=== PATIENT | male | born 1950 | race Caucasian/White ===

== ENCOUNTER 2023-10-05 09:41 | Outpatient (AMB) | payer MEDICARE, MEDICAID, SELFPAY ==
--- NOTE | 2023-10-05 09:43 | A.OFFVIS_ITS ---
Vital Signs 3 10/05/23 09:47 Height 5 ft 5 in Weight 141 lb 2 oz BMI 23.5 BP 125/60 Blood Pressure Location Lt brachial Position Sitting Pulse 81 Intake Visit Reasons: Hernia Intake Note: Patient is seen in office for evaluation and treatment of a hernia. Pt c/o: umbilical hernia, has increase in size, painful at times, denies n/v/d/c, had surgery in the area, appendectomy [employer] Required: No Accompanied by: Other Relationship Allergies No Known Allergies Allergy (Verified 10/05/23 10:05) Medication List - Last Reconciled 10/05/23 by Marco Bowden MD acetaminophen 650 mg MA Q6H acetaminophen (Tylenol) 325 mg PO Q6H PRN bisacodyl (Gentle Laxative (bisacodyl)) 10 mg MA DAILY PRN cholecalciferol (vitamin D3) 10 mcg PO DAILY ciprofloxacin 250 mg PO BID ferrous sulfate 325 mg PO BID finasteride 5 mg PO DAILY gabapentin 100 mg PO DAILY levetiracetam 500 mg PO BID lidocaine 5% (Lidoderm) 1 patch topical DAILY metoprolol tartrate 25 mg PO BID mirtazapine 15 mg PO BEDTIME naloxone 4 mg/actuation (Narcan) 4 mg intranasal Q2M naloxone 0.4 mg subcut Q2M PRN oxybutynin chloride 5 mg PO DAILY pantoprazole 40 mg PO DAILY polyethylene glycol 3350 17 grams PO DAILY potassium chloride ER 20 mEq PO DAILY ramelteon 8 mg PO BEDTIME revefenacin (Yupelri) 175 mcg inhalation DAILY roflumilast 500 mcg PO DAILY rosuvastatin 20 mg PO DAILY rosuvastatin (Crestor) 10 mg PO DAILY sennosides-docusate sodium 8.6-50 mg (Senna Plus) 1 tab-cap PO BEDTIME sucralfate 1 g PO QIDACHS tamsulosin 0.4 mg PO DAILY tizanidine 2 mg PO Q8H PRN HPI Comments Details: 73-year-old male patient with past medical history of Alzheimer's disease, COPD, status post exploratory laparotomy for perforated appendicitis presenting with a large abdominal hernia. No information regarding patient's prior history is available other than medication list and no referring physician note is available to time of this examination. Patient feels the lump has been present for 1 year. He reports difficulty moving his bowels because of the lump. He denies any nausea or vomiting. [facility] Medical History (Updated 10/05/23 @ 10:17 by Marco Bowden MD) Alzheimers disease Irreducible incisional hernia Perforated appendicitis COPD (chronic obstructive pulmonary disease) Surgical History (Updated 10/05/23 @ 10:17 by Marco Bowden MD) History of appendectomy Social History Alcohol intake: never Patient Tobacco Use Status: Current everyday Tobacco user Review of Systems Const Unobtainable due to mental status Physical Exam Vital Signs: Last Vital Signs Pulse 81 10/05/23 09:47 BP 125/60 10/05/23 09:47 BMI result Body Mass Index 23.5 Const General: cooperative and no acute distress Nutritional Appearance: well nourished Orientation/consciousness: patient oriented x3 Limitations: no limitations HEENT Head: Yes normocephalic and Yes atraumatic Ears: hearing grossly normal bilaterally Resp Other: Short of breath with minimal ambulation and when lying supine. Effort & Inspection: normal respiratory effort Cardio Jugular venous distension: no JVD GI Other: Large midline incisional hernia identified measuring at least 15 cm in diameter. Patient placed in a supine, unable to reduce the hernia with light pressure. Minimal tenderness noted to light pressure. No overlying skin changes such as erythema appreciated. Inspection: Yes normal to inspection Abdomen image: 2 1. Previous midline incision 2. Site of incisional hernia Skin Other: Warm, dry, no rash Neuro General: patient oriented x3 Extrem General: Yes no clubbing, cyanosis or edema Assessment & Plan Assessment & Plan (1) Irreducible incisional hernia: Code(s): K43.0 - Incisional hernia with obstruction, without gangrene Category: Medical Plan 73-year-old male presenting for evaluation of an incisional hernia. He apparently underwent an exploratory laparotomy for perforated appendicitis. Minimal information is available at the time of this evaluation. On examination the patient does have a large non reducible incisional hernia. Patient does have COPD and become short of breath with short walking and when lying supine. I recommended further evaluation with CT abdomen and pelvis to evaluate the extent of herniation. Patient may be at high risk for general anesthesia due to his COPD and will certainly require medical clearance prior to considering surgery. We will discuss further when CT results are available. Orders: Orders 2 CT abdomen pelvis wo IV con Today K43.0 - Incisional hernia with obstruction, without gangrene Coding Level of Care Code New Pt Level 4 (04664) Diagnoses Irreducible incisional hernia K43.0
[2023-10-05 09:47] VITALS: BP 125/60; PULSE 81; BMI 23.5
== END 2023-10-05 10:14 | disposition home or self-care (01) ==
LOC: HO.HGS 09:41
PROVIDERS: PCP Emergency Medicine; Visit Provider Surgery
DX: K43.0 Incisional hernia with obstruction, without gangrene (principal)
CPT/HCPCS: 99204

== ENCOUNTER → 2023-10-05 09:41 | Outpatient (BNVA) | payer MEDICARE, MEDICAID, SELFPAY | PROVIDERS: PCP Emergency Medicine; Visit Provider Surgery | DX: K43.0 Incisional hernia with obstruction, without gangrene (principal) | CPT/HCPCS: 99202 ==

== ENCOUNTER 2023-11-24 18:14 | Emergency (ER) | payer OTHER, SELFPAY ==
[2023-11-24 18:26] VITALS: BP 132/74; BP 135/62; PULSE 110; PULSE 95; RESP 18; TEMP 36.7; O2SAT 90; O2SAT 94; BMI 23.6
--- NOTE | 2023-11-24 18:39 | ED.PSYCH ---
HPI - Psych General Chief Complaint: ETOH/Substance Use Stated Complaint: Drug use - marijuana Time Seen by Provider: 11/24/23 18:18 Source: patient Mode of arrival: EMS Limitations: no limitations History of Present Illness ED Provider: Dr. Kahlil Kennedy HPI Narrative: 73-year-old male with a history of dementia, chronic anemia, hypokalemia, BPH, COPD, esophageal cancer, kidney disease, renal calculi, hyperlipidemia, essential hypertension, depression, opiate dependence-remission chronic pain syndrome who was sent from his care facility for the following: ?Resident with increased aggression, found smoking illicit substance not sure what may contain and contraindicated with medications ?. Patient states that he was smoking marijuana. He states that he was in [facility] for [facility] years and was in a detention house. He states that he had multiple falls, was hospitalized and is been at the nursing facility since May of 2023. According to the nursing facility the patient is not allowed to leave from our facility since this would violated his parole. The nursing facilities requesting a urine drug screen. Patient states that he has not feeling ill in any way. He denied headache, nausea, vomiting, chest pain, shortness of breath, abdominal pain, numbness, weakness, fever, chills. Related Data Home Medications ?Medication ?Instructions ?Recorded ?Confirmed acetaminophen 325 mg capsule 325 mg PO Q6H PRN 10/05/23 10/05/23 (Tylenol) acetaminophen 650 mg rectal 650 mg OR Q6H 10/05/23 10/05/23 suppository bisacodyl 10 mg rectal suppository 10 mg OR DAILY PRN 10/05/23 10/05/23 (Gentle Laxative (bisacodyl)) cholecalciferol (vitamin D3) 10 10 mcg PO DAILY 10/05/23 10/05/23 mcg (400 unit) capsule ciprofloxacin 250 mg/5 mL oral 250 mg PO BID 10/05/23 10/05/23 suspension ferrous sulfate 325 mg (65 mg 325 mg PO BID 10/05/23 10/05/23 iron) tablet finasteride 5 mg tablet 5 mg PO DAILY 10/05/23 10/05/23 gabapentin 100 mg capsule 100 mg PO DAILY 10/05/23 10/05/23 levetiracetam 500 mg tablet 500 mg PO BID 10/05/23 10/05/23 lidocaine 5 % topical patch 1 patch topical DAILY 10/05/23 10/05/23 (Lidoderm) metoprolol tartrate 25 mg tablet 25 mg PO BID 10/05/23 10/05/23 mirtazapine 15 mg tablet 15 mg PO BEDTIME 10/05/23 10/05/23 naloxone 0.4 mg/mL injection 0.4 mg subcut Q2M PRN 10/05/23 10/05/23 solution naloxone 4 mg/actuation nasal 4 mg intranasal Q2M 10/05/23 10/05/23 spray (Narcan) oxybutynin chloride 5 mg tablet 5 mg PO DAILY 10/05/23 10/05/23 pantoprazole 40 mg tablet,delayed 40 mg PO DAILY 10/05/23 10/05/23 release polyethylene glycol 3350 17 17 g PO DAILY 10/05/23 10/05/23 gram/dose oral powder potassium chloride 20 mEq 20 meq PO DAILY 10/05/23 10/05/23 tablet,extended release ramelteon 8 mg tablet 8 mg PO BEDTIME 10/05/23 10/05/23 revefenacin 175 mcg/3 mL solution 175 mcg inhalation DAILY 10/05/23 10/05/23 for nebulization (Yupelri) roflumilast 500 mcg tablet 500 mcg PO DAILY 10/05/23 10/05/23 rosuvastatin 10 mg tablet (Crestor) 10 mg PO DAILY 10/05/23 10/05/23 rosuvastatin 20 mg tablet 20 mg PO DAILY 10/05/23 10/05/23 sennosides 8.6 mg-docusate sodium 1 tab-cap PO BEDTIME 10/05/23 10/05/23 50 mg capsule (Senna Plus) sucralfate 1 gram tablet 1 g PO QIDACHS 10/05/23 10/05/23 tamsulosin 0.4 mg capsule 0.4 mg PO DAILY 10/05/23 10/05/23 tizanidine 2 mg tablet 2 mg PO Q8H PRN 10/05/23 10/05/23 Allergies Allergy/AdvReac Type Severity Reaction Status Date / Time No Known Allergies Allergy Verified 11/24/23 18:28 Review of Systems Review of Systems: Yes all other systems are reviewed and are negative [facility] Past Medical History [facility] Narrative: Social history: Patient is a resident of [facility]. He does admit to smoking marijuana. He states that he smokes marijuana whenever he can get his hands on the marijuana. Medical History (Updated 11/24/23 @ 20:23 by Kahlil Kennedy MD) Alzheimers disease Irreducible incisional hernia Perforated appendicitis COPD (chronic obstructive pulmonary disease) Surgical History (Updated 10/05/23 @ 10:17 by Marco Bowden MD) History of appendectomy Social History Social History Alcohol intake: never Patient Tobacco Use Status: Current everyday Tobacco user Do you have a plan to hurt others: No Plan Physical Exam Vital Signs: Vital Signs: Last Vital Signs Temp 98.0 F 11/24/23 18:26 Pulse 95 11/24/23 18:26 Resp 18 11/24/23 18:26 BP 135/62 11/24/23 18:26 Pulse Ox 90 L 11/24/23 18:26 O2 Del Method Room Air 11/24/23 18:26 BMI result Body Mass Index 23.6 Vital signs were normal Exam: General: Awake, alert in no distress, he does have a strong odor of marijuana on his clothes. Head: Normocephalic, atraumatic EENT: PERRL, Lids normal, sclera normal, conjunctiva normal, nose normal , ears normal, throat without erythema or exudates Neck: Supple, no adenopathy Lung: breath sounds symmetric, no wheezing, rales or rhonchi Chest: symmetric movement, nontender, right chest Port-A-Cath Heart: regular rate and rhythm, normal S1, S2 no murmurs or rubs Abdomen: soft, non-tender, nondistended, large abdominal hernia right lower quadrant and mid abdomen, soft, nontender, normal bowel sounds Back: no vertebral tenderness, no CVAT Extremities: no deformities, moves all extremities symmetrically Neuro: Awake, alert, oriented, normal speech, cranial nerves intact, moves all extremities symmetrically Psych: Patient is cooperative Medical Decision Making Medical Decision Making MDM Narrative: 73-year-old male with a history of dementia, chronic anemia, hypokalemia, BPH, COPD, esophageal cancer, kidney disease, renal calculi, hyperlipidemia, essential hypertension, depression, opiate dependence-remission chronic pain syndrome who was sent from his care facility for evaluation of using illicit substance and a urine drug screen. The patient denies being ill in any way. Physical examination did reveal a strong odor of marijuana on his clothes otherwise was unremarkable with no acute findings. Differential diagnosis: ?Includes but is not limited to marijuana use, illicit substance use Following evaluation was ordered: Urine tox screen Course: 20:21 Patient's urine tox screen was positive for marijuana only. Patient will be discharged back to his care facility. Lab Data MDM Lab Attestation statement: I reviewed the patient's lab results. Labs: Lab Results 11/24/23 Range/Units 19:13 Urine Opiates Screen Not Detected (Not Detect) Ur Buprenorphine Scrn Not Detected (Not Detect) ng/mL Ur Oxycodone Screen Not Detected (Not Detect) ng/mL Urine Methadone Screen Not Detected (Not Detect) ng/mL Urine Fentanyl Screen Not Detected (Not Detect) Ur Barbiturates Screen Not Detected (Not Detect) Ur Phencyclidine Scrn Not Detected (Not Detect) Ur Amphetamines Screen Not Detected (Not Detect) U Benzodiazepines Scrn Not Detected (Not Detect) Urine Cocaine Screen Not Detected (Not Detect) U Marijuana (THC) Screen POSITIVE H (Not Detect) Discharge Plan Discharge Clinical Impression: Cannabis use disorder Patient Disposition: Xfer LTC Transfer Details: [facility] Additional Instructions: Your urine drug screen was positive for THC (marijuana) only. Your stable to be discharged back to your long-term care facility. Prescriptions: No Action Yupelri 175 mcg/3 mL solution for nebulization 175 mcg inhalation DAILY cholecalciferol (vitamin D3) 10 mcg (400 unit) capsule 10 mcg PO DAILY lidocaine [Lidoderm] 5 % adhesive patch,medicated 1 patch topical DAILY Rx Instructions: leave on most painful area for up to 12 hrs potassium chloride 20 mEq tablet extended release 20 meq PO DAILY finasteride 5 mg tablet 5 mg PO DAILY pantoprazole 40 mg tablet,delayed release (DR/EC) 40 mg PO DAILY roflumilast 500 mcg tablet 500 mcg PO DAILY tamsulosin 0.4 mg capsule 0.4 mg PO DAILY ciprofloxacin 250 mg/5 mL suspension,microcapsule recon 250 mg PO BID rosuvastatin 20 mg tablet 20 mg PO DAILY mirtazapine 15 mg tablet 15 mg PO BEDTIME ramelteon 8 mg tablet 8 mg PO BEDTIME rosuvastatin [Crestor] 10 mg tablet 10 mg PO DAILY gabapentin 100 mg capsule 100 mg PO DAILY ferrous sulfate 325 mg (65 mg iron) tablet 325 mg PO BID Senna Plus 8.6-50 mg capsule 1 tab-cap PO BEDTIME levetiracetam 500 mg tablet 500 mg PO BID metoprolol tartrate 25 mg tablet 25 mg PO BID sucralfate 1 gram tablet 1 g PO QIDACHS polyethylene glycol 3350 17 gram/dose powder 17 g PO DAILY bisacodyl [Gentle Laxative (bisacodyl)] 10 mg suppository 10 mg OR DAILY PRN acetaminophen [Tylenol] 325 mg capsule 325 mg PO Q6H PRN acetaminophen 650 mg suppository 650 mg OR Q6H oxybutynin chloride 5 mg tablet 5 mg PO DAILY tizanidine 2 mg tablet 2 mg PO Q8H PRN naloxone 0.4 mg/mL solution 0.4 mg subcut Q2M PRN Rx Instructions: NTExceed 10 mg total dose/episode naloxone [Narcan] 4 mg/actuation spray,non-aerosol 4 mg intranasal Q2M Rx Instructions: spray 1 dose into ONE nostril; alternate nostrils w each dose until help arrives Print Language: Italian
--- NOTE | 2023-11-24 18:48 | PC.NURSE ---
Purnima Dooley, quality assurance test program manager from [facility], called to say that when pt. gets discharged from ED, he is to come back to [facility] as part of his parole. Purnima is to be reached at [phone]
[2023-11-24 19:30] LABS: Amphetamine Screen Urine Not Detected (Not Detect); Barbiturates, Urine Not Detected (Not Detect); Benzodiazepines Screen Urine Not Detected (Not Detect); Buprenorphine Scr Not Detected (Not Detect); Cannabinoid Screen Urine POSITIVE (Not Detect); Cocaine Screen Urine Not Detected (Not Detect); Fentanyl, urine Not Detected (Not Detect); Methadone Screen, Urine Not Detected (Not Detect); Opiate Screen Urine Not Detected (Not Detect); Oxycodone Screen Urine Not Detected (Not Detect); Phencyclidine Screen Urine Not Detected (Not Detect)
--- NOTE | 2023-11-24 19:47 | PC.NURSE ---
pt searched by security. no smoking contrabands found. pt is axox4 calm/cooperative. allen sent to lab awaiting results, pending d/c.
[2023-11-24 20:45] VITALS: BP 123/74; PULSE 84; RESP 18; TEMP 36.7; O2SAT 93
--- NOTE | 2023-11-24 21:16 | PC.NURSE ---
Addendum entered by Yumiko Pepe 11/24/23 21:19: pt medically cleared by to be d[facility]c [facility]. staff concerned about marijuana interference with regular medications; addressed by MD on the phone with [facility]. Original Note: notified [facility] staff of pt d/c with [facility]. pt d/c with [facility], calm/cooperative and in agreement to go back.
[2023-11-24 21:17] VITALS: BP 123/74; PULSE 84; RESP 18; TEMP 36.7; O2SAT 93
== END 2023-11-24 21:21 ==
PROVIDERS: Emergency Provider Emergency Medicine Emergency Medical Services
DX: Z02.83 Encounter for blood-alcohol and blood-drug test (principal); F12.988 Cannabis use, unspecified with other cannabis-induced disorder; F17.210 Nicotine dependence, cigarettes, uncomplicated; F11.21 Opioid dependence, in remission; Z79.899 Other long term (current) drug therapy; Z79.02 Long term (current) use of antithrombotics/antiplatelets
CPT/HCPCS: 80307; 99283

== ENCOUNTER 2023-11-25 17:15 | Inpatient (IN) | payer MEDICARE, MEDICAID, SELFPAY ==
--- NOTE | ~2023-11-25 | CT_ITS ---
EXAMINATION: CT CHEST WITHOUT CONTRAST CLINICAL INFORMATION: Lung mass COMPARISON: Chest radiograph from earlier the same day TECHNIQUE: Multidetector volumetric CT imaging of the chest was done. Axial MIP volume rendering provided. Sagittal and coronal reformatted images were obtained. This CT examination was performed using dose optimization techniques as appropriate, variously including the following: *Automated exposure control *Adjustment of mA and/or kV according to patient size (this includes techniques or standardized protocols for targeted exams where dose is matched to indication/reason for exam; i.e. extremities or head) *Use of iterative reconstruction technique DLP: 110 mGy-cm FINDINGS: LUNGS: Moderate emphysema. Diffuse bronchial wall thickening. Some tree-in-bud nodularity in the medial right lower lobe suggesting focal infectious/inflammatory process. Scattered areas of atelectasis. No dense consolidation. Some small scattered nodules, for example in the left lung apex there is a 4 mm nodule (77/603), polygonal 6 mm nodule in the right upper lobe (271/603. MEDIASTINUM: Status post esophagectomy and gastric pull-up. Mediastinal lymph nodes measuring up to 1.3 cm in the right lower paratracheal station normal heart size, no pericardial effusion. Atherosclerotic calcification throughout the thoracic aorta. CORONARY ARTERY CALCIFICATION: Moderate to severe PLEURA: Trace effusions. AXILLA: Right IJ portacatheter. No axillary lymphadenopathy. UPPER ABDOMEN: Left-sided renal calculi measuring up to 5.5 mm. OSSEOUS STRUCTURES: Exaggerated kyphotic curvature in the thoracic spine. Multilevel moderate spondylosis. There is a severe compression deformity at T12 with vertebral plana. Mild compression deformities at T8 and T9. CT/CT chest wo IV con IMPRESSION: 1. Moderate emphysema. Diffuse bronchial wall thickening. Tree-in-bud nodularity in the medial right lower lobe suggesting focal infectious/inflammatory process. 2. Scattered small pulmonary nodules measuring up to 6 mm in the right upper lobe. Comparison with prior imaging would be helpful to assess acuity. Recommend follow-up imaging in one year if comparison is not available. 3. Status post esophagectomy and gastric pull-up. 4. Severe compression deformity at T12 with vertebral plana. Mild compression deformities at T8 and T9. 5. Left-sided renal calculi measuring up to 5.5 mm. Fleischner guidelines were followed.
--- NOTE | ~2023-11-25 | XR_ITS ---
EXAMINATION: XR CHEST CLINICAL INFORMATION: Hypoxia COMPARISON: None available. TECHNIQUE: Frontal view of the chest was obtained. FINDINGS: vascularity. LUNGS: Lungs are hyperinflated with flat hemidiaphragms. Mass like alveolar density is seen in medial right lower lung infrahilar region measuring 2.2 cm in vertical height, 1.9 cm in width. No pneumothorax is seen. Right internal jugular central line is seen ending at expected location of superior vena cava. XR/XR chest 1V IMPRESSION: 1. Mass like alveolar density in medial right lower lung infrahilar region. Correlation with clinical history and CT chest finding is recommended. 2. Right internal jugular Port-A-Cath is seen. 3. Emphysematous COPD.
--- NOTE | 2023-11-25 17:43 | ED.PSYCH ---
HPI - Psych General Chief Complaint: Behavioral Concerns Stated Complaint: SECT 12 FROM [facility] Time Seen by Provider: 11/25/23 17:33 Source: patient and other (Section 12) Mode of arrival: EMS Limitations: no limitations History of Present Illness ED Provider: Dr. Kahlil Kennedy HPI Narrative: 73-year-old male with a history of dementia, chronic anemia, hypokalemia, BPH, COPD, esophageal cancer, kidney disease, renal calculi, hyperlipidemia, essential hypertension, depression, opiate dependence-remission, chronic pain syndrome who was seen in the emergency department yesterday by me for aggressive behavior at his nursing facility and for smoking marijuana. The patient did have a positive marijuana test but was not aggressive in the emergency department yesterday and was discharged back to his care facility. The patient was sent back to the emergency department on a Section 12. Following information was obtained from the Section 12: ?Using illicit substance and facility; violent and aggressive behavior: Kicking, hitting, throwing items, verbal threats of harm. Active attempts to leave facility. According to EMS, patient through hot coffee at a nurse today as well. Here in the emergency department the patient is threatening violence against ED staff. He states that he does not want to be here. He states he does not want to be his long-term care facility and that he wants to go back to halfway. The patient told me yesterday that he committed murder proximally 38 years ago and was released in halfway in his been on parole for several years. He was living at a half-way house but since May after multiple falls he has been living in a long-term care facility ([facility]). Related Data Home Medications ?Medication ?Instructions ?Recorded ?Confirmed acetaminophen 325 mg capsule 325 mg PO Q6H PRN Mild Pain (Scale 10/05/23 11/26/23 (Tylenol) Score 1-4) acetaminophen 650 mg rectal 650 mg ME Q6H 10/05/23 11/26/23 suppository bisacodyl 10 mg rectal suppository 10 mg ME DAILY PRN Constipation 10/05/23 11/26/23 (Gentle Laxative (bisacodyl)) cholecalciferol (vitamin D3) 10 10 mcg PO DAILY 10/05/23 11/26/23 mcg (400 unit) capsule ciprofloxacin 250 mg/5 mL oral 250 mg PO BID 10/05/23 10/05/23 suspension ferrous sulfate 325 mg (65 mg 325 mg PO BID 10/05/23 11/26/23 iron) tablet finasteride 5 mg tablet 5 mg PO DAILY 10/05/23 11/26/23 gabapentin 100 mg capsule 100 mg PO DAILY 10/05/23 10/05/23 levetiracetam 500 mg tablet 500 mg PO BID 10/05/23 11/26/23 lidocaine 5 % topical patch 1 patch topical DAILY 10/05/23 11/26/23 (Lidoderm) metoprolol tartrate 25 mg tablet 25 mg PO BID 10/05/23 11/26/23 mirtazapine 15 mg tablet 15 mg PO BEDTIME 10/05/23 11/26/23 naloxone 0.4 mg/mL injection 0.4 mg subcut Q2M PRN Opioid 10/05/23 11/26/23 solution Overdose naloxone 4 mg/actuation nasal 4 mg intranasal Q2M 10/05/23 11/26/23 spray (Narcan) oxybutynin chloride 5 mg tablet 5 mg PO DAILY 10/05/23 11/26/23 pantoprazole 40 mg tablet,delayed 40 mg PO DAILY 10/05/23 11/26/23 release polyethylene glycol 3350 17 17 g PO DAILY 10/05/23 11/26/23 gram/dose oral powder potassium chloride 20 mEq 20 meq PO DAILY 10/05/23 11/26/23 tablet,extended release ramelteon 8 mg tablet 8 mg PO BEDTIME 10/05/23 11/26/23 revefenacin 175 mcg/3 mL solution 175 mcg inhalation DAILY 10/05/23 10/05/23 for nebulization (Yupelri) roflumilast 500 mcg tablet 500 mcg PO DAILY 10/05/23 11/26/23 rosuvastatin 10 mg tablet (Crestor) 10 mg PO DAILY 10/05/23 11/26/23 rosuvastatin 20 mg tablet 20 mg PO DAILY 10/05/23 10/05/23 sennosides 8.6 mg-docusate sodium 1 tab-cap PO BEDTIME 10/05/23 11/26/23 50 mg capsule (Senna Plus) sucralfate 1 gram tablet 1 g PO QIDACHS 10/05/23 11/26/23 tamsulosin 0.4 mg capsule 0.4 mg PO DAILY 10/05/23 11/26/23 tizanidine 2 mg tablet 2 mg PO Q8H PRN Spasms 10/05/23 11/26/23 Allergies Allergy/AdvReac Type Severity Reaction Status Date / Time No Known Allergies Allergy Verified 11/25/23 17:54 Review of Systems Review of Systems: Yes all other systems are reviewed and are negative [facility] Past Medical History Medical History (Updated 11/26/23 @ 01:48 by Kahlil Kennedy MD) Alzheimers disease Irreducible incisional hernia Perforated appendicitis COPD (chronic obstructive pulmonary disease) Surgical History (Updated 10/05/23 @ 10:17 by Marco Bowden MD) History of appendectomy Social History Social History Alcohol intake: never Patient Tobacco Use Status: Current everyday Tobacco user Smoked in Last 30 Days: No Use of substances other than those prescribed or required for medical reasons: Yes Substance Use Type: Marijuana Last Used Substance: Hours (ago) Advance Directives: No Advance Directives Information Provided: No Physical Exam Vital Signs: Vital Signs: Last Vital Signs Temp 97.2 F 11/25/23 18:00 Pulse 94 11/25/23 18:00 Resp 22 H 11/25/23 18:00 BP 110/83 11/25/23 18:00 Pulse Ox 93 11/25/23 18:00 O2 Del Method Room Air 11/25/23 18:00 BMI result Body Mass Index 24.0 Exam: General: Awake, alert in no distress, patient is sitting in a chair, he is talking loudly in stating that does not want to be here and that he does not want to cooperate with our evaluation. Head: Normocephalic, atraumatic EENT: PERRL, Lids normal, sclera normal, conjunctiva normal, nose normal , ears normal, throat without erythema or exudates Neck: Supple, no adenopathy Lung: breath sounds symmetric, no wheezing, rales or rhonchi Chest: symmetric movement, nontender Heart: regular rate and rhythm, normal S1, S2 no murmurs or rubs Abdomen: soft, non-tender, nondistended, normal bowel sounds Back: no vertebral tenderness, no CVAT Extremities: no deformities, moves all extremities symmetrically Neuro: Awake, alert, oriented, normal speech, cranial nerves intact, moves all extremities symmetrically Psych: Patient did make verbal threats against our staff however he did agree to get undressed, take his watch and jewelry off. He also agree to oral medications to help control his aggression. Medications Administered Discontinued Medications Generic Name Dose Route Start Last Admin Trade Name Abbey PRN Reason Stop Dose Admin Diphenhydramine HCl 25 mg 11/25/23 17:43 11/25/23 18:07 Diphenhydramine Hcl 25 Mg Capsule PO 11/25/23 17:44 25 mg ONCE ONE Administration Olanzapine 10 mg 11/25/23 17:43 11/25/23 18:07 Olanzapine 10 Mg Tablet PO 11/25/23 17:44 10 mg ONCE ONE Administration Medical Decision Making Medical Decision Making [facility] Narrative: 73-year-old male with a history of dementia, chronic anemia, hypokalemia, BPH, COPD, esophageal cancer, kidney disease, renal calculi, hyperlipidemia, essential hypertension, depression, opiate dependence-remission, chronic pain syndrome who was seen in the emergency department yesterday by me for aggressive behavior at his nursing facility and for smoking marijuana, tox screen was positive for marijuana only. According to his Section 12 the patient continued to display aggressive behavior at the nursing facility and reportedly threw hot coffee at a nurse. Patient also was attempting to leave the facility. Patient was in halfway for 38 years for murder and currently is on parole and reported that he has been at his current long-term nursing facility since 06/09/2023 secondary to falls. Patient is on parole and leaving the nursing facility would violated his parole conditions. Patient's physical examination was unremarkable. Differential diagnosis: ?Includes but is not limited to dementia, aggressive behavior, depression, anxiety, electrolyte abnormalities, thyroid dysfunction, anemia, urinary tract infection Following evaluation was ordered: CBC, CMP, magnesium, PTT, TSH with reflex T4, urinalysis, drug screen urine, ethanol level Patient was initially treated with the following: Zyprexa 10 mg orally, Benadryl 25 mg orally, Ativan 1 mg orally Course: 21:46 My interpretation patient's laboratory evaluation is as follows: WBC low 4600 with normal differential, normocytic anemia with an H&H of 10.6 and 33.8. Low platelet count of a 641508. No previous CBC for comparison. Potassium was elevated at 5.4 hours specimen is hemolyzed. BUN and creatinine were elevated 28 and 1.63. Glucose elevated 199. LFTs were normal. TSH was normal. Ethanol level was below detectable limits. Urine drug screen is pending urine collection. Patient's drug screen yesterday was positive for marijuana only but the patient was sent to the hospital since he was found smoking marijuana. I do not have any baseline labs on this patient but I suspect that the pancytopenia and elevated creatinine on chronic and not related to his presentation for aggressive behavior. The patient is medically cleared for care team consult to determine disposition. 02:00 Start physician observation Urine tox screen was positive for THC only The patient has been resting comfortably since receiving the above medications. At the end of my shift, the patient is still waiting for evaluation by care team. Therefore, the patient's care was turned over to my colleague, Dr. Edison Alonso. Patient will remain in the emergency department Behavioral Health Unit until disposition can be determined or until patient's symptoms improve over time. Admission/Observation Consideration of admission/observation: Escalation of care including admission/observation considered Lab Data MDM Lab Attestation statement: I reviewed the patient's lab results. 11/25/23 19:39 11/25/23 19:39 Labs: Lab Results 11/25/23 11/25/23 11/26/23 Range/Units 19:39 20:20 00:09 WBC 4.6 L (4.8-10.8) X10*3/uL RBC 3.48 L (4.60-5.80) X10*6/uL Hgb 10.6 L (14.0-18.0) g/dl Hct 33.8 L (42.0-52.0) % MCV 97.1 (80.0-98.0) fL MCH 30.5 (27.0-33.0) pg MCHC 31.4 (31.0-36.0) g/dl RDW 13.6 (11.0-16.0) % Plt Count 118 L (160-400) X10*3/uL MPV 9.2 L (9.4-12.4) fL Immature Gran % (Auto) 0.4 (0.0-0.4) % Neut % (Auto) 71.0 (45-73) % Lymph % (Auto) 16.1 L (20-40) % [place] % (Auto) 8.3 (2-11) % Eos % (Auto) 3.5 (0-4) % Baso % (Auto) 0.7 (0-2) % Lymph # (Auto) 0.7 L (1.2-4.9) X10*3/uL [place] # (Auto) 0.4 (0.1-1.2) X10*3/uL Eos # (Auto) 0.2 (0.0-0.4) X10*3/uL Baso # (Auto) 0.0 (0.0-0.2) X10*3/uL Abs Immat Gran (auto) 0.02 (0.00-0.03) X10*3/uL Absolute Neuts (auto) 3.3 (2.0-8.3) x10*3/uL Absolute Nucleated RBC 0.000 (0.0-0.012) X10*3/uL Nucleated RBC % (auto) 0.0 (0.0-0.2) /100WBC APTT 22.9 L (26.0-36.8) SEC Sodium 142 (135-145) mmol/L Potassium 5.4 H (3.3-5.1) mmol/L Chloride 111 H (96-108) mmol/L Carbon Dioxide 22 (22-29) mmol/L Anion Gap 14 (12-20) BUN 28 H (9-16) mg/dL Creatinine 1.63 H (0.5-1.4) mg/dL Estim Creat Clear Calc 33.7 Estimated GFR 42 Random Glucose 199 H (60-115) mg/dL Calcium 8.9 (8.4-10.2) mg/dL Magnesium 1.9 (1.6-2.6) mg/dL Total Bilirubin 0.3 (0.0-1.0) mg/dL AST 19 (5-37) U/L ALT 11 (0-40) U/L Alkaline Phosphatase 78 (39-117) U/L Total Protein 7.2 (6.5-8.0) g/dL Albumin 3.5 (3.5-5.0) g/dL TSH 0.65 (0.32-4.0) uIU/mL Urine Color Yellow Urine Appearance Clear Urine pH 5.5 (5.0-9.0) Ur Specific [place] 1.015 (1.005-1.025) Urine Protein 30 (1+) H (Neg-Trace) mg/dL Urine Glucose (UA) Negative (Negative) mg/dL Urine Ketones Negative (Negative) mg/dL Urine Blood Moderate (2+) H (Negative) Urine Nitrite Positive H (Negative) Ur Leukocyte Esterase Small (1+) H (Negative) Urine RBC >20 H (0-2) /HPF Urine WBC 11-20 H (0-5) /HPF Ur Squamous Epith Cells 3-5 (0-2) /HPF Urine Bacteria Trace (None Seen) Hyaline Casts 0-2 (0-2) /LPF Urine Opiates Screen Not Detected (Not Detect) Ur Buprenorphine Scrn Not Detected (Not Detect) ng/mL Ur Oxycodone Screen Not Detected (Not Detect) ng/mL Urine Methadone Screen Not Detected (Not Detect) ng/mL Urine Fentanyl Screen Not Detected (Not Detect) Ur Barbiturates Screen Not Detected (Not Detect) Ur Phencyclidine Scrn Not Detected (Not Detect) Ur Amphetamines Screen Not Detected (Not Detect) U Benzodiazepines Scrn Not Detected (Not Detect) Urine Cocaine Screen Not Detected (Not Detect) U Marijuana (THC) Screen POSITIVE H (Not Detect) Ethyl Alcohol < 10 mg/dL Influenza Type A (PCR) NEGATIVE (Negative) Influenza Type B (PCR) NEGATIVE (Negative) RSV RNA Qual (PCR) NEGATIVE (Negative) SARS-CoV-2 RNA (RT-PCR) NEGATIVE (Negative) Independent Interpretation I performed an independent interpretation of an: EKG Interpretation: My independent interpretation patient's 12 EKG at 18:13 hours is as follows: Sinus rhythm with a rate of 86, first-degree AV block with a ME interval of 204 milliseconds, normal QRS duration and QTC interval, no ST segment elevation, no ST segment depression, no significant T-wave abnormalities External Record Review External record reviewed: Other (Section 12) Chronic Conditions Patient?s care impacted by: Other (COPD, dementia) Discharge Plan Discharge Clinical Impression: Aggressive behavior Patient Disposition: Still a Patient Prescriptions: No Action Yupelri 175 mcg/3 mL solution for nebulization 175 mcg inhalation DAILY cholecalciferol (vitamin D3) 10 mcg (400 unit) capsule 10 mcg PO DAILY lidocaine [Lidoderm] 5 % adhesive patch,medicated 1 patch topical DAILY Rx Instructions: leave on most painful area for up to 12 hrs potassium chloride 20 mEq tablet extended release 20 meq PO DAILY finasteride 5 mg tablet 5 mg PO DAILY pantoprazole 40 mg tablet,delayed release (DR/EC) 40 mg PO DAILY roflumilast 500 mcg tablet 500 mcg PO DAILY tamsulosin 0.4 mg capsule 0.4 mg PO DAILY ciprofloxacin 250 mg/5 mL suspension,microcapsule recon 250 mg PO BID rosuvastatin 20 mg tablet 20 mg PO DAILY mirtazapine 15 mg tablet 15 mg PO BEDTIME ramelteon 8 mg tablet 8 mg PO BEDTIME rosuvastatin [Crestor] 10 mg tablet 10 mg PO DAILY gabapentin 100 mg capsule 100 mg PO DAILY ferrous sulfate 325 mg (65 mg iron) tablet 325 mg PO BID Senna Plus 8.6-50 mg capsule 1 tab-cap PO BEDTIME levetiracetam 500 mg tablet 500 mg PO BID metoprolol tartrate 25 mg tablet 25 mg PO BID sucralfate 1 gram tablet 1 g PO QIDACHS polyethylene glycol 3350 17 gram/dose powder 17 g PO DAILY bisacodyl [Gentle Laxative (bisacodyl)] 10 mg suppository 10 mg ME DAILY PRN (Reason: Constipation) acetaminophen [Tylenol] 325 mg capsule 325 mg PO Q6H PRN (Reason: Mild Pain (Scale Score 1-4)) acetaminophen 650 mg suppository 650 mg ME Q6H oxybutynin chloride 5 mg tablet 5 mg PO DAILY tizanidine 2 mg tablet 2 mg PO Q8H PRN (Reason: Spasms) naloxone 0.4 mg/mL solution 0.4 mg subcut Q2M PRN (Reason: Opioid Overdose) Rx Instructions: NTExceed 10 mg total dose/episode naloxone [Narcan] 4 mg/actuation spray,non-aerosol 4 mg intranasal Q2M Rx Instructions: spray 1 dose into ONE nostril; alternate nostrils w each dose until help arrives Print Language: Spanish
[2023-11-25 17:52] VITALS: BP 110/83; PULSE 93; RESP 22; TEMP 36.2; O2SAT 93; BMI 24.0
--- NOTE | 2023-11-25 17:56 | ECG_ITS ---
Test Reason : QTC EVALUATION FOR PSYCHIATRIC MEDICATON Blood Pressure : / mmHG Vent. Rate : 086 BPM Atrial Rate : 086 BPM P-R Int : 204 ms QRS Dur : 092 ms QT Int : 366 ms P-R-T Axes : 000 152 140 degrees QTc Int : 437 ms Normal sinus rhythm Low voltage QRS Left posterior fascicular block Abnormal ECG No previous ECGs available Referred By: Kahlil Kennedy Electronically Signed By:Sivakumar Hook
--- NOTE | 2023-11-25 17:58 | MHC.CARE ---
Spoke to [facility] [employer] Handicapper Payam, who reports that Pt was sent to [facility] yesterday 11/24/23 due to Pt smoking marijuana and passing it to other residents who are on psychiatric medications. She reports that staff thinks he was a risk to himself and others, but he was discharged back to the facility anyway. She reports that [facility] has a no drug use policy. She reports that today, Pt was put on a section 12 to [facility] by psychiatry who deemed him a risk to himself and others. Earlier this morning, Pt was caught smoking marijuana and agreed to staff doing a room search. 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 Upon Pt's marijuana being confiscated Pt began kicking at staff and trying to bite us, throwing things and throwing hot coffee and was verbally aggressive towards staff. Payam reports that disposition can be reported to the nursing associate when decided.
[2023-11-25 18:00] VITALS: BP 110/83; PULSE 94; RESP 22; TEMP 36.2; O2SAT 93
[2023-11-25] MEDS: diphenhydrAMINE HCL 25 MG CAPSULE PO (18:07)
[2023-11-25] MEDS: OLANZapine 10 MG TABLET PO (18:07)
[2023-11-25 19:44] LABS: MANUAL DIFF FLAG NO
[2023-11-25 19:47] LABS: Basophils Percent Auto 0.7 % (0-2); Eosinophils Absolute Auto 0.2 X10*3/uL (0.0-0.4); Eosinophils Percent Auto 3.5 % (0-4); Hematocrit 33.8 % (42.0-52.0); Hemoglobin 10.6 g/dl (14.0-18.0); Imm Gran Abs Auto 0.02 X10*3/uL (0.00-0.03); Imm Gran Pct Auto 0.4 % (0.0-0.4); Lymphocytes Absolute Auto 0.7 X10*3/uL (1.2-4.9); Lymphocytes Percent Auto 16.1 % (20-40); Mean Corpuscular HGB Conc 31.4 g/dl (31.0-36.0); Mean Corpuscular Hemoglobin 30.5 pg (27.0-33.0); Mean Corpuscular Volume 97.1 fL (80.0-98.0); Mean Platelet Volume 9.2 fL (9.4-12.4); Monocytes Absolute Auto 0.4 X10*3/uL (0.1-1.2); Monocytes Percent Auto 8.3 % (2-11); Neutrophils Absolute Auto 3.3 x10*3/uL (2.0-8.3); Platelet Count 118 X10*3/uL (160-400); Red Blood Count 3.48 X10*6/uL (4.60-5.80); Red Cell Distribution Width 13.6 % (11.0-16.0); White Blood Count 4.6 X10*3/uL (4.8-10.8)
[2023-11-25 20:08] LABS: Partial Thromboplastin Time 22.9 SEC (26.0-36.8)
[2023-11-25 20:11] LABS: Alanine Aminotransferase 11 U/L (0-40); Albumin Level 3.5 g/dL (3.5-5.0); Alkaline Phosphatase 78 U/L (39-117); Anion Gap 14 (12-20); Aspartate Amino Transferase 19 U/L (5-37); Bilirubin Total 0.3 mg/dL (0.0-1.0); Blood Urea Nitrogen 28 mg/dL (9-16); Calcium 8.9 mg/dL (8.4-10.2); Carbon Dioxide 22 mmol/L (22-29); Chloride 111 mmol/L (96-108); Creatinine Clr Calc Pharmacy 33.7; Estimated Glomerular Filt Rate 42; Ethanol < 10 mg/dL; Glucose Random 199 mg/dL (60-115); Magnesium 1.9 mg/dL (1.6-2.6); Potassium 5.4 mmol/L (3.3-5.1); Sodium 142 mmol/L (135-145); Total Protein 7.2 g/dL (6.5-8.0)
[2023-11-25 20:22] LABS: TSH reflex Free T4 0.65 uIU/mL (0.32-4.0)
[2023-11-25 21:03] LABS: Influenza A PCR NEGATIVE (Negative); Influenza B PCR NEGATIVE (Negative); Resp Syncy Virus RNA Qual PCR NEGATIVE (Negative); SARS COV2 PCR INHOUSE NEGATIVE (Negative)
[2023-11-26] VITALS (14 sets, daily range): BP systolic 123–152; BP diastolic 58–81; PULSE 76–90; RESP 16–26; TEMP 36.6–37.1; O2SAT 80–100; BMI 23.4
[2023-11-26 00:39] LABS: Appearance Urine Clear; Color Urine Yellow; Glucose Urine UA Negative (Negative); Leukocyte Esterase Urine Small (1+) (Negative); Nitrite Urine Positive (Negative); PH 5.5 (5.0-9.0); Specific Gravity - Urine 1.015 (1.005-1.025); UMIC TRIGGER UACC YES; Urine Blood Moderate (2+) (Negative); Urine Ketones Negative (Negative); Urine Protein 30 (1+) mg/dL (Neg-Trace)
[2023-11-26 00:42] LABS: Bacteria Urine Trace (None Seen); Hyaline Casts Urine 0-2 /LPF (0-2); RBC Urine >20 /HPF (0-2); UACC Culture Trigger YES
[2023-11-26 00:50] LABS: Amphetamine Screen Urine Not Detected (Not Detect); Barbiturates, Urine Not Detected (Not Detect); Benzodiazepines Screen Urine Not Detected (Not Detect); Buprenorphine Scr Not Detected (Not Detect); Cannabinoid Screen Urine POSITIVE (Not Detect); Cocaine Screen Urine Not Detected (Not Detect); Fentanyl, urine Not Detected (Not Detect); Methadone Screen, Urine Not Detected (Not Detect); Opiate Screen Urine Not Detected (Not Detect); Oxycodone Screen Urine Not Detected (Not Detect); Phencyclidine Screen Urine Not Detected (Not Detect)
[2023-11-26] MEDS: Albuterol Sulfate 90 MCG 8 GM INHALER 2 PUFF INHALE (05:10)
--- NOTE | 2023-11-26 06:20 | MHC.EDTECH ---
Patient refused to be hooked up to unemployment insurance hearing officer ,RN Ivette aware .
--- NOTE | 2023-11-26 06:23 | PC.NURSE ---
spo2 85% on room air. pt yelling at this RN I'm fucking fine. Leave me alone to sleep. labored breathing noted which is a change in patient condition. this RN notified MD and credit charge authorizer. pt moved to main ED. report given to CRUZ Steele.
--- NOTE | 2023-11-26 07:44 | PC.NURSE ---
Pt initially refusing breathing treatment for previous staff, now agreeable. RT called. Sats maintaining on RA around 94-95%
[2023-11-26] MEDS: Albuterol Sulfate 2.5 MG, Albuterol/Iprat 2.5/0.5MG 3 ML 3 ML INHALE (08:25)
--- NOTE | 2023-11-26 09:48 | PC.NURSE ---
Pt noted to desat to 80% while sleeping. placed on 2L O2 via NC and improved to 94%
[2023-11-26 10:57] LABS: MANUAL DIFF FLAG NO
[2023-11-26] MEDS: methylPREDNISolone Sod Succ 125 MG/2 ML VIAL IVPUSH (10:57)
--- NOTE | 2023-11-26 11:02 | PC.NURSE ---
Port on right side accessed by this RN using sterile technique. Pt tolerated well, no issues accessing.
[2023-11-26 11:07] LABS: Basophils Percent Auto 0.5 % (0-2); Eosinophils Absolute Auto 0.1 X10*3/uL (0.0-0.4); Eosinophils Percent Auto 3.7 % (0-4); Hematocrit 30.8 % (42.0-52.0); Hemoglobin 9.7 g/dl (14.0-18.0); Imm Gran Abs Auto 0.01 X10*3/uL (0.00-0.03); Imm Gran Pct Auto 0.3 % (0.0-0.4); Lymphocytes Absolute Auto 0.6 X10*3/uL (1.2-4.9); Lymphocytes Percent Auto 15.4 % (20-40); Mean Corpuscular HGB Conc 31.5 g/dl (31.0-36.0); Mean Corpuscular Hemoglobin 30.8 pg (27.0-33.0); Mean Corpuscular Volume 97.8 fL (80.0-98.0); Mean Platelet Volume 9.5 fL (9.4-12.4); Monocytes Absolute Auto 0.3 X10*3/uL (0.1-1.2); Monocytes Percent Auto 8.5 % (2-11); Neutrophils Absolute Auto 2.7 x10*3/uL (2.0-8.3); Neutrophils Percent Auto 71.6 % (45-73); Platelet Count 115 X10*3/uL (160-400); Red Blood Count 3.15 X10*6/uL (4.60-5.80); Red Cell Distribution Width 13.8 % (11.0-16.0); White Blood Count 3.8 X10*3/uL (4.8-10.8)
[2023-11-26 11:17] LABS: Alanine Aminotransferase 9 U/L (0-40); Albumin Level 3.2 g/dL (3.5-5.0); Alkaline Phosphatase 68 U/L (39-117); Anion Gap 9 (12-20); Aspartate Amino Transferase 12 U/L (5-37); Bilirubin Total 0.2 mg/dL (0.0-1.0); Blood Urea Nitrogen 24 mg/dL (9-16); Carbon Dioxide 29 mmol/L (22-29); Chloride 111 mmol/L (96-108); Creatinine Clr Calc Pharmacy 39.3; Estimated Glomerular Filt Rate 50; Glucose Random 94 mg/dL (60-115); Potassium 3.8 mmol/L (3.3-5.1); Sodium 145 mmol/L (135-145); Total Protein 6.4 g/dL (6.5-8.0)
--- NOTE | 2023-11-26 11:32 | PHA.MEDREC ---
Pharmacy Consult ? Medication Reconciliation Pharmacy has completed the medication reconciliation. Confirmed medications with list provided by facility.
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
[2023-11-26] MEDS: Albuterol/Iprat 2.5/0.5MG 3 ML AMPUL.NEB INHALE ×3 (12:30→20:54)
--- NOTE | 2023-11-26 12:54 | HO.SUDE ---
Pt does not require IPLOC and can return to [facility] at this time. He does not meet criteria for higher level of care and is cleared by the CARE team.
[2023-11-26] MEDS: levETIRAcetam 500 MG TABLET PO ×2 (13:05→20:14)
[2023-11-26] MEDS: Tamsulosin HCL 0.4 MG CAPSULE PO (13:05)
[2023-11-26] MEDS: Sucralfate 1 GM TABLET PO ×3 (13:06→20:14)
[2023-11-26] MEDS: Metoprolol Tartrate 12.5 MG HALFTAB PO ×2 (13:06→20:14)
[2023-11-26] MEDS: cefTRIAXone sodium 1 GM in 0.9 % Sodium Chloride 50 ML IV (13:07)
[2023-11-26] MEDS: Enoxaparin Sodium 40 MG/0.4 ML SYRINGE SUBCUT (13:07)
[2023-11-26] MEDS: Roflumilast 500 MCG TABLET PO (14:07)
[2023-11-26] MEDS: 0.9 % Sodium Chloride Flush 3 ML SYRINGE IVFLUSH (16:11)
[2023-11-26] MEDS: Ferrous Sulfate 324 MG TABLET.DR PO (20:14)
[2023-11-26] MEDS: Sennosides/Docusate Sodium TABLET 1 TAB PO (20:14)
[2023-11-26] MEDS: LORazepam 0.5 MG TABLET PO (20:14)
[2023-11-26] MEDS: Nicotine Polacrilex Lozenge 2 MG LOZENGE BUCCAL (20:14)
[2023-11-26] MEDS: Gabapentin 400 MG CAPSULE PO (20:14)
[2023-11-26] MEDS: methylPREDNISolone Sod Succ 40 MG/ML VIAL IVPUSH (20:14)
[2023-11-26] MEDS: Mirtazapine 15 MG TABLET PO (20:14)
[2023-11-27] VITALS (7 sets, daily range): BP systolic 128–160; BP diastolic 60–73; PULSE 67–84; RESP 16–20; TEMP 36.2–36.9; O2SAT 93–98
[2023-11-27] MEDS: 0.9 % Sodium Chloride Flush 3 ML SYRINGE IVFLUSH ×4 (00:15→19:29)
[2023-11-27] MEDS: LORazepam 2 MG/ML VIAL 1 MG IVPUSH (00:15)
--- NOTE | 2023-11-27 04:29 | PM.EVENT ---
Event Note Date of Service: 11/27/23 Event Note: Contacted by lab to notify blood culture collected 11/26/23 one bottle/one set gram positive cocci in clusters seen on gram stain. Will repeat BCs X2 and start tx w/ vancomycin IV. Time Spent With Patient Time: Total time managing care of this patient today ____ minutes.
[2023-11-27] MEDS: Omeprazole 20 MG CAPSULE.DR PO (05:35)
--- NOTE | 2023-11-27 05:42 | PC.NURSE ---
Phlebotomy at bedside now attempting blood cultures.
[2023-11-27] MEDS: vancomycin HCL 1,500 MG in 0.9 % Sodium Chloride 500 ML 333.33 MG IV (05:57)
[2023-11-27 05:59] LABS: Basophils Percent Auto 0.2 % (0-2); Eosinophils Percent Auto 0.2 % (0-4); Hematocrit 29.3 % (42.0-52.0); Hemoglobin 9.3 g/dl (14.0-18.0); Imm Gran Abs Auto 0.01 X10*3/uL (0.00-0.03); Imm Gran Pct Auto 0.2 % (0.0-0.4); Lymphocytes Absolute Auto 0.6 X10*3/uL (1.2-4.9); Lymphocytes Percent Auto 10.6 % (20-40); MANUAL DIFF FLAG NO; Mean Corpuscular HGB Conc 31.7 g/dl (31.0-36.0); Mean Corpuscular Hemoglobin 30.4 pg (27.0-33.0); Mean Corpuscular Volume 95.8 fL (80.0-98.0); Mean Platelet Volume 9.9 fL (9.4-12.4); Monocytes Absolute Auto 0.5 X10*3/uL (0.1-1.2); Monocytes Percent Auto 8.9 % (2-11); Neutrophils Absolute Auto 4.8 x10*3/uL (2.0-8.3); Neutrophils Percent Auto 79.9 % (45-73); Platelet Count 134 X10*3/uL (160-400); Red Blood Count 3.06 X10*6/uL (4.60-5.80); Red Cell Distribution Width 13.6 % (11.0-16.0); White Blood Count 5.9 X10*3/uL (4.8-10.8)
[2023-11-27 06:16] LABS: Anion Gap 12 (12-20); Blood Urea Nitrogen 31 mg/dL (9-16); Calcium 9.2 mg/dL (8.4-10.2); Carbon Dioxide 28 mmol/L (22-29); Chloride 109 mmol/L (96-108); Creatinine Clr Calc Pharmacy 34.8; Estimated Glomerular Filt Rate 43; Glucose Random 124 mg/dL (60-115); Potassium 4.4 mmol/L (3.3-5.1); Sodium 145 mmol/L (135-145)
--- NOTE | 2023-11-27 07:00 | CA_ITS ---
Transthoracic Echocardiogram Patient (Last, First, Middle): Kurt Liu, Gender: Male Date of : 1950 Age: 73 Procedure Date: 11/27/2023 Procedure Type: Transthoracic Echocardiogram Location[place] [facility] [place] Height: 162.56 cm Weight: 61.69 kg BSA: 1.66 m2 Heart Rate: bpm BP: 154 / 62 mmHg Dev Ops Engineer: Referring MD: Otoniel Byers MD Symptoms: Bacteremia Study Quality: Adequate ECG Rhythm: Sinus Conclusions: - Normal left ventricular size and systolic function. There is mildly increased left ventricular wall thickness. The visually estimated ejection fraction is between 55-60%. There is no evidence of regional wall motion abnormalities. Diastolic function is normal for age. - Mildly increased right ventricular cavity size. There is normal right ventricular systolic function. - Normal valvular assessment. Findings Left Ventricle Normal left ventricular size and systolic function. There is mildly increased left ventricular wall thickness. The visually estimated ejection fraction is between 55-60%. There is no evidence of regional wall motion abnormalities. Diastolic function is normal for age. Right Ventricle Mildly increased right ventricular cavity size. There is normal right ventricular systolic function. Atria The left atrium is normal in size. Aortic Valve There is a normal trileaflet aortic valve. There is no aortic valve stenosis. There is no aortic valve regurgitation. Mitral Valve Normal mitral valve structure and function. There is trace mitral valve regurgitation. There is no mitral valve stenosis. Pulmonic Valve The pulmonic valve is likely normal. Tricuspid Valve Normal tricuspid valve structure and function. There is trace tricuspid valve regurgitation. Tricuspid regurgitation envelope is inadequate for calculation of right ventricular systolic pressure. Normal right atrial pressure. Great Vessels All visible segments of the aorta are normal in size. Venous The inferior vena cava is normal in size and collapses greater than 50% with inspiration. Pericardium/Pleural There is no evidence of pericardial effusion. Prior Study Comparison No prior study available for comparison. Measurements 2D Linear Measurements IVSd: 1.20 0.6-0.9/0.6-1.0 cm LVIDd: 3.87 3.9-5.3/4.2-5.9 cm LVIDd Index: 2.33 2.4-3.2/2.2-3.1 cm/m2 LVIDs: 2.36 2.0-3.6 cm LVPWd: 1.21 0.7-1.1 cm Ao Root: 3.40 2.1-3.5 cm LA Diam: 3.60 2.7-3.8/3.0-4.0 cm LAIDs Index: 2.17 1.5-2.3 cm/m2 LV Mass: 197.30 67-162/88-224 g LV Mass Index: 118.86 43-95/49-115 g/m2 LVOT Diam: 2.30 3.0+(-)1.3 cm 2D Systolic Function EF 4C: 50.20 >55% EF 2C: 50.30 >55% Mitral Valve MV Pk E: 0.67 MV PK A: 1.06 MV Decel Time: 126.00 E/A: 0.60 E'Lateral: 12.90 E'Medial: 8.70 E/E' Med: 7.70 E/E' Lat: 5.20 PHT: 37.00 MVA PHT: 5.95 Decel Llano: 5.35 Aortic Valve AoV Pk Sadi: 1.27 AoV Mn Sadi: 0.80 AoV VTI: 0.29 AoV Pk Grad: 6.00 Aov Mn Grad: 3.00 JOZEF Cont.VTI: 2.97 LVOT LVOT Pk Sadi: 0.90 LVOT Mn Sadi: 0.56 LVOT VTI: 0.20 LVOT Pk Grad: 3.00 LVOT Mn Grad: 2.00 LVOT Diam: 2.30 LVOT Area: 4.15 Diastolic Function MV Pk E: 0.67 MV Pk A: 1.06 E/A: 0.60 E'Medial: 8.70 E/E' Med: 7.70 E' Laterial: 12.90 E/E' Lat: 5.20 Right Ventricle TAPSE (mm): 29.00 TVS' Sadi: 14.00 Tricuspid Valve TR Pk Sadi: 2.37 TR Pk Grad: 22.00 RA Press: 3.00 Great Vessels Aorta Ao Root-2D: 3.40 2.0-3.7 cm Pulmonary Valve PV Pk Sadi: 0.92 Peak PV Grad: 3.00 Updated in Other Vendor System with Status of Final Sivakumar Hook MD electronically signed on 11/27/2023 9:42:34 PM with status of Final
--- NOTE | 2023-11-27 08:28 | PHA.PROG ---
Admission Date/Time: November 26, 2023 11:58 Indication: Bacteremia Weight in k.8 kg Adjusted body weight in Kg: Leander body weight in Kg: Obesity Dosing Indication % IBW: BMI 23.4 Serum Creatinine - Last 168 Hours 11/25/23 11/26/23 11/27/23 19:39 10:53 05:46 Creatinine 1.63 H 1.40 1.58 H Estimated CrCl and GFR - Last 168 Hours 11/25/23 11/26/23 11/27/23 19:39 10:53 05:46 Estim Creat Clear Calc 33.7 39.3 34.8 Estimated GFR 42 50 43 Vancomycin Loading Dose: 1500 X1 Current Vancomycin Dosing Regimen: 1000 Q24h Vancomycin Monitoring using AUC goal of 400 - 600 range with trough as surrogate marker: 561 Date and Time for next Vancomycin Level to be drawn: 11/28 @0600 Pharmacist Comments on Vancomycin Plan: getting random after 2 doses, per pt's poor renal function, to be adjusted and monitored daily Vancomycin dosing will take advantage of [employer] as a clinical decision support tool that uses Bayesian modeling to calculate individual patient's pharmacokinetic parameters and forecast the patient's drug concentration time course with the target goal AUC 24 range of 400 - 600 mg/L/hr.
[2023-11-27] MEDS: methylPREDNISolone Sod Succ 40 MG/ML VIAL IVPUSH ×2 (08:53→19:29)
[2023-11-27] MEDS: Roflumilast 500 MCG TABLET PO (08:54)
[2023-11-27] MEDS: Cholecalciferol (Vitamin D3) 10 MCG TABLET 20 MCG PO (08:54)
[2023-11-27] MEDS: Tamsulosin HCL 0.4 MG CAPSULE PO (08:54)
[2023-11-27] MEDS: Metoprolol Tartrate 12.5 MG HALFTAB PO ×2 (08:54→19:28)
[2023-11-27] MEDS: Gabapentin 400 MG CAPSULE PO ×2 (08:54→19:29)
[2023-11-27] MEDS: Atorvastatin Calcium 40 MG TABLET PO (08:54)
[2023-11-27] MEDS: Finasteride 5 MG TABLET PO (08:54)
[2023-11-27] MEDS: Sennosides/Docusate Sodium TABLET 1 TAB PO ×2 (08:54→19:29)
[2023-11-27] MEDS: Sucralfate 1 GM TABLET PO ×4 (08:54→19:29)
[2023-11-27] MEDS: levETIRAcetam 500 MG TABLET PO ×2 (08:54→19:29)
[2023-11-27] MEDS: Lidocaine 4 % Patch ADH..PATCH 1 PATCH TRANSDERMA (08:54)
[2023-11-27] MEDS: Ferrous Sulfate 324 MG TABLET.DR PO ×2 (08:54→19:29)
[2023-11-27] MEDS: Potassium Chloride ER 20 MEQ TAB.ER.PRT PO (08:54)
--- NOTE | 2023-11-27 08:54 | MHC.CM.PN ---
Plan is to return to LT @ [facility] VIA BLS; Patient is a [facility] bed hold.HCP is on file/Isabelle.
--- NOTE | 2023-11-27 09:23 | P.PNIM_ITS ---
Subjective Subjective Date of Service: 11/27/23 Interval History: f/u on copd exacerbation, gram positive cocci bacteremia, uti has multiple complaint about a lost wallet. and has some shoulder pain Physical Exam 2 Vital Signs: Vital Signs: Last Vital Signs Temp 98.0 F 11/27/23 07:51 Pulse 67 11/27/23 07:51 Resp 20 11/27/23 07:51 BP 154/62 H 11/27/23 07:51 Pulse Ox 93 11/27/23 07:51 O2 Del Method Room Air 11/27/23 07:51 O2 Flow Rate 2 11/27/23 00:00 BMI result Body Mass Index 23.4 General: AO X 3, no acute distress Resp: diminished bilaterally, CVS: S1,S2,RRR GI: +BS, NT, no distention Skin: No rash, port side Neuro: motor grossly intact Psych: appropriate affect Objective Data Active Medications Acetaminophen (Acetaminophen 325 Mg Tablet) 650 mg PO Q6H PRN PRN Reason: Pain, Mild (Pain Scale 1-3), fever or headache Albuterol Sulfate (Albuterol Sulfate 90 Mcg 8 Gm Inhaler) 2 puff INHALE ONCE PRN PRN Reason: Dyspnea Last Admin: 11/26/23 05:10 Dose: 2 puff Documented By: RENEE Albuterol Sulfate (Albuterol Sulfate 90 Mcg 8 Gm Inhaler) 2 puff INHALE Q6H PRN PRN Reason: Wheezing Albuterol/Ipratropium (Albuterol/Iprat 2.5/0.5mg 3 Ml Ampul.Neb) 3 ml INHALE RQ4H WHILE AWAKE [facility] Last Admin: 11/27/23 08:57 Dose: Not Given Documented By: MILADIS Non-Admin Reason: Patient Refused Atorvastatin Calcium (Atorvastatin Calcium 40 Mg Tablet) 40 mg PO DAILY [facility] Last Admin: 11/27/23 08:54 Dose: 40 mg Documented By: VERA Bisacodyl (Bisacodyl 10 Mg Supp.Rect) 10 mg [place] DAILY PRN PRN Reason: Constipation Calcium Carbonate (Calcium Carbonate 750 Mg Tab.Chew) 750 mg PO Q4H PRN PRN Reason: Heartburn Enoxaparin Sodium (Enoxaparin Sodium 40 Mg/0.4 Ml Syringe) 40 mg SUBCUT Q24H [facility] Last Admin: 11/26/23 13:07 Dose: 40 mg Documented By: NONA Ferrous Sulfate (Ferrous Sulfate 324 Mg Tablet.Dr) 324 mg PO BID [facility] Last Admin: 11/27/23 08:54 Dose: 324 mg Documented By: VERA Finasteride (Finasteride 5 Mg Tablet) 5 mg PO DAILY [facility] Last Admin: 11/27/23 08:54 Dose: 5 mg Documented By: VERA Gabapentin (Gabapentin 400 Mg Capsule) 400 mg PO BID [facility] Last Admin: 11/27/23 08:54 Dose: 400 mg Documented By: VERA Ceftriaxone Sodium 1 gm/ (Sodium Chloride) 50 mls @ 100 mls/hr IV Q24H [facility] Last Infusion: 11/26/23 14:03 Dose: Infused Documented By: NONA Vancomycin HCl 1,000 mg/ (Sodium Chloride) 270 mls @ 270 mls/hr IV Q24H [facility] Levetiracetam (Levetiracetam 500 Mg Tablet) 500 mg PO BID [facility] Last Admin: 11/27/23 08:54 Dose: 500 mg Documented By: VERA Lidocaine (Lidocaine 4 % Patch Adh..Patch) 1 patch TRANSDERMA DAILY [facility] Last Admin: 11/27/23 08:54 Dose: 1 patch Documented By: VERA Lorazepam (Lorazepam 0.5 Mg Tablet) 0.5 mg PO Q8H PRN PRN Reason: Anxiety Last Admin: 11/26/23 20:14 Dose: 0.5 mg Magnesium Hydroxide (Milk Of Magnesia 30 Ml Oral.Susp) 30 ml PO DAILY PRN PRN Reason: Constipation Melatonin (Melatonin 3 Mg Tablet) 6 mg PO BEDTIME PRN PRN Reason: Insomnia Methylprednisolone Sodium Succinate (Methylprednisolone Sod Succ 40 Mg/Ml Vial) 40 mg IVPUSH Q12H [facility] Last Admin: 11/27/23 08:53 Dose: 40 mg Documented By: VERA Metoprolol Tartrate (Metoprolol Tartrate 12.5 Mg Halftab) 12.5 mg PO BID [facility]; Protocol Last Admin: 11/27/23 08:54 Dose: 12.5 mg Documented By: VERA Mirtazapine (Mirtazapine 15 Mg Tablet) 15 mg PO BEDTIME [facility] Last Admin: 11/26/23 20:14 Dose: 15 mg Documented By: ROLAN Naloxone HCl (Naloxone Hcl 0.4 Mg/Ml Vial) 0.4 mg SUBCUT Q2M PRN PRN Reason: Opioid Overdose Nicotine Polacrilex (Nicotine Polacrilex Lozenge 2 Mg Lozenge) 2 mg BUCCAL Q2H PRN PRN Reason: Nicotine Cravings Last Admin: 11/26/23 20:14 Dose: 2 mg Documented By: ROLAN Non-Formulary Medication (Ramelteon) 8 mg PO BEDTIME [facility] Non-Formulary Medication (Revefenacin [Yupelri]) 175 mcg INHALE DAILY [facility] Omeprazole (Omeprazole 20 Mg Capsule.Dr) 20 mg PO DAILY@0630 [facility] Last Admin: 11/27/23 05:35 Dose: 20 mg Documented By: WOLFGANG-RIVUVALDO Oxybutynin Chloride (Oxybutynin Chloride 5 Mg Tablet) 5 mg PO Q8H PRN PRN Reason: Bladder Spasms Pharmacy Consult (Consult Rx Vancomycin Dosing) 1 each MISCELLANE DAILY PRN PRN Reason: Consult order Polyethylene Glycol (Polyethylene Glycol 3350 17 Gm Powd.Pack) 17 gm PO DAILY PRN PRN Reason: Constipation Potassium Chloride (Potassium Chloride Er 20 Meq Tab.Er.Prt) 20 meq PO DAILY [facility] Last Admin: 11/27/23 08:54 Dose: 20 meq Documented By: VERA Roflumilast (Roflumilast 500 Mcg Tablet) 500 mcg PO DAILY [facility] Last Admin: 11/27/23 08:54 Dose: 500 mcg Documented By: VERA Senna/Docusate Sodium (Sennosides/Docusate Sodium Tablet) 1 tab PO BID [facility] Last Admin: 11/27/23 08:54 Dose: 1 tab Documented By: VERA Sodium Chloride (0.9 % Sodium Chloride Flush 3 Ml Syringe) 3 ml IVFLUSH QSHIFT [facility] Last Admin: 11/27/23 08:56 Dose: 3 ml Documented By: VERA Sucralfate (Sucralfate 1 Gm Tablet) 1 gm PO QIDWMHS [facility] Last Admin: 11/27/23 08:54 Dose: 1 gm Documented By: VERA Tamsulosin HCl (Tamsulosin Hcl 0.4 Mg Capsule) 0.4 mg PO DAILY [facility] Last Admin: 11/27/23 08:54 Dose: 0.4 mg Documented By: VERA Tizanidine HCl (Tizanidine Hcl 4 Mg Tablet) 2 mg PO Q8H PRN PRN Reason: Spasms Vitamin D (Cholecalciferol (Vitamin D3) 10 Mcg Tablet) 20 mcg PO DAILY [facility] Last Admin: 11/27/23 08:54 Dose: 20 mcg Documented By: VERA Labs 11/27/23 05:46 11/27/23 05:46 Labs: Laboratory Results - last 24 hr 11/26/23 11/27/23 10:53 05:46 MCV 97.8 95.8 MCH 30.8 30.4 MCHC 31.5 31.7 RDW 13.8 13.6 Plt Count 115 L 134 L MPV 9.5 9.9 Immature Gran % (Auto) 0.3 0.2 Neut % (Auto) 71.6 79.9 H Lymph % (Auto) 15.4 L 10.6 L [place] % (Auto) 8.5 8.9 Eos % (Auto) 3.7 0.2 Baso % (Auto) 0.5 0.2 Lymph # (Auto) 0.6 L 0.6 L [place] # (Auto) 0.3 0.5 Eos # (Auto) 0.1 0.0 Baso # (Auto) 0.0 0.0 Abs Immat Gran (auto) 0.01 0.01 Absolute Neuts (auto) 2.7 4.8 Absolute Nucleated RBC 0.000 0.000 Nucleated RBC % (auto) 0.0 0.0 Anion Gap 9 L 12 Estim Creat Clear Calc 39.3 34.8 Estimated GFR 50 43 Random Glucose 94 124 H Calcium 9.0 9.2 Total Bilirubin 0.2 AST 12 ALT 9 Alkaline Phosphatase 68 Total Protein 6.4 L Albumin 3.2 L Microbiology Microbiology Results: Microbiology 11/26/23 12:46 Blood Culture - Preliminary Blood - Venous Prelim: GPC Gram Stain only 11/26/23 12:46 Blood Culture - Preliminary Blood - Venous Prelim: GPC Gram Stain only Assessment and Plan (1) Lung mass: Status: Acute (2) Gram-positive cocci bacteremia: Status: Acute Plan 73-year-old male with a history of dementia, chronic anemia, hypokalemia, BPH, COPD, esophageal cancer with port in place, kidney disease, renal calculi, hyperlipidemia, essential hypertension, depression, opiate dependence-remission, chronic pain syndrome who was seen in the emergency department yesterday for aggressive behavior at his nursing facility and for smoking marijuana. The patient did have a positive marijuana test but was not aggressive in the emergency department yesterday and was discharged back to his care facility. The patient was sent back to the emergency department on a Section 12. Following information was obtained from the Section 12: ?Using illicit substance and facility; violent and aggressive behavior: Kicking, hitting, throwing items, verbal threats of harm. Active attempts to leave facility. . Was being observed in behavioral pod and developed hypoxia. Patient was admitted for further management of acute COPD exacerbation with acute hypoxemic respiratory failure and new lung mass and now has 2/2 gram positive bacteremia # acute hypoxemic respiratory failure secondary to COPD exacerbation -CXR reveals emphysematous COPD with new right middle lobe lung mass -tachypnea due to hypoxia, -IV methylprednisolone 40 mg b.i.d. -DuoNebs q.4h while awake/p.r.n. -continue maintenance inhalers/medications -continue supplemental O2 to maintain oximetry 90-92%, wean as tolerated per protocol # CXR . Mass like alveolar density in medial right lower lung infrahilar region. CT: Scattered small pulmonary nodules measuring up to 6 mm in the right upper lobe. Will check outside if prior chest CT available #Gram positive cocci in clusters 2/2 from 11/25. -started on Vaco -ID consult -Echo -Concern about port as potential source -repeat cultures tomorrow morning # asymptomatic bacteriuria/UTI -UA with 1+ leukocytes, positive nitrites, positive urinary sediment, trace bacteria -IV ceftriaxone (initiated 11/25) -leukopenic at 3.8, no other SIRS criteria noted today. No sepsis -follow CBC, cultures #Thrombocytopenia -suspect chronic from immunocomporomised state, and doubt related to sepsis, it is better today #?unspecified seizure d/o -continue keppra #HTN -continue metoprolol # CKD stage 3 -renal function baseline, monitor #Unspecified anemia -h/h stable overall, possibly chronic due to chronic disease #hx esophageal ca -no longer undergoing tx. 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
[2023-11-27 10:10] LABS: Adenovirus PCR Not Detected (Not Detect.); Bordetella parapertussis PCR Not Detected (Not Detect.); Bordetella pertussis PCR Not Detected (Not Detect.); Chlamydia pneumoniae PCR Not Detected (Not Detect.); Coronavirus 229E PCR Not Detected (Not Detect.); Coronavirus HKU1 PCR Not Detected (Not Detect.); Coronavirus NL63 PCR Not Detected (Not Detect.); Coronavirus OC43 PCR Not Detected (Not Detect.); Human metapneumovirus PCR Not Detected (Not Detect.); Influenza A PCR Not Detected (Not Detect.); Influenza B PCR Not Detected (Not Detect.); Mycoplasma pneumoniae PCR Not Detected (Not Detect.); Parainfluenza 1 PCR Not Detected (Not Detect.); Parainfluenza 2 PCR Not Detected (Not Detect.); Parainfluenza 3 PCR Not Detected (Not Detect.); Parainfluenza 4 PCR Not Detected (Not Detect.); RSV PCR Not Detected (Not Detect.); Rhino/Enterovirus PCR Not Detected (Not Detect.)
[2023-11-27 10:40] LABS: SARS-CoV-2 PCR Not Detected (Not Detect.)
[2023-11-27] MEDS: cefTRIAXone sodium 1 GM in 0.9 % Sodium Chloride 50 ML IV (12:42)
[2023-11-27] MEDS: Enoxaparin Sodium 40 MG/0.4 ML SYRINGE SUBCUT (12:44)
--- NOTE | 2023-11-27 16:00 | PC.RT ---
pt refused neb tx all day. pt stable bs: clear stats 96% on room air. Will speak to MD to make nebs prn
[2023-11-27] MEDS: Mirtazapine 15 MG TABLET PO (19:29)
[2023-11-28] VITALS: BP 167/74
[2023-11-28] MEDS: Albuterol Sulfate 90 MCG 8 GM INHALER 2 PUFF INHALE ×2 (00:34→20:12)
[2023-11-28] MEDS: vancomycin HCL 1,000 MG in 0.9 % Sodium Chloride 250 ML 270 MG IV (09:20)
[2023-11-28 09:35] VITALS: BP 158/73; PULSE 84; RESP 18; TEMP 36.6; O2SAT 96
--- NOTE | 2023-11-28 10:30 | P.PNIM_ITS ---
Subjective Subjective Date of Service: 11/28/23 Interval History: F/u on Sepsis, gram positive cocci bacteremia, copd exacerbation Patient has been very difficult, refusing care most of the time Physical Exam 2 Vital Signs: Vital Signs: Last Vital Signs Temp 97.8 F 11/28/23 09:35 Pulse 84 11/28/23 09:35 Resp 18 11/28/23 09:35 BP 158/73 H 11/28/23 09:35 Pulse Ox 96 11/28/23 09:35 O2 Del Method Room Air 11/27/23 19:55 O2 Flow Rate 2 11/27/23 00:00 BMI result Body Mass Index 23.4 General: AO X 3, no acute distress Resp: diminished bilaterally, chest--port site looks ok CVS: S1,S2,RRR GI: +BS, NT, no distention Skin: No rash, port side Neuro: motor grossly intact Psych: appropriate affect Objective Data Active Medications Acetaminophen (Acetaminophen 325 Mg Tablet) 650 mg PO Q6H PRN PRN Reason: Pain, Mild (Pain Scale 1-3), fever or headache Albuterol Sulfate (Albuterol Sulfate 90 Mcg 8 Gm Inhaler) 2 puff INHALE Q4H PRN PRN Reason: Shortness of Breath/Wheezing Last Admin: 11/28/23 00:34 Dose: 2 puff Documented By: BRIAN Atorvastatin Calcium (Atorvastatin Calcium 40 Mg Tablet) 40 mg PO DAILY [facility] Last Admin: 11/28/23 09:24 Dose: Not Given Documented By: MADDY Non-Admin Reason: Patient Refused Bisacodyl (Bisacodyl 10 Mg Supp.Rect) 10 mg [place] DAILY PRN PRN Reason: Constipation Calcium Carbonate (Calcium Carbonate 750 Mg Tab.Chew) 750 mg PO Q4H PRN PRN Reason: Heartburn Enoxaparin Sodium (Enoxaparin Sodium 40 Mg/0.4 Ml Syringe) 40 mg SUBCUT Q24H [facility] Last Admin: 11/27/23 12:44 Dose: 40 mg Documented By: GUSTAVO Ferrous Sulfate (Ferrous Sulfate 324 Mg Tablet.) 324 mg PO BID [facility] Last Admin: 11/28/23 09:26 Dose: Not Given Documented By: MADDY Non-Admin Reason: Patient Refused Finasteride (Finasteride 5 Mg Tablet) 5 mg PO DAILY [facility] Last Admin: 11/28/23 09:26 Dose: Not Given Documented By: MADDY Non-Admin Reason: Patient Refused Gabapentin (Gabapentin 400 Mg Capsule) 400 mg PO BID [facility] Last Admin: 11/28/23 09:42 Dose: Not Given Documented By: MADDY Non-Admin Reason: Patient Refused Ceftriaxone Sodium 1 gm/ (Sodium Chloride) 50 mls @ 100 mls/hr IV Q24H [facility] Last Infusion: 11/27/23 13:20 Dose: Infused Documented By: GUSTAVO Vancomycin HCl 1,000 mg/ (Sodium Chloride) 270 mls @ 270 mls/hr IV Q24H [facility] Last Admin: 11/28/23 09:20 Dose: 270 mls/hr Documented By: MADDY Levetiracetam (Levetiracetam 500 Mg Tablet) 500 mg PO BID [facility] Last Admin: 11/28/23 09:42 Dose: Not Given Documented By: MADDY Non-Admin Reason: Patient Refused Lidocaine (Lidocaine 4 % Patch Adh..Patch) 1 patch TRANSDERMA DAILY [facility] Last Admin: 11/28/23 09:42 Dose: Not Given Documented By: MADDY Non-Admin Reason: Patient Refused Lorazepam (Lorazepam 0.5 Mg Tablet) 0.5 mg PO Q8H PRN PRN Reason: Anxiety Last Admin: 11/26/23 20:14 Dose: 0.5 mg Magnesium Hydroxide (Milk Of Magnesia 30 Ml Oral.Susp) 30 ml PO DAILY PRN PRN Reason: Constipation Melatonin (Melatonin 3 Mg Tablet) 6 mg PO BEDTIME PRN PRN Reason: Insomnia Methylprednisolone Sodium Succinate (Methylprednisolone Sod Succ 40 Mg/Ml Vial) 40 mg IVPUSH Q12H [facility] Last Admin: 11/27/23 19:29 Dose: 40 mg Documented By: GUSTAVO Metoprolol Tartrate (Metoprolol Tartrate 12.5 Mg Halftab) 12.5 mg PO BID [facility]; Protocol Last Admin: 11/28/23 09:42 Dose: Not Given Documented By: MADDY Non-Admin Reason: Patient Refused Mirtazapine (Mirtazapine 15 Mg Tablet) 15 mg PO BEDTIME [facility] Last Admin: 11/27/23 19:29 Dose: 15 mg Documented By: GUSTAVO Naloxone HCl (Naloxone Hcl 0.4 Mg/Ml Vial) 0.4 mg SUBCUT Q2M PRN PRN Reason: Opioid Overdose Nicotine Polacrilex (Nicotine Polacrilex Lozenge 2 Mg Lozenge) 2 mg BUCCAL Q2H PRN PRN Reason: Nicotine Cravings Last Admin: 11/26/23 20:14 Dose: 2 mg Documented By: ROLAN Non-Formulary Medication (Ramelteon) 8 mg PO BEDTIME [facility] Non-Formulary Medication (Revefenacin [Yupelri]) 175 mcg INHALE DAILY [facility] Omeprazole (Omeprazole 20 Mg Capsule.Dr) 20 mg PO DAILY@0630 [facility] Last Admin: 11/28/23 06:16 Dose: Not Given Documented By: BRIAN Non-Admin Reason: Patient Refused Oxybutynin Chloride (Oxybutynin Chloride 5 Mg Tablet) 5 mg PO Q8H PRN PRN Reason: Bladder Spasms Pharmacy Consult (Consult Rx Vancomycin Dosing) 1 each MISCELLANE DAILY PRN PRN Reason: Consult order Polyethylene Glycol (Polyethylene Glycol 3350 17 Gm Powd.Pack) 17 gm PO DAILY PRN PRN Reason: Constipation Potassium Chloride (Potassium Chloride Er 20 Meq Tab.Er.Prt) 20 meq PO DAILY [facility] Last Admin: 11/28/23 09:42 Dose: Not Given Documented By: MADDY Non-Admin Reason: Patient Refused Roflumilast (Roflumilast 500 Mcg Tablet) 500 mcg PO DAILY [facility] Last Admin: 11/28/23 09:42 Dose: Not Given Documented By: MADDY Non-Admin Reason: Patient Refused Senna/Docusate Sodium (Sennosides/Docusate Sodium Tablet) 1 tab PO BID [facility] Last Admin: 11/28/23 09:26 Dose: Not Given Documented By: MADDY Non-Admin Reason: Patient Refused Sodium Chloride (0.9 % Sodium Chloride Flush 3 Ml Syringe) 3 ml IVFLUSH QSHIFT [facility] Last Admin: 11/28/23 09:24 Dose: Not Given Documented By: MADDY Non-Admin Reason: Patient Refused Sucralfate (Sucralfate 1 Gm Tablet) 1 gm PO QIDWMHS [facility] Last Admin: 11/28/23 09:24 Dose: Not Given Documented By: MADDY Non-Admin Reason: Patient Refused Tamsulosin HCl (Tamsulosin Hcl 0.4 Mg Capsule) 0.4 mg PO DAILY [facility] Last Admin: 11/28/23 09:26 Dose: Not Given Documented By: MADDY Non-Admin Reason: Patient Refused Tizanidine HCl (Tizanidine Hcl 4 Mg Tablet) 2 mg PO Q8H PRN PRN Reason: Spasms Vitamin D (Cholecalciferol (Vitamin D3) 10 Mcg Tablet) 20 mcg PO DAILY [facility] Last Admin: 11/28/23 09:24 Dose: Not Given Documented By: MADDY Non-Admin Reason: Patient Refused Labs 11/27/23 05:46 11/27/23 05:46 Labs: Laboratory Results - last 24 hr 11/26/23 14:57 Respiratory Panel [facility] See Note Adenovirus (Rapid PCR) Not Detected B.pert (TEM-PCR) Not Detected B.parapertussis DNA PCR Not Detected C. pneumoniae DNA (PCR) Not Detected Coronavirus OC43 (PCR) Not Detected Coronavirus HKU1 (PCR) Not Detected Coronavirus 229E (PCR) Not Detected Coronavirus NL63 (PCR) Not Detected Human Metapneumovir PCR Not Detected Influenza A (RT-PCR) Not Detected Influenza B (RT-PCR) Not Detected M. pneumoniae (PCR) Not Detected Parainfluenza 1 (PCR) Not Detected Parainfluenza 2 (PCR) Not Detected Parainfluenza 3 (PCR) Not Detected Parainfluenza 4 (PCR) Not Detected RSV (PCR) Not Detected Entero/Rhino (PCR) Not Detected SARS-CoV-2 RNA (RT-PCR) Not Detected Microbiology Microbiology Results: Microbiology 11/27/23 05:46 Blood Culture - Preliminary Blood - Venous Prelim: GPC Gram Stain only 11/27/23 05:46 Blood Culture - Preliminary Blood - Venous Prelim: GPC Gram Stain only 11/26/23 Unknown Urine Culture - Final Urine clean catch - Clean Catch Midstream 11/26/23 12:46 Blood Culture - Preliminary Blood - Venous Prelim: GPC Gram Stain only 11/26/23 12:46 Blood Culture - Preliminary Blood - Venous Prelim: GPC Gram Stain only Assessment and Plan (1) Lung mass: Status: Acute (2) Gram-positive cocci bacteremia: Status: Acute Plan 73-year-old male with a history of dementia, chronic anemia, hypokalemia, BPH, COPD, esophageal cancer with port in place, kidney disease, renal calculi, hyperlipidemia, essential hypertension, depression, opiate dependence-remission, chronic pain syndrome who was seen in the emergency department yesterday for aggressive behavior at his nursing facility and for smoking marijuana. The patient did have a positive marijuana test but was not aggressive in the emergency department yesterday and was discharged back to his care facility. The patient was sent back to the emergency department on a Section 12. Following information was obtained from the Section 12: ?Using illicit substance and facility; violent and aggressive behavior: Kicking, hitting, throwing items, verbal threats of harm. Active attempts to leave facility. . Was being observed in behavioral pod and developed hypoxia. Patient was admitted for further management of acute COPD exacerbation with acute hypoxemic respiratory failure and new lung mass and now has 2/2 gram positive bacteremia # acute hypoxemic respiratory failure secondary to COPD exacerbation -CXR reveals emphysematous COPD with new right middle lobe lung mass -tachypnea due to hypoxia, -IV methylprednisolone 40 mg b.i.d, change to Prednisone -DuoNebs q.4h while awake/p.r.n. -continue maintenance inhalers/medications -continue supplemental O2 to maintain oximetry 90-92%, wean as tolerated per protocol # CXR . Mass like alveolar density in medial right lower lung infrahilar region. CT: Scattered small pulmonary nodules measuring up to 6 mm in the right upper lobe. Will check outside if prior chest CT available #Gram positive cocci in clusters 2/2 from 11/25. -started on Vaco -repeat cultures today -ID consult -Echo--no vegetations -Concern about port as potential source # asymptomatic bacteriuria/UTI -UA with 1+ leukocytes, positive nitrites, positive urinary sediment, trace bacteria -IV ceftriaxone (initiated 11/25) -leukopenic at 3.8, no other SIRS criteria noted today. No sepsis -follow CBC, cultures #Thrombocytopenia -suspect chronic from immunocomporomised state, and doubt related to sepsis, it is better today #?unspecified seizure d/o -continue keppra #HTN -continue metoprolol # CKD stage 3 -renal function baseline, monitor #Unspecified anemia -h/h stable overall, possibly chronic due to chronic disease #hx esophageal ca -no longer undergoing tx. 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
--- NOTE | 2023-11-28 10:42 | MHC.CM.PN ---
Patient has a Sitter and can be easily agitated. CM attempted to reach [facility]/Isabelle @ [phone] to address IMM, but CM was only able to leave a detailed message. In that message, CM requested a return call from Isabelle, providing CM with her address in order to mail the IMM. CM awaits a return call from Isabelle.
[2023-11-28 11:37] VITALS: BP 158/75; PULSE 69; RESP 20; TEMP 37.1; O2SAT 95
[2023-11-28] MEDS: cefTRIAXone sodium 1 GM in 0.9 % Sodium Chloride 50 ML IV (12:00)
[2023-11-28 12:11] LABS: Anion Gap 16 (12-20); Blood Urea Nitrogen 38 mg/dL (9-16); Calcium 9.7 mg/dL (8.4-10.2); Carbon Dioxide 25 mmol/L (22-29); Chloride 109 mmol/L (96-108); Creatinine Clr Calc Pharmacy 32.2; Estimated Glomerular Filt Rate 39; Glucose Random 84 mg/dL (60-115); Potassium 3.9 mmol/L (3.3-5.1); Sodium 146 mmol/L (135-145)
[2023-11-28 12:12] LABS: Creatinine Clr Calc Pharmacy 31.6; Estimated Glomerular Filt Rate 39
[2023-11-28] MEDS: Enoxaparin Sodium 40 MG/0.4 ML SYRINGE SUBCUT (13:00)
[2023-11-28] MEDS: Sucralfate 1 GM TABLET PO ×2 (13:00→22:57)
[2023-11-28 16:00] VITALS: BP 121/65; PULSE 78; RESP 20; TEMP 36.1; O2SAT 91
[2023-11-28] MEDS: DAPTOmycin 500 MG in 0.9 % Sodium Chloride 50 ML 120 MG IV (17:34)
[2023-11-28] MEDS: 0.9 % Sodium Chloride Flush 3 ML SYRINGE IVFLUSH (17:37)
[2023-11-28 19:23] VITALS: BP 159/79; PULSE 67; RESP 20; TEMP 36.6; O2SAT 92
[2023-11-28] MEDS: LORazepam 0.5 MG TABLET PO (22:56)
[2023-11-28] MEDS: Mirtazapine 15 MG TABLET PO (22:57)
[2023-11-28] MEDS: Metoprolol Tartrate 12.5 MG HALFTAB PO (22:57)
[2023-11-28] MEDS: Sennosides/Docusate Sodium TABLET 1 TAB PO (22:57)
[2023-11-28] MEDS: Gabapentin 400 MG CAPSULE PO (22:58)
[2023-11-28] MEDS: levETIRAcetam 500 MG TABLET PO (22:58)
[2023-11-28] MEDS: Ferrous Sulfate 324 MG TABLET.DR PO (22:59)
[2023-11-28] MEDS: methylPREDNISolone Sod Succ 40 MG/ML VIAL IVPUSH (22:59)
[2023-11-29] VITALS: BP 144/70; PULSE 85; RESP 18; TEMP 36.9; O2SAT 94
[2023-11-29 08:00] VITALS: BP 150/77; PULSE 91; RESP 18; TEMP 36.7; O2SAT 94
[2023-11-29] MEDS: methylPREDNISolone Sod Succ 40 MG/ML VIAL IVPUSH (08:36)
[2023-11-29] MEDS: Potassium Chloride ER 20 MEQ TAB.ER.PRT PO (08:36)
[2023-11-29] MEDS: Atorvastatin Calcium 40 MG TABLET PO (08:36)
[2023-11-29] MEDS: Ferrous Sulfate 324 MG TABLET.DR PO ×2 (08:36→21:38)
[2023-11-29] MEDS: Metoprolol Tartrate 12.5 MG HALFTAB PO ×2 (08:36→21:38)
[2023-11-29] MEDS: Sucralfate 1 GM TABLET PO ×4 (08:36→21:39)
[2023-11-29] MEDS: Gabapentin 400 MG CAPSULE PO ×2 (08:36→21:38)
[2023-11-29] MEDS: Tamsulosin HCL 0.4 MG CAPSULE PO (08:36)
[2023-11-29] MEDS: levETIRAcetam 500 MG TABLET PO ×2 (08:37→21:38)
[2023-11-29] MEDS: Sennosides/Docusate Sodium TABLET 1 TAB PO ×2 (08:37→21:38)
[2023-11-29] MEDS: Finasteride 5 MG TABLET PO (08:37)
[2023-11-29] MEDS: Roflumilast 500 MCG TABLET PO (08:37)
[2023-11-29] MEDS: Cholecalciferol (Vitamin D3) 10 MCG TABLET 20 MCG PO (08:37)
[2023-11-29] MEDS: 0.9 % Sodium Chloride Flush 3 ML SYRINGE IVFLUSH ×3 (08:44→21:40)
--- NOTE | 2023-11-29 10:36 | P.PNIM_ITS ---
Subjective Subjective Date of Service: 11/29/23 Interval History: Seen and examined this morning Follow-up for bacteremia Patient is unsure why he has a port or where it was put in. He has no specific complaints this morning Review of Systems Review of Systems: Yes all other systems are reviewed and are negative Constitutional Constitutional: Denies chills and Denies fever(s) Cardiovascular Cardiovascular: Denies chest pain, Denies palpitations and Denies dyspnea Respiratory Respiratory: Denies cough and Denies dyspnea Gastrointestinal Gastrointestinal: Denies abdominal pain, Denies nausea and Denies vomiting Endocrine Endocrine: Denies palpitations Physical Exam 2 Vital Signs: Vital Signs: Last Vital Signs Temp 98.0 F 11/29/23 08:00 Pulse 91 11/29/23 08:00 Resp 18 11/29/23 08:00 BP 150/77 H 11/29/23 08:00 Pulse Ox 94 11/29/23 08:00 O2 Del Method Room Air 11/29/23 08:00 O2 Flow Rate 2 11/27/23 00:00 BMI result Body Mass Index 23.4 Const: General: cooperative, comfortable, no acute distress, alert and awake Nutritional Appearance: average body habitus Chest: Other: port right chest wall - no surrounding erythema Resp: Effort & Inspection: normal respiratory effort, able to speak in complete sentences, respiratory effort not decreased and no respiratory distress Cardio: Rate: regular rate GI: Other: abdomen soft Inspection: No distended Neuro: Other: grossly nonfocal Objective Data Active Medications Acetaminophen (Acetaminophen 325 Mg Tablet) 650 mg PO Q6H PRN PRN Reason: Pain, Mild (Pain Scale 1-3), fever or headache Albuterol Sulfate (Albuterol Sulfate 90 Mcg 8 Gm Inhaler) 2 puff INHALE Q4H PRN PRN Reason: Shortness of Breath/Wheezing Last Admin: 11/28/23 20:12 Dose: 2 puff Documented By: STELLA Atorvastatin Calcium (Atorvastatin Calcium 40 Mg Tablet) 40 mg PO DAILY [facility] Last Admin: 11/29/23 08:36 Dose: 40 mg Documented By: WEN Bisacodyl (Bisacodyl 10 Mg Supp.Rect) 10 mg [place] DAILY PRN PRN Reason: Constipation Calcium Carbonate (Calcium Carbonate 750 Mg Tab.Chew) 750 mg PO Q4H PRN PRN Reason: Heartburn Enoxaparin Sodium (Enoxaparin Sodium 40 Mg/0.4 Ml Syringe) 40 mg SUBCUT Q24H [facility] Last Admin: 11/28/23 13:00 Dose: 40 mg Documented By: MADDY Ferrous Sulfate (Ferrous Sulfate 324 Mg Tablet.Dr) 324 mg PO BID [facility] Last Admin: 11/29/23 08:36 Dose: 324 mg Documented By: WEN Finasteride (Finasteride 5 Mg Tablet) 5 mg PO DAILY [facility] Last Admin: 11/29/23 08:37 Dose: 5 mg Documented By: WEN Gabapentin (Gabapentin 400 Mg Capsule) 400 mg PO BID [facility] Last Admin: 11/29/23 08:36 Dose: 400 mg Documented By: WEN Ceftriaxone Sodium 1 gm/ (Sodium Chloride) 50 mls @ 100 mls/hr IV Q24H [facility] Last Infusion: 11/28/23 14:32 Dose: Infused Documented By: MADDY Daptomycin 500 mg/ Sodium (Chloride) 60 mls @ 120 mls/hr IV Q24H [facility] Last Infusion: 11/28/23 18:07 Dose: Infused Documented By: MADDY Levetiracetam (Levetiracetam 500 Mg Tablet) 500 mg PO BID [facility] Last Admin: 11/29/23 08:37 Dose: 500 mg Documented By: WEN Lidocaine (Lidocaine 4 % Patch Adh..Patch) 1 patch TRANSDERMA DAILY [facility] Last Admin: 11/29/23 08:44 Dose: Not Given Documented By: WEN Non-Admin Reason: Patient Refused Lorazepam (Lorazepam 0.5 Mg Tablet) 0.5 mg PO Q8H PRN PRN Reason: Anxiety Last Admin: 11/28/23 22:56 Dose: 0.5 mg Documented By: LAFLAMCedric Magnesium Hydroxide (Milk Of Magnesia 30 Ml Oral.Susp) 30 ml PO DAILY PRN PRN Reason: Constipation Melatonin (Melatonin 3 Mg Tablet) 6 mg PO BEDTIME PRN PRN Reason: Insomnia Methylprednisolone Sodium Succinate (Methylprednisolone Sod Succ 40 Mg/Ml Vial) 40 mg IVPUSH Q12H [facility] Last Admin: 11/29/23 08:36 Dose: 40 mg Documented By: WEN Metoprolol Tartrate (Metoprolol Tartrate 12.5 Mg Halftab) 12.5 mg PO BID [facility]; Protocol Last Admin: 11/29/23 08:36 Dose: 12.5 mg Documented By: WEN Mirtazapine (Mirtazapine 15 Mg Tablet) 15 mg PO BEDTIME [facility] Last Admin: 11/28/23 22:57 Dose: 15 mg Documented By: STELLA Naloxone HCl (Naloxone Hcl 0.4 Mg/Ml Vial) 0.4 mg SUBCUT Q2M PRN PRN Reason: Opioid Overdose Nicotine Polacrilex (Nicotine Polacrilex Lozenge 2 Mg Lozenge) 2 mg BUCCAL Q2H PRN PRN Reason: Nicotine Cravings Last Admin: 11/26/23 20:14 Dose: 2 mg Documented By: ROLAN Non-Formulary Medication (Ramelteon) 8 mg PO BEDTIME [facility] Non-Formulary Medication (Revefenacin [Yupelri]) 175 mcg INHALE DAILY [facility] Omeprazole (Omeprazole 20 Mg Capsule.Dr) 20 mg PO DAILY@0630 [facility] Last Admin: 11/29/23 05:26 Dose: Not Given Documented By: STELLA Non-Admin Reason: Patient Refused Oxybutynin Chloride (Oxybutynin Chloride 5 Mg Tablet) 5 mg PO Q8H PRN PRN Reason: Bladder Spasms Polyethylene Glycol (Polyethylene Glycol 3350 17 Gm Powd.Pack) 17 gm PO DAILY PRN PRN Reason: Constipation Potassium Chloride (Potassium Chloride Er 20 Meq Tab.Er.Prt) 20 meq PO DAILY [facility] Last Admin: 11/29/23 08:36 Dose: 20 meq Documented By: WEN Roflumilast (Roflumilast 500 Mcg Tablet) 500 mcg PO DAILY [facility] Last Admin: 11/29/23 08:37 Dose: 500 mcg Documented By: WEN Senna/Docusate Sodium (Sennosides/Docusate Sodium Tablet) 1 tab PO BID [facility] Last Admin: 11/29/23 08:37 Dose: 1 tab Documented By: WEN Sodium Chloride (0.9 % Sodium Chloride Flush 3 Ml Syringe) 3 ml IVFLUSH QSHIFT [facility] Last Admin: 11/29/23 08:44 Dose: 3 ml Documented By: WEN Sucralfate (Sucralfate 1 Gm Tablet) 1 gm PO QIDWMHS [facility] Last Admin: 11/29/23 08:36 Dose: 1 gm Documented By: WEN Tamsulosin HCl (Tamsulosin Hcl 0.4 Mg Capsule) 0.4 mg PO DAILY [facility] Last Admin: 11/29/23 08:36 Dose: 0.4 mg Documented By: WEN Tizanidine HCl (Tizanidine Hcl 4 Mg Tablet) 2 mg PO Q8H PRN PRN Reason: Spasms Vitamin D (Cholecalciferol (Vitamin D3) 10 Mcg Tablet) 20 mcg PO DAILY [facility] Last Admin: 11/29/23 08:37 Dose: 20 mcg Documented By: WEN Labs 11/27/23 05:46 11/29/23 10:00 Labs: Laboratory Results - last 24 hr 11/28/23 11/28/23 11/28/23 11:34 11:34 11:34 Hold Purple Top SEE NOTE Anion Gap 16 Estim Creat Clear Calc 31.6 32.2 Estimated GFR 39 39 Random Glucose 84 Calcium 9.7 Microbiology Microbiology Results: Microbiology 11/26/23 12:46 Blood Culture - Preliminary Blood - Venous Coag negative Staphylococcus 11/26/23 12:46 Blood Culture - Preliminary Blood - Venous Coag negative Staphylococcus 11/27/23 05:46 Blood Culture - Preliminary Blood - Venous Prelim: GPC Gram Stain only 11/27/23 05:46 Blood Culture - Preliminary Blood - Venous Prelim: GPC Gram Stain only Assessment and Plan (1) Gram-positive cocci bacteremia: Status: Acute (2) Lung mass: Status: Acute Plan 73-year-old male with a history of dementia, chronic anemia, hypokalemia, BPH, COPD, esophageal cancer with port in place, kidney disease, renal calculi, hyperlipidemia, essential hypertension, depression, opiate dependence-remission, chronic pain syndrome who was seen in the emergency department yesterday for aggressive behavior at his nursing facility and for smoking marijuana. The patient did have a positive marijuana test but was not aggressive in the emergency department yesterday and was discharged back to his care facility. The patient was sent back to the emergency department on a Section 12. Following information was obtained from the Section 12: ?Using illicit substance and facility; violent and aggressive behavior: Kicking, hitting, throwing items, verbal threats of harm. Active attempts to leave facility. . Was being observed in behavioral pod and developed hypoxia. Patient was admitted for further management of acute COPD exacerbation with acute hypoxemic respiratory failure and new lung mass and now has 2/2 gram positive bacteremia acute hypoxemic respiratory failure secondary to COPD exacerbation Chest CT with moderate emphysema, nodularity in the medial right lower lobe suggesting focal infectious/inflammatory process tachypnea resolved, weaned onto room air RPP negative Initially treated with IV Solu-Medrol, we will transitioned to oral prednisone continue DuoNebs q.4h while awake/p.r.n. continue maintenance inhalers/medications pulmonary nodules: Scattered small pulmonary nodules measuring up to 6 mm in the right upper lobe. will need outpatient follow up Bacteremia initial blood cultures growing coag negative staph Initially treated with IV vancomycin, transitioned to daptomycin Echocardiogram with no vegetation -repeat cultures pending -ID consult pending -Concern about port as potential source. pt unsure when/where port was placed, attempting to obtain info asymptomatic bacteriuria/UTI urine culture negative, will stop ceftriaxone Thrombocytopenia -suspect chronic from immunocomporomised state, and doubt related to sepsis, it is better today ?unspecified seizure d/o -continue keppra HTN continue metoprolol CKD stage 3 renal function trending up slightly will follow closely Unspecified anemia -h/h stable overall, possibly chronic due to chronic disease hx esophageal ca -no longer undergoing tx. 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
[2023-11-29 10:51] LABS: Anion Gap 12 (12-20); Blood Urea Nitrogen 43 mg/dL (9-16); Calcium 9.3 mg/dL (8.4-10.2); Carbon Dioxide 30 mmol/L (22-29); Chloride 107 mmol/L (96-108); Creatinine Clr Calc Pharmacy 28.3; Estimated Glomerular Filt Rate 34; Glucose Random 246 mg/dL (60-115); Potassium 4.5 mmol/L (3.3-5.1); Sodium 144 mmol/L (135-145)
[2023-11-29 11:52] VITALS: BP 134/66; PULSE 74; RESP 17; TEMP 36.4; O2SAT 94
[2023-11-29] MEDS: Enoxaparin Sodium 40 MG/0.4 ML SYRINGE SUBCUT (12:45)
[2023-11-29 16:00] VITALS: BP 135/68; PULSE 84; RESP 18; TEMP 36.5; O2SAT 96
[2023-11-29] MEDS: DAPTOmycin 500 MG in 0.9 % Sodium Chloride 50 ML 120 MG IV (17:51)
[2023-11-29 20:00] VITALS: BP 142/75; PULSE 68; RESP 18; TEMP 36.6; O2SAT 96
[2023-11-29] MEDS: Mirtazapine 15 MG TABLET PO (21:38)
[2023-11-30] VITALS: BP 142/67; PULSE 71; RESP 20; TEMP 36.9; O2SAT 93
[2023-11-30 08:00] VITALS: BP 147/64; PULSE 55; RESP 18; TEMP 36.6; O2SAT 94
[2023-11-30 08:45] LABS: Hematocrit 32.1 % (42.0-52.0); Hemoglobin 10.3 g/dl (14.0-18.0); Mean Corpuscular HGB Conc 32.1 g/dl (31.0-36.0); Mean Corpuscular Hemoglobin 30.6 pg (27.0-33.0); Mean Corpuscular Volume 95.3 fL (80.0-98.0); Platelet Count 134 X10*3/uL (160-400); Red Blood Count 3.37 X10*6/uL (4.60-5.80); Red Cell Distribution Width 13.6 % (11.0-16.0); White Blood Count 5.1 X10*3/uL (4.8-10.8)
[2023-11-30 08:59] LABS: Anion Gap 11 (12-20); Blood Urea Nitrogen 39 mg/dL (9-16); Calcium 8.6 mg/dL (8.4-10.2); Carbon Dioxide 27 mmol/L (22-29); Chloride 109 mmol/L (96-108); Creatinine Clr Calc Pharmacy 37.4; Estimated Glomerular Filt Rate 47; Glucose Random 92 mg/dL (60-115); Potassium 3.9 mmol/L (3.3-5.1); Sodium 143 mmol/L (135-145)
[2023-11-30] MEDS: Ferrous Sulfate 324 MG TABLET.DR PO ×2 (09:15→21:42)
[2023-11-30] MEDS: Atorvastatin Calcium 40 MG TABLET PO (09:15)
[2023-11-30] MEDS: levETIRAcetam 500 MG TABLET PO ×2 (09:15→21:34)
[2023-11-30] MEDS: Roflumilast 500 MCG TABLET PO (09:15)
[2023-11-30] MEDS: Finasteride 5 MG TABLET PO (09:15)
[2023-11-30] MEDS: Sucralfate 1 GM TABLET PO ×4 (09:15→21:34)
[2023-11-30] MEDS: Cholecalciferol (Vitamin D3) 10 MCG TABLET 20 MCG PO (09:15)
[2023-11-30] MEDS: predniSONE 20 MG TABLET 40 MG PO (09:15)
[2023-11-30] MEDS: Metoprolol Tartrate 12.5 MG HALFTAB PO ×2 (09:15→21:36)
[2023-11-30] MEDS: Sennosides/Docusate Sodium TABLET 1 TAB PO ×2 (09:16→21:35)
[2023-11-30] MEDS: Tamsulosin HCL 0.4 MG CAPSULE PO (09:16)
[2023-11-30] MEDS: Gabapentin 400 MG CAPSULE PO ×2 (09:16→21:35)
[2023-11-30] MEDS: Potassium Chloride ER 20 MEQ TAB.ER.PRT PO (09:18)
[2023-11-30] MEDS: 0.9 % Sodium Chloride Flush 3 ML SYRINGE IVFLUSH ×3 (09:19→21:41)
--- NOTE | 2023-11-30 10:50 | MHC.CM.PN ---
Per ROUNDS discussion, Patient is not likely to be medically cleared for dc today (Needs f/u with ID/? of port being removed); Patient is a LTC resident at [facility]. CM will follow.
[2023-11-30 12:00] VITALS: BP 152/72; PULSE 74; RESP 20; TEMP 36.8; O2SAT 93
--- NOTE | 2023-11-30 12:02 | P.PNIM_ITS ---
Subjective Subjective Date of Service: 11/30/23 Interval History: Seen and examined this morning Follow-up for bacteremia, pneumonia some cough, no sob, no fever Review of Systems Review of Systems: Yes all other systems are reviewed and are negative Constitutional Constitutional: Denies chills and Denies fever(s) Cardiovascular Cardiovascular: Denies chest pain, Denies palpitations and Denies dyspnea Respiratory Respiratory: Reports cough and Denies dyspnea Endocrine Endocrine: Denies palpitations Physical Exam 2 Vital Signs: Vital Signs: Last Vital Signs Temp 97.9 F 11/30/23 08:00 Pulse 55 11/30/23 08:00 Resp 18 11/30/23 08:00 BP 147/64 H 11/30/23 08:00 Pulse Ox 94 11/30/23 08:00 O2 Del Method Room Air 11/30/23 08:00 O2 Flow Rate 2 11/27/23 00:00 BMI result Body Mass Index 23.4 Const: General: cooperative, comfortable, no acute distress, alert and awake Nutritional Appearance: average body habitus Chest: Other: port right chest wall - no surrounding erythema Resp: Other: scattered wheezing Effort & Inspection: normal respiratory effort, able to speak in complete sentences, respiratory effort not decreased, no respiratory distress and no use of accessory muscles Cardio: Rate: regular rate GI: Other: abdomen soft, chronic hernia Inspection: No distended Neuro: Other: grossly nonfocal Objective Data Active Medications Acetaminophen (Acetaminophen 325 Mg Tablet) 650 mg PO Q6H PRN PRN Reason: Pain, Mild (Pain Scale 1-3), fever or headache Albuterol Sulfate (Albuterol Sulfate 90 Mcg 8 Gm Inhaler) 2 puff INHALE Q4H PRN PRN Reason: Shortness of Breath/Wheezing Last Admin: 11/28/23 20:12 Dose: 2 puff Documented By: STELLA Atorvastatin Calcium (Atorvastatin Calcium 40 Mg Tablet) 40 mg PO DAILY [facility] Last Admin: 11/30/23 09:15 Dose: 40 mg Documented By: WEN Bisacodyl (Bisacodyl 10 Mg Supp.Rect) 10 mg [place] DAILY PRN PRN Reason: Constipation Calcium Carbonate (Calcium Carbonate 750 Mg Tab.Chew) 750 mg PO Q4H PRN PRN Reason: Heartburn Enoxaparin Sodium (Enoxaparin Sodium 40 Mg/0.4 Ml Syringe) 40 mg SUBCUT Q24H [facility] Last Admin: 11/29/23 12:45 Dose: 40 mg Documented By: WEN Ferrous Sulfate (Ferrous Sulfate 324 Mg Tablet.) 324 mg PO BID [facility] Last Admin: 11/30/23 09:15 Dose: 324 mg Documented By: WEN Finasteride (Finasteride 5 Mg Tablet) 5 mg PO DAILY [facility] Last Admin: 11/30/23 09:15 Dose: 5 mg Documented By: WEN Gabapentin (Gabapentin 400 Mg Capsule) 400 mg PO BID [facility] Last Admin: 11/30/23 09:16 Dose: 400 mg Documented By: WEN Daptomycin 500 mg/ Sodium (Chloride) 60 mls @ 120 mls/hr IV Q24H [facility] Last Infusion: 11/29/23 18:41 Dose: Infused Documented By: WEN Levetiracetam (Levetiracetam 500 Mg Tablet) 500 mg PO BID [facility] Last Admin: 11/30/23 09:15 Dose: 500 mg Documented By: WEN Lidocaine (Lidocaine 4 % Patch Adh..Patch) 1 patch TRANSDERMA DAILY [facility] Last Admin: 11/30/23 09:20 Dose: Not Given Documented By: WEN Non-Admin Reason: Patient Refused Lorazepam (Lorazepam 0.5 Mg Tablet) 0.5 mg PO Q8H PRN PRN Reason: Anxiety Last Admin: 11/28/23 22:56 Dose: 0.5 mg Documented By: ELBERTLAMCedric Magnesium Hydroxide (Milk Of Magnesia 30 Ml Oral.Susp) 30 ml PO DAILY PRN PRN Reason: Constipation Melatonin (Melatonin 3 Mg Tablet) 6 mg PO BEDTIME PRN PRN Reason: Insomnia Metoprolol Tartrate (Metoprolol Tartrate 12.5 Mg Halftab) 12.5 mg PO BID [facility]; Protocol Last Admin: 11/30/23 09:15 Dose: 12.5 mg Documented By: WEN Mirtazapine (Mirtazapine 15 Mg Tablet) 15 mg PO BEDTIME [facility] Last Admin: 11/29/23 21:38 Dose: 15 mg Documented By: JUAN ALBERTO Naloxone HCl (Naloxone Hcl 0.4 Mg/Ml Vial) 0.4 mg SUBCUT Q2M PRN PRN Reason: Opioid Overdose Nicotine Polacrilex (Nicotine Polacrilex Lozenge 2 Mg Lozenge) 2 mg BUCCAL Q2H PRN PRN Reason: Nicotine Cravings Last Admin: 11/26/23 20:14 Dose: 2 mg Documented By: ROLAN Non-Formulary Medication (Ramelteon) 8 mg PO BEDTIME [facility] Non-Formulary Medication (Revefenacin [Yupelri]) 175 mcg INHALE DAILY [facility] Omeprazole (Omeprazole 20 Mg Capsule.Dr) 20 mg PO DAILY@0630 [facility] Last Admin: 11/30/23 06:21 Dose: Not Given Documented By: JUAN ALBERTO Non-Admin Reason: Patient Refused Oxybutynin Chloride (Oxybutynin Chloride 5 Mg Tablet) 5 mg PO Q8H PRN PRN Reason: Bladder Spasms Polyethylene Glycol (Polyethylene Glycol 3350 17 Gm Powd.Pack) 17 gm PO DAILY PRN PRN Reason: Constipation Potassium Chloride (Potassium Chloride Er 20 Meq Tab.Er.Prt) 20 meq PO DAILY [facility] Last Admin: 11/30/23 09:18 Dose: 20 meq Documented By: WEN Prednisone (Prednisone 20 Mg Tablet) 40 mg PO DAILY [facility] Last Admin: 11/30/23 09:15 Dose: 40 mg Documented By: WEN Roflumilast (Roflumilast 500 Mcg Tablet) 500 mcg PO DAILY [facility] Last Admin: 11/30/23 09:15 Dose: 500 mcg Documented By: WEN Senna/Docusate Sodium (Sennosides/Docusate Sodium Tablet) 1 tab PO BID [facility] Last Admin: 11/30/23 09:16 Dose: 1 tab Documented By: WEN Sodium Chloride (0.9 % Sodium Chloride Flush 3 Ml Syringe) 3 ml IVFLUSH QSHIFT [facility] Last Admin: 11/30/23 09:19 Dose: 3 ml Documented By: WEN Sucralfate (Sucralfate 1 Gm Tablet) 1 gm PO QIDWMHS [facility] Last Admin: 11/30/23 09:15 Dose: 1 gm Documented By: WEN Tamsulosin HCl (Tamsulosin Hcl 0.4 Mg Capsule) 0.4 mg PO DAILY [facility] Last Admin: 11/30/23 09:16 Dose: 0.4 mg Documented By: WEN Tizanidine HCl (Tizanidine Hcl 4 Mg Tablet) 2 mg PO Q8H PRN PRN Reason: Spasms Vitamin D (Cholecalciferol (Vitamin D3) 10 Mcg Tablet) 20 mcg PO DAILY [facility] Last Admin: 11/30/23 09:15 Dose: 20 mcg Documented By: WEN Labs 11/30/23 08:20 11/30/23 08:20 Labs: Laboratory Results - last 24 hr 11/30/23 08:20 MCV 95.3 MCH 30.6 MCHC 32.1 RDW 13.6 Plt Count 134 L MPV 10.0 Absolute Nucleated RBC 0.000 Nucleated RBC % (auto) 0.0 Anion Gap 11 L Estim Creat Clear Calc 37.4 Estimated GFR 47 Random Glucose 92 Calcium 8.6 D Microbiology Microbiology Results: Microbiology 11/26/23 12:46 Blood Culture - Final Blood - Venous Staphylococcus epidermidis 11/27/23 05:46 Blood Culture - Final Blood - Venous Staphylococcus epidermidis 11/27/23 05:46 Blood Culture - Final Blood - Venous Staphylococcus epidermidis 11/28/23 11:34 Blood Culture - Preliminary Blood - Venous No growth after 24 hours. 11/28/23 11:34 Blood Culture - Preliminary Blood - Venous No growth after 24 hours. 11/26/23 12:46 Blood Culture - Final Blood - Venous Staphylococcus epidermidis Coag negative Staphylococcus Assessment and Plan (1) Gram-positive cocci bacteremia: Status: Acute (2) COPD exacerbation: Status: Acute Plan 73-year-old male with a history of dementia, chronic anemia, hypokalemia, BPH, COPD, esophageal cancer with port in place, kidney disease, renal calculi, hyperlipidemia, essential hypertension, depression, opiate dependence-remission, chronic pain syndrome who was seen in the emergency department yesterday for aggressive behavior at his nursing facility and for smoking marijuana. The patient did have a positive marijuana test but was not aggressive in the emergency department yesterday and was discharged back to his care facility. The patient was sent back to the emergency department on a Section 12. Following information was obtained from the Section 12: ?Using illicit substance and facility; violent and aggressive behavior: Kicking, hitting, throwing items, verbal threats of harm. Active attempts to leave facility. . Was being observed in behavioral pod and developed hypoxia. Patient was admitted for further management of acute COPD exacerbation with acute hypoxemic respiratory failure and new lung mass and now has 2/2 gram positive bacteremia acute hypoxemic respiratory failure secondary to COPD exacerbation and pneumonia Chest CT with moderate emphysema, nodularity in the medial right lower lobe suggesting focal infectious/inflammatory process tachypnea resolved, weaned onto room air RPP negative Initially treated with IV Solu-Medrol, transitioned to oral prednisone continue DuoNebs q.4h while awake/p.r.n. continue maintenance inhalers/medications two more days of antibiotics pulmonary nodules: Scattered small pulmonary nodules measuring up to 6 mm in the right upper lobe. will need outpatient follow up Staph Bacteremia initial blood cultures growing coag negative staph/staph epidermidis; cultures from 11/26 2/2 growing staph epidermidis Surveillance blood cultures from November 27 negative to date Initially treated with IV vancomycin, transitioned to daptomycin due to fluctuating renal function and intermittent refusal of labs Plan for 4 weeks of IV daptomycin. will need line placed when blood cultures negative for 72 hours per ID port to remain in place per ID Echocardiogram with no vegetation ID following asymptomatic bacteriuria/UTI urine culture negative, will stop ceftriaxone Thrombocytopenia suspect chronic stable ?unspecified seizure d/o continue keppra HTN continue metoprolol CKD stage 3 renal function fluctuating, but back down to baseline Unspecified anemia h/h stable overall, possibly chronic due to chronic disease hx esophageal ca no longer undergoing tx. 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
[2023-11-30] MEDS: cefuroxime axetiL 500 MG TABLET PO ×2 (12:35→21:35)
[2023-11-30 16:13] VITALS: BP 137/64; PULSE 63; RESP 12; TEMP 36.6; O2SAT 93
[2023-11-30] MEDS: Ibuprofen 400 MG TABLET PO (17:34)
[2023-11-30] MEDS: DAPTOmycin 500 MG in 0.9 % Sodium Chloride 50 ML 120 MG IV (17:47)
[2023-11-30 20:00] VITALS: BP 136/78; PULSE 78; RESP 18; TEMP 37.1; O2SAT 93
[2023-11-30] MEDS: Mirtazapine 15 MG TABLET PO (21:34)
[2023-11-30] MEDS: TiZANidine HCL 4 MG TABLET 2 MG PO (21:36)
[2023-11-30 23:33] VITALS: BP 122/61; PULSE 70; RESP 18; TEMP 36.5; O2SAT 94
[2023-12-01 04:00] VITALS: BP 147/70; PULSE 74; RESP 18; TEMP 36.3; O2SAT 95
[2023-12-01 08:00] VITALS: BP 145/68; PULSE 64; TEMP 36.3; O2SAT 96
[2023-12-01] MEDS: 0.9 % Sodium Chloride Flush 3 ML SYRINGE IVFLUSH ×3 (08:51→23:00)
[2023-12-01] MEDS: Atorvastatin Calcium 40 MG TABLET PO (08:52)
[2023-12-01] MEDS: Cholecalciferol (Vitamin D3) 10 MCG TABLET 20 MCG PO (08:52)
[2023-12-01] MEDS: Ferrous Sulfate 324 MG TABLET.DR PO ×2 (08:52→20:49)
[2023-12-01] MEDS: Sucralfate 1 GM TABLET PO ×4 (08:52→20:49)
[2023-12-01] MEDS: cefuroxime axetiL 500 MG TABLET PO ×2 (08:52→20:49)
[2023-12-01] MEDS: Finasteride 5 MG TABLET PO (08:52)
[2023-12-01] MEDS: levETIRAcetam 500 MG TABLET PO ×2 (08:53→20:49)
[2023-12-01] MEDS: Gabapentin 400 MG CAPSULE PO ×2 (08:53→20:51)
[2023-12-01] MEDS: Metoprolol Tartrate 12.5 MG HALFTAB PO ×2 (08:53→20:50)
[2023-12-01] MEDS: Potassium Chloride ER 20 MEQ TAB.ER.PRT PO (08:53)
[2023-12-01] MEDS: Tamsulosin HCL 0.4 MG CAPSULE PO (08:54)
[2023-12-01] MEDS: predniSONE 20 MG TABLET 40 MG PO (08:54)
[2023-12-01] MEDS: Sennosides/Docusate Sodium TABLET 1 TAB PO ×2 (08:54→20:50)
[2023-12-01] MEDS: Roflumilast 500 MCG TABLET PO (08:54)
[2023-12-01] MEDS: Calcium Carbonate 750 MG TAB.CHEW PO (11:09)
[2023-12-01] MEDS: Enoxaparin Sodium 40 MG/0.4 ML SYRINGE SUBCUT (12:27)
[2023-12-01] MEDS: TiZANidine HCL 4 MG TABLET 2 MG PO ×2 (12:30→20:51)
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
--- NOTE | 2023-12-01 14:05 | HO.PM.IMPN ---
Subjective Subjective Date of Service: 12/01/23 Interval History: seen and examined this morning follow up for bacteremia no overnight events Physical Exam Vital Signs: Vital Signs: Last Vital Signs Temp 97.4 F 12/01/23 08:00 Pulse 64 12/01/23 08:00 Resp 18 12/01/23 04:00 BP 145/68 H 12/01/23 08:00 Pulse Ox 96 12/01/23 08:00 O2 Del Method Room Air 12/01/23 08:00 O2 Flow Rate 2 11/27/23 00:00 BMI result Body Mass Index 23.4 Const: General: cooperative, comfortable, no acute distress, alert and awake Nutritional Appearance: average body habitus Chest: Other: port right chest wall - no surrounding erythema Resp: Other: scattered wheezing Effort & Inspection: normal respiratory effort, able to speak in complete sentences, respiratory effort not decreased, no respiratory distress and no use of accessory muscles Cardio: Rate: regular rate GI: Other: abdomen soft, chronic hernia Inspection: No distended Neuro: Other: grossly nonfocal Objective Data Active Medications Acetaminophen (Acetaminophen 325 Mg Tablet) 650 mg PO Q6H PRN PRN Reason: Pain, Mild (Pain Scale 1-3), fever or headache Albuterol Sulfate (Albuterol Sulfate 90 Mcg 8 Gm Inhaler) 2 puff INHALE Q4H PRN PRN Reason: Shortness of Breath/Wheezing Last Admin: 11/28/23 20:12 Dose: 2 puff Documented By: STELLA Albuterol/Ipratropium (Albuterol/Iprat 2.5/0.5mg 3 Ml Ampul.Neb) 3 ml INHALE RQ6H WHILE AWAKE PRN PRN Reason: shortness of breath/wheezing Atorvastatin Calcium (Atorvastatin Calcium 40 Mg Tablet) 40 mg PO DAILY [facility] Last Admin: 12/01/23 08:52 Dose: 40 mg Documented By: PODMORP Bisacodyl (Bisacodyl 10 Mg Supp.Rect) 10 mg [place] DAILY PRN PRN Reason: Constipation Calcium Carbonate (Calcium Carbonate 750 Mg Tab.Chew) 750 mg PO Q4H PRN PRN Reason: Heartburn Last Admin: 12/01/23 11:09 Dose: 750 mg Documented By: PODMORP Cefuroxime Axetil (Cefuroxime Axetil 500 Mg Tablet) 500 mg PO BID [facility] Stop: 12/01/23 21:01 Last Admin: 12/01/23 08:52 Dose: 500 mg Documented By: PODMORP Enoxaparin Sodium (Enoxaparin Sodium 40 Mg/0.4 Ml Syringe) 40 mg SUBCUT Q24H [facility] Last Admin: 12/01/23 12:27 Dose: 40 mg Documented By: PODMORP Ferrous Sulfate (Ferrous Sulfate 324 Mg Tablet.) 324 mg PO BID [facility] Last Admin: 12/01/23 08:52 Dose: 324 mg Documented By: PODMORP Finasteride (Finasteride 5 Mg Tablet) 5 mg PO DAILY [facility] Last Admin: 12/01/23 08:52 Dose: 5 mg Documented By: PODMORP Gabapentin (Gabapentin 400 Mg Capsule) 400 mg PO BID [facility] Last Admin: 12/01/23 08:53 Dose: 400 mg Documented By: PODMORP Daptomycin 500 mg/ Sodium (Chloride) 60 mls @ 120 mls/hr IV Q24H [facility] Last Infusion: 11/30/23 18:25 Dose: Infused Documented By: TOMASIAurelia Levetiracetam (Levetiracetam 500 Mg Tablet) 500 mg PO BID [facility] Last Admin: 12/01/23 08:53 Dose: 500 mg Documented By: HUMZAMOANTHONY Lidocaine (Lidocaine 4 % Patch Adh..Patch) 1 patch TRANSDERMA DAILY [facility] Last Admin: 12/01/23 09:09 Dose: Not Given Documented By: PODMORP Non-Admin Reason: Patient Refused Lorazepam (Lorazepam 0.5 Mg Tablet) 0.5 mg PO Q8H PRN PRN Reason: Anxiety Last Admin: 11/28/23 22:56 Dose: 0.5 mg Documented By: LAFLAMC Magnesium Hydroxide (Milk Of Magnesia 30 Ml Oral.Susp) 30 ml PO DAILY PRN PRN Reason: Constipation Melatonin (Melatonin 3 Mg Tablet) 6 mg PO BEDTIME PRN PRN Reason: Insomnia Metoprolol Tartrate (Metoprolol Tartrate 12.5 Mg Halftab) 12.5 mg PO BID [facility]; Protocol Last Admin: 12/01/23 08:53 Dose: 12.5 mg Documented By: PODMORP Mirtazapine (Mirtazapine 15 Mg Tablet) 15 mg PO BEDTIME [facility] Last Admin: 11/30/23 21:34 Dose: 15 mg Documented By: SOFI Naloxone HCl (Naloxone Hcl 0.4 Mg/Ml Vial) 0.4 mg SUBCUT Q2M PRN PRN Reason: Opioid Overdose Nicotine Polacrilex (Nicotine Polacrilex Lozenge 2 Mg Lozenge) 2 mg BUCCAL Q2H PRN PRN Reason: Nicotine Cravings Last Admin: 11/26/23 20:14 Dose: 2 mg Documented By: ROLAN Non-Formulary Medication (Ramelteon) 8 mg PO BEDTIME [facility] Non-Formulary Medication (Revefenacin [Yupelri]) 175 mcg INHALE DAILY [facility] Omeprazole (Omeprazole 20 Mg Capsule.Dr) 20 mg PO DAILY@0630 [facility] Last Admin: 12/01/23 05:51 Dose: Not Given Documented By: SOFI Non-Admin Reason: Patient Refused Oxybutynin Chloride (Oxybutynin Chloride 5 Mg Tablet) 5 mg PO Q8H PRN PRN Reason: Bladder Spasms Polyethylene Glycol (Polyethylene Glycol 3350 17 Gm Powd.Pack) 17 gm PO DAILY PRN PRN Reason: Constipation Potassium Chloride (Potassium Chloride Er 20 Meq Tab.Er.Prt) 20 meq PO DAILY [facility] Last Admin: 12/01/23 08:53 Dose: 20 meq Documented By: PODMORP Prednisone (Prednisone 20 Mg Tablet) 40 mg PO DAILY [facility] Last Admin: 12/01/23 08:54 Dose: 40 mg Documented By: PODMORP Roflumilast (Roflumilast 500 Mcg Tablet) 500 mcg PO DAILY [facility] Last Admin: 12/01/23 08:54 Dose: 500 mcg Documented By: PODMORP Senna/Docusate Sodium (Sennosides/Docusate Sodium Tablet) 1 tab PO BID [facility] Last Admin: 12/01/23 08:54 Dose: 1 tab Documented By: PODMORP Sodium Chloride (0.9 % Sodium Chloride Flush 3 Ml Syringe) 3 ml IVFLUSH QSHIFT [facility] Last Admin: 12/01/23 08:51 Dose: 3 ml Documented By: PODMORP Sucralfate (Sucralfate 1 Gm Tablet) 1 gm PO QIDWMHS [facility] Last Admin: 12/01/23 12:27 Dose: 1 gm Documented By: PODMORP Tamsulosin HCl (Tamsulosin Hcl 0.4 Mg Capsule) 0.4 mg PO DAILY [facility] Last Admin: 12/01/23 08:54 Dose: 0.4 mg Documented By: PODMORP Tizanidine HCl (Tizanidine Hcl 4 Mg Tablet) 2 mg PO Q8H PRN PRN Reason: Spasms Last Admin: 12/01/23 12:30 Dose: 2 mg Documented By: PODMORP Vitamin D (Cholecalciferol (Vitamin D3) 10 Mcg Tablet) 20 mcg PO DAILY [facility] Last Admin: 12/01/23 08:52 Dose: 20 mcg Documented By: PODMORP Labs 11/30/23 08:20 11/30/23 08:20 Microbiology Microbiology Results: Microbiology 11/28/23 11:34 Blood Culture - Preliminary Blood - Venous No growth after 48 hours. 11/28/23 11:34 Blood Culture - Preliminary Blood - Venous No growth after 48 hours. 11/26/23 12:46 Blood Culture - Final Blood - Venous Staphylococcus epidermidis 11/27/23 05:46 Blood Culture - Final Blood - Venous Staphylococcus epidermidis 11/27/23 05:46 Blood Culture - Final Blood - Venous Staphylococcus epidermidis Assessment and Plan (1) Gram-positive cocci bacteremia: Status: Acute (2) COPD exacerbation: Status: Acute Plan 73-year-old male with a history of dementia, chronic anemia, hypokalemia, BPH, COPD, esophageal cancer with port in place, kidney disease, renal calculi, hyperlipidemia, essential hypertension, depression, opiate dependence-remission, chronic pain syndrome who was seen in the emergency department yesterday for aggressive behavior at his nursing facility and for smoking marijuana. The patient did have a positive marijuana test but was not aggressive in the emergency department yesterday and was discharged back to his care facility. The patient was sent back to the emergency department on a Section 12. Following information was obtained from the Section 12: ?Using illicit substance and facility; violent and aggressive behavior: Kicking, hitting, throwing items, verbal threats of harm. Active attempts to leave facility. . Was being observed in behavioral pod and developed hypoxia. Patient was admitted for further management of acute COPD exacerbation with acute hypoxemic respiratory failure and new lung mass and now has 2/2 gram positive bacteremia acute hypoxemic respiratory failure secondary to COPD exacerbation and pneumonia Chest CT with moderate emphysema, nodularity in the medial right lower lobe suggesting focal infectious/inflammatory process tachypnea resolved, weaned onto room air RPP negative Initially treated with IV Solu-Medrol, transitioned to oral prednisone, continue to taper continue DuoNebs q.4h while awake/p.r.n. continue maintenance inhalers/medications will complete course of antibiotics 11/30 pulmonary nodules: Scattered small pulmonary nodules measuring up to 6 mm in the right upper lobe. will need outpatient follow up Staph Bacteremia initial blood cultures growing coag negative staph/staph epidermidis; cultures from 11/26 06/22 growing staph epidermidis Surveillance blood cultures from November 27 negative to date Initially treated with IV vancomycin, transitioned to daptomycin due to fluctuating renal function and intermittent refusal of labs Plan for 4 weeks of IV daptomycin. will need line placed when blood cultures negative for 72 hours per ID - end date 12/25; will need weekly CBC and CPK levels while on dapto port to remain in place for now - outpatient follow up to assess if can be removed Echocardiogram with no vegetation ID following asymptomatic bacteriuria/UTI urine culture negative Thrombocytopenia suspect chronic stable ?unspecified seizure d/o continue keppra HTN continue metoprolol CKD stage 3 renal function fluctuating, but back down to baseline Unspecified anemia h/h stable overall, possibly chronic due to chronic disease hx esophageal ca no longer undergoing tx. 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
--- NOTE | 2023-12-01 14:06 | PM.EVENT ---
Event Note Date of Service: 12/01/23 Time Spent With Patient Time: Total time managing care of this patient today ____ minutes.
[2023-12-01 16:00] VITALS: BP 130/73; PULSE 74; RESP 14; TEMP 36.6; O2SAT 92
[2023-12-01] MEDS: DAPTOmycin 500 MG in 0.9 % Sodium Chloride 50 ML 120 MG IV (17:07)
[2023-12-01 20:45] VITALS: BP 133/78
[2023-12-01] MEDS: Mirtazapine 15 MG TABLET PO (20:49)
[2023-12-02 04:00] VITALS: BP 122/77; PULSE 82; RESP 18; TEMP 36.5; O2SAT 97
[2023-12-02] MEDS: Omeprazole 20 MG CAPSULE.DR PO (06:21)
[2023-12-02 08:00] VITALS: BP 133/72; PULSE 74; RESP 18; TEMP 36.3; O2SAT 99
[2023-12-02 08:23] LABS: Anion Gap 12 (12-20); Blood Urea Nitrogen 48 mg/dL (9-16); Calcium 8.3 mg/dL (8.4-10.2); Carbon Dioxide 23 mmol/L (22-29); Chloride 109 mmol/L (96-108); Creatinine Clr Calc Pharmacy 31.8; Estimated Glomerular Filt Rate 39; Glucose Random 199 mg/dL (60-115); Sodium 140 mmol/L (135-145)
[2023-12-02] MEDS: predniSONE 20 MG TABLET 40 MG PO (09:39)
[2023-12-02] MEDS: Roflumilast 500 MCG TABLET PO (09:39)
[2023-12-02] MEDS: Cholecalciferol (Vitamin D3) 10 MCG TABLET 20 MCG PO (09:39)
[2023-12-02] MEDS: 0.9 % Sodium Chloride Flush 3 ML SYRINGE IVFLUSH ×2 (09:39→16:56)
[2023-12-02] MEDS: Ferrous Sulfate 324 MG TABLET.DR PO ×2 (09:39→20:13)
[2023-12-02] MEDS: Sennosides/Docusate Sodium TABLET 1 TAB PO ×2 (09:39→20:18)
[2023-12-02] MEDS: Metoprolol Tartrate 12.5 MG HALFTAB PO ×2 (09:39→20:13)
[2023-12-02] MEDS: levETIRAcetam 500 MG TABLET PO ×2 (09:39→20:13)
[2023-12-02] MEDS: Potassium Chloride ER 20 MEQ TAB.ER.PRT PO (09:39)
[2023-12-02] MEDS: Gabapentin 400 MG CAPSULE PO ×2 (09:39→20:13)
[2023-12-02] MEDS: Tamsulosin HCL 0.4 MG CAPSULE PO (09:39)
[2023-12-02] MEDS: Finasteride 5 MG TABLET PO (09:40)
[2023-12-02] MEDS: Sucralfate 1 GM TABLET PO ×4 (09:40→20:13)
[2023-12-02] MEDS: Enoxaparin Sodium 40 MG/0.4 ML SYRINGE SUBCUT (11:34)
[2023-12-02 11:51] VITALS: BP 139/72; PULSE 68; RESP 18; TEMP 36.3; O2SAT 94
--- NOTE | 2023-12-02 11:58 | P.PNIM_ITS ---
Subjective Subjective Date of Service: 12/02/23 Interval History: Seen and examined this morning Follow-up for bacteremia No overnight events No specific complaints, denies shortness of breath, remains on room air Review of Systems Review of Systems: Yes all other systems are reviewed and are negative Constitutional Constitutional: Denies chills and Denies fever(s) Physical Exam 2 Vital Signs: Vital Signs: Last Vital Signs Temp 97.4 F 12/02/23 11:51 Pulse 68 12/02/23 11:51 Resp 18 12/02/23 11:51 BP 139/72 12/02/23 11:51 Pulse Ox 94 12/02/23 11:51 O2 Del Method Room Air 12/02/23 11:51 O2 Flow Rate 2 11/27/23 00:00 BMI result Body Mass Index 23.4 Const: General: cooperative, comfortable, no acute distress, alert and awake Nutritional Appearance: average body habitus Chest: Other: port right chest wall - no surrounding erythema Resp: Other: scattered wheezing Effort & Inspection: normal respiratory effort, able to speak in complete sentences, respiratory effort not decreased, no respiratory distress and no use of accessory muscles Cardio: Rate: regular rate GI: Other: abdomen soft, chronic hernia Inspection: No distended Neuro: Other: grossly nonfocal Objective Data Active Medications Acetaminophen (Acetaminophen 325 Mg Tablet) 650 mg PO Q6H PRN PRN Reason: Pain, Mild (Pain Scale 1-3), fever or headache Albuterol Sulfate (Albuterol Sulfate 90 Mcg 8 Gm Inhaler) 2 puff INHALE Q4H PRN PRN Reason: Shortness of Breath/Wheezing Last Admin: 11/28/23 20:12 Dose: 2 puff Documented By: LAFLAMCedric Albuterol/Ipratropium (Albuterol/Iprat 2.5/0.5mg 3 Ml Ampul.Neb) 3 ml INHALE RQ6H WHILE AWAKE PRN PRN Reason: shortness of breath/wheezing Atorvastatin Calcium (Atorvastatin Calcium 40 Mg Tablet) 40 mg PO DAILY [facility] Last Admin: 12/01/23 08:52 Dose: 40 mg Documented By: PODMORP Bisacodyl (Bisacodyl 10 Mg Supp.Rect) 10 mg NM DAILY PRN PRN Reason: Constipation Calcium Carbonate (Calcium Carbonate 750 Mg Tab.Chew) 750 mg PO Q4H PRN PRN Reason: Heartburn Last Admin: 12/01/23 11:09 Dose: 750 mg Documented By: SHIRA Enoxaparin Sodium (Enoxaparin Sodium 40 Mg/0.4 Ml Syringe) 40 mg SUBCUT Q24H [facility] Last Admin: 12/02/23 11:34 Dose: 40 mg Documented By: ANABELLA Ferrous Sulfate (Ferrous Sulfate 324 Mg Tablet.Dr) 324 mg PO BID [facility] Last Admin: 12/02/23 09:39 Dose: 324 mg Documented By: ANABELLA Finasteride (Finasteride 5 Mg Tablet) 5 mg PO DAILY [facility] Last Admin: 12/02/23 09:40 Dose: 5 mg Documented By: ANABELLA Gabapentin (Gabapentin 400 Mg Capsule) 400 mg PO BID [facility] Last Admin: 12/02/23 09:39 Dose: 400 mg Documented By: ANABELLA Daptomycin 500 mg/ Sodium (Chloride) 60 mls @ 120 mls/hr IV Q24H [facility] Last Infusion: 12/01/23 17:37 Dose: Infused Documented By: SHIRA Levetiracetam (Levetiracetam 500 Mg Tablet) 500 mg PO BID [facility] Last Admin: 12/02/23 09:39 Dose: 500 mg Documented By: ANABELLA Lidocaine (Lidocaine 4 % Patch Adh..Patch) 1 patch TRANSDERMA DAILY [facility] Last Admin: 12/02/23 09:45 Dose: Not Given Documented By: ANABELLA Non-Admin Reason: Patient Refused Lorazepam (Lorazepam 0.5 Mg Tablet) 0.5 mg PO Q8H PRN PRN Reason: Anxiety Last Admin: 11/28/23 22:56 Dose: 0.5 mg Documented By: STELLA Magnesium Hydroxide (Milk Of Magnesia 30 Ml Oral.Susp) 30 ml PO DAILY PRN PRN Reason: Constipation Melatonin (Melatonin 3 Mg Tablet) 6 mg PO BEDTIME PRN PRN Reason: Insomnia Metoprolol Tartrate (Metoprolol Tartrate 12.5 Mg Halftab) 12.5 mg PO BID [facility]; Protocol Last Admin: 12/02/23 09:39 Dose: 12.5 mg Documented By: ANABELLA Mirtazapine (Mirtazapine 15 Mg Tablet) 15 mg PO BEDTIME [facility] Last Admin: 12/01/23 20:49 Dose: 15 mg Documented By: SOFI Naloxone HCl (Naloxone Hcl 0.4 Mg/Ml Vial) 0.4 mg SUBCUT Q2M PRN PRN Reason: Opioid Overdose Nicotine Polacrilex (Nicotine Polacrilex Lozenge 2 Mg Lozenge) 2 mg BUCCAL Q2H PRN PRN Reason: Nicotine Cravings Last Admin: 11/26/23 20:14 Dose: 2 mg Documented By: ROLAN Non-Formulary Medication (Ramelteon) 8 mg PO BEDTIME [facility] Non-Formulary Medication (Revefenacin [Yupelri]) 175 mcg INHALE DAILY [facility] Omeprazole (Omeprazole 20 Mg Capsule.Dr) 20 mg PO DAILY@0630 [facility] Last Admin: 12/02/23 06:21 Dose: 20 mg Documented By: SOFI Oxybutynin Chloride (Oxybutynin Chloride 5 Mg Tablet) 5 mg PO Q8H PRN PRN Reason: Bladder Spasms Polyethylene Glycol (Polyethylene Glycol 3350 17 Gm Powd.Pack) 17 gm PO DAILY PRN PRN Reason: Constipation Potassium Chloride (Potassium Chloride Er 20 Meq Tab.Er.Prt) 20 meq PO DAILY [facility] Last Admin: 12/02/23 09:39 Dose: 20 meq Documented By: ANABELLA Prednisone (Prednisone 20 Mg Tablet) 40 mg PO DAILY [facility] Last Admin: 12/02/23 09:39 Dose: 40 mg Documented By: ANABELLA Roflumilast (Roflumilast 500 Mcg Tablet) 500 mcg PO DAILY [facility] Last Admin: 12/02/23 09:39 Dose: 500 mcg Documented By: ANABELLA Senna/Docusate Sodium (Sennosides/Docusate Sodium Tablet) 1 tab PO BID [facility] Last Admin: 12/02/23 09:39 Dose: 1 tab Documented By: ANABELLA Sodium Chloride (0.9 % Sodium Chloride Flush 3 Ml Syringe) 3 ml IVFLUSH QSHIFT [facility] Last Admin: 12/02/23 09:39 Dose: 3 ml Documented By: ANABELLA Sucralfate (Sucralfate 1 Gm Tablet) 1 gm PO QIDWMHS [facility] Last Admin: 12/02/23 11:34 Dose: 1 gm Documented By: ANABELLA Tamsulosin HCl (Tamsulosin Hcl 0.4 Mg Capsule) 0.4 mg PO DAILY [facility] Last Admin: 12/02/23 09:39 Dose: 0.4 mg Documented By: ANABELLA Tizanidine HCl (Tizanidine Hcl 4 Mg Tablet) 2 mg PO Q8H PRN PRN Reason: Spasms Last Admin: 12/01/23 20:51 Dose: 2 mg Documented By: SOFI Vitamin D (Cholecalciferol (Vitamin D3) 10 Mcg Tablet) 20 mcg PO DAILY [facility] Last Admin: 12/02/23 09:39 Dose: 20 mcg Documented By: ANABELLA Labs 11/30/23 08:20 12/02/23 07:56 Labs: Laboratory Results - last 24 hr 12/02/23 07:56 Anion Gap 12 Estim Creat Clear Calc 31.8 Estimated GFR 39 Random Glucose 199 H Calcium 8.3 L Total Creatine Kinase 19 L Assessment and Plan (1) Gram-positive cocci bacteremia: Status: Acute (2) Lung mass: Status: Acute (3) COPD exacerbation: Status: Acute Plan 73-year-old male with a history of dementia, chronic anemia, hypokalemia, BPH, COPD, esophageal cancer with port in place, kidney disease, renal calculi, hyperlipidemia, essential hypertension, depression, opiate dependence-remission, chronic pain syndrome who was seen in the emergency department yesterday for aggressive behavior at his nursing facility and for smoking marijuana. The patient did have a positive marijuana test but was not aggressive in the emergency department yesterday and was discharged back to his care facility. The patient was sent back to the emergency department on a Section 12. Following information was obtained from the Section 12: ?Using illicit substance and facility; violent and aggressive behavior: Kicking, hitting, throwing items, verbal threats of harm. Active attempts to leave facility. . Was being observed in behavioral pod and developed hypoxia. Patient was admitted for further management of acute COPD exacerbation with acute hypoxemic respiratory failure and new lung mass and now has 2/2 gram positive bacteremia acute hypoxemic respiratory failure secondary to COPD exacerbation and pneumonia Chest CT with moderate emphysema, nodularity in the medial right lower lobe suggesting focal infectious/inflammatory process tachypnea resolved, weaned onto room air RPP negative Initially treated with IV Solu-Medrol, transitioned to oral prednisone, continue to taper continue DuoNebs q.4h while awake/p.r.n. continue maintenance inhalers/medications Completed course of antibiotics 11/30 pulmonary nodules: Scattered small pulmonary nodules measuring up to 6 mm in the right upper lobe. will need outpatient follow up Staph Bacteremia initial blood cultures growing coag negative staph/staph epidermidis; cultures from 11/26 2/ growing staph epidermidis Surveillance blood cultures from November 27 negative to date Initially treated with IV vancomycin, transitioned to daptomycin due to fluctuating renal function and intermittent refusal of labs Plan for 4 weeks of IV daptomycin. will need line placed when blood cultures negative for 72 hours per ID - end date 12/25; will need weekly CBC and CPK levels while on dapto port to remain in place for now - outpatient follow up to assess if can be removed Echocardiogram with no vegetation ID following asymptomatic bacteriuria/UTI urine culture negative Thrombocytopenia suspect chronic stable ?unspecified seizure d/o continue keppra HTN continue metoprolol CKD stage 3 renal function fluctuating, but back down to baseline Unspecified anemia h/h stable overall, possibly chronic due to chronic disease hx esophageal ca no longer undergoing tx. 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
[2023-12-02 15:56] VITALS: BP 142/66; PULSE 65; RESP 18; TEMP 36.6; O2SAT 93
[2023-12-02] MEDS: TiZANidine HCL 4 MG TABLET 2 MG PO (16:55)
[2023-12-02] MEDS: LORazepam 0.5 MG TABLET PO (16:55)
[2023-12-02] MEDS: DAPTOmycin 500 MG in 0.9 % Sodium Chloride 50 ML 120 MG IV (17:03)
--- NOTE | 2023-12-02 18:13 | PC.NURSE ---
patient wondering where clothes and aggressive about getting them to bedside. Make made his way of room at approximately 14:30 to go and retrieve personal belonging. Do to suicidal ideation upon admission patient belonging with not allowed bedside. Patient was asked numerous time to return to room and patient kept declining and stated he wanted to leave. at this time patient in on a section 12. Security was called to assist with patient returning to room.
[2023-12-02 20:00] VITALS: BP 140/69; PULSE 83; RESP 18; TEMP 36.9; O2SAT 94
[2023-12-02] MEDS: Mirtazapine 15 MG TABLET PO (20:13)
[2023-12-02 23:58] VITALS: BP 132/61; PULSE 68; RESP 18; TEMP 36; O2SAT 91
[2023-12-03] VITALS (7 sets, daily range): BP systolic 87–121; BP diastolic 50–65; PULSE 55–85; RESP 16–18; TEMP 36.1–36.5; O2SAT 92–96
--- NOTE | 2023-12-03 06:37 | PC.NURSE ---
Pt refused 0400 vitals, assessments. Uncooperative and verbally aggressive at times.
[2023-12-03] MEDS: Ferrous Sulfate 324 MG TABLET.DR PO ×2 (08:47→20:15)
[2023-12-03] MEDS: Cholecalciferol (Vitamin D3) 10 MCG TABLET 20 MCG PO (08:47)
[2023-12-03] MEDS: predniSONE 20 MG TABLET 40 MG PO (08:47)
[2023-12-03] MEDS: Sucralfate 1 GM TABLET PO ×4 (08:47→20:15)
[2023-12-03] MEDS: Gabapentin 400 MG CAPSULE PO ×2 (08:47→20:15)
[2023-12-03] MEDS: Potassium Chloride ER 20 MEQ TAB.ER.PRT PO (08:47)
[2023-12-03] MEDS: Tamsulosin HCL 0.4 MG CAPSULE PO (08:48)
[2023-12-03] MEDS: levETIRAcetam 500 MG TABLET PO ×2 (08:48→20:15)
[2023-12-03] MEDS: Finasteride 5 MG TABLET PO (08:48)
[2023-12-03] MEDS: 0.9 % Sodium Chloride Flush 3 ML SYRINGE IVFLUSH ×4 (08:48→20:17)
[2023-12-03] MEDS: Metoprolol Tartrate 12.5 MG HALFTAB PO ×2 (08:48→20:15)
[2023-12-03] MEDS: Roflumilast 500 MCG TABLET PO (08:48)
[2023-12-03] MEDS: Sennosides/Docusate Sodium TABLET 1 TAB PO ×2 (08:48→20:15)
--- NOTE | 2023-12-03 10:51 | MHC.CM.PN ---
Per ROUNDS discussion, goal is a PICC for IV Dapto; CM is awaiting confirmation from [facility] that this can be managed at the SNF. CM awaits a response.
[2023-12-03] MEDS: Enoxaparin Sodium 40 MG/0.4 ML SYRINGE SUBCUT (11:46)
--- NOTE | 2023-12-03 12:53 | MHC.CM.PN ---
[facility] is making an on-site visit tomorrow at 11:30 AM; CM Director is aware.
--- NOTE | 2023-12-03 15:00 | MHC.CM.PN ---
Addendum entered by Imelda Dodson 12/03/23 15:01: Dr. Byers notified via secure messaging. Original Note: this contract technical writer spoke with 's enforcement safety officer Navneet Allen @ [phone] Conditions of patient's parole require him to return to [facility]. If he were to leave AMA- a warrant would be issued for his arrest.
--- NOTE | 2023-12-03 15:38 | P.PNIM_ITS ---
Subjective Subjective Date of Service: 12/03/23 Interval History: Seen and examined this morning Follow-up for bacteremia No overnight events No specific complaints, blood cultures negative at 72 Physical Exam 2 Vital Signs: Vital Signs: Last Vital Signs Temp 97.5 F 12/03/23 11:02 Pulse 55 12/03/23 11:02 Resp 17 12/03/23 11:02 BP 117/65 12/03/23 11:02 Pulse Ox 93 12/03/23 11:02 O2 Del Method Room Air 12/03/23 11:02 O2 Flow Rate 2 11/27/23 00:00 BMI result Body Mass Index 23.4 Const: General: cooperative, comfortable, no acute distress, alert and awake Nutritional Appearance: average body habitus Chest: Other: port right chest wall - no surrounding erythema Resp: Other: scattered wheezing Effort & Inspection: normal respiratory effort, able to speak in complete sentences, respiratory effort not decreased, no respiratory distress and no use of accessory muscles Cardio: Rate: regular rate GI: Other: abdomen soft, chronic hernia Inspection: No distended Neuro: Other: grossly nonfocal Objective Data Active Medications Acetaminophen (Acetaminophen 325 Mg Tablet) 650 mg PO Q6H PRN PRN Reason: Pain, Mild (Pain Scale 1-3), fever or headache Albuterol Sulfate (Albuterol Sulfate 90 Mcg 8 Gm Inhaler) 2 puff INHALE Q4H PRN PRN Reason: Shortness of Breath/Wheezing Last Admin: 11/28/23 20:12 Dose: 2 puff Documented By: LAFLAMCedric Albuterol/Ipratropium (Albuterol/Iprat 2.5/0.5mg 3 Ml Ampul.Neb) 3 ml INHALE RQ6H WHILE AWAKE PRN PRN Reason: shortness of breath/wheezing Atorvastatin Calcium (Atorvastatin Calcium 40 Mg Tablet) 40 mg PO DAILY [facility] Last Admin: 12/01/23 08:52 Dose: 40 mg Documented By: PODMORP Bisacodyl (Bisacodyl 10 Mg Supp.Rect) 10 mg [place] DAILY PRN PRN Reason: Constipation Calcium Carbonate (Calcium Carbonate 750 Mg Tab.Chew) 750 mg PO Q4H PRN PRN Reason: Heartburn Last Admin: 12/01/23 11:09 Dose: 750 mg Documented By: HUMZAMORP Enoxaparin Sodium (Enoxaparin Sodium 40 Mg/0.4 Ml Syringe) 40 mg SUBCUT Q24H [facility] Last Admin: 12/03/23 11:46 Dose: 40 mg Documented By: JUVENCIO Ferrous Sulfate (Ferrous Sulfate 324 Mg Tablet.) 324 mg PO BID [facility] Last Admin: 12/03/23 08:47 Dose: 324 mg Documented By: JUVENCIO Finasteride (Finasteride 5 Mg Tablet) 5 mg PO DAILY [facility] Last Admin: 12/03/23 08:48 Dose: 5 mg Documented By: JUVENCIO Gabapentin (Gabapentin 400 Mg Capsule) 400 mg PO BID [facility] Last Admin: 12/03/23 08:47 Dose: 400 mg Documented By: JUVENCIO Daptomycin 500 mg/ Sodium (Chloride) 60 mls @ 120 mls/hr IV Q24H [facility] Last Infusion: 12/02/23 18:01 Dose: Infused Documented By: ANABELLA Levetiracetam (Levetiracetam 500 Mg Tablet) 500 mg PO BID [facility] Last Admin: 12/03/23 08:48 Dose: 500 mg Documented By: JUVENCIO Lidocaine (Lidocaine 4 % Patch Adh..Patch) 1 patch TRANSDERMA DAILY [facility] Last Admin: 12/03/23 08:54 Dose: Not Given Documented By: JUVENCIO Non-Admin Reason: Patient Refused Lorazepam (Lorazepam 0.5 Mg Tablet) 0.5 mg PO Q8H PRN PRN Reason: Anxiety Last Admin: 12/02/23 16:55 Dose: 0.5 mg Documented By: ANABELLA Magnesium Hydroxide (Milk Of Magnesia 30 Ml Oral.Susp) 30 ml PO DAILY PRN PRN Reason: Constipation Melatonin (Melatonin 3 Mg Tablet) 6 mg PO BEDTIME PRN PRN Reason: Insomnia Metoprolol Tartrate (Metoprolol Tartrate 12.5 Mg Halftab) 12.5 mg PO BID [facility]; Protocol Last Admin: 12/03/23 08:48 Dose: 12.5 mg Documented By: JUVENCIO Mirtazapine (Mirtazapine 15 Mg Tablet) 15 mg PO BEDTIME [facility] Last Admin: 12/02/23 20:13 Dose: 15 mg Documented By: DONAL Naloxone HCl (Naloxone Hcl 0.4 Mg/Ml Vial) 0.4 mg SUBCUT Q2M PRN PRN Reason: Opioid Overdose Nicotine Polacrilex (Nicotine Polacrilex Lozenge 2 Mg Lozenge) 2 mg BUCCAL Q2H PRN PRN Reason: Nicotine Cravings Last Admin: 11/26/23 20:14 Dose: 2 mg Documented By: TOCÁNGEL Non-Formulary Medication (Ramelteon) 8 mg PO BEDTIME [facility] Non-Formulary Medication (Revefenacin [Yupelri]) 175 mcg INHALE DAILY [facility] Omeprazole (Omeprazole 20 Mg Capsule.Dr) 20 mg PO DAILY@0630 [facility] Last Admin: 12/03/23 06:18 Dose: Not Given Documented By: OLIVIA Non-Admin Reason: Patient Refused Oxybutynin Chloride (Oxybutynin Chloride 5 Mg Tablet) 5 mg PO Q8H PRN PRN Reason: Bladder Spasms Polyethylene Glycol (Polyethylene Glycol 3350 17 Gm Powd.Pack) 17 gm PO DAILY PRN PRN Reason: Constipation Potassium Chloride (Potassium Chloride Er 20 Meq Tab.Er.Prt) 20 meq PO DAILY [facility] Last Admin: 12/03/23 08:47 Dose: 20 meq Documented By: JUVENCIO Prednisone (Prednisone 20 Mg Tablet) 40 mg PO DAILY [facility] Last Admin: 12/03/23 08:47 Dose: 40 mg Documented By: JUVENCIO Roflumilast (Roflumilast 500 Mcg Tablet) 500 mcg PO DAILY [facility] Last Admin: 12/03/23 08:48 Dose: 500 mcg Documented By: JUVENCIO Senna/Docusate Sodium (Sennosides/Docusate Sodium Tablet) 1 tab PO BID [facility] Last Admin: 12/03/23 08:48 Dose: 1 tab Documented By: JUVENCIO Sodium Chloride (0.9 % Sodium Chloride Flush 3 Ml Syringe) 3 ml IVFLUSH QSHIFT [facility] Last Admin: 12/03/23 08:48 Dose: 3 ml Documented By: JUVENCIO Sucralfate (Sucralfate 1 Gm Tablet) 1 gm PO QIDWMHS [facility] Last Admin: 12/03/23 11:46 Dose: 1 gm Documented By: JUVENCIO Tamsulosin HCl (Tamsulosin Hcl 0.4 Mg Capsule) 0.4 mg PO DAILY [facility] Last Admin: 12/03/23 08:48 Dose: 0.4 mg Documented By: JUVENCIO Tizanidine HCl (Tizanidine Hcl 4 Mg Tablet) 2 mg PO Q8H PRN PRN Reason: Spasms Last Admin: 12/02/23 16:55 Dose: 2 mg Documented By: ANABELLA Vitamin D (Cholecalciferol (Vitamin D3) 10 Mcg Tablet) 20 mcg PO DAILY [facility] Last Admin: 12/03/23 08:47 Dose: 20 mcg Documented By: JUVENCIO Labs 11/30/23 08:20 12/02/23 07:56 Microbiology Microbiology Results: Microbiology 11/28/23 11:34 Blood Culture - Final Blood - Venous No growth after 5 days. 11/28/23 11:34 Blood Culture - Final Blood - Venous No growth after 5 days. Assessment and Plan (1) Gram-positive cocci bacteremia: Status: Acute (2) Lung mass: Status: Acute (3) COPD exacerbation: Status: Acute Plan 73-year-old male with a history of dementia, chronic anemia, hypokalemia, BPH, COPD, esophageal cancer with port in place, kidney disease, renal calculi, hyperlipidemia, essential hypertension, depression, opiate dependence-remission, chronic pain syndrome who was seen in the emergency department yesterday for aggressive behavior at his nursing facility and for smoking marijuana. The patient did have a positive marijuana test but was not aggressive in the emergency department yesterday and was discharged back to his care facility. The patient was sent back to the emergency department on a Section 12. Following information was obtained from the Section 12: ?Using illicit substance and facility; violent and aggressive behavior: Kicking, hitting, throwing items, verbal threats of harm. Active attempts to leave facility. . Was being observed in behavioral pod and developed hypoxia. Patient was admitted for further management of acute COPD exacerbation with acute hypoxemic respiratory failure and new lung mass and now has 2/2 gram positive bacteremia acute hypoxemic respiratory failure secondary to COPD exacerbation and pneumonia Chest CT with moderate emphysema, nodularity in the medial right lower lobe suggesting focal infectious/inflammatory process tachypnea resolved, weaned onto room air RPP negative Initially treated with IV Solu-Medrol, transitioned to oral prednisone, continue to taper continue DuoNebs q.4h while awake/p.r.n. continue maintenance inhalers/medications Completed course of antibiotics 7/13 pulmonary nodules: Scattered small pulmonary nodules measuring up to 6 mm in the right upper lobe. will need outpatient follow up Staph Bacteremia initial blood cultures growing coag negative staph/staph epidermidis; cultures from 11/26 06/22 growing staph epidermidis as well Surveillance blood cultures from November 27 negative to date Initially treated with IV vancomycin, transitioned to daptomycin due to fluctuating renal function and intermittent refusal of labs Plan for 4 weeks of IV daptomycin. will need line placed when blood cultures negative for 72 hours per ID - end date 12/25; will need weekly CBC and CPK levels while on dapto port to remain in place for now - outpatient follow up to assess if can be removed Echocardiogram with no vegetation ID following asymptomatic bacteriuria/UTI urine culture negative Thrombocytopenia suspect chronic stable ?unspecified seizure d/o continue keppra HTN continue metoprolol CKD stage 3 renal function fluctuating, but back down to baseline Unspecified anemia h/h stable overall, possibly chronic due to chronic disease hx esophageal ca no longer undergoing tx. 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
--- NOTE | 2023-12-03 17:27 | HO.PICC ---
PICC Line Insertion [facility] Insertion Diagnosis: Gram Positive Cocci Bacteremia Indication: Intermediate Antibix Pertinent Labs: Reviewed Technique: Following informed consent including risks, benefits and alternatives and using sterile technique including cap and mask, sterile gown, glove and drape, the Left arm was prepped and draped in the usual sterile fashion of full barrier technique with [facility]. Following completion of [place] Protocol the skin and soft tissues were anesthetized with 1% Lidocaine plain. Using ultrasound guidance, Left Basilic vein access was on second attempt. Over an 0.018 wire through peel-away sheath, a 4 FR Single Lumen PASV PowerPICC line was positioned. Catheter length is 41CM internal length, 0CM external length, for a total trimmed length of 41CM. The procedure was performed in rm 272. Tip verification was performed by Amelia Marquis with Alex 3CG. Tip located in SVC. Ultrasound was used to document vein patency and for needle entry. A formal ultrasound picture and cardiac rhythm strip was recorded. Vascular Sweatband Perforator has released the line for use and it is currently dressed with a StatLock, Tegaderm, and CHG disc. Verification has been performed for blood return and line patency. Arm Circumference: 25cm Equipment: ZenSuite PowerPICC Solo Catheter with Catheter Type: 4 FR Single Lumen PASV PowerPICC line Lot #: [id number]
[2023-12-03] MEDS: DAPTOmycin 500 MG in 0.9 % Sodium Chloride 50 ML 120 MG IV (17:46)
[2023-12-03] MEDS: Mirtazapine 15 MG TABLET PO (20:15)
[2023-12-03] MEDS: Melatonin 3 MG TABLET 6 MG PO (22:03)
[2023-12-03] MEDS: oxyCODONE HCl Immed Release 5 MG TABLET PO (22:03)
[2023-12-04] MEDS: Lactated Ringers 500 ML IV (00:35)
[2023-12-04] MEDS: Albumin Human 25 % 100 ML 133.33 ML IV ×2 (00:36→01:23)
[2023-12-04 01:09] LABS: Lactic Acid 1.2 mmol/L (0.5-2.0)
[2023-12-04 02:13] VITALS: BP 116/57
--- NOTE | 2023-12-04 03:13 | PC.NURSE ---
Assumed care of patient at 19:00. Pt seen on s4. Pt remains resistive to or refuses some care including prn breathing treatments and other offered prn medications, vitals, and portions of assessments. Pt is verbally aggressive and swearing at staff at times, expressing upset with being woken up for scheduled vitals and care, though calms when allowed to rest. No less than two staff in patient's room together during care for safety. Per chart review patient has recent hx of elopement risk, and continues with in-room camera to assist with safety of patient and ensure continues placement of LUE single lumen PICC needed for abx. Nursing supervisor agricultural education made aware. Pt complained of chronic shoulder pain in evening and refused prn's already in place, specifically requested MS reji . Covering Dr Jacobs notified with order placed for prn oxycodone. Pt was agreeable to this and medicated per MAR with +effect. Scheduled BP overnight was low 87/50 though patient was uncooperative with assessments for symptoms; observed resting in bed, speaking clearly when choosing to respond to advertising copywriter, no noted distress. Dr. Jacobs notified. Pt educated on MD ordered interventions (peripheral BCx2, lactic, LR bolus, albumin) and reassessments for effectiveness. +Effect with interventions, though pt only agreeable to BP reassessment which was 116/57; pt stated at that time don't wake me until eight or nine o'clock . Covering Dr. Jacobs notified via ripplrr incertext. Please see shift assessments and MAR for full details. Bed alarm and in room camera continue in place.
--- NOTE | 2023-12-04 03:57 | PM.EVENT ---
Event Note Date of Service: 12/04/23 Event Note: Patient with low blood pressure overnight which improved with IV crystalloids and colloids Time Spent With Patient Time: Total time managing care of this patient today ____ minutes.
[2023-12-04 05:40] VITALS: RESP 16
[2023-12-04] MEDS: oxyCODONE HCl Immed Release 5 MG TABLET PO (08:23)
[2023-12-04] MEDS: Roflumilast 500 MCG TABLET PO (08:24)
[2023-12-04] MEDS: levETIRAcetam 500 MG TABLET PO ×2 (08:24→21:37)
[2023-12-04] MEDS: Sucralfate 1 GM TABLET PO ×4 (08:24→21:37)
[2023-12-04] MEDS: Ferrous Sulfate 324 MG TABLET.DR PO ×2 (08:25→21:38)
[2023-12-04] MEDS: Tamsulosin HCL 0.4 MG CAPSULE PO (08:25)
[2023-12-04] MEDS: Gabapentin 400 MG CAPSULE PO ×2 (08:25→21:38)
[2023-12-04] MEDS: predniSONE 20 MG TABLET 40 MG PO (08:25)
[2023-12-04] MEDS: Potassium Chloride ER 20 MEQ TAB.ER.PRT PO (08:25)
[2023-12-04] MEDS: Cholecalciferol (Vitamin D3) 10 MCG TABLET 20 MCG PO (08:25)
[2023-12-04] MEDS: Finasteride 5 MG TABLET PO (08:25)
[2023-12-04] MEDS: Metoprolol Tartrate 12.5 MG HALFTAB PO ×2 (08:25→21:38)
[2023-12-04] MEDS: Sennosides/Docusate Sodium TABLET 1 TAB PO ×2 (08:25→21:38)
[2023-12-04 08:30] VITALS: BP 122/80; PULSE 76; RESP 16; TEMP 36.5; O2SAT 93
[2023-12-04] MEDS: 0.9 % Sodium Chloride Flush 3 ML SYRINGE IVFLUSH ×3 (08:36→21:38)
--- NOTE | 2023-12-04 11:44 | HO.PM.IMPN ---
Subjective Subjective Date of Service: 12/04/23 Interval History: Seen and examined this morning Follow-up for bacteremia No overnight events No specific complaints, PICC line inserted yesterday SNF unwilling to take patient with Daptomycin Physical Exam Vital Signs: Vital Signs: Last Vital Signs Temp 97.7 F 12/04/23 08:30 Pulse 76 12/04/23 08:30 Resp 16 12/04/23 08:30 BP 122/80 12/04/23 08:30 Pulse Ox 93 12/04/23 08:30 O2 Del Method Room Air 12/04/23 08:30 O2 Flow Rate 2 11/27/23 00:00 BMI result Body Mass Index 23.4 Const: General: cooperative, comfortable, no acute distress, alert and awake Nutritional Appearance: average body habitus Chest: Other: port right chest wall - no surrounding erythema Resp: Other: scattered wheezing Effort & Inspection: normal respiratory effort, able to speak in complete sentences, respiratory effort not decreased, no respiratory distress and no use of accessory muscles Cardio: Rate: regular rate GI: Other: abdomen soft, chronic hernia Inspection: No distended Neuro: Other: grossly nonfocal Objective Data Active Medications Acetaminophen (Acetaminophen 325 Mg Tablet) 650 mg PO Q6H PRN PRN Reason: Pain, Mild (Pain Scale 1-3), fever or headache Albuterol Sulfate (Albuterol Sulfate 90 Mcg 8 Gm Inhaler) 2 puff INHALE Q4H PRN PRN Reason: Shortness of Breath/Wheezing Last Admin: 11/28/23 20:12 Dose: 2 puff Documented By: LAFLAMCedric Albuterol/Ipratropium (Albuterol/Iprat 2.5/0.5mg 3 Ml Ampul.Neb) 3 ml INHALE RQ6H WHILE AWAKE PRN PRN Reason: shortness of breath/wheezing Atorvastatin Calcium (Atorvastatin Calcium 40 Mg Tablet) 40 mg PO DAILY [facility] Last Admin: 12/01/23 08:52 Dose: 40 mg Documented By: PODMORP Bisacodyl (Bisacodyl 10 Mg Supp.Rect) 10 mg [place] DAILY PRN PRN Reason: Constipation Calcium Carbonate (Calcium Carbonate 750 Mg Tab.Chew) 750 mg PO Q4H PRN PRN Reason: Heartburn Last Admin: 12/01/23 11:09 Dose: 750 mg Documented By: HO.PODMORP Enoxaparin Sodium (Enoxaparin Sodium 40 Mg/0.4 Ml Syringe) 40 mg SUBCUT Q24H [facility] Last Admin: 12/03/23 11:46 Dose: 40 mg Documented By: JUVENCIO Ferrous Sulfate (Ferrous Sulfate 324 Mg Tablet.Dr) 324 mg PO BID [facility] Last Admin: 12/04/23 08:25 Dose: 324 mg Documented By: JUVENCIO Finasteride (Finasteride 5 Mg Tablet) 5 mg PO DAILY [facility] Last Admin: 12/04/23 08:25 Dose: 5 mg Documented By: JUVENCIO Gabapentin (Gabapentin 400 Mg Capsule) 400 mg PO BID [facility] Last Admin: 12/04/23 08:25 Dose: 400 mg Documented By: JUVENCIO Daptomycin 500 mg/ Sodium (Chloride) 60 mls @ 120 mls/hr IV Q24H [facility] Last Infusion: 12/03/23 18:16 Dose: Infused Documented By: JUVENCIO Levetiracetam (Levetiracetam 500 Mg Tablet) 500 mg PO BID [facility] Last Admin: 12/04/23 08:24 Dose: 500 mg Documented By: JUVENCIO Lidocaine (Lidocaine 4 % Patch Adh..Patch) 1 patch TRANSDERMA DAILY [facility] Last Admin: 12/04/23 08:26 Dose: Not Given Documented By: JUVENCIO Non-Admin Reason: Patient Refused Lorazepam (Lorazepam 0.5 Mg Tablet) 0.5 mg PO Q8H PRN PRN Reason: Anxiety Last Admin: 12/02/23 16:55 Dose: 0.5 mg Documented By: ANABELLA Magnesium Hydroxide (Milk Of Magnesia 30 Ml Oral.Susp) 30 ml PO DAILY PRN PRN Reason: Constipation Melatonin (Melatonin 3 Mg Tablet) 6 mg PO BEDTIME PRN PRN Reason: Insomnia Last Admin: 12/03/23 22:03 Dose: 6 mg Documented By: RIOS Metoprolol Tartrate (Metoprolol Tartrate 12.5 Mg Halftab) 12.5 mg PO BID [facility]; Protocol Last Admin: 12/04/23 08:25 Dose: 12.5 mg Documented By: JUVENCIO Mirtazapine (Mirtazapine 15 Mg Tablet) 15 mg PO BEDTIME [facility] Last Admin: 12/03/23 20:15 Dose: 15 mg Documented By: RIOS Naloxone HCl (Naloxone Hcl 0.4 Mg/Ml Vial) 0.4 mg SUBCUT Q2M PRN PRN Reason: Opioid Overdose Nicotine Polacrilex (Nicotine Polacrilex Lozenge 2 Mg Lozenge) 2 mg BUCCAL Q2H PRN PRN Reason: Nicotine Cravings Last Admin: 11/26/23 20:14 Dose: 2 mg Documented By: ROLAN Non-Formulary Medication (Ramelteon) 8 mg PO BEDTIME [facility] Non-Formulary Medication (Revefenacin [Yupelri]) 175 mcg INHALE DAILY [facility] Omeprazole (Omeprazole 20 Mg Capsule.Dr) 20 mg PO DAILY@0630 [facility] Last Admin: 12/04/23 05:26 Dose: Not Given Documented By: RIOS Non-Admin Reason: Patient Refused Oxybutynin Chloride (Oxybutynin Chloride 5 Mg Tablet) 5 mg PO Q8H PRN PRN Reason: Bladder Spasms Oxycodone HCl (Oxycodone Hcl Immed Release 5 Mg Tablet) 5 mg PO Q6H PRN PRN Reason: Pain, Severe (Pain Scale 7-10) Last Admin: 12/04/23 08:23 Dose: 5 mg Documented By: JUVENCIO Polyethylene Glycol (Polyethylene Glycol 3350 17 Gm Powd.Pack) 17 gm PO DAILY PRN PRN Reason: Constipation Potassium Chloride (Potassium Chloride Er 20 Meq Tab.Er.Prt) 20 meq PO DAILY [facility] Last Admin: 12/04/23 08:25 Dose: 20 meq Documented By: JUVENCIO Prednisone (Prednisone 20 Mg Tablet) 40 mg PO DAILY [facility] Last Admin: 12/04/23 08:25 Dose: 40 mg Documented By: JUVENCIO Roflumilast (Roflumilast 500 Mcg Tablet) 500 mcg PO DAILY [facility] Last Admin: 12/04/23 08:24 Dose: 500 mcg Documented By: JUVENCIO Senna/Docusate Sodium (Sennosides/Docusate Sodium Tablet) 1 tab PO BID [facility] Last Admin: 12/04/23 08:25 Dose: 1 tab Documented By: JUVENCIO Sodium Chloride (0.9 % Sodium Chloride Flush 3 Ml Syringe) 3 ml IVFLUSH QSHIFT [facility] Last Admin: 12/04/23 08:36 Dose: 3 ml Documented By: JUVENCIO Sucralfate (Sucralfate 1 Gm Tablet) 1 gm PO QIDWMHS [facility] Last Admin: 12/04/23 08:24 Dose: 1 gm Documented By: JUVENCIO Tamsulosin HCl (Tamsulosin Hcl 0.4 Mg Capsule) 0.4 mg PO DAILY [facility] Last Admin: 12/04/23 08:25 Dose: 0.4 mg Documented By: JUVENCIO Tizanidine HCl (Tizanidine Hcl 4 Mg Tablet) 2 mg PO Q8H PRN PRN Reason: Spasms Last Admin: 12/02/23 16:55 Dose: 2 mg Documented By: ANABELLA Vitamin D (Cholecalciferol (Vitamin D3) 10 Mcg Tablet) 20 mcg PO DAILY [facility] Last Admin: 12/04/23 08:25 Dose: 20 mcg Documented By: JUVENCIO Labs 11/30/23 08:20 12/02/23 07:56 Labs: Laboratory Results - last 24 hr 12/04/23 00:35 Lactic Acid 1.2 Microbiology Microbiology Results: Microbiology 11/28/23 11:34 Blood Culture - Final Blood - Venous No growth after 5 days. 11/28/23 11:34 Blood Culture - Final Blood - Venous No growth after 5 days. Assessment and Plan (1) Gram-positive cocci bacteremia: Status: Acute (2) Lung mass: Status: Acute (3) COPD exacerbation: Status: Acute Plan 73-year-old male with a history of dementia, chronic anemia, hypokalemia, BPH, COPD, esophageal cancer with port in place, kidney disease, renal calculi, hyperlipidemia, essential hypertension, depression, opiate dependence-remission, chronic pain syndrome who was seen in the emergency department yesterday for aggressive behavior at his nursing facility and for smoking marijuana. The patient did have a positive marijuana test but was not aggressive in the emergency department yesterday and was discharged back to his care facility. The patient was sent back to the emergency department on a Section 12. Following information was obtained from the Section 12: ?Using illicit substance and facility; violent and aggressive behavior: Kicking, hitting, throwing items, verbal threats of harm. Active attempts to leave facility. . Was being observed in behavioral pod and developed hypoxia. Patient was admitted for further management of acute COPD exacerbation with acute hypoxemic respiratory failure and new lung mass and now has 2/2 gram positive bacteremia acute hypoxemic respiratory failure secondary to COPD exacerbation and pneumonia Chest CT with moderate emphysema, nodularity in the medial right lower lobe suggesting focal infectious/inflammatory process tachypnea resolved, weaned onto room air RPP negative Initially treated with IV Solu-Medrol, transitioned to oral prednisone, continue to taper continue DuoNebs q.4h while awake/p.r.n. continue maintenance inhalers/medications Completed course of antibiotics 11/30 pulmonary nodules: Scattered small pulmonary nodules measuring up to 6 mm in the right upper lobe. will need outpatient follow up Staph Bacteremia initial blood cultures growing coag negative staph/staph epidermidis; cultures from 11/26 2/2 growing staph epidermidis as well Surveillance blood cultures from November 27 negative to date Initially treated with IV vancomycin, transitioned to daptomycin due to fluctuating renal function and intermittent refusal of labs Plan for 4 weeks of IV daptomycin. will need line placed when blood cultures negative for 72 hours per ID - end date 12/25; will need weekly CBC and CPK levels while on dapto port to remain in place for now - outpatient follow up to assess if can be removed Echocardiogram with no vegetation ID following check with ID if Vanco or zyvox an option for bacteremia asymptomatic bacteriuria/UTI urine culture negative Thrombocytopenia suspect chronic stable ?unspecified seizure d/o continue keppra HTN continue metoprolol CKD stage 3 renal function fluctuating, but back down to baseline Unspecified anemia h/h stable overall, possibly chronic due to chronic disease hx esophageal ca no longer undergoing tx. 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
[2023-12-04 12:00] VITALS: BP 107/62; PULSE 66; RESP 16; TEMP 36.2; O2SAT 95
[2023-12-04] MEDS: Enoxaparin Sodium 40 MG/0.4 ML SYRINGE SUBCUT (13:12)
[2023-12-04 15:39] VITALS: BP 138/62; PULSE 75; RESP 16; TEMP 36.5; O2SAT 94
[2023-12-04] MEDS: Heparin Sodium,Porcine Flush 50 UNITS, 0.9 % Sodium Chloride Flush 5 ML IVFLUSH ×2 (16:30→23:34)
[2023-12-04] MEDS: DAPTOmycin 500 MG in 0.9 % Sodium Chloride 50 ML 120 MG IV (16:39)
[2023-12-04 19:06] VITALS: BP 122/56; PULSE 84; RESP 21; TEMP 37.1; O2SAT 94
[2023-12-04 19:35] LABS: Hematocrit 32.2 % (42.0-52.0); Hemoglobin 10.1 g/dl (14.0-18.0); Mean Corpuscular HGB Conc 31.4 g/dl (31.0-36.0); Mean Corpuscular Hemoglobin 30.1 pg (27.0-33.0); Mean Corpuscular Volume 95.8 fL (80.0-98.0); Mean Platelet Volume 10.2 fL (9.4-12.4); Platelet Count 149 X10*3/uL (160-400); Red Blood Count 3.36 X10*6/uL (4.60-5.80); Red Cell Distribution Width 13.8 % (11.0-16.0); White Blood Count 5.9 X10*3/uL (4.8-10.8)
[2023-12-04] MEDS: Mirtazapine 15 MG TABLET PO (21:38)
[2023-12-05] VITALS (8 sets, daily range): BP systolic 115–162; BP diastolic 59–71; PULSE 60–78; RESP 15–20; TEMP 36.2–36.9; O2SAT 91–98
[2023-12-05 07:08] LABS: Anion Gap 12 (12-20); Blood Urea Nitrogen 48 mg/dL (9-16); Calcium 8.9 mg/dL (8.4-10.2); Carbon Dioxide 26 mmol/L (22-29); Chloride 110 mmol/L (96-108); Creatinine Clr Calc Pharmacy 37.2; Estimated Glomerular Filt Rate 47; Glucose Random 95 mg/dL (60-115); Potassium 4.2 mmol/L (3.3-5.1); Sodium 144 mmol/L (135-145)
[2023-12-05] MEDS: Roflumilast 500 MCG TABLET PO (09:30)
[2023-12-05] MEDS: Finasteride 5 MG TABLET PO (09:30)
[2023-12-05] MEDS: Tamsulosin HCL 0.4 MG CAPSULE PO (09:30)
[2023-12-05] MEDS: Cholecalciferol (Vitamin D3) 10 MCG TABLET 20 MCG PO (09:30)
[2023-12-05] MEDS: predniSONE 20 MG TABLET 40 MG PO (09:30)
[2023-12-05] MEDS: oxyCODONE HCl Immed Release 5 MG TABLET PO ×3 (09:31→21:53)
[2023-12-05] MEDS: Ferrous Sulfate 324 MG TABLET.DR PO ×2 (09:31→20:40)
[2023-12-05] MEDS: Potassium Chloride ER 20 MEQ TAB.ER.PRT PO (09:31)
[2023-12-05] MEDS: levETIRAcetam 500 MG TABLET PO ×2 (09:31→20:40)
[2023-12-05] MEDS: Metoprolol Tartrate 12.5 MG HALFTAB PO ×2 (09:31→20:40)
[2023-12-05] MEDS: Gabapentin 400 MG CAPSULE PO ×2 (09:31→20:40)
[2023-12-05] MEDS: Heparin Sodium,Porcine Flush 50 UNITS, 0.9 % Sodium Chloride Flush 5 ML IVFLUSH ×3 (09:31→22:19)
[2023-12-05] MEDS: Sucralfate 1 GM TABLET PO ×4 (09:31→20:42)
[2023-12-05] MEDS: 0.9 % Sodium Chloride Flush 3 ML SYRINGE IVFLUSH ×3 (09:32→20:41)
--- NOTE | 2023-12-05 09:37 | HO.PM.IMPN ---
Subjective Subjective Date of Service: 12/05/23 Interval History: Seen and examined this morning Follow-up for bacteremia no new issues Physical Exam Vital Signs: Vital Signs: Last Vital Signs Temp 97.5 F 12/05/23 07:56 Pulse 60 12/05/23 07:56 Resp 20 12/05/23 07:56 BP 162/71 H 12/05/23 07:56 Pulse Ox 96 12/05/23 07:56 O2 Del Method Room Air 12/05/23 07:56 O2 Flow Rate 2 11/27/23 00:00 BMI result Body Mass Index 23.4 Const: General: cooperative, comfortable, no acute distress, alert and awake Nutritional Appearance: average body habitus Chest: Other: port right chest wall - no surrounding erythema Resp: Other: scattered wheezing Effort & Inspection: normal respiratory effort, able to speak in complete sentences, respiratory effort not decreased, no respiratory distress and no use of accessory muscles Cardio: Rate: regular rate GI: Other: abdomen soft, chronic hernia Inspection: No distended Neuro: Other: grossly nonfocal Objective Data Active Medications Acetaminophen (Acetaminophen 325 Mg Tablet) 650 mg PO Q6H PRN PRN Reason: Pain, Mild (Pain Scale 1-3), fever or headache Albuterol Sulfate (Albuterol Sulfate 90 Mcg 8 Gm Inhaler) 2 puff INHALE Q4H PRN PRN Reason: Shortness of Breath/Wheezing Last Admin: 11/28/23 20:12 Dose: 2 puff Documented By: LAFLAMC Albuterol/Ipratropium (Albuterol/Iprat 2.5/0.5mg 3 Ml Ampul.Neb) 3 ml INHALE RQ6H WHILE AWAKE PRN PRN Reason: shortness of breath/wheezing Atorvastatin Calcium (Atorvastatin Calcium 40 Mg Tablet) 40 mg PO DAILY [facility] Last Admin: 12/01/23 08:52 Dose: 40 mg Documented By: PODMORP Bisacodyl (Bisacodyl 10 Mg Supp.Rect) 10 mg [place] DAILY PRN PRN Reason: Constipation Calcium Carbonate (Calcium Carbonate 750 Mg Tab.Chew) 750 mg PO Q4H PRN PRN Reason: Heartburn Last Admin: 12/01/23 11:09 Dose: 750 mg Documented By: PODMORP Heparin Sodium (Porcine) 50 (units/ Sodium Chloride 5 ml) 0 units IVFLUSH QSHIFT [facility] Last Admin: 12/05/23 09:31 Dose: 50 unit Documented By: JUVENCIO Enoxaparin Sodium (Enoxaparin Sodium 40 Mg/0.4 Ml Syringe) 40 mg SUBCUT Q24H [facility] Last Admin: 12/04/23 13:12 Dose: 40 mg Documented By: JUVENCIO Ferrous Sulfate (Ferrous Sulfate 324 Mg Tablet.Dr) 324 mg PO BID [facility] Last Admin: 12/05/23 09:31 Dose: 324 mg Documented By: JUVENCIO Finasteride (Finasteride 5 Mg Tablet) 5 mg PO DAILY [facility] Last Admin: 12/05/23 09:30 Dose: 5 mg Documented By: JUVENCIO Gabapentin (Gabapentin 400 Mg Capsule) 400 mg PO BID [facility] Last Admin: 12/05/23 09:31 Dose: 400 mg Documented By: JUVENCIO Daptomycin 500 mg/ Sodium (Chloride) 60 mls @ 120 mls/hr IV Q24H [facility] Last Infusion: 12/04/23 17:10 Dose: Infused Documented By: JUVENCIO Levetiracetam (Levetiracetam 500 Mg Tablet) 500 mg PO BID [facility] Last Admin: 12/05/23 09:31 Dose: 500 mg Documented By: JUVENCIO Lidocaine (Lidocaine 4 % Patch Adh..Patch) 1 patch TRANSDERMA DAILY [facility] Last Admin: 12/04/23 08:26 Dose: Not Given Documented By: JUVENCIO Non-Admin Reason: Patient Refused Lorazepam (Lorazepam 0.5 Mg Tablet) 0.5 mg PO Q8H PRN PRN Reason: Anxiety Last Admin: 12/02/23 16:55 Dose: 0.5 mg Documented By: ANABELLA Magnesium Hydroxide (Milk Of Magnesia 30 Ml Oral.Susp) 30 ml PO DAILY PRN PRN Reason: Constipation Melatonin (Melatonin 3 Mg Tablet) 6 mg PO BEDTIME PRN PRN Reason: Insomnia Last Admin: 12/03/23 22:03 Dose: 6 mg Documented By: RIOS Metoprolol Tartrate (Metoprolol Tartrate 12.5 Mg Halftab) 12.5 mg PO BID [facility]; Protocol Last Admin: 12/05/23 09:31 Dose: 12.5 mg Documented By: JUVENCIO Mirtazapine (Mirtazapine 15 Mg Tablet) 15 mg PO BEDTIME [facility] Last Admin: 12/04/23 21:38 Dose: 15 mg Documented By: JANES Naloxone HCl (Naloxone Hcl 0.4 Mg/Ml Vial) 0.4 mg SUBCUT Q2M PRN PRN Reason: Opioid Overdose Nicotine Polacrilex (Nicotine Polacrilex Lozenge 2 Mg Lozenge) 2 mg BUCCAL Q2H PRN PRN Reason: Nicotine Cravings Last Admin: 11/26/23 20:14 Dose: 2 mg Documented By: ROLAN Omeprazole (Omeprazole 20 Mg Capsule.Dr) 20 mg PO DAILY@0630 [facility] Last Admin: 12/05/23 06:12 Dose: Not Given Documented By: JANES Non-Admin Reason: Patient Refused Oxybutynin Chloride (Oxybutynin Chloride 5 Mg Tablet) 5 mg PO Q8H PRN PRN Reason: Bladder Spasms Oxycodone HCl (Oxycodone Hcl Immed Release 5 Mg Tablet) 5 mg PO Q6H PRN PRN Reason: Pain, Severe (Pain Scale 7-10) Last Admin: 12/05/23 09:31 Dose: 5 mg Documented By: JUVENCIO Polyethylene Glycol (Polyethylene Glycol 3350 17 Gm Powd.Pack) 17 gm PO DAILY PRN PRN Reason: Constipation Potassium Chloride (Potassium Chloride Er 20 Meq Tab.Er.Prt) 20 meq PO DAILY [facility] Last Admin: 12/05/23 09:31 Dose: 20 meq Documented By: JUVENCIO Prednisone (Prednisone 20 Mg Tablet) 40 mg PO DAILY [facility] Last Admin: 12/05/23 09:30 Dose: 40 mg Documented By: JUVENCIO Roflumilast (Roflumilast 500 Mcg Tablet) 500 mcg PO DAILY [facility] Last Admin: 12/05/23 09:30 Dose: 500 mcg Documented By: JUVENCIO Senna/Docusate Sodium (Sennosides/Docusate Sodium Tablet) 1 tab PO BID [facility] Last Admin: 12/04/23 21:38 Dose: 1 tab Documented By: JANES Sodium Chloride (0.9 % Sodium Chloride Flush 3 Ml Syringe) [address] [facility] Last Admin: 12/05/23 09:32 Dose: 3 ml Documented By: JUVENCIO Sucralfate (Sucralfate 1 Gm Tablet) 1 gm PO QIDWMHS [facility] Last Admin: 12/05/23 09:31 Dose: 1 gm Documented By: JUVENCIO Tamsulosin HCl (Tamsulosin Hcl 0.4 Mg Capsule) 0.4 mg PO DAILY [facility] Last Admin: 12/05/23 09:30 Dose: 0.4 mg Documented By: JUVENCIO Tizanidine HCl (Tizanidine Hcl 4 Mg Tablet) 2 mg PO Q8H PRN PRN Reason: Spasms Last Admin: 12/02/23 16:55 Dose: 2 mg Documented By: ANABELLA Vitamin D (Cholecalciferol (Vitamin D3) 10 Mcg Tablet) 20 mcg PO DAILY [facility] Last Admin: 12/05/23 09:30 Dose: 20 mcg Documented By: JUVENCIO Labs 12/04/23 19:19 12/05/23 06:25 Labs: Laboratory Results - last 24 hr 12/04/23 12/05/23 19:19 06:25 MCV 95.8 MCH 30.1 MCHC 31.4 RDW 13.8 Plt Count 149 L MPV 10.2 Absolute Nucleated RBC 0.000 Nucleated RBC % (auto) 0.0 Anion Gap 12 Estim Creat Clear Calc 37.2 Estimated GFR 47 Random Glucose 95 Calcium 8.9 D Total Creatine Kinase 21 L Microbiology Microbiology Results: Microbiology 12/04/23 00:35 Blood Culture - Preliminary Blood - Venous No growth after 24 hours. 12/04/23 00:35 Blood Culture - Preliminary Blood - Venous No growth after 24 hours. Assessment and Plan (1) Gram-positive cocci bacteremia: Status: Acute (2) Lung mass: Status: Acute (3) COPD exacerbation: Status: Acute Plan 73-year-old male with a history of dementia, chronic anemia, hypokalemia, BPH, COPD, esophageal cancer with port in place, kidney disease, renal calculi, hyperlipidemia, essential hypertension, depression, opiate dependence-remission, chronic pain syndrome who was seen in the emergency department yesterday for aggressive behavior at his nursing facility and for smoking marijuana. The patient did have a positive marijuana test but was not aggressive in the emergency department yesterday and was discharged back to his care facility. The patient was sent back to the emergency department on a Section 12. Following information was obtained from the Section 12: ?Using illicit substance and facility; violent and aggressive behavior: Kicking, hitting, throwing items, verbal threats of harm. Active attempts to leave facility. . Was being observed in behavioral pod and developed hypoxia. Patient was admitted for further management of acute COPD exacerbation with acute hypoxemic respiratory failure and new lung mass and now has 2/2 gram positive bacteremia acute hypoxemic respiratory failure secondary to COPD exacerbation and pneumonia has completed treatment with abx and has no symptoms pulmonary nodules: Scattered small pulmonary nodules measuring up to 6 mm in the right upper lobe. Outpatient f/u recommended Staph pidermidis Bacteremia--deemed real, had 2 set of positive cultures, most recent culture negative > 72 hrs. echo no vegetation. Iinitially treated with IV vanco, but changed to Dapto d/t tendency to refuse labs, and renal function that was worsening. check CBC and CPK weekly while on Dapto, a picc line placed on 12/02.. plan for 4 weeks of Dapto per ID recommendation asymptomatic bacteriuria/UTI urine culture negative Thrombocytopenia suspect chronic stable ?unspecified seizure d/o continue keppra HTN continue metoprolol CKD stage 3 renal function fluctuating, but back down to baseline Unspecified anemia h/h stable overall, possibly chronic due to chronic disease hx esophageal ca no longer undergoing tx. 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
[2023-12-05] MEDS: Enoxaparin Sodium 40 MG/0.4 ML SYRINGE SUBCUT (12:32)
--- NOTE | 2023-12-05 13:06 | P.DS_ITS ---
DS: Providers Provider Date of Service: 12/05/23 Date of admission: 11/26/23 11:58 Primary care physician: LAURIE CHAIREZ Consults: 11/25/23 21:50 Consult to Care Team Stat Comment: Reason for consultation: Aggressive behavior and long-term care facility 11/27/23 09:30 Consult to Infectious Diseases Routine Consulting Provider: [facility] Reason for consultation: Gram positive cocci bacteremia Has provider been notified: No DS: Diagnosis Discharge Diagnosis (1) Gram-positive cocci bacteremia: Status: Acute (2) Lung mass: Status: Acute (3) COPD exacerbation: Status: Acute DS: Summary Hospital Course Hospital Course: admission hpi Chief Complaint: aggressive behavior 73-year-old male with a history of dementia, chronic anemia, hypokalemia, BPH, COPD, esophageal cancer with port in place, kidney disease, renal calculi, hyperlipidemia, essential hypertension, depression, opiate dependence-remission, chronic pain syndrome who was seen in the emergency department yesterday by me for aggressive behavior at his nursing facility and for smoking marijuana. The patient did have a positive marijuana test but was not aggressive in the emergency department yesterday and was discharged back to his care facility. The patient was sent back to the emergency department on a Section 12. Following information was obtained from the Section 12: ?Using illicit substance and facility; violent and aggressive behavior: Kicking, hitting, throwing items, verbal threats of harm. Active attempts to leave facility. According to EMS, patient through hot coffee at a nurse today as well. Here in the emergency department the patient is threatening violence against ED staff. He states that he does not want to be here. On exam, he is calm and cooperative with me and answers questions appropraite. He states he does not want to be his long-term care facility and that he wants to go back to nursing home. The patient told me yesterday that he committed murder proximally 38 years ago and was released in nursing home in his been on parole for several years. He was living at a custodial house but since May after multiple falls he has been living in a long-term care facility ([facility] Outside of complaints about LTC facility, he denies any complaints. No fevers, chills, st, congestion, abd pain, n/v/d, urinary symptoms, cough, lightheadedness, sob, chest pain. He was being observed in behavioral pod but was noted to desaturate into the 70s and was brought back out to the medical pod where he continued to demonstrate hypoxia into the 80s, placed on 2L now maintaining oximetry 93%. He is leukopenic to 3.8 with a stable normocytic anemia with H/H 9.7/30.8%, platelets 115. Renal function baseline, electrolyte levels normal except for chloride 111. TSH 0.65, hepatic function within normal limits. Urinalysis significant for 1+ leukocytes, positive nitrites, positive urinary sediment, trace bacteria. Urine tox screen yesterday positive for THC. Negative for COVID-19, RSV, influenza. Chest x-ray shows masslike alveolar density in the medial right l ower lobe infrahilar region and emphysematous COPD. In the ED, has received DuoNebs and steroids. It will be admitted for further management of acute COPD exacerbation with acute hypoxemic respiratory failure. Hospital course: - Staph epidermidis Bacteremia had 2 set of positive cultures, most recent culture negative > 72 hrs. echo no vegetation. Iinitially treated with IV vanco, but changed to Dapto d/t tendency to refuse labs, and renal function that was worsening. The Daptomycin was changed to Doxycycline IV given sensitivity on cultures to finish Total of 4 weeks of IV antibiotics as he was seen by ID during his hospital stay. 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 continue home meds. he usually calms down after talking to him. PRN Ativan for restlessness. - acute hypoxemic respiratory failure secondary to COPD exacerbation and pneumonia, has completed treatment with abx and has no symptoms at the moment. weaned to room air. - pulmonary nodules: Scattered small pulmonary nodules measuring up to 6 mm in the right upper lobe. Will need Outpatient f/u recommended with repeat imaging with PCP - Thrombocytopenia, suspect chronic, stable - unspecified seizure d/o. continue keppra - HTN, continue metoprolol - CKD stage 3, creatine fluctuating, slightly up from earlier but appear to be within baseline, monitor - Unspecified anemia. Hemoglobin stable overall, possibly chronic due to chronic disease - hx esophageal ca. no longer undergoing tx. has port-a cath in place R chest. - Chronic hypokalemia--k is normal . continue KCl po Discharge Plan Finish Doxycycline course IV as outpatient until 12/26/23. Outpatient f/u recommended with repeat imaging with PCP for lung nodules Time Attestation Discharge Coordination Time (in mins): 45 Quality: Safe Use of Opioids Does Pt have an Active Cancer Diagnosis on the Problem List?: No Quality: Stroke Does the patient have a stroke diagnosis?: No Physical Exam Vital Signs: Vital Signs: Last Vital Signs Temp 97.7 F 12/05/23 12:00 Pulse 66 12/05/23 12:00 Resp 20 12/05/23 12:00 BP 121/59 L 12/05/23 12:00 Pulse Ox 98 12/05/23 12:00 O2 Del Method Room Air 12/05/23 12:00 O2 Flow Rate 2 11/27/23 00:00 BMI result Body Mass Index 23.4 DS: Data Data Completed and Pending Labs on day of discharge: Laboratory Results - last 24 hr 12/04/23 12/05/23 19:19 06:25 WBC 5.9 RBC 3.36 L Hgb 10.1 L Hct 32.2 L MCV 95.8 MCH 30.1 MCHC 31.4 RDW 13.8 Plt Count 149 L MPV 10.2 Absolute Nucleated RBC 0.000 Nucleated RBC % (auto) 0.0 Sodium 144 Potassium 4.2 Chloride 110 H Carbon Dioxide 26 Anion Gap 12 BUN 48 H Creatinine 1.48 H Estim Creat Clear Calc 37.2 Estimated GFR 47 Random Glucose 95 Calcium 8.9 D Total Creatine Kinase 21 L Preliminary micro results at discharge 12/04/23 00:35 Blood Culture - Preliminary Blood - Venous No growth after 24 hours. 12/04/23 00:35 Blood Culture - Preliminary Blood - Venous No growth after 24 hours. Discharge Plan Discharge Anticipated Discharge Date/Time: 12/05/23 13:07 Patient Disposition: Xfer [facility] Discharge Diagnosis: Staph Epidermidis bacteremia Referrals: Physician,Unknown J [Physician] - 1 Week Discharge Medications: New doxycycline hyclate [Doxy-100] 100 mg Recon Soln 100 mg IV Q12H Qty: 22 0RF nystatin 100,000 unit/gram Powder 1 appl topical BID Qty: 30 0RF Protocol: Apply to: Apply to: Groins oxycodone 5 mg Tablet 5 mg PO Q4H PRN (Reason: Pain, Severe (Pain Scale 7-10)) Qty: 10 0RF Rx Instructions: Partial Fill upon patient request. Continued gabapentin 400 mg Capsule 400 mg PO BID albuterol sulfate 90 mcg/actuation Hfa Aerosol Inhaler 2 puff INHALATION Q6H PRN (Reason: Wheezing) Yupelri 175 mcg/3 mL Solution For Nebulization 175 mcg INHALATION DAILY rosuvastatin 10 mg Tablet 10 mg PO DAILY tizanidine 2 mg Tablet 2 mg PO Q8H PRN (Reason: Muscle Spasm) lorazepam 0.5 mg Tablet 0.5 mg PO Q8H PRN (Reason: Anxiety) Qty: 10 0RF cholecalciferol (vitamin D3) 10 mcg (400 unit) capsule 20 mcg PO DAILY lidocaine [Lidoderm] 5 % adhesive patch,medicated 1 patch topical DAILY Rx Instructions: leave on most painful area for up to 12 hrs potassium chloride 20 mEq tablet extended release 20 meq PO DAILY finasteride 5 mg tablet 5 mg PO DAILY pantoprazole 40 mg tablet,delayed release (DR/EC) 40 mg PO DAILY roflumilast 500 mcg tablet 500 mcg PO DAILY tamsulosin 0.4 mg capsule 0.4 mg PO DAILY mirtazapine 15 mg tablet 15 mg PO BEDTIME ramelteon 8 mg tablet 8 mg PO BEDTIME ferrous sulfate 325 mg (65 mg iron) tablet 325 mg PO BID Senna Plus 8.6-50 mg capsule 1 tab-cap PO BID levetiracetam 500 mg tablet 500 mg PO BID metoprolol tartrate 25 mg tablet 12.5 mg PO BID sucralfate 1 gram tablet 1 g PO QID polyethylene glycol 3350 17 gram/dose powder 17 g PO DAILY PRN (Reason: Constipation) bisacodyl [Gentle Laxative (bisacodyl)] 10 mg suppository 10 mg [place] DAILY PRN (Reason: Constipation) acetaminophen [Tylenol] 325 mg capsule 650 mg PO Q6H PRN (Reason: Mild Pain (Scale Score 1-4)) acetaminophen 650 mg suppository 650 mg [place] Q6H PRN (Reason: Fever Or Pain) oxybutynin chloride 5 mg tablet 5 mg PO Q8H PRN (Reason: Bladder Spasms) tizanidine 2 mg tablet 2 mg PO Q8H PRN (Reason: Spasms) naloxone 0.4 mg/mL solution 0.4 mg subcut Q2M PRN (Reason: Opioid Overdose) Rx Instructions: NTExceed 10 mg total dose/episode Discharge Orders: Discharge Order (Routine); Ordered 12/15/23 Ordered By: Abran Elizabeth Diet: Advance to usual diet Activity on Discharge: As tolerated Stand Alone Forms: Patient Portal Discharge page Print Language: French Care Plan Goals: To eradicate blood borne infection and prevent sepsis and mortality Health Concerns: Bacteremia (blood borne infection), sepsis Plan of Treatment: Take Doxycycline as recommended until December 25 Assessment: see above Discharge Date/Time: 12/15/23 12:21
[2023-12-05] MEDS: DAPTOmycin 500 MG in 0.9 % Sodium Chloride 50 ML 120 MG IV (16:37)
[2023-12-05] MEDS: Sennosides/Docusate Sodium TABLET 1 TAB PO (20:40)
[2023-12-05] MEDS: Mirtazapine 15 MG TABLET PO (20:40)
[2023-12-05] MEDS: Albuterol/Iprat 2.5/0.5MG 3 ML AMPUL.NEB INHALE (21:12)
[2023-12-06] MEDS: oxyCODONE HCl Immed Release 5 MG TABLET PO ×3 (02:32→22:53)
[2023-12-06 03:38] VITALS: BP 159/69; PULSE 66; RESP 20; TEMP 36.1; O2SAT 94
[2023-12-06 07:59] VITALS: BP 122/69; PULSE 63; RESP 17; TEMP 36.2; O2SAT 97
[2023-12-06] MEDS: Metoprolol Tartrate 12.5 MG HALFTAB PO ×2 (10:34→22:48)
[2023-12-06] MEDS: Sucralfate 1 GM TABLET PO ×3 (10:34→22:49)
[2023-12-06] MEDS: Ferrous Sulfate 324 MG TABLET.DR PO ×2 (10:34→22:49)
[2023-12-06] MEDS: Gabapentin 400 MG CAPSULE PO ×2 (10:34→22:48)
[2023-12-06] MEDS: Potassium Chloride ER 20 MEQ TAB.ER.PRT PO (10:34)
[2023-12-06] MEDS: Roflumilast 500 MCG TABLET PO (10:34)
[2023-12-06] MEDS: levETIRAcetam 500 MG TABLET PO ×2 (10:34→22:48)
[2023-12-06] MEDS: Cholecalciferol (Vitamin D3) 10 MCG TABLET 20 MCG PO (10:34)
[2023-12-06] MEDS: Tamsulosin HCL 0.4 MG CAPSULE PO (10:34)
[2023-12-06] MEDS: Finasteride 5 MG TABLET PO (10:34)
[2023-12-06] MEDS: Heparin Sodium,Porcine Flush 50 UNITS, 0.9 % Sodium Chloride Flush 5 ML IVFLUSH ×2 (10:35→18:59)
[2023-12-06] MEDS: Lidocaine 4 % Patch ADH..PATCH 1 PATCH TRANSDERMA (10:35)
[2023-12-06] MEDS: 0.9 % Sodium Chloride Flush 3 ML SYRINGE IVFLUSH ×2 (10:36→19:00)
[2023-12-06] MEDS: Sennosides/Docusate Sodium TABLET 1 TAB PO ×2 (10:36→22:49)
[2023-12-06 12:00] VITALS: BP 127/74; PULSE 80; RESP 18; TEMP 36.2; O2SAT 97
[2023-12-06] MEDS: Enoxaparin Sodium 40 MG/0.4 ML SYRINGE SUBCUT (12:38)
--- NOTE | 2023-12-06 13:10 | MHC.CM.PN ---
Patient is medically cleared for dc to return to LTC @ [facility] @ [facility] on IV Dapto until 12/26/2023, once [employer] auth is obtained by [facility]. CM will follow.
--- NOTE | 2023-12-06 15:24 | P.PNIM_ITS ---
Subjective Subjective Date of Service: 12/06/23 Interval History: Seen and examined this morning Follow-up for bacteremia no new issues, awaiting insurance authroization for discharge Physical Exam 2 Vital Signs: Vital Signs: Last Vital Signs Temp 97.2 F 12/06/23 12:00 Pulse 80 12/06/23 12:00 Resp 18 12/06/23 12:00 BP 127/74 12/06/23 12:00 Pulse Ox 97 12/06/23 12:00 O2 Del Method Room Air 12/06/23 12:00 O2 Flow Rate 2 11/27/23 00:00 BMI result Body Mass Index 23.4 Const: General: cooperative, comfortable, no acute distress, alert and awake Nutritional Appearance: average body habitus Chest: Other: port right chest wall - no surrounding erythema Resp: Other: scattered wheezing Effort & Inspection: normal respiratory effort, able to speak in complete sentences, respiratory effort not decreased, no respiratory distress and no use of accessory muscles Cardio: Rate: regular rate GI: Other: abdomen soft, chronic hernia Inspection: No distended Neuro: Other: grossly nonfocal Objective Data Active Medications Acetaminophen (Acetaminophen 325 Mg Tablet) 650 mg PO Q6H PRN PRN Reason: Pain, Mild (Pain Scale 1-3), fever or headache Albuterol Sulfate (Albuterol Sulfate 90 Mcg 8 Gm Inhaler) 2 puff INHALE Q4H PRN PRN Reason: Shortness of Breath/Wheezing Last Admin: 11/28/23 20:12 Dose: 2 puff Documented By: STELLA Albuterol/Ipratropium (Albuterol/Iprat 2.5/0.5mg 3 Ml Ampul.Neb) 3 ml INHALE RQ6H WHILE AWAKE PRN PRN Reason: shortness of breath/wheezing Last Admin: 12/05/23 21:12 Dose: 3 ml Documented By: TONIA Atorvastatin Calcium (Atorvastatin Calcium 40 Mg Tablet) 40 mg PO DAILY [place] Last Admin: 12/01/23 08:52 Dose: 40 mg Documented By: PODMORP Bisacodyl (Bisacodyl 10 Mg Supp.Rect) 10 mg TN DAILY PRN PRN Reason: Constipation Calcium Carbonate (Calcium Carbonate 750 Mg Tab.Chew) 750 mg PO Q4H PRN PRN Reason: Heartburn Last Admin: 12/01/23 11:09 Dose: 750 mg Documented By: PODMOANTHONY Heparin Sodium (Porcine) 50 (units/ Sodium Chloride 5 ml) 0 units IVFLUSH QSHIFT [facility] Last Admin: 12/06/23 10:35 Dose: 50 unit Documented By: ARLINE Enoxaparin Sodium (Enoxaparin Sodium 40 Mg/0.4 Ml Syringe) 40 mg SUBCUT Q24H [facility] Last Admin: 12/06/23 12:38 Dose: 40 mg Documented By: ARLINE Ferrous Sulfate (Ferrous Sulfate 324 Mg Tablet.Dr) 324 mg PO BID [facility] Last Admin: 12/06/23 10:34 Dose: 324 mg Documented By: ARLINE Finasteride (Finasteride 5 Mg Tablet) 5 mg PO DAILY [facility] Last Admin: 12/06/23 10:34 Dose: 5 mg Documented By: ARLINE Gabapentin (Gabapentin 400 Mg Capsule) 400 mg PO BID [facility] Last Admin: 12/06/23 10:34 Dose: 400 mg Documented By: ARLINE Daptomycin 500 mg/ Sodium (Chloride) 60 mls @ 120 mls/hr IV Q24H [facility] Last Infusion: 12/05/23 17:07 Dose: Infused Documented By: JUVENCIO Levetiracetam (Levetiracetam 500 Mg Tablet) 500 mg PO BID [facility] Last Admin: 12/06/23 10:34 Dose: 500 mg Documented By: ARLINE Lidocaine (Lidocaine 4 % Patch Adh..Patch) 1 patch TRANSDERMA DAILY [facility] Last Admin: 12/06/23 10:35 Dose: 1 patch Documented By: ARLINE Magnesium Hydroxide (Milk Of Magnesia 30 Ml Oral.Susp) 30 ml PO DAILY PRN PRN Reason: Constipation Melatonin (Melatonin 3 Mg Tablet) 6 mg PO BEDTIME PRN PRN Reason: Insomnia Last Admin: 12/03/23 22:03 Dose: 6 mg Documented By: RIOS Metoprolol Tartrate (Metoprolol Tartrate 12.5 Mg Halftab) 12.5 mg PO BID [facility]; Protocol Last Admin: 12/06/23 10:34 Dose: 12.5 mg Documented By: ARLINE Mirtazapine (Mirtazapine 15 Mg Tablet) 15 mg PO BEDTIME [facility] Last Admin: 12/05/23 20:40 Dose: 15 mg Documented By: JANES Naloxone HCl (Naloxone Hcl 0.4 Mg/Ml Vial) 0.4 mg SUBCUT Q2M PRN PRN Reason: Opioid Overdose Nicotine Polacrilex (Nicotine Polacrilex Lozenge 2 Mg Lozenge) 2 mg BUCCAL Q2H PRN PRN Reason: Nicotine Cravings Last Admin: 11/26/23 20:14 Dose: 2 mg Documented By: ROLAN Omeprazole (Omeprazole 20 Mg Capsule.Dr) 20 mg PO DAILY@0630 [facility] Last Admin: 12/06/23 06:10 Dose: Not Given Documented By: JANES Non-Admin Reason: Patient Refused Oxybutynin Chloride (Oxybutynin Chloride 5 Mg Tablet) 5 mg PO Q8H PRN PRN Reason: Bladder Spasms Oxycodone HCl (Oxycodone Hcl Immed Release 5 Mg Tablet) 5 mg PO Q6H PRN PRN Reason: Pain, Severe (Pain Scale 7-10) Last Admin: 12/06/23 10:41 Dose: 5 mg Documented By: ARLINE Polyethylene Glycol (Polyethylene Glycol 3350 17 Gm Powd.Pack) 17 gm PO DAILY PRN PRN Reason: Constipation Potassium Chloride (Potassium Chloride Er 20 Meq Tab.Er.Prt) 20 meq PO DAILY [facility] Last Admin: 12/06/23 10:34 Dose: 20 meq Documented By: ARLINE Roflumilast (Roflumilast 500 Mcg Tablet) 500 mcg PO DAILY [facility] Last Admin: 12/06/23 10:34 Dose: 500 mcg Documented By: ARLINE Senna/Docusate Sodium (Sennosides/Docusate Sodium Tablet) 1 tab PO BID [facility] Last Admin: 12/06/23 10:36 Dose: 1 tab Documented By: ARLINE Sodium Chloride (0.9 % Sodium Chloride Flush 3 Ml Syringe) 3 ml IVFLUSH QSHIFT [facility] Last Admin: 12/06/23 10:36 Dose: 3 ml Documented By: ARLINE Sucralfate (Sucralfate 1 Gm Tablet) 1 gm PO QIDWMHS [facility] Last Admin: 12/06/23 12:38 Dose: 1 gm Documented By: ARLINE Tamsulosin HCl (Tamsulosin Hcl 0.4 Mg Capsule) 0.4 mg PO DAILY [facility] Last Admin: 12/06/23 10:34 Dose: 0.4 mg Documented By: ARLINE Tizanidine HCl (Tizanidine Hcl 4 Mg Tablet) 2 mg PO Q8H PRN PRN Reason: Spasms Last Admin: 12/02/23 16:55 Dose: 2 mg Documented By: ANABELLA Vitamin D (Cholecalciferol (Vitamin D3) 10 Mcg Tablet) 20 mcg PO DAILY [facility] Last Admin: 12/06/23 10:34 Dose: 20 mcg Documented By: ARLINE Labs 12/04/23 19:19 12/05/23 06:25 Microbiology Microbiology Results: Microbiology 12/04/23 00:35 Blood Culture - Preliminary Blood - Venous No growth after 48 hours. 12/04/23 00:35 Blood Culture - Preliminary Blood - Venous No growth after 48 hours. Assessment and Plan (1) Gram-positive cocci bacteremia: Status: Acute (2) Lung mass: Status: Acute (3) COPD exacerbation: Status: Acute Plan 73-year-old male with a history of dementia, chronic anemia, hypokalemia, BPH, COPD, esophageal cancer with port in place, kidney disease, renal calculi, hyperlipidemia, essential hypertension, depression, opiate dependence-remission, chronic pain syndrome who was seen in the emergency department yesterday for aggressive behavior at his nursing facility and for smoking marijuana. The patient did have a positive marijuana test but was not aggressive in the emergency department yesterday and was discharged back to his care facility. The patient was sent back to the emergency department on a Section 12. Following information was obtained from the Section 12: ?Using illicit substance and facility; violent and aggressive behavior: Kicking, hitting, throwing items, verbal threats of harm. Active attempts to leave facility. . Was being observed in behavioral pod and developed hypoxia. Patient was admitted for further management of acute COPD exacerbation with acute hypoxemic respiratory failure and new lung mass and now has 2/2 gram positive bacteremia acute hypoxemic respiratory failure secondary to COPD exacerbation and pneumonia has completed treatment with abx and has no symptoms at the moment pulmonary nodules: Scattered small pulmonary nodules measuring up to 6 mm in the right upper lobe. Outpatient f/u recommended with repeat imaging Staph pidermidis Bacteremia--deemed real, had 2 set of positive cultures, most recent culture negative > 72 hrs. echo no vegetation. Iinitially treated with IV vanco, but changed to Dapto d/t tendency to refuse labs, and renal function that was worsening. check CBC and CPK weekly while on Dapto, a picc line placed on 12/02.. plan for 4 weeks of Dapto per ID recommendation ending Dec 25 asymptomatic bacteriuria/UTI urine culture negative Thrombocytopenia suspect chronic stable ?unspecified seizure d/o continue keppra HTN continue metoprolol CKD stage 3 renal function fluctuating, but back down to baseline Unspecified anemia h/h stable overall, possibly chronic due to chronic disease hx esophageal ca no longer undergoing tx. has port-a cath in place R chest Chronic hypokalemia--k is normal continue KCl po Alzheimers dementia with mood disturbance/aggressive behavior continue home meds will need care team eval once medically cleared DVT prophylaxis-Lovenox Full code need for inptient: Discharge pending insurance authorization Quality Stroke Does the patient have a stroke diagnosis?: No VTE Prior VTE?: No VTE Risk Level:: Medical - moderate - high VTE Device Contraindication: Treatment Not Indicated VTE Drug Contraindication: N/A - Med Ordered
[2023-12-06] MEDS: LORazepam 2 MG/ML VIAL 0.5 MG IVPUSH (18:53)
[2023-12-06] MEDS: DAPTOmycin 500 MG in 0.9 % Sodium Chloride 50 ML 120 MG IV (19:01)
[2023-12-06] MEDS: LORazepam 2 MG/ML VIAL 1 MG IVPUSH (19:51)
[2023-12-06] MEDS: Mirtazapine 15 MG TABLET PO (22:49)
[2023-12-06 22:59] VITALS: BP 174/64; PULSE 72; RESP 19; O2SAT 98
[2023-12-07] VITALS: BP 131/63; PULSE 66; RESP 18; TEMP 36.8; O2SAT 93
[2023-12-07 04:00] VITALS: BP 148/67; PULSE 73; RESP 18; TEMP 36.1; O2SAT 93
[2023-12-07 08:00] VITALS: RESP 17
[2023-12-07] MEDS: Sennosides/Docusate Sodium TABLET 1 TAB PO ×2 (08:59→20:14)
[2023-12-07] MEDS: Heparin Sodium,Porcine Flush 50 UNITS, 0.9 % Sodium Chloride Flush 5 ML IVFLUSH ×2 (08:59→17:11)
[2023-12-07] MEDS: levETIRAcetam 500 MG TABLET PO ×2 (09:00→20:14)
[2023-12-07] MEDS: Ferrous Sulfate 324 MG TABLET.DR PO ×2 (09:00→20:14)
[2023-12-07] MEDS: Potassium Chloride ER 20 MEQ TAB.ER.PRT PO (09:00)
[2023-12-07] MEDS: Tamsulosin HCL 0.4 MG CAPSULE PO (09:00)
[2023-12-07] MEDS: Gabapentin 400 MG CAPSULE PO ×2 (09:00→20:14)
[2023-12-07] MEDS: Metoprolol Tartrate 12.5 MG HALFTAB PO ×2 (09:00→20:14)
[2023-12-07] MEDS: Finasteride 5 MG TABLET PO (09:00)
[2023-12-07] MEDS: Cholecalciferol (Vitamin D3) 10 MCG TABLET 20 MCG PO (09:00)
[2023-12-07] MEDS: Roflumilast 500 MCG TABLET PO (09:00)
[2023-12-07] MEDS: Sucralfate 1 GM TABLET PO ×4 (09:00→20:14)
[2023-12-07] MEDS: 0.9 % Sodium Chloride Flush 3 ML SYRINGE IVFLUSH ×2 (09:01→17:11)
[2023-12-07] MEDS: oxyCODONE HCl Immed Release 5 MG TABLET PO ×2 (09:04→17:10)
--- NOTE | 2023-12-07 10:26 | MHC.CM.PN ---
This CM received a return phone call from [facility] admissions liaison Juanis. Per Juanis, Damon had a difficult time finding [facility]'s NPI as they are out of network, Juanis has faxed them a letter with the correct information and they are working on sorting out the details. Juanis states she has been working on this for 3 days and will call us when they get the auth from [facility].
--- NOTE | 2023-12-07 11:35 | P.PNIM_ITS ---
Subjective Subjective Date of Service: 12/07/23 Interval History: Seen and examined this morning Follow-up for bacteremia no new issues, had periods of agitations overnight but is now calm and cooperating Physical Exam 2 Vital Signs: Vital Signs: Last Vital Signs Temp 97.0 F 12/07/23 04:00 Pulse 73 12/07/23 04:00 Resp 17 12/07/23 08:00 BP 148/67 H 12/07/23 04:00 Pulse Ox 93 12/07/23 04:00 O2 Del Method Room Air 12/07/23 08:00 O2 Flow Rate 2 11/27/23 00:00 BMI result Body Mass Index 23.4 Const: Other: General: AO X 3, no acute distress Resp: CTA bilateral CVS: S1,S2,RRR GI: +BS, NT, no distention Skin: No rash Neuro: motor grossly intact Psych: appropriate affect Objective Data Active Medications Acetaminophen (Acetaminophen 325 Mg Tablet) 650 mg PO Q6H PRN PRN Reason: Pain, Mild (Pain Scale 1-3), fever or headache Albuterol Sulfate (Albuterol Sulfate 90 Mcg 8 Gm Inhaler) 2 puff INHALE Q4H PRN PRN Reason: Shortness of Breath/Wheezing Last Admin: 11/28/23 20:12 Dose: 2 puff Documented By: STELLA Albuterol/Ipratropium (Albuterol/Iprat 2.5/0.5mg 3 Ml Ampul.Neb) 3 ml INHALE RQ6H WHILE AWAKE PRN PRN Reason: shortness of breath/wheezing Last Admin: 12/05/23 21:12 Dose: 3 ml Documented By: TONIA Atorvastatin Calcium (Atorvastatin Calcium 40 Mg Tablet) 40 mg PO DAILY [facility] Last Admin: 12/01/23 08:52 Dose: 40 mg Documented By: SHIRA Bisacodyl (Bisacodyl 10 Mg Supp.Rect) 10 mg MT DAILY PRN PRN Reason: Constipation Calcium Carbonate (Calcium Carbonate 750 Mg Tab.Chew) 750 mg PO Q4H PRN PRN Reason: Heartburn Last Admin: 12/01/23 11:09 Dose: 750 mg Documented By: HUMZAMOANTHONY Heparin Sodium (Porcine) 50 (units/ Sodium Chloride 5 ml) [facility] Last Admin: 12/07/23 08:59 Dose: 50 unit Documented By: YANNICK Enoxaparin Sodium (Enoxaparin Sodium 40 Mg/0.4 Ml Syringe) 40 mg SUBCUT Q24H [facility] Last Admin: 12/06/23 12:38 Dose: 40 mg Documented By: ARLINE Ferrous Sulfate (Ferrous Sulfate 324 Mg Tablet.) 324 mg PO BID [facility] Last Admin: 12/07/23 09:00 Dose: 324 mg Documented By: YANNICK Finasteride (Finasteride 5 Mg Tablet) 5 mg PO DAILY [facility] Last Admin: 12/07/23 09:00 Dose: 5 mg Documented By: YANNICK Gabapentin (Gabapentin 400 Mg Capsule) 400 mg PO BID [facility] Last Admin: 12/07/23 09:00 Dose: 400 mg Documented By: YANNICK Daptomycin 500 mg/ Sodium (Chloride) 60 mls @ 120 mls/hr IV Q24H [facility] Last Infusion: 12/06/23 22:50 Dose: Infused Documented By: GUSTAVO Levetiracetam (Levetiracetam 500 Mg Tablet) 500 mg PO BID [facility] Last Admin: 12/07/23 09:00 Dose: 500 mg Documented By: YANNICK Lidocaine (Lidocaine 4 % Patch Adh..Patch) 1 patch TRANSDERMA DAILY [facility] Last Admin: 12/07/23 09:00 Dose: Not Given Documented By: YANNICK Non-Admin Reason: Patient Refused Magnesium Hydroxide (Milk Of Magnesia 30 Ml Oral.Susp) 30 ml PO DAILY PRN PRN Reason: Constipation Melatonin (Melatonin 3 Mg Tablet) 6 mg PO BEDTIME PRN PRN Reason: Insomnia Last Admin: 12/03/23 22:03 Dose: 6 mg Documented By: RIOS Metoprolol Tartrate (Metoprolol Tartrate 12.5 Mg Halftab) 12.5 mg PO BID [facility]; Protocol Last Admin: 12/07/23 09:00 Dose: 12.5 mg Documented By: YANNICK Mirtazapine (Mirtazapine 15 Mg Tablet) 15 mg PO BEDTIME [facility] Last Admin: 12/06/23 22:49 Dose: 15 mg Documented By: GUSTAVO Naloxone HCl (Naloxone Hcl 0.4 Mg/Ml Vial) 0.4 mg SUBCUT Q2M PRN PRN Reason: Opioid Overdose Nicotine Polacrilex (Nicotine Polacrilex Lozenge 2 Mg Lozenge) 2 mg BUCCAL Q2H PRN PRN Reason: Nicotine Cravings Last Admin: 11/26/23 20:14 Dose: 2 mg Documented By: ROLAN Omeprazole (Omeprazole 20 Mg Capsule.) 20 mg PO DAILY@0630 [facility] Last Admin: 12/07/23 05:26 Dose: Not Given Documented By: ANTOIC Non-Admin Reason: Patient Refused Oxybutynin Chloride (Oxybutynin Chloride 5 Mg Tablet) 5 mg PO Q8H PRN PRN Reason: Bladder Spasms Oxycodone HCl (Oxycodone Hcl Immed Release 5 Mg Tablet) 5 mg PO Q6H PRN PRN Reason: Pain, Severe (Pain Scale 7-10) Last Admin: 12/07/23 09:04 Dose: 5 mg Documented By: YANNICK Polyethylene Glycol (Polyethylene Glycol 3350 17 Gm Powd.Pack) 17 gm PO DAILY PRN PRN Reason: Constipation Potassium Chloride (Potassium Chloride Er 20 Meq Tab.Er.Prt) 20 meq PO DAILY [facility] Last Admin: 12/07/23 09:00 Dose: 20 meq Documented By: YANNICK Roflumilast (Roflumilast 500 Mcg Tablet) 500 mcg PO DAILY [facility] Last Admin: 12/07/23 09:00 Dose: 500 mcg Documented By: YANNICK Senna/Docusate Sodium (Sennosides/Docusate Sodium Tablet) 1 tab PO BID [facility] Last Admin: 12/07/23 08:59 Dose: 1 tab Documented By: YANNICK Sodium Chloride (0.9 % Sodium Chloride Flush 3 Ml Syringe) 3 ml IVFLUSH QSHIFT [facility] Last Admin: 12/07/23 09:01 Dose: 3 ml Documented By: YANNICK Sucralfate (Sucralfate 1 Gm Tablet) 1 gm PO QIDWMHS [facility] Last Admin: 12/07/23 09:00 Dose: 1 gm Documented By: YANNICK Tamsulosin HCl (Tamsulosin Hcl 0.4 Mg Capsule) 0.4 mg PO DAILY [facility] Last Admin: 12/07/23 09:00 Dose: 0.4 mg Documented By: YANNICK Tizanidine HCl (Tizanidine Hcl 4 Mg Tablet) 2 mg PO Q8H PRN PRN Reason: Spasms Last Admin: 12/02/23 16:55 Dose: 2 mg Documented By: ANABELLA Vitamin D (Cholecalciferol (Vitamin D3) 10 Mcg Tablet) 20 mcg PO DAILY [facility] Last Admin: 12/07/23 09:00 Dose: 20 mcg Documented By: YANNICK Labs 12/04/23 19:19 12/05/23 06:25 Assessment and Plan (1) Gram-positive cocci bacteremia: Status: Acute (2) Lung mass: Status: Acute (3) COPD exacerbation: Status: Acute Plan 73-year-old male with a history of dementia, chronic anemia, hypokalemia, BPH, COPD, esophageal cancer with port in place, kidney disease, renal calculi, hyperlipidemia, essential hypertension, depression, opiate dependence-remission, chronic pain syndrome who was seen in the emergency department yesterday for aggressive behavior at his nursing facility and for smoking marijuana. The patient did have a positive marijuana test but was not aggressive in the emergency department yesterday and was discharged back to his care facility. The patient was sent back to the emergency department on a Section 12. Following information was obtained from the Section 12: ?Using illicit substance and facility; violent and aggressive behavior: Kicking, hitting, throwing items, verbal threats of harm. Active attempts to leave facility. . Was being observed in behavioral pod and developed hypoxia. Patient was admitted for further management of acute COPD exacerbation with acute hypoxemic respiratory failure and new lung mass and now has 2/2 gram positive bacteremia acute hypoxemic respiratory failure secondary to COPD exacerbation and pneumonia has completed treatment with abx and has no symptoms at the moment pulmonary nodules: Scattered small pulmonary nodules measuring up to 6 mm in the right upper lobe. Outpatient f/u recommended with repeat imaging Staph pidermidis Bacteremia--deemed real, had 2 set of positive cultures, most recent culture negative > 72 hrs. echo no vegetation. Iinitially treated with IV vanco, but changed to Dapto d/t tendency to refuse labs, and renal function that was worsening. check CBC and CPK weekly while on Dapto, a picc line placed on 12/02.. plan for 4 weeks of Dapto per ID recommendation ending Dec 25 asymptomatic bacteriuria/UTI urine culture negative Thrombocytopenia suspect chronic stable ?unspecified seizure d/o continue keppra HTN continue metoprolol CKD stage 3 renal function fluctuating, but back down to baseline Unspecified anemia h/h stable overall, possibly chronic due to chronic disease hx esophageal ca no longer undergoing tx. has port-a cath in place R chest Chronic hypokalemia--k is normal continue KCl po Alzheimers dementia with mood disturbance/aggressive behavior continue home meds will need care team eval once medically cleared DVT prophylaxis-Lovenox Full code need for inptient: Discharge pending insurance authorization hoping for discharge today Quality Stroke Does the patient have a stroke diagnosis?: No VTE Prior VTE?: No VTE Risk Level:: Medical - moderate - high VTE Device Contraindication: Treatment Not Indicated VTE Drug Contraindication: N/A - Med Ordered
[2023-12-07 11:48] VITALS: BP 144/79; PULSE 74; RESP 14; TEMP 35.9; O2SAT 98
[2023-12-07] MEDS: Enoxaparin Sodium 40 MG/0.4 ML SYRINGE SUBCUT (13:16)
[2023-12-07 15:55] VITALS: BP 125/60; PULSE 80; RESP 20; TEMP 36.1; O2SAT 93
[2023-12-07] MEDS: DAPTOmycin 500 MG in 0.9 % Sodium Chloride 50 ML 120 MG IV (17:52)
[2023-12-07 19:35] VITALS: BP 144/65; PULSE 90; RESP 18; TEMP 36.6; O2SAT 99
[2023-12-07] MEDS: Mirtazapine 15 MG TABLET PO (20:14)
[2023-12-07] MEDS: TiZANidine HCL 4 MG TABLET 2 MG PO (20:15)
[2023-12-08 08:00] VITALS: BP 136/65; PULSE 95; RESP 20; TEMP 36.1; O2SAT 95
[2023-12-08] MEDS: Ferrous Sulfate 324 MG TABLET.DR PO ×2 (08:56→21:23)
[2023-12-08] MEDS: Sucralfate 1 GM TABLET PO ×4 (08:56→21:23)
[2023-12-08] MEDS: Gabapentin 400 MG CAPSULE PO ×2 (08:56→21:23)
[2023-12-08] MEDS: Tamsulosin HCL 0.4 MG CAPSULE PO (08:56)
[2023-12-08] MEDS: Omeprazole 20 MG CAPSULE.DR PO (08:56)
[2023-12-08] MEDS: Roflumilast 500 MCG TABLET PO (08:57)
[2023-12-08] MEDS: Finasteride 5 MG TABLET PO (08:57)
[2023-12-08] MEDS: levETIRAcetam 500 MG TABLET PO ×2 (08:57→21:24)
[2023-12-08] MEDS: Sennosides/Docusate Sodium TABLET 1 TAB PO ×2 (08:57→21:24)
[2023-12-08] MEDS: Potassium Chloride ER 20 MEQ TAB.ER.PRT PO (08:57)
[2023-12-08] MEDS: Metoprolol Tartrate 12.5 MG HALFTAB PO ×2 (08:57→21:23)
[2023-12-08] MEDS: Cholecalciferol (Vitamin D3) 10 MCG TABLET 20 MCG PO (08:57)
[2023-12-08] MEDS: oxyCODONE HCl Immed Release 5 MG TABLET PO (08:57)
[2023-12-08] MEDS: Heparin Sodium,Porcine Flush 50 UNITS, 0.9 % Sodium Chloride Flush 5 ML IVFLUSH ×2 (08:58→16:46)
[2023-12-08] MEDS: 0.9 % Sodium Chloride Flush 3 ML SYRINGE IVFLUSH ×2 (09:00→16:47)
[2023-12-08] MEDS: TiZANidine HCL 4 MG TABLET 2 MG PO (10:49)
[2023-12-08] MEDS: Enoxaparin Sodium 40 MG/0.4 ML SYRINGE SUBCUT (10:50)
[2023-12-08 11:07] VITALS: BP 135/66; PULSE 82; RESP 18; TEMP 36.3; O2SAT 92
--- NOTE | 2023-12-08 12:47 | HO.PM.IMPN ---
Subjective Subjective Date of Service: 12/08/23 Interval History: Seen and examined this morning Follow-up for bacteremia No agitation overnight, c/o pain in shoulder this is chronic Physical Exam Vital Signs: Vital Signs: Last Vital Signs Temp 97.4 F 12/08/23 11:07 Pulse 82 12/08/23 11:07 Resp 18 12/08/23 11:07 BP 135/66 12/08/23 11:07 Pulse Ox 92 12/08/23 11:07 O2 Del Method Room Air 12/08/23 11:07 O2 Flow Rate 2 11/27/23 00:00 BMI result Body Mass Index 23.4 Const: Other: General: AO X 3, no acute distress Resp: CTA bilateral CVS: S1,S2,RRR GI: +BS, NT, no distention Skin: No rash Neuro: motor grossly intact Psych: appropriate affect Objective Data Active Medications Acetaminophen (Acetaminophen 325 Mg Tablet) 650 mg PO Q6H PRN PRN Reason: Pain, Mild (Pain Scale 1-3), fever or headache Albuterol Sulfate (Albuterol Sulfate 90 Mcg 8 Gm Inhaler) 2 puff INHALE Q4H PRN PRN Reason: Shortness of Breath/Wheezing Last Admin: 11/28/23 20:12 Dose: 2 puff Documented By: STELLA Atorvastatin Calcium (Atorvastatin Calcium 40 Mg Tablet) 40 mg PO DAILY [facility] Last Admin: 12/01/23 08:52 Dose: 40 mg Documented By: HUMZAMOANTHONY Bisacodyl (Bisacodyl 10 Mg Supp.Rect) 10 mg CO DAILY PRN PRN Reason: Constipation Calcium Carbonate (Calcium Carbonate 750 Mg Tab.Chew) 750 mg PO Q4H PRN PRN Reason: Heartburn Last Admin: 12/01/23 11:09 Dose: 750 mg Documented By: HUMZAMOANTHONY Heparin Sodium (Porcine) 50 (units/ Sodium Chloride 5 ml) 0 units IVFLUSH QSHIFT [facility] Last Admin: 12/08/23 08:58 Dose: 50 unit Documented By: YANNICK Enoxaparin Sodium (Enoxaparin Sodium 40 Mg/0.4 Ml Syringe) 40 mg SUBCUT Q24H [facility] Last Admin: 12/08/23 10:50 Dose: 40 mg Documented By: YANNICK Ferrous Sulfate (Ferrous Sulfate 324 Mg Tablet.) 324 mg PO BID [facility] Last Admin: 12/08/23 08:56 Dose: 324 mg Documented By: YANNICK Finasteride (Finasteride 5 Mg Tablet) 5 mg PO DAILY [facility] Last Admin: 12/08/23 08:57 Dose: 5 mg Documented By: YANNICK Gabapentin (Gabapentin 400 Mg Capsule) 400 mg PO BID [facility] Last Admin: 12/08/23 08:56 Dose: 400 mg Documented By: YANNICK Daptomycin 500 mg/ Sodium (Chloride) 60 mls @ 120 mls/hr IV Q24H [facility] Last Infusion: 12/07/23 18:22 Dose: Infused Documented By: YANNICK Levetiracetam (Levetiracetam 500 Mg Tablet) 500 mg PO BID [facility] Last Admin: 12/08/23 08:57 Dose: 500 mg Documented By: YANNICK Lidocaine (Lidocaine 4 % Patch Adh..Patch) 1 patch TRANSDERMA DAILY [facility] Last Admin: 12/08/23 09:00 Dose: Not Given Documented By: YANNICK Non-Admin Reason: Patient Refused Magnesium Hydroxide (Milk Of Magnesia 30 Ml Oral.Susp) 30 ml PO DAILY PRN PRN Reason: Constipation Melatonin (Melatonin 3 Mg Tablet) 6 mg PO BEDTIME PRN PRN Reason: Insomnia Last Admin: 12/03/23 22:03 Dose: 6 mg Documented By: RIOS Metoprolol Tartrate (Metoprolol Tartrate 12.5 Mg Halftab) 12.5 mg PO BID [facility]; Protocol Last Admin: 12/08/23 08:57 Dose: 12.5 mg Documented By: YANNICK Mirtazapine (Mirtazapine 15 Mg Tablet) 15 mg PO BEDTIME [facility] Last Admin: 12/07/23 20:14 Dose: 15 mg Documented By: SONALI Naloxone HCl (Naloxone Hcl 0.4 Mg/Ml Vial) 0.4 mg SUBCUT Q2M PRN PRN Reason: Opioid Overdose Nicotine Polacrilex (Nicotine Polacrilex Lozenge 2 Mg Lozenge) 2 mg BUCCAL Q2H PRN PRN Reason: Nicotine Cravings Last Admin: 11/26/23 20:14 Dose: 2 mg Documented By: ROLAN Omeprazole (Omeprazole 20 Mg Capsule.) 20 mg PO DAILY@0630 [facility] Last Admin: 12/08/23 08:56 Dose: 20 mg Documented By: YANNICK Oxybutynin Chloride (Oxybutynin Chloride 5 Mg Tablet) 5 mg PO Q8H PRN PRN Reason: Bladder Spasms Oxycodone HCl (Oxycodone Hcl Immed Release 5 Mg Tablet) 7.5 mg PO Q4H PRN PRN Reason: Pain, Severe (Pain Scale 7-10) Polyethylene Glycol (Polyethylene Glycol 3350 17 Gm Powd.Pack) 17 gm PO DAILY PRN PRN Reason: Constipation Potassium Chloride (Potassium Chloride Er 20 Meq Tab.Er.Prt) 20 meq PO DAILY [facility] Last Admin: 12/08/23 08:57 Dose: 20 meq Documented By: YANNICK Roflumilast (Roflumilast 500 Mcg Tablet) 500 mcg PO DAILY [facility] Last Admin: 12/08/23 08:57 Dose: 500 mcg Documented By: YANNICK Senna/Docusate Sodium (Sennosides/Docusate Sodium Tablet) 1 tab PO BID [facility] Last Admin: 12/08/23 08:57 Dose: 1 tab Documented By: YANNICK Sodium Chloride (0.9 % Sodium Chloride Flush 3 Ml Syringe) 3 ml IVFLUSH QSHIFT [facility] Last Admin: 12/08/23 09:00 Dose: 3 ml Documented By: YANNICK Sucralfate (Sucralfate 1 Gm Tablet) 1 gm PO QIDWMHS [facility] Last Admin: 12/08/23 10:49 Dose: 1 gm Documented By: YANNICK Tamsulosin HCl (Tamsulosin Hcl 0.4 Mg Capsule) 0.4 mg PO DAILY [facility] Last Admin: 12/08/23 08:56 Dose: 0.4 mg Documented By: YANNICK Tizanidine HCl (Tizanidine Hcl 4 Mg Tablet) 2 mg PO Q8H PRN PRN Reason: Spasms Last Admin: 12/08/23 10:49 Dose: 2 mg Documented By: YANNICK Vitamin D (Cholecalciferol (Vitamin D3) 10 Mcg Tablet) 20 mcg PO DAILY [facility] Last Admin: 12/08/23 08:57 Dose: 20 mcg Documented By: YANNICK Labs 12/04/23 19:19 12/05/23 06:25 Assessment and Plan (1) Gram-positive cocci bacteremia: Status: Acute (2) Lung mass: Status: Acute (3) COPD exacerbation: Status: Acute Plan 73-year-old male with a history of dementia, chronic anemia, hypokalemia, BPH, COPD, esophageal cancer with port in place, kidney disease, renal calculi, hyperlipidemia, essential hypertension, depression, opiate dependence-remission, chronic pain syndrome who was seen in the emergency department yesterday for aggressive behavior at his nursing facility and for smoking marijuana. The patient did have a positive marijuana test but was not aggressive in the emergency department yesterday and was discharged back to his care facility. The patient was sent back to the emergency department on a Section 12. Following information was obtained from the Section 12: ?Using illicit substance and facility; violent and aggressive behavior: Kicking, hitting, throwing items, verbal threats of harm. Active attempts to leave facility. . Was being observed in behavioral pod and developed hypoxia. Patient was admitted for further management of acute COPD exacerbation with acute hypoxemic respiratory failure and new lung mass and now has 2/2 gram positive bacteremia acute hypoxemic respiratory failure secondary to COPD exacerbation and pneumonia has completed treatment with abx and has no symptoms at the moment pulmonary nodules: Scattered small pulmonary nodules measuring up to 6 mm in the right upper lobe. Outpatient f/u recommended with repeat imaging Staph pidermidis Bacteremia--deemed real, had 2 set of positive cultures, most recent culture negative > 72 hrs. echo no vegetation. Iinitially treated with IV vanco, but changed to Dapto d/t tendency to refuse labs, and renal function that was worsening. check CBC and CPK weekly while on Dapto, a picc line placed on 12/02.. plan for 4 weeks of Dapto per ID recommendation ending Dec 25 asymptomatic bacteriuria/UTI urine culture negative Thrombocytopenia suspect chronic stable ?unspecified seizure d/o continue keppra HTN continue metoprolol CKD stage 3 renal function fluctuating, but back down to baseline Unspecified anemia h/h stable overall, possibly chronic due to chronic disease hx esophageal ca no longer undergoing tx. has port-a cath in place R chest Chronic hypokalemia--k is normal continue KCl po Alzheimers dementia with mood disturbance/aggressive behavior continue home meds DVT prophylaxis-Lovenox Full code need for inptient: Discharge pending insurance authorization hoping for discharge today Quality Stroke Does the patient have a stroke diagnosis?: No VTE Prior VTE?: No VTE Risk Level:: Medical - moderate - high VTE Device Contraindication: Treatment Not Indicated VTE Drug Contraindication: N/A - Med Ordered
[2023-12-08] MEDS: oxyCODONE HCl Immed Release 5 MG TABLET 7.5 MG PO ×3 (13:05→21:24)
[2023-12-08 16:00] VITALS: BP 140/67; PULSE 84; RESP 18; TEMP 36; O2SAT 97
[2023-12-08] MEDS: DAPTOmycin 500 MG in 0.9 % Sodium Chloride 50 ML 120 MG IV (16:47)
[2023-12-08 19:20] VITALS: BP 137/60; PULSE 83; RESP 18; TEMP 36.1; O2SAT 99
[2023-12-08 21:19] VITALS: BP 136/69; PULSE 82
[2023-12-08] MEDS: Mirtazapine 15 MG TABLET PO (21:23)
[2023-12-09] MEDS: oxyCODONE HCl Immed Release 5 MG TABLET 7.5 MG PO ×4 (02:56→20:29)
[2023-12-09 08:00] VITALS: BP 134/79; PULSE 86; RESP 16; TEMP 36.4; O2SAT 91
[2023-12-09 08:22] LABS: Hematocrit 37.1 % (42.0-52.0); Hemoglobin 11.3 g/dl (14.0-18.0); Mean Corpuscular HGB Conc 30.5 g/dl (31.0-36.0); Mean Corpuscular Hemoglobin 29.9 pg (27.0-33.0); Mean Corpuscular Volume 98.1 fL (80.0-98.0); Mean Platelet Volume 9.8 fL (9.4-12.4); Platelet Count 177 X10*3/uL (160-400); Red Blood Count 3.78 X10*6/uL (4.60-5.80); Red Cell Distribution Width 13.9 % (11.0-16.0)
[2023-12-09 08:46] LABS: Anion Gap 19 (12-20); Blood Urea Nitrogen 39 mg/dL (9-16); Calcium 9.7 mg/dL (8.4-10.2); Carbon Dioxide 22 mmol/L (22-29); Chloride 105 mmol/L (96-108); Creatinine Clr Calc Pharmacy 30.6; Estimated Glomerular Filt Rate 37; Glucose Random 122 mg/dL (60-115); Sodium 142 mmol/L (135-145)
[2023-12-09] MEDS: Roflumilast 500 MCG TABLET PO (09:12)
[2023-12-09] MEDS: Gabapentin 400 MG CAPSULE PO ×2 (09:13→20:27)
[2023-12-09] MEDS: Metoprolol Tartrate 12.5 MG HALFTAB PO ×2 (09:13→20:28)
[2023-12-09] MEDS: Tamsulosin HCL 0.4 MG CAPSULE PO (09:14)
[2023-12-09] MEDS: Sucralfate 1 GM TABLET PO ×3 (09:14→20:26)
[2023-12-09] MEDS: Heparin Sodium,Porcine Flush 50 UNITS, 0.9 % Sodium Chloride Flush 5 ML IVFLUSH ×2 (09:14→14:14)
[2023-12-09] MEDS: Potassium Chloride ER 20 MEQ TAB.ER.PRT PO (09:14)
[2023-12-09] MEDS: Cholecalciferol (Vitamin D3) 10 MCG TABLET 20 MCG PO (09:14)
[2023-12-09] MEDS: Finasteride 5 MG TABLET PO (09:14)
[2023-12-09] MEDS: Sennosides/Docusate Sodium TABLET 1 TAB PO ×2 (09:14→20:27)
[2023-12-09] MEDS: Ferrous Sulfate 324 MG TABLET.DR PO ×2 (09:14→20:26)
[2023-12-09] MEDS: levETIRAcetam 500 MG TABLET PO ×2 (09:14→20:28)
[2023-12-09] MEDS: 0.9 % Sodium Chloride Flush 3 ML SYRINGE IVFLUSH ×2 (09:15→14:13)
[2023-12-09 11:12] VITALS: BP 145/72; PULSE 73; RESP 16; TEMP 36.1; O2SAT 91
[2023-12-09] MEDS: Enoxaparin Sodium 40 MG/0.4 ML SYRINGE SUBCUT (11:19)
--- NOTE | 2023-12-09 11:39 | P.PNIM_ITS ---
Subjective Subjective Date of Service: 12/09/23 Interval History: Seen and examined this morning Follow-up for bacteremia A bit agitated this morning, he is asking to go outside to smoke. Offered nicotine patch Physical Exam 2 Vital Signs: Vital Signs: Last Vital Signs Temp 97 F 12/09/23 11:12 Pulse 73 12/09/23 11:12 Resp 16 12/09/23 11:12 BP 145/72 H 12/09/23 11:12 Pulse Ox 91 L 12/09/23 11:12 O2 Del Method Room Air 12/09/23 11:12 O2 Flow Rate 2 11/27/23 00:00 BMI result Body Mass Index 23.4 Const: Other: General: AO X 3, no acute distress Resp: CTA bilateral CVS: S1,S2,RRR GI: +BS, NT, no distention Skin: No rash Neuro: motor grossly intact Psych: appropriate affect Objective Data Active Medications Acetaminophen (Acetaminophen 325 Mg Tablet) 650 mg PO Q6H PRN PRN Reason: Pain, Mild (Pain Scale 1-3), fever or headache Albuterol Sulfate (Albuterol Sulfate 90 Mcg 8 Gm Inhaler) 2 puff INHALE Q4H PRN PRN Reason: Shortness of Breath/Wheezing Last Admin: 11/28/23 20:12 Dose: 2 puff Documented By: STELLA Atorvastatin Calcium (Atorvastatin Calcium 40 Mg Tablet) 40 mg PO DAILY [facility] Last Admin: 12/01/23 08:52 Dose: 40 mg Documented By: HUMZAMOANTHONY Bisacodyl (Bisacodyl 10 Mg Supp.Rect) 10 mg [place] DAILY PRN PRN Reason: Constipation Calcium Carbonate (Calcium Carbonate 750 Mg Tab.Chew) 750 mg PO Q4H PRN PRN Reason: Heartburn Last Admin: 12/01/23 11:09 Dose: 750 mg Documented By: PODMOANTHONY Heparin Sodium (Porcine) 50 (units/ Sodium Chloride 5 ml) 0 units IVFLUSH QSHIFT [facility] Last Admin: 12/09/23 09:14 Dose: 50 unit Documented By: YANNICK Enoxaparin Sodium (Enoxaparin Sodium 40 Mg/0.4 Ml Syringe) 40 mg SUBCUT Q24H [facility] Last Admin: 12/09/23 11:19 Dose: 40 mg Documented By: YANNICK Ferrous Sulfate (Ferrous Sulfate 324 Mg Tablet.) 324 mg PO BID [facility] Last Admin: 12/09/23 09:14 Dose: 324 mg Documented By: YANNICK Finasteride (Finasteride 5 Mg Tablet) 5 mg PO DAILY [facility] Last Admin: 12/09/23 09:14 Dose: 5 mg Documented By: YANNICK Gabapentin (Gabapentin 400 Mg Capsule) 400 mg PO BID [facility] Last Admin: 12/09/23 09:13 Dose: 400 mg Documented By: YANNICK Levetiracetam (Levetiracetam 500 Mg Tablet) 500 mg PO BID [facility] Last Admin: 12/09/23 09:14 Dose: 500 mg Documented By: YANNICK Lidocaine (Lidocaine 4 % Patch Adh..Patch) 1 patch TRANSDERMA DAILY [facility] Last Admin: 12/09/23 09:15 Dose: Not Given Documented By: YANNICK Non-Admin Reason: Patient Refused Magnesium Hydroxide (Milk Of Magnesia 30 Ml Oral.Susp) 30 ml PO DAILY PRN PRN Reason: Constipation Melatonin (Melatonin 3 Mg Tablet) 6 mg PO BEDTIME PRN PRN Reason: Insomnia Last Admin: 12/03/23 22:03 Dose: 6 mg Documented By: RIOS Metoprolol Tartrate (Metoprolol Tartrate 12.5 Mg Halftab) 12.5 mg PO BID [facility]; Protocol Last Admin: 12/09/23 09:13 Dose: 12.5 mg Documented By: YANNICK Mirtazapine (Mirtazapine 15 Mg Tablet) 15 mg PO BEDTIME [facility] Last Admin: 12/08/23 21:23 Dose: 15 mg Documented By: SONALI Naloxone HCl (Naloxone Hcl 0.4 Mg/Ml Vial) 0.4 mg SUBCUT Q2M PRN PRN Reason: Opioid Overdose Nicotine Polacrilex (Nicotine Polacrilex Lozenge 2 Mg Lozenge) 2 mg BUCCAL Q2H PRN PRN Reason: Nicotine Cravings Last Admin: 11/26/23 20:14 Dose: 2 mg Documented By: ROLAN Omeprazole (Omeprazole 20 Mg Capsule.) 20 mg PO DAILY@0630 [facility] Last Admin: 12/09/23 06:30 Dose: Not Given Documented By: SONALI Non-Admin Reason: Patient Refused Oxybutynin Chloride (Oxybutynin Chloride 5 Mg Tablet) 5 mg PO Q8H PRN PRN Reason: Bladder Spasms Oxycodone HCl (Oxycodone Hcl Immed Release 5 Mg Tablet) 7.5 mg PO Q4H PRN PRN Reason: Pain, Severe (Pain Scale 7-10) Last Admin: 12/09/23 09:12 Dose: 7.5 mg Documented By: YANNICK Polyethylene Glycol (Polyethylene Glycol 3350 17 Gm Powd.Pack) 17 gm PO DAILY PRN PRN Reason: Constipation Potassium Chloride (Potassium Chloride Er 20 Meq Tab.Er.Prt) 20 meq PO DAILY [facility] Last Admin: 12/09/23 09:14 Dose: 20 meq Documented By: YANNICK Roflumilast (Roflumilast 500 Mcg Tablet) 500 mcg PO DAILY [facility] Last Admin: 12/09/23 09:12 Dose: 500 mcg Documented By: YANNICK Senna/Docusate Sodium (Sennosides/Docusate Sodium Tablet) 1 tab PO BID [facility] Last Admin: 12/09/23 09:14 Dose: 1 tab Documented By: YANNICK Sodium Chloride (0.9 % Sodium Chloride Flush 3 Ml Syringe) 3 ml IVFLUSH QSHIFT [facility] Last Admin: 12/09/23 09:15 Dose: 3 ml Documented By: YANNICK Sucralfate (Sucralfate 1 Gm Tablet) 1 gm PO QIDWMHS [facility] Last Admin: 12/09/23 11:19 Dose: 1 gm Documented By: YANNICK Tamsulosin HCl (Tamsulosin Hcl 0.4 Mg Capsule) 0.4 mg PO DAILY [facility] Last Admin: 12/09/23 09:14 Dose: 0.4 mg Documented By: YANNICK Tizanidine HCl (Tizanidine Hcl 4 Mg Tablet) 2 mg PO Q8H PRN PRN Reason: Spasms Last Admin: 12/08/23 10:49 Dose: 2 mg Documented By: YANNICK Vitamin D (Cholecalciferol (Vitamin D3) 10 Mcg Tablet) 20 mcg PO DAILY [facility] Last Admin: 12/09/23 09:14 Dose: 20 mcg Documented By: YANNICK Labs 12/09/23 07:47 12/09/23 07:47 Labs: Laboratory Results - last 24 hr 12/09/23 07:47 MCV 98.1 H MCH 29.9 MCHC 30.5 L RDW 13.9 Plt Count 177 MPV 9.8 Absolute Nucleated RBC 0.000 Nucleated RBC % (auto) 0.0 Anion Gap 19 Estim Creat Clear Calc 30.6 Estimated GFR 37 Random Glucose 122 H Calcium 9.7 D Total Creatine Kinase 59 Microbiology Microbiology Results: Microbiology 12/04/23 00:35 Blood Culture - Final Blood - Venous No growth after 5 days. 12/04/23 00:35 Blood Culture - Final Blood - Venous No growth after 5 days. Assessment and Plan (1) Gram-positive cocci bacteremia: Status: Acute (2) Lung mass: Status: Acute (3) COPD exacerbation: Status: Acute Plan 73-year-old male with a history of dementia, chronic anemia, hypokalemia, BPH, COPD, esophageal cancer with port in place, kidney disease, renal calculi, hyperlipidemia, essential hypertension, depression, opiate dependence-remission, chronic pain syndrome who was seen in the emergency department yesterday for aggressive behavior at his nursing facility and for smoking marijuana. The patient did have a positive marijuana test but was not aggressive in the emergency department yesterday and was discharged back to his care facility. The patient was sent back to the emergency department on a Section 12. Following information was obtained from the Section 12: ?Using illicit substance and facility; violent and aggressive behavior: Kicking, hitting, throwing items, verbal threats of harm. Active attempts to leave facility. . Was being observed in behavioral pod and developed hypoxia. Patient was admitted for further management of acute COPD exacerbation with acute hypoxemic respiratory failure and new lung mass and now has 2/2 gram positive bacteremia acute hypoxemic respiratory failure secondary to COPD exacerbation and pneumonia has completed treatment with abx and has no symptoms at the moment pulmonary nodules: Scattered small pulmonary nodules measuring up to 6 mm in the right upper lobe. Outpatient f/u recommended with repeat imaging Staph pidermidis Bacteremia--deemed real, had 2 set of positive cultures, most recent culture negative > 72 hrs. echo no vegetation. Iinitially treated with IV vanco, but changed to Dapto d/t tendency to refuse labs, and renal function that was worsening. check CBC and CPK weekly while on Dapto, a picc line placed on 12/02.. plan for 4 weeks of Dapto per ID recommendation ending Aug 7 asymptomatic bacteriuria/UTI urine culture negative Thrombocytopenia suspect chronic stable ?unspecified seizure d/o continue keppra HTN continue metoprolol CKD stage 3, creatine fluctuating, slightly up from earlier but appear to be within baseline, monitor Unspecified anemia h/h stable overall, possibly chronic due to chronic disease hx esophageal ca no longer undergoing tx. 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 he usually calms down after talking to him DVT prophylaxis-Lovenox Full code need for inptient: Discharge pending insurance authorization Quality Stroke Does the patient have a stroke diagnosis?: No VTE Prior VTE?: No VTE Risk Level:: Medical - moderate - high VTE Device Contraindication: Treatment Not Indicated VTE Drug Contraindication: N/A - Med Ordered
[2023-12-09] MEDS: Acetaminophen 325 MG TABLET 650 MG PO (17:51)
[2023-12-09 19:16] VITALS: BP 128/58; PULSE 88; RESP 18; TEMP 36.6; O2SAT 91
[2023-12-09] MEDS: Mirtazapine 15 MG TABLET PO (22:40)
[2023-12-09] MEDS: Melatonin 3 MG TABLET 6 MG PO (22:42)
[2023-12-09 22:47] VITALS: BP 127/57; PULSE 70; RESP 18; TEMP 36.5; O2SAT 92
[2023-12-10 07:09] VITALS: BP 160/65; PULSE 70; RESP 18; TEMP 36.4; O2SAT 92
[2023-12-10] MEDS: 0.9 % Sodium Chloride Flush 3 ML SYRINGE IVFLUSH ×2 (10:19→16:23)
[2023-12-10] MEDS: Heparin Sodium,Porcine Flush 50 UNITS, 0.9 % Sodium Chloride Flush 5 ML IVFLUSH ×2 (10:19→16:23)
[2023-12-10] MEDS: oxyCODONE HCl Immed Release 5 MG TABLET 7.5 MG PO ×3 (10:19→21:09)
[2023-12-10] MEDS: Enoxaparin Sodium 40 MG/0.4 ML SYRINGE SUBCUT (10:20)
[2023-12-10] MEDS: Potassium Chloride ER 20 MEQ TAB.ER.PRT PO (10:20)
[2023-12-10] MEDS: Gabapentin 400 MG CAPSULE PO ×2 (10:20→21:01)
[2023-12-10] MEDS: levETIRAcetam 500 MG TABLET PO ×2 (10:20→21:01)
[2023-12-10] MEDS: Cholecalciferol (Vitamin D3) 10 MCG TABLET 20 MCG PO (10:20)
[2023-12-10] MEDS: Metoprolol Tartrate 12.5 MG HALFTAB PO ×2 (10:20→21:01)
[2023-12-10] MEDS: Ferrous Sulfate 324 MG TABLET.DR PO ×2 (10:20→21:01)
[2023-12-10] MEDS: Sennosides/Docusate Sodium TABLET 1 TAB PO ×2 (10:20→21:01)
[2023-12-10] MEDS: Finasteride 5 MG TABLET PO (10:20)
[2023-12-10] MEDS: Roflumilast 500 MCG TABLET PO (10:21)
[2023-12-10] MEDS: Tamsulosin HCL 0.4 MG CAPSULE PO (10:21)
[2023-12-10] MEDS: Sucralfate 1 GM TABLET PO ×3 (10:21→21:01)
[2023-12-10 10:49] VITALS: BP 143/64; PULSE 78; RESP 18; TEMP 36.6; O2SAT 92
--- NOTE | 2023-12-10 12:53 | P.PNIM_ITS ---
Subjective Subjective Date of Service: 12/10/23 Interval History: Seen and examined this morning Follow-up for bacteremia calm and cooperative this morning Physical Exam 2 Vital Signs: Vital Signs: Last Vital Signs Temp 97.9 F 12/10/23 10:49 Pulse 78 12/10/23 10:49 Resp 18 12/10/23 10:49 BP 143/64 H 12/10/23 10:49 Pulse Ox 92 12/10/23 10:49 O2 Del Method Room Air 12/10/23 10:49 O2 Flow Rate 2 11/27/23 00:00 BMI result Body Mass Index 23.4 Const: Other: General: AO X 3, no acute distress Resp: CTA bilateral CVS: S1,S2,RRR GI: +BS, NT, no distention Skin: No rash Neuro: motor grossly intact Psych: appropriate affect Objective Data Active Medications Acetaminophen (Acetaminophen 325 Mg Tablet) 650 mg PO Q6H PRN PRN Reason: Pain, Mild (Pain Scale 1-3), fever or headache Last Admin: 12/09/23 17:51 Dose: 650 mg Documented By: YANNICK Albuterol Sulfate (Albuterol Sulfate 90 Mcg 8 Gm Inhaler) 2 puff INHALE Q4H PRN PRN Reason: Shortness of Breath/Wheezing Last Admin: 11/28/23 20:12 Dose: 2 puff Documented By: STELLA Atorvastatin Calcium (Atorvastatin Calcium 40 Mg Tablet) 40 mg PO DAILY [facility] Last Admin: 12/01/23 08:52 Dose: 40 mg Documented By: HUMZAMOANTHONY Bisacodyl (Bisacodyl 10 Mg Supp.Rect) 10 mg [place] DAILY PRN PRN Reason: Constipation Calcium Carbonate (Calcium Carbonate 750 Mg Tab.Chew) 750 mg PO Q4H PRN PRN Reason: Heartburn Last Admin: 12/01/23 11:09 Dose: 750 mg Documented By: HUMZAMORP Heparin Sodium (Porcine) 50 (units/ Sodium Chloride 5 ml) 0 units IVFLUSH QSHIFT [facility] Last Admin: 12/10/23 10:19 Dose: 50 unit Documented By: YANNICK Diphenhydramine HCl (Diphenhydramine Hcl 12.5 Mg/5 Ml Liquid) 12.5 mg PO Q6H PRN PRN Reason: Itching Enoxaparin Sodium (Enoxaparin Sodium 40 Mg/0.4 Ml Syringe) 40 mg SUBCUT Q24H [facility] Last Admin: 12/10/23 10:20 Dose: 40 mg Documented By: YANNICK Ferrous Sulfate (Ferrous Sulfate 324 Mg Tablet.) 324 mg PO BID [facility] Last Admin: 12/10/23 10:20 Dose: 324 mg Documented By: YANNICK Finasteride (Finasteride 5 Mg Tablet) 5 mg PO DAILY [facility] Last Admin: 12/10/23 10:20 Dose: 5 mg Documented By: YANNICK Gabapentin (Gabapentin 400 Mg Capsule) 400 mg PO BID [facility] Last Admin: 12/10/23 10:20 Dose: 400 mg Documented By: YANNICK Levetiracetam (Levetiracetam 500 Mg Tablet) 500 mg PO BID [facility] Last Admin: 12/10/23 10:20 Dose: 500 mg Documented By: YANNICK Lidocaine (Lidocaine 4 % Patch Adh..Patch) 1 patch TRANSDERMA DAILY [facility] Last Admin: 12/10/23 10:21 Dose: Not Given Documented By: YANNICK Non-Admin Reason: Patient Refused Magnesium Hydroxide (Milk Of Magnesia 30 Ml Oral.Susp) 30 ml PO DAILY PRN PRN Reason: Constipation Melatonin (Melatonin 3 Mg Tablet) 6 mg PO BEDTIME PRN PRN Reason: Insomnia Last Admin: 12/09/23 22:42 Dose: 6 mg Documented By: SONALI Metoprolol Tartrate (Metoprolol Tartrate 12.5 Mg Halftab) 12.5 mg PO BID [facility]; Protocol Last Admin: 12/10/23 10:20 Dose: 12.5 mg Documented By: YANNICK Mirtazapine (Mirtazapine 15 Mg Tablet) 15 mg PO BEDTIME [facility] Last Admin: 12/09/23 22:40 Dose: 15 mg Documented By: SONALI Naloxone HCl (Naloxone Hcl 0.4 Mg/Ml Vial) 0.4 mg SUBCUT Q2M PRN PRN Reason: Opioid Overdose Nicotine (Nicotine 14 Mg Patch.Td24) 14 mg TRANSDERMA DAILY [facility] Last Admin: 12/10/23 10:26 Dose: Not Given Documented By: YANNICK Non-Admin Reason: Patient Refused Nicotine Polacrilex (Nicotine Polacrilex Lozenge 2 Mg Lozenge) 2 mg BUCCAL Q2H PRN PRN Reason: Nicotine Cravings Last Admin: 11/26/23 20:14 Dose: 2 mg Documented By: ROLAN Omeprazole (Omeprazole 20 Mg Capsule.) 20 mg PO DAILY@0630 [facility] Last Admin: 12/10/23 05:44 Dose: Not Given Documented By: SONALI Non-Admin Reason: Patient Asleep Oxybutynin Chloride (Oxybutynin Chloride 5 Mg Tablet) 5 mg PO Q8H PRN PRN Reason: Bladder Spasms Oxycodone HCl (Oxycodone Hcl Immed Release 5 Mg Tablet) 7.5 mg PO Q4H PRN PRN Reason: Pain, Severe (Pain Scale 7-10) Last Admin: 12/10/23 10:19 Dose: 7.5 mg Documented By: YANNICK Polyethylene Glycol (Polyethylene Glycol 3350 17 Gm Powd.Pack) 17 gm PO DAILY PRN PRN Reason: Constipation Potassium Chloride (Potassium Chloride Er 20 Meq Tab.Er.Prt) 20 meq PO DAILY [facility] Last Admin: 12/10/23 10:20 Dose: 20 meq Documented By: YANNICK Roflumilast (Roflumilast 500 Mcg Tablet) 500 mcg PO DAILY [facility] Last Admin: 12/10/23 10:21 Dose: 500 mcg Documented By: YANNICK Senna/Docusate Sodium (Sennosides/Docusate Sodium Tablet) 1 tab PO BID [facility] Last Admin: 12/10/23 10:20 Dose: 1 tab Documented By: YANNICK Sodium Chloride (0.9 % Sodium Chloride Flush 3 Ml Syringe) 3 ml IVFLUSH QSHIFT [facility] Last Admin: 12/10/23 10:19 Dose: 3 ml Documented By: YANNICK Sucralfate (Sucralfate 1 Gm Tablet) 1 gm PO QIDWMHS [facility] Last Admin: 12/10/23 12:32 Dose: Not Given Documented By: YANNICK Non-Admin Reason: Patient Refused Tamsulosin HCl (Tamsulosin Hcl 0.4 Mg Capsule) 0.4 mg PO DAILY [facility] Last Admin: 12/10/23 10:21 Dose: 0.4 mg Documented By: YANNICK Tizanidine HCl (Tizanidine Hcl 4 Mg Tablet) 2 mg PO Q8H PRN PRN Reason: Spasms Last Admin: 12/08/23 10:49 Dose: 2 mg Documented By: YANNICK Vitamin D (Cholecalciferol (Vitamin D3) 10 Mcg Tablet) 20 mcg PO DAILY [facility] Last Admin: 12/10/23 10:20 Dose: 20 mcg Documented By: YANNICK Labs 12/09/23 07:47 12/09/23 07:47 Assessment and Plan (1) Gram-positive cocci bacteremia: Status: Acute (2) Lung mass: Status: Acute (3) COPD exacerbation: Status: Acute Plan 73-year-old male with a history of dementia, chronic anemia, hypokalemia, BPH, COPD, esophageal cancer with port in place, kidney disease, renal calculi, hyperlipidemia, essential hypertension, depression, opiate dependence-remission, chronic pain syndrome who was seen in the emergency department yesterday for aggressive behavior at his nursing facility and for smoking marijuana. The patient did have a positive marijuana test but was not aggressive in the emergency department yesterday and was discharged back to his care facility. The patient was sent back to the emergency department on a Section 12. Following information was obtained from the Section 12: ?Using illicit substance and facility; violent and aggressive behavior: Kicking, hitting, throwing items, verbal threats of harm. Active attempts to leave facility. . Was being observed in behavioral pod and developed hypoxia. Patient was admitted for further management of acute COPD exacerbation with acute hypoxemic respiratory failure and new lung mass and now has 2/2 gram positive bacteremia acute hypoxemic respiratory failure secondary to COPD exacerbation and pneumonia has completed treatment with abx and has no symptoms at the moment pulmonary nodules: Scattered small pulmonary nodules measuring up to 6 mm in the right upper lobe. Outpatient f/u recommended with repeat imaging Staph dorotheaermidis Bacteremia--deemed real, had 2 set of positive cultures, most recent culture negative > 72 hrs. echo no vegetation. Iinitially treated with IV vanco, but changed to Dapto d/t tendency to refuse labs, and renal function that was worsening. check CBC and CPK weekly while on Dapto, a picc line placed on 12/02.. plan for 4 weeks of Dapto per ID recommendation ending Dec 25 asymptomatic bacteriuria/UTI urine culture negative Thrombocytopenia suspect chronic stable ?unspecified seizure d/o continue keppra HTN continue metoprolol CKD stage 3, creatine fluctuating, slightly up from earlier but appear to be within baseline, monitor Unspecified anemia h/h stable overall, possibly chronic due to chronic disease hx esophageal ca no longer undergoing tx. 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 he usually calms down after talking to him DVT prophylaxis-Lovenox Full code need for inptient: Discharge pending insurance authorization Quality Stroke Does the patient have a stroke diagnosis?: No VTE Prior VTE?: No VTE Risk Level:: Medical - moderate - high VTE Device Contraindication: Treatment Not Indicated VTE Drug Contraindication: N/A - Med Ordered
--- NOTE | 2023-12-10 13:13 | MHC.CM.PN ---
EMR reviewed and per MD rounds, pt remains medically cleared for discharge but unable to due to pending [employer] insurance auth to return to [facility]. This CM spoke with admissions liaison Juanis from [facility], and she stated [employer] was not allowing her to expedite the insurance auth. Juanis recommended [facility] reach out to [employer] to see if there is anything we can do from our end to help move things forward. CM director updated and has a call out to [employer] and State discharge computer network support specialist, awaiting return calls.
[2023-12-10 15:17] VITALS: BP 127/61; PULSE 70; RESP 14; TEMP 36.3; O2SAT 94
[2023-12-10] MEDS: DAPTOmycin 500 MG in 0.9 % Sodium Chloride 50 ML 120 MG IV (17:04)
[2023-12-10 19:25] VITALS: BP 168/77; PULSE 79; RESP 20; TEMP 36.6; O2SAT 94
[2023-12-10 21:00] VITALS: BP 166/71; PULSE 73
[2023-12-10] MEDS: Mirtazapine 15 MG TABLET PO (21:01)
[2023-12-10] MEDS: Melatonin 3 MG TABLET 6 MG PO (21:01)
[2023-12-11] VITALS: BP 102/54; PULSE 75; RESP 21; TEMP 35.8; O2SAT 92
[2023-12-11] MEDS: 0.9 % Sodium Chloride Flush 3 ML SYRINGE IVFLUSH (00:08)
[2023-12-11] MEDS: Heparin Sodium,Porcine Flush 50 UNITS, 0.9 % Sodium Chloride Flush 5 ML IVFLUSH ×4 (00:09→22:22)
[2023-12-11 08:00] VITALS: BP 127/60; PULSE 71; RESP 20; TEMP 36.2; O2SAT 93
[2023-12-11] MEDS: Sennosides/Docusate Sodium TABLET 1 TAB PO ×2 (08:49→22:19)
[2023-12-11] MEDS: Cholecalciferol (Vitamin D3) 10 MCG TABLET 20 MCG PO (08:49)
[2023-12-11] MEDS: Metoprolol Tartrate 12.5 MG HALFTAB PO ×2 (08:49→22:16)
[2023-12-11] MEDS: Finasteride 5 MG TABLET PO (08:49)
[2023-12-11] MEDS: Potassium Chloride ER 20 MEQ TAB.ER.PRT PO (08:49)
[2023-12-11] MEDS: Gabapentin 400 MG CAPSULE PO ×2 (08:49→22:18)
[2023-12-11] MEDS: Tamsulosin HCL 0.4 MG CAPSULE PO (08:49)
[2023-12-11] MEDS: Roflumilast 500 MCG TABLET PO (08:49)
[2023-12-11] MEDS: levETIRAcetam 500 MG TABLET PO ×2 (08:49→22:19)
[2023-12-11] MEDS: Ferrous Sulfate 324 MG TABLET.DR PO ×2 (08:50→22:17)
[2023-12-11] MEDS: Sucralfate 1 GM TABLET PO ×3 (08:51→22:17)
[2023-12-11] MEDS: oxyCODONE HCl Immed Release 5 MG TABLET 7.5 MG PO ×3 (09:50→22:20)
--- NOTE | 2023-12-11 09:52 | PC.NURSE ---
wants to leave , wants his cloths, punching the window with his hand , trying to open the window . Security present , DR up present. Pt sitting on the bed at this time , cooperating .
[2023-12-11 10:55] VITALS: BP 114/58; PULSE 80; RESP 18; TEMP 36.2; O2SAT 95
[2023-12-11] MEDS: Nystatin Powder 15 GM BOTTLE 1 APPL TOPICAL ×2 (12:50→22:25)
[2023-12-11] MEDS: Enoxaparin Sodium 40 MG/0.4 ML SYRINGE SUBCUT (12:53)
[2023-12-11] MEDS: DAPTOmycin 500 MG in 0.9 % Sodium Chloride 50 ML 120 MG IV (15:33)
[2023-12-11 16:00] VITALS: BP 98/47; PULSE 78; RESP 18; TEMP 36.8; O2SAT 95
[2023-12-11 19:40] VITALS: BP 118/56; PULSE 82; RESP 18; TEMP 36.3; O2SAT 90
[2023-12-11] MEDS: Mirtazapine 15 MG TABLET PO (22:17)
[2023-12-11] MEDS: Nicotine Polacrilex Lozenge 2 MG LOZENGE BUCCAL (22:22)
[2023-12-11 23:07] VITALS: BP 124/65; PULSE 90; RESP 20; TEMP 36.3; O2SAT 93
[2023-12-12 08:00] VITALS: BP 151/66; PULSE 61; RESP 18; TEMP 36.3; O2SAT 94
[2023-12-12 08:31] LABS: Anion Gap 13 (12-20); Blood Urea Nitrogen 33 mg/dL (9-16); Calcium 8.9 mg/dL (8.4-10.2); Carbon Dioxide 27 mmol/L (22-29); Chloride 105 mmol/L (96-108); Creatinine Clr Calc Pharmacy 35.7; Estimated Glomerular Filt Rate 45; Glucose Random 97 mg/dL (60-115); Potassium 4.7 mmol/L (3.3-5.1); Sodium 140 mmol/L (135-145)
[2023-12-12] MEDS: Cholecalciferol (Vitamin D3) 10 MCG TABLET 20 MCG PO (09:09)
[2023-12-12] MEDS: Metoprolol Tartrate 12.5 MG HALFTAB PO ×2 (09:09→22:50)
[2023-12-12] MEDS: Gabapentin 400 MG CAPSULE PO ×2 (09:09→22:48)
[2023-12-12] MEDS: Potassium Chloride ER 20 MEQ TAB.ER.PRT PO (09:09)
[2023-12-12] MEDS: Ferrous Sulfate 324 MG TABLET.DR PO ×2 (09:09→22:51)
[2023-12-12] MEDS: levETIRAcetam 500 MG TABLET PO ×2 (09:09→22:51)
[2023-12-12] MEDS: Finasteride 5 MG TABLET PO (09:10)
[2023-12-12] MEDS: Tamsulosin HCL 0.4 MG CAPSULE PO (09:10)
[2023-12-12] MEDS: Sucralfate 1 GM TABLET PO ×4 (09:10→22:51)
[2023-12-12] MEDS: Sennosides/Docusate Sodium TABLET 1 TAB PO ×2 (09:10→22:51)
[2023-12-12] MEDS: 0.9 % Sodium Chloride Flush 3 ML SYRINGE IVFLUSH ×2 (09:10→16:18)
[2023-12-12] MEDS: Roflumilast 500 MCG TABLET PO (09:10)
[2023-12-12] MEDS: Heparin Sodium,Porcine Flush 50 UNITS, 0.9 % Sodium Chloride Flush 5 ML IVFLUSH ×3 (09:11→22:51)
[2023-12-12] MEDS: oxyCODONE HCl Immed Release 5 MG TABLET 7.5 MG PO ×3 (09:17→22:48)
[2023-12-12] MEDS: Nystatin Powder 15 GM BOTTLE 1 APPL TOPICAL (09:19)
--- NOTE | 2023-12-12 09:55 | P.PNIM_ITS ---
Subjective Subjective Date of Service: 12/12/23 Interval History: Seen and examined this morning Follow-up for bacteremia episode of agitation yesterday roxie he wanted his t-shirt calm this morning Physical Exam 2 Vital Signs: Vital Signs: Last Vital Signs Temp 97.4 F 12/12/23 08:00 Pulse 61 12/12/23 08:00 Resp 18 12/12/23 08:00 BP 151/66 H 12/12/23 08:00 Pulse Ox 94 12/12/23 08:00 O2 Del Method Room Air 12/12/23 08:00 O2 Flow Rate 2 11/27/23 00:00 BMI result Body Mass Index 23.4 Const: Other: General: AO X 3, no acute distress Resp: CTA bilateral CVS: S1,S2,RRR GI: +BS, NT, no distention Skin: No rash Neuro: motor grossly intact Psych: appropriate affect Objective Data Active Medications Acetaminophen (Acetaminophen 325 Mg Tablet) 650 mg PO Q6H PRN PRN Reason: Pain, Mild (Pain Scale 1-3), fever or headache Last Admin: 12/09/23 17:51 Dose: 650 mg Documented By: YANNICK Albuterol Sulfate (Albuterol Sulfate 90 Mcg 8 Gm Inhaler) 2 puff INHALE Q4H PRN PRN Reason: Shortness of Breath/Wheezing Last Admin: 11/28/23 20:12 Dose: 2 puff Documented By: STELLA Atorvastatin Calcium (Atorvastatin Calcium 40 Mg Tablet) 40 mg PO DAILY [facility] Last Admin: 12/01/23 08:52 Dose: 40 mg Documented By: SHIRA Bisacodyl (Bisacodyl 10 Mg Supp.Rect) 10 mg AR DAILY PRN PRN Reason: Constipation Calcium Carbonate (Calcium Carbonate 750 Mg Tab.Chew) 750 mg PO Q4H PRN PRN Reason: Heartburn Last Admin: 12/01/23 11:09 Dose: 750 mg Documented By: SHIRA Heparin Sodium (Porcine) 50 (units/ Sodium Chloride 5 ml) [facility] Last Admin: 12/12/23 09:11 Dose: 50 unit Documented By: ANGELA Diphenhydramine HCl (Diphenhydramine Hcl 12.5 Mg/5 Ml Liquid) 12.5 mg PO Q6H PRN PRN Reason: Itching Enoxaparin Sodium (Enoxaparin Sodium 40 Mg/0.4 Ml Syringe) 40 mg SUBCUT Q24H [facility] Last Admin: 12/11/23 12:53 Dose: 40 mg Documented By: FRANDY Ferrous Sulfate (Ferrous Sulfate 324 Mg Tablet.) 324 mg PO BID [facility] Last Admin: 12/12/23 09:09 Dose: 324 mg Documented By: ANGELA Finasteride (Finasteride 5 Mg Tablet) 5 mg PO DAILY [facility] Last Admin: 12/12/23 09:10 Dose: 5 mg Documented By: ANGELA Gabapentin (Gabapentin 400 Mg Capsule) 400 mg PO BID [facility] Last Admin: 12/12/23 09:09 Dose: 400 mg Documented By: ANGELA Daptomycin 500 mg/ Sodium (Chloride) 60 mls @ 120 mls/hr IV Q24H [facility] Stop: 01/28/24 16:29 Last Infusion: 12/11/23 16:14 Dose: Infused Documented By: FRANDY Levetiracetam (Levetiracetam 500 Mg Tablet) 500 mg PO BID [facility] Last Admin: 12/12/23 09:09 Dose: 500 mg Documented By: ANGELA Lidocaine (Lidocaine 4 % Patch Adh..Patch) 1 patch TRANSDERMA DAILY [facility] Last Admin: 12/11/23 09:55 Dose: Not Given Documented By: FRANYD Non-Admin Reason: Patient Refused Magnesium Hydroxide (Milk Of Magnesia 30 Ml Oral.Susp) 30 ml PO DAILY PRN PRN Reason: Constipation Melatonin (Melatonin 3 Mg Tablet) 6 mg PO BEDTIME PRN PRN Reason: Insomnia Last Admin: 12/10/23 21:01 Dose: 6 mg Documented By: MARTINEZ Metoprolol Tartrate (Metoprolol Tartrate 12.5 Mg Halftab) 12.5 mg PO BID [facility]; Protocol Last Admin: 12/12/23 09:09 Dose: 12.5 mg Documented By: ANGELA Mirtazapine (Mirtazapine 15 Mg Tablet) 15 mg PO BEDTIME [facility] Last Admin: 12/11/23 22:17 Dose: 15 mg Documented By: STELLA Naloxone HCl (Naloxone Hcl 0.4 Mg/Ml Vial) 0.4 mg SUBCUT Q2M PRN PRN Reason: Opioid Overdose Nicotine (Nicotine 14 Mg Patch.Td24) 14 mg TRANSDERMA DAILY [facility] Last Admin: 12/11/23 09:55 Dose: Not Given Documented By: FRANDY Non-Admin Reason: Patient Refused Nicotine Polacrilex (Nicotine Polacrilex Lozenge 2 Mg Lozenge) 2 mg BUCCAL Q2H PRN PRN Reason: Nicotine Cravings Last Admin: 12/11/23 22:22 Dose: 2 mg Documented By: STELLA Nystatin (Nystatin Powder 15 Gm Bottle) 1 appl TOPICAL BID [facility]; Protocol Last Admin: 12/12/23 09:19 Dose: 1 appl Documented By: ANGELA Omeprazole (Omeprazole 20 Mg Capsule.Dr) 20 mg PO DAILY@0630 [facility] Last Admin: 12/12/23 06:06 Dose: Not Given Documented By: STELLA Non-Admin Reason: Patient Refused Oxybutynin Chloride (Oxybutynin Chloride 5 Mg Tablet) 5 mg PO Q8H PRN PRN Reason: Bladder Spasms Oxycodone HCl (Oxycodone Hcl Immed Release 5 Mg Tablet) 7.5 mg PO Q4H PRN PRN Reason: Pain, Severe (Pain Scale 7-10) Last Admin: 12/12/23 09:17 Dose: 7.5 mg Documented By: ANGELA Polyethylene Glycol (Polyethylene Glycol 3350 17 Gm Powd.Pack) 17 gm PO DAILY PRN PRN Reason: Constipation Potassium Chloride (Potassium Chloride Er 20 Meq Tab.Er.Prt) 20 meq PO DAILY [facility] Last Admin: 12/12/23 09:09 Dose: 20 meq Documented By: ANGELA Roflumilast (Roflumilast 500 Mcg Tablet) 500 mcg PO DAILY [facility] Last Admin: 12/12/23 09:10 Dose: 500 mcg Documented By: ANGELA Senna/Docusate Sodium (Sennosides/Docusate Sodium Tablet) 1 tab PO BID [facility] Last Admin: 12/12/23 09:10 Dose: 1 tab Documented By: ANGELA Sodium Chloride (0.9 % Sodium Chloride Flush 3 Ml Syringe) 3 ml IVFLUSH QSHIFT [facility] Last Admin: 12/12/23 09:10 Dose: 3 ml Documented By: ANGELA Sucralfate (Sucralfate 1 Gm Tablet) 1 gm PO QIDWMHS [facility] Last Admin: 12/12/23 09:10 Dose: 1 gm Documented By: ANGELA Tamsulosin HCl (Tamsulosin Hcl 0.4 Mg Capsule) 0.4 mg PO DAILY [facility] Last Admin: 12/12/23 09:10 Dose: 0.4 mg Documented By: ANGELA Tizanidine HCl (Tizanidine Hcl 4 Mg Tablet) 2 mg PO Q8H PRN PRN Reason: Spasms Last Admin: 12/08/23 10:49 Dose: 2 mg Documented By: YANNICK Vitamin D (Cholecalciferol (Vitamin D3) 10 Mcg Tablet) 20 mcg PO DAILY [facility] Last Admin: 12/12/23 09:09 Dose: 20 mcg Documented By: ANGELA Labs 12/09/23 07:47 12/12/23 08:05 Labs: Laboratory Results - last 24 hr 12/12/23 08:05 Hold Purple Top SEE NOTE Anion Gap 13 Estim Creat Clear Calc 35.7 Estimated GFR 45 Random Glucose 97 Calcium 8.9 D Assessment and Plan (1) Gram-positive cocci bacteremia: Status: Acute (2) Lung mass: Status: Acute (3) COPD exacerbation: Status: Acute Plan 73-year-old male with a history of dementia, chronic anemia, hypokalemia, BPH, COPD, esophageal cancer with port in place, kidney disease, renal calculi, hyperlipidemia, essential hypertension, depression, opiate dependence-remission, chronic pain syndrome who was seen in the emergency department yesterday for aggressive behavior at his nursing facility and for smoking marijuana. The patient did have a positive marijuana test but was not aggressive in the emergency department yesterday and was discharged back to his care facility. The patient was sent back to the emergency department on a Section 12. Following information was obtained from the Section 12: ?Using illicit substance and facility; violent and aggressive behavior: Kicking, hitting, throwing items, verbal threats of harm. Active attempts to leave facility. . Was being observed in behavioral pod and developed hypoxia. Patient was admitted for further management of acute COPD exacerbation with acute hypoxemic respiratory failure and new lung mass and now has 2/2 gram positive bacteremia acute hypoxemic respiratory failure secondary to COPD exacerbation and pneumonia has completed treatment with abx and has no symptoms at the moment pulmonary nodules: Scattered small pulmonary nodules measuring up to 6 mm in the right upper lobe. Outpatient f/u recommended with repeat imaging Staph bora Bacteremia--deemed real, had 2 set of positive cultures, most recent culture negative > 72 hrs. echo no vegetation. Iinitially treated with IV vanco, but changed to Dapto d/t tendency to refuse labs, and renal function that was worsening. check CBC and CPK weekly while on Dapto, a picc line placed on 12/02.. plan for 4 weeks of Dapto per ID recommendation ending Dec 25 asymptomatic bacteriuria/UTI urine culture negative Thrombocytopenia suspect chronic stable ?unspecified seizure d/o continue keppra HTN continue metoprolol CKD stage 3, creatine fluctuating, slightly up from earlier but appear to be within baseline, monitor Unspecified anemia h/h stable overall, possibly chronic due to chronic disease hx esophageal ca no longer undergoing tx. 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 he usually calms down after talking to him DVT prophylaxis-Lovenox Full code need for inptient: Discharge pending insurance authorization Quality Stroke Does the patient have a stroke diagnosis?: No VTE Prior VTE?: No VTE Risk Level:: Medical - moderate - high VTE Device Contraindication: Treatment Not Indicated VTE Drug Contraindication: N/A - Med Ordered
--- NOTE | 2023-12-12 10:54 | MHC.CM.PN ---
Per ROUNDS discussion, Patient is medically cleared for dc to return to LTC & IV Dapto @ [facility]; SNF continue to seek insurance auth for Patient to return under skilled benefits. CM Administration is aware and CM will continue to follow.
[2023-12-12 10:55] VITALS: BP 123/57; PULSE 75; RESP 18; TEMP 36.4; O2SAT 92
[2023-12-12] MEDS: Enoxaparin Sodium 40 MG/0.4 ML SYRINGE SUBCUT (13:49)
[2023-12-12 16:00] VITALS: BP 147/70; PULSE 78; RESP 20; TEMP 36.3; O2SAT 90
[2023-12-12] MEDS: DAPTOmycin 500 MG in 0.9 % Sodium Chloride 50 ML 120 MG IV (16:53)
[2023-12-12 19:15] VITALS: BP 151/67; PULSE 80; RESP 18; TEMP 36.4; O2SAT 92
[2023-12-12] MEDS: Mirtazapine 15 MG TABLET PO (22:48)
[2023-12-12] MEDS: Nicotine Polacrilex Lozenge 2 MG LOZENGE BUCCAL (22:48)
[2023-12-12 22:58] VITALS: BP 141/67; PULSE 81; RESP 16; TEMP 36.1; O2SAT 93
[2023-12-13 07:31] VITALS: BP 127/60; PULSE 67; RESP 18; TEMP 36.2; O2SAT 96
[2023-12-13] MEDS: Cholecalciferol (Vitamin D3) 10 MCG TABLET 20 MCG PO (10:21)
[2023-12-13] MEDS: Ferrous Sulfate 324 MG TABLET.DR PO (10:22)
[2023-12-13] MEDS: levETIRAcetam 500 MG TABLET PO (10:22)
[2023-12-13] MEDS: Heparin Sodium,Porcine Flush 50 UNITS, 0.9 % Sodium Chloride Flush 5 ML IVFLUSH ×2 (10:22→17:51)
[2023-12-13] MEDS: Sennosides/Docusate Sodium TABLET 1 TAB PO (10:22)
[2023-12-13] MEDS: Roflumilast 500 MCG TABLET PO (10:22)
[2023-12-13] MEDS: Tamsulosin HCL 0.4 MG CAPSULE PO (10:22)
[2023-12-13] MEDS: Potassium Chloride ER 20 MEQ TAB.ER.PRT PO (10:22)
[2023-12-13] MEDS: Gabapentin 400 MG CAPSULE PO (10:22)
[2023-12-13] MEDS: Finasteride 5 MG TABLET PO (10:22)
[2023-12-13] MEDS: Metoprolol Tartrate 12.5 MG HALFTAB PO (10:22)
[2023-12-13] MEDS: Sucralfate 1 GM TABLET PO ×2 (10:22→12:07)
[2023-12-13] MEDS: Nystatin Powder 15 GM BOTTLE 1 APPL TOPICAL (10:23)
[2023-12-13] MEDS: 0.9 % Sodium Chloride Flush 3 ML SYRINGE IVFLUSH ×2 (10:24→17:51)
[2023-12-13] MEDS: Enoxaparin Sodium 40 MG/0.4 ML SYRINGE SUBCUT (12:07)
--- NOTE | 2023-12-13 14:24 | P.PNIM_ITS ---
Subjective Subjective Date of Service: 12/13/23 Interval History: seen and evaluated this morning laying comfortable in his bed no reported overnight events Review of Systems Review of Systems: Yes all other systems are reviewed and are negative Physical Exam 2 Vital Signs: Vital Signs: Last Vital Signs Temp 97.1 F 12/13/23 07:31 Pulse 67 12/13/23 07:31 Resp 18 12/13/23 07:31 BP 127/60 12/13/23 07:31 Pulse Ox 96 12/13/23 07:31 O2 Del Method Room Air 12/13/23 07:31 O2 Flow Rate 2 11/27/23 00:00 BMI result Body Mass Index 23.4 Const: Other: Constitutional : interactive, not in distress Cardiovascular : no JVP, no lower extremity edema Respiratory : bilateral chest movement, not in resp distress Gastrointestinal: soft, lax, Non tender Skin : Warm, Dry Neurological : Alert & oriented , No focal deficit Objective Data Active Medications Acetaminophen (Acetaminophen 325 Mg Tablet) 650 mg PO Q6H PRN PRN Reason: Pain, Mild (Pain Scale 1-3), fever or headache Last Admin: 12/09/23 17:51 Dose: 650 mg Documented By: YANNICK Albuterol Sulfate (Albuterol Sulfate 90 Mcg 8 Gm Inhaler) 2 puff INHALE Q4H PRN PRN Reason: Shortness of Breath/Wheezing Last Admin: 11/28/23 20:12 Dose: 2 puff Documented By: STELLA Atorvastatin Calcium (Atorvastatin Calcium 40 Mg Tablet) 40 mg PO DAILY [facility] Last Admin: 12/01/23 08:52 Dose: 40 mg Documented By: SHIRA Bisacodyl (Bisacodyl 10 Mg Supp.Rect) 10 mg [place] DAILY PRN PRN Reason: Constipation Calcium Carbonate (Calcium Carbonate 750 Mg Tab.Chew) 750 mg PO Q4H PRN PRN Reason: Heartburn Last Admin: 12/01/23 11:09 Dose: 750 mg Documented By: SHIRA Heparin Sodium (Porcine) 50 (units/ Sodium Chloride 5 ml) [facility] Last Admin: 12/13/23 10:22 Dose: 50 unit Documented By: IBAN Diphenhydramine HCl (Diphenhydramine Hcl 12.5 Mg/5 Ml Liquid) 12.5 mg PO Q6H PRN PRN Reason: Itching Enoxaparin Sodium (Enoxaparin Sodium 40 Mg/0.4 Ml Syringe) 40 mg SUBCUT Q24H [facility] Last Admin: 12/13/23 12:07 Dose: 40 mg Documented By: IBAN Ferrous Sulfate (Ferrous Sulfate 324 Mg Tablet.) 324 mg PO BID [facility] Last Admin: 12/13/23 10:22 Dose: 324 mg Documented By: IBAN Finasteride (Finasteride 5 Mg Tablet) 5 mg PO DAILY [facility] Last Admin: 12/13/23 10:22 Dose: 5 mg Documented By: IBAN Gabapentin (Gabapentin 400 Mg Capsule) 400 mg PO BID [facility] Last Admin: 12/13/23 10:22 Dose: 400 mg Documented By: IBAN Daptomycin 500 mg/ Sodium (Chloride) 60 mls @ 120 mls/hr IV Q24H [facility] Stop: 01/28/24 16:29 Last Infusion: 12/12/23 19:21 Dose: Infused Documented By: ANGELA Levetiracetam (Levetiracetam 500 Mg Tablet) 500 mg PO BID [facility] Last Admin: 12/13/23 10:22 Dose: 500 mg Documented By: IBAN Lidocaine (Lidocaine 4 % Patch Adh..Patch) 1 patch TRANSDERMA DAILY [facility] Last Admin: 12/13/23 10:23 Dose: Not Given Documented By: IBAN Non-Admin Reason: Patient Refused Magnesium Hydroxide (Milk Of Magnesia 30 Ml Oral.Susp) 30 ml PO DAILY PRN PRN Reason: Constipation Melatonin (Melatonin 3 Mg Tablet) 6 mg PO BEDTIME PRN PRN Reason: Insomnia Last Admin: 12/10/23 21:01 Dose: 6 mg Documented By: MARTINEZ Metoprolol Tartrate (Metoprolol Tartrate 12.5 Mg Halftab) 12.5 mg PO BID [facility]; Protocol Last Admin: 12/13/23 10:22 Dose: 12.5 mg Documented By: IBAN Mirtazapine (Mirtazapine 15 Mg Tablet) 15 mg PO BEDTIME [facility] Last Admin: 12/12/23 22:48 Dose: 15 mg Documented By: STELLA Naloxone HCl (Naloxone Hcl 0.4 Mg/Ml Vial) 0.4 mg SUBCUT Q2M PRN PRN Reason: Opioid Overdose Nicotine (Nicotine 14 Mg Patch.Td24) 14 mg TRANSDERMA DAILY [facility] Last Admin: 12/13/23 10:23 Dose: Not Given Documented By: IBAN Non-Admin Reason: Patient Refused Nicotine Polacrilex (Nicotine Polacrilex Lozenge 2 Mg Lozenge) 2 mg BUCCAL Q2H PRN PRN Reason: Nicotine Cravings Last Admin: 12/12/23 22:48 Dose: 2 mg Documented By: STELLA Nystatin (Nystatin Powder 15 Gm Bottle) 1 appl TOPICAL BID [facility]; Protocol Last Admin: 12/13/23 10:23 Dose: 1 appl Documented By: IBAN Omeprazole (Omeprazole 20 Mg Capsule.) 20 mg PO DAILY@0630 [facility] Last Admin: 12/13/23 06:12 Dose: Not Given Documented By: STELLA Non-Admin Reason: Patient Refused Oxybutynin Chloride (Oxybutynin Chloride 5 Mg Tablet) 5 mg PO Q8H PRN PRN Reason: Bladder Spasms Polyethylene Glycol (Polyethylene Glycol 3350 17 Gm Powd.Pack) 17 gm PO DAILY PRN PRN Reason: Constipation Potassium Chloride (Potassium Chloride Er 20 Meq Tab.Er.Prt) 20 meq PO DAILY [facility] Last Admin: 12/13/23 10:22 Dose: 20 meq Documented By: IBAN Roflumilast (Roflumilast 500 Mcg Tablet) 500 mcg PO DAILY [facility] Last Admin: 12/13/23 10:22 Dose: 500 mcg Documented By: IBAN Senna/Docusate Sodium (Sennosides/Docusate Sodium Tablet) 1 tab PO BID [facility] Last Admin: 12/13/23 10:22 Dose: 1 tab Documented By: IBAN Sodium Chloride (0.9 % Sodium Chloride Flush 3 Ml Syringe) 3 ml IVFLUSH QSHIFT [facility] Last Admin: 12/13/23 10:24 Dose: 3 ml Documented By: IBAN Sucralfate (Sucralfate 1 Gm Tablet) 1 gm PO QIDWMHS [facility] Last Admin: 12/13/23 12:07 Dose: 1 gm Documented By: IBAN Tamsulosin HCl (Tamsulosin Hcl 0.4 Mg Capsule) 0.4 mg PO DAILY [facility] Last Admin: 12/13/23 10:22 Dose: 0.4 mg Documented By: IBAN Tizanidine HCl (Tizanidine Hcl 4 Mg Tablet) 2 mg PO Q8H PRN PRN Reason: Spasms Last Admin: 12/08/23 10:49 Dose: 2 mg Documented By: YANNICK Vitamin D (Cholecalciferol (Vitamin D3) 10 Mcg Tablet) 20 mcg PO DAILY [facility] Last Admin: 12/13/23 10:21 Dose: 20 mcg Documented By: IBAN Labs 12/09/23 07:47 12/12/23 08:05 Assessment and Plan (1) Gram-positive cocci bacteremia: Status: Acute (2) COPD exacerbation: Status: Acute Plan 73-year-old male with a history of dementia, chronic anemia, hypokalemia, BPH, COPD, esophageal cancer with port in place, kidney disease, renal calculi, hyperlipidemia, essential hypertension, depression, opiate dependence-remission, chronic pain syndrome who was seen in the emergency department yesterday for aggressive behavior at his nursing facility and for smoking marijuana. The patient did have a positive marijuana test but was not aggressive in the emergency department yesterday and was discharged back to his care facility. The patient was sent back to the emergency department on a Section 12. Following information was obtained from the Section 12: ?Using illicit substance and facility; violent and aggressive behavior: Kicking, hitting, throwing items, verbal threats of harm. Active attempts to leave facility. . Was being observed in behavioral pod and developed hypoxia. Patient was admitted for further management of acute COPD exacerbation with acute hypoxemic respiratory failure and new lung mass and now has 2/2 gram positive bacteremia Staph pidermidis Bacteremia had 2 set of positive cultures, most recent culture negative > 72 hrs. echo no vegetation. Iinitially treated with IV vanco, but changed to Dapto d/t tendency to refuse labs, and renal function that was worsening. check CBC and CPK weekly while on Dapto, a picc line placed on 12/02.. plan for 4 weeks of Dapto per ID recommendation ending Dec 25 acute hypoxemic respiratory failure secondary to COPD exacerbation and pneumonia has completed treatment with abx and has no symptoms at the moment pulmonary nodules: Scattered small pulmonary nodules measuring up to 6 mm in the right upper lobe. Outpatient f/u recommended with repeat imaging asymptomatic bacteriuria/UTI urine culture negative Thrombocytopenia suspect chronic, stable unspecified seizure d/o continue keppra HTN continue metoprolol CKD stage 3, creatine fluctuating, slightly up from earlier but appear to be within baseline, monitor Unspecified anemia h/h stable overall, possibly chronic due to chronic disease hx esophageal ca no longer undergoing tx. 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 he usually calms down after talking to him DVT prophylaxis-Lovenox Full code need for inptient: Discharge pending insurance authorization Quality Stroke Does the patient have a stroke diagnosis?: No VTE Prior VTE?: No VTE Risk Level:: Medical - moderate - high VTE Device Contraindication: Treatment Not Indicated VTE Drug Contraindication: N/A - Med Ordered
[2023-12-13 16:00] VITALS: BP 138/78; PULSE 75; RESP 18; TEMP 36.6; O2SAT 98
[2023-12-13] MEDS: DAPTOmycin 500 MG in 0.9 % Sodium Chloride 50 ML 120 MG IV (17:52)
[2023-12-14 07:47] VITALS: BP 139/65; PULSE 66; RESP 20; TEMP 36.9; O2SAT 92
[2023-12-14] MEDS: Roflumilast 500 MCG TABLET PO (08:28)
[2023-12-14] MEDS: Heparin Sodium,Porcine Flush 50 UNITS, 0.9 % Sodium Chloride Flush 5 ML IVFLUSH ×2 (08:28→18:15)
[2023-12-14] MEDS: Finasteride 5 MG TABLET PO (08:28)
[2023-12-14] MEDS: 0.9 % Sodium Chloride Flush 3 ML SYRINGE IVFLUSH ×3 (08:28→20:02)
[2023-12-14] MEDS: Gabapentin 400 MG CAPSULE PO ×2 (08:29→20:00)
[2023-12-14] MEDS: Ferrous Sulfate 324 MG TABLET.DR PO ×2 (08:29→20:00)
[2023-12-14] MEDS: Cholecalciferol (Vitamin D3) 10 MCG TABLET 20 MCG PO (08:29)
[2023-12-14] MEDS: Nystatin Powder 15 GM BOTTLE 1 APPL TOPICAL ×2 (08:29→20:02)
[2023-12-14] MEDS: Potassium Chloride ER 20 MEQ TAB.ER.PRT PO (08:29)
[2023-12-14] MEDS: Metoprolol Tartrate 12.5 MG HALFTAB PO ×2 (08:29→20:00)
[2023-12-14] MEDS: Tamsulosin HCL 0.4 MG CAPSULE PO (08:29)
[2023-12-14] MEDS: levETIRAcetam 500 MG TABLET PO ×2 (08:29→20:00)
[2023-12-14] MEDS: Sennosides/Docusate Sodium TABLET 1 TAB PO ×2 (08:29→20:00)
[2023-12-14] MEDS: Sucralfate 1 GM TABLET PO ×3 (08:29→20:00)
--- NOTE | 2023-12-14 09:29 | MHC.CM.PN ---
Patient is medically cleared for dc, still waiting on insurance issues to clear for Patient to be able to return to [facility] for LTC & IV Dapto. CM Management is assisting with this case.CM will continue to follow.
[2023-12-14 09:57] LABS: Hemoglobin 10.7 g/dl (14.0-18.0); Mean Corpuscular HGB Conc 31.5 g/dl (31.0-36.0); Mean Corpuscular Hemoglobin 30.1 pg (27.0-33.0); Mean Corpuscular Volume 95.5 fL (80.0-98.0); Mean Platelet Volume 9.6 fL (9.4-12.4); Platelet Count 132 X10*3/uL (160-400); Red Blood Count 3.56 X10*6/uL (4.60-5.80); Red Cell Distribution Width 13.3 % (11.0-16.0); White Blood Count 3.8 X10*3/uL (4.8-10.8)
[2023-12-14 10:13] LABS: Anion Gap 13 (12-20); Blood Urea Nitrogen 35 mg/dL (9-16); Calcium 9.1 mg/dL (8.4-10.2); Carbon Dioxide 28 mmol/L (22-29); Chloride 105 mmol/L (96-108); Creatinine Clr Calc Pharmacy 30.4; Estimated Glomerular Filt Rate 37; Glucose Random 138 mg/dL (60-115); Potassium 4.6 mmol/L (3.3-5.1); Sodium 141 mmol/L (135-145)
--- NOTE | 2023-12-14 12:11 | HO.PM.IMPN ---
Subjective Subjective Date of Service: 12/14/23 Interval History: seen and evaluated this morning laying comfortable in his bed no reported overnight events Review of Systems Review of Systems: Yes all other systems are reviewed and are negative Physical Exam Vital Signs: Vital Signs: Last Vital Signs Temp 98.4 F 12/14/23 07:47 Pulse 66 12/14/23 07:47 Resp 20 12/14/23 07:47 BP 139/65 12/14/23 07:47 Pulse Ox 92 12/14/23 07:47 O2 Del Method Room Air 12/14/23 07:47 O2 Flow Rate 2 11/27/23 00:00 BMI result Body Mass Index 23.4 Const: Other: Constitutional : interactive, not in distress Cardiovascular : no JVP, no lower extremity edema Respiratory : bilateral chest movement, not in resp distress Gastrointestinal: soft, lax, Non tender Skin : Warm, Dry Neurological : Alert & oriented , No focal deficit Objective Data Active Medications Acetaminophen (Acetaminophen 325 Mg Tablet) 650 mg PO Q6H PRN PRN Reason: Pain, Mild (Pain Scale 1-3), fever or headache Last Admin: 12/09/23 17:51 Dose: 650 mg Documented By: YANNICK Albuterol Sulfate (Albuterol Sulfate 90 Mcg 8 Gm Inhaler) 2 puff INHALE Q4H PRN PRN Reason: Shortness of Breath/Wheezing Last Admin: 11/28/23 20:12 Dose: 2 puff Documented By: STELLA Atorvastatin Calcium (Atorvastatin Calcium 40 Mg Tablet) 40 mg PO DAILY [facility] Last Admin: 12/01/23 08:52 Dose: 40 mg Documented By: SHIRA Bisacodyl (Bisacodyl 10 Mg Supp.Rect) 10 mg SC DAILY PRN PRN Reason: Constipation Calcium Carbonate (Calcium Carbonate 750 Mg Tab.Chew) 750 mg PO Q4H PRN PRN Reason: Heartburn Last Admin: 12/01/23 11:09 Dose: 750 mg Documented By: SHIRA Heparin Sodium (Porcine) 50 (units/ Sodium Chloride 5 ml) [facility] Last Admin: 12/14/23 08:28 Dose: 50 unit Documented By: IBAN Diphenhydramine HCl (Diphenhydramine Hcl 12.5 Mg/5 Ml Liquid) 12.5 mg PO Q6H PRN PRN Reason: Itching Enoxaparin Sodium (Enoxaparin Sodium 40 Mg/0.4 Ml Syringe) 40 mg SUBCUT Q24H [facility] Last Admin: 12/13/23 12:07 Dose: 40 mg Documented By: IBAN Ferrous Sulfate (Ferrous Sulfate 324 Mg Tablet.Dr) 324 mg PO BID [facility] Last Admin: 12/14/23 08:29 Dose: 324 mg Documented By: IBAN Finasteride (Finasteride 5 Mg Tablet) 5 mg PO DAILY [facility] Last Admin: 12/14/23 08:28 Dose: 5 mg Documented By: IBAN Gabapentin (Gabapentin 400 Mg Capsule) 400 mg PO BID [facility] Last Admin: 12/14/23 08:29 Dose: 400 mg Documented By: IBAN Daptomycin 500 mg/ Sodium (Chloride) 60 mls @ 120 mls/hr IV Q24H [facility] Stop: 01/28/24 16:29 Last Infusion: 12/13/23 18:46 Dose: Infused Documented By: IBAN Levetiracetam (Levetiracetam 500 Mg Tablet) 500 mg PO BID [facility] Last Admin: 12/14/23 08:29 Dose: 500 mg Documented By: IBAN Lidocaine (Lidocaine 4 % Patch Adh..Patch) 1 patch TRANSDERMA DAILY [facility] Last Admin: 12/14/23 08:30 Dose: Not Given Documented By: IBAN Non-Admin Reason: Patient Refused Magnesium Hydroxide (Milk Of Magnesia 30 Ml Oral.Susp) 30 ml PO DAILY PRN PRN Reason: Constipation Melatonin (Melatonin 3 Mg Tablet) 6 mg PO BEDTIME PRN PRN Reason: Insomnia Last Admin: 12/10/23 21:01 Dose: 6 mg Documented By: MARTINEZ Metoprolol Tartrate (Metoprolol Tartrate 12.5 Mg Halftab) 12.5 mg PO BID [facility]; Protocol Last Admin: 12/14/23 08:29 Dose: 12.5 mg Documented By: IBAN Mirtazapine (Mirtazapine 15 Mg Tablet) 15 mg PO BEDTIME [facility] Last Admin: 12/13/23 21:00 Dose: Not Given Documented By: SONALI Non-Admin Reason: Patient Refused Naloxone HCl (Naloxone Hcl 0.4 Mg/Ml Vial) 0.4 mg SUBCUT Q2M PRN PRN Reason: Opioid Overdose Nicotine (Nicotine 14 Mg Patch.Td24) 14 mg TRANSDERMA DAILY [facility] Last Admin: 12/14/23 08:30 Dose: Not Given Documented By: IBAN Non-Admin Reason: Patient Refused Nicotine Polacrilex (Nicotine Polacrilex Lozenge 2 Mg Lozenge) 2 mg BUCCAL Q2H PRN PRN Reason: Nicotine Cravings Last Admin: 12/12/23 22:48 Dose: 2 mg Documented By: STELLA Nystatin (Nystatin Powder 15 Gm Bottle) 1 appl TOPICAL BID [facility]; Protocol Last Admin: 12/14/23 08:29 Dose: 1 appl Documented By: IBAN Omeprazole (Omeprazole 20 Mg Capsule.Dr) 20 mg PO DAILY@0630 [facility] Last Admin: 12/14/23 06:19 Dose: Not Given Documented By: SONALI Non-Admin Reason: Patient Refused Oxybutynin Chloride (Oxybutynin Chloride 5 Mg Tablet) 5 mg PO Q8H PRN PRN Reason: Bladder Spasms Polyethylene Glycol (Polyethylene Glycol 3350 17 Gm Powd.Pack) 17 gm PO DAILY PRN PRN Reason: Constipation Potassium Chloride (Potassium Chloride Er 20 Meq Tab.Er.Prt) 20 meq PO DAILY [facility] Last Admin: 12/14/23 08:29 Dose: 20 meq Documented By: IBAN Roflumilast (Roflumilast 500 Mcg Tablet) 500 mcg PO DAILY [facility] Last Admin: 12/14/23 08:28 Dose: 500 mcg Documented By: IBAN Senna/Docusate Sodium (Sennosides/Docusate Sodium Tablet) 1 tab PO BID [facility] Last Admin: 12/14/23 08:29 Dose: 1 tab Documented By: IBAN Sodium Chloride (0.9 % Sodium Chloride Flush 3 Ml Syringe) 3 ml IVFLUSH QSHIFT [facility] Last Admin: 12/14/23 08:28 Dose: 3 ml Documented By: IBAN Sucralfate (Sucralfate 1 Gm Tablet) 1 gm PO QIDWMHS [facility] Last Admin: 12/14/23 08:29 Dose: 1 gm Documented By: IBAN Tamsulosin HCl (Tamsulosin Hcl 0.4 Mg Capsule) 0.4 mg PO DAILY [facility] Last Admin: 12/14/23 08:29 Dose: 0.4 mg Documented By: IBAN Tizanidine HCl (Tizanidine Hcl 4 Mg Tablet) 2 mg PO Q8H PRN PRN Reason: Spasms Last Admin: 12/08/23 10:49 Dose: 2 mg Documented By: YANNICK Vitamin D (Cholecalciferol (Vitamin D3) 10 Mcg Tablet) 20 mcg PO DAILY [facility] Last Admin: 12/14/23 08:29 Dose: 20 mcg Documented By: IBAN Labs 12/14/23 09:47 12/14/23 09:47 Labs: Laboratory Results - last 24 hr 12/14/23 09:47 MCV 95.5 MCH 30.1 MCHC 31.5 RDW 13.3 Plt Count 132 L D MPV 9.6 Absolute Nucleated RBC 0.000 Nucleated RBC % (auto) 0.0 Anion Gap 13 Estim Creat Clear Calc 30.4 Estimated GFR 37 Random Glucose 138 H Calcium 9.1 Assessment and Plan (1) Gram-positive cocci bacteremia: Status: Acute (2) COPD exacerbation: Status: Acute (3) Alzheimers disease: Status: Acute Plan 73-year-old male with a history of dementia, chronic anemia, hypokalemia, BPH, COPD, esophageal cancer with port in place, kidney disease, renal calculi, hyperlipidemia, essential hypertension, depression, opiate dependence-remission, chronic pain syndrome who was seen in the emergency department yesterday for aggressive behavior at his nursing facility and for smoking marijuana. The patient did have a positive marijuana test but was not aggressive in the emergency department yesterday and was discharged back to his care facility. The patient was sent back to the emergency department on a Section 12. Following information was obtained from the Section 12: ?Using illicit substance and facility; violent and aggressive behavior: Kicking, hitting, throwing items, verbal threats of harm. Active attempts to leave facility. . Was being observed in behavioral pod and developed hypoxia. Patient was admitted for further management of acute COPD exacerbation with acute hypoxemic respiratory failure and new lung mass and now has 2/2 gram positive bacteremia Staph pidermidis Bacteremia had 2 set of positive cultures, most recent culture negative > 72 hrs. echo no vegetation. Iinitially treated with IV vanco, but changed to Dapto d/t tendency to refuse labs, and renal function that was worsening. check CBC and CPK weekly while on Dapto, a picc line placed on 12/02.. plan for 4 weeks of Dapto per ID recommendation ending Dec 25 acute hypoxemic respiratory failure secondary to COPD exacerbation and pneumonia has completed treatment with abx and has no symptoms at the moment pulmonary nodules: Scattered small pulmonary nodules measuring up to 6 mm in the right upper lobe. Outpatient f/u recommended with repeat imaging asymptomatic bacteriuria/UTI urine culture negative Thrombocytopenia suspect chronic, stable unspecified seizure d/o continue keppra HTN continue metoprolol CKD stage 3, creatine fluctuating, slightly up from earlier but appear to be within baseline, monitor Unspecified anemia h/h stable overall, possibly chronic due to chronic disease hx esophageal ca no longer undergoing tx. 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 he usually calms down after talking to him DVT prophylaxis-Lovenox Full code need for inptient: Discharge pending insurance authorization Quality Stroke Does the patient have a stroke diagnosis?: No VTE Prior VTE?: No VTE Risk Level:: Medical - moderate - high VTE Device Contraindication: Treatment Not Indicated VTE Drug Contraindication: N/A - Med Ordered
[2023-12-14] MEDS: Enoxaparin Sodium 40 MG/0.4 ML SYRINGE SUBCUT (14:40)
[2023-12-14 15:34] VITALS: BP 137/64; PULSE 77; TEMP 36.6; O2SAT 92
[2023-12-14] MEDS: DAPTOmycin 500 MG in 0.9 % Sodium Chloride 50 ML 120 MG IV (18:36)
[2023-12-14] MEDS: oxyCODONE HCl Immed Release 5 MG TABLET PO ×2 (18:36→22:36)
[2023-12-14 19:49] VITALS: BP 132/62; PULSE 86; RESP 20; TEMP 36.5; O2SAT 92
[2023-12-14] MEDS: Mirtazapine 15 MG TABLET PO (20:00)
[2023-12-15] VITALS: BP 121/58; PULSE 63; RESP 19; TEMP 36.2; O2SAT 94
[2023-12-15] MEDS: Ferrous Sulfate 324 MG TABLET.DR PO (09:39)
[2023-12-15] MEDS: Metoprolol Tartrate 12.5 MG HALFTAB PO (09:39)
[2023-12-15] MEDS: Tamsulosin HCL 0.4 MG CAPSULE PO (09:39)
[2023-12-15] MEDS: Roflumilast 500 MCG TABLET PO (09:39)
[2023-12-15] MEDS: Cholecalciferol (Vitamin D3) 10 MCG TABLET 20 MCG PO (09:39)
[2023-12-15] MEDS: levETIRAcetam 500 MG TABLET PO (09:39)
[2023-12-15] MEDS: Sucralfate 1 GM TABLET PO (09:39)
[2023-12-15] MEDS: Gabapentin 400 MG CAPSULE PO (09:39)
[2023-12-15] MEDS: Potassium Chloride ER 20 MEQ TAB.ER.PRT PO (09:40)
[2023-12-15] MEDS: Sennosides/Docusate Sodium TABLET 1 TAB PO (09:40)
[2023-12-15] MEDS: Finasteride 5 MG TABLET PO (09:40)
[2023-12-15] MEDS: Heparin Sodium,Porcine Flush 50 UNITS, 0.9 % Sodium Chloride Flush 5 ML IVFLUSH (09:44)
[2023-12-15] MEDS: 0.9 % Sodium Chloride Flush 3 ML SYRINGE IVFLUSH (09:47)
--- NOTE | 2023-12-15 11:03 | P.DS_ITS ---
DS: Providers Provider Date of Service: 12/15/23 Date of admission: 11/26/23 11:58 Primary care physician: LAURIE CHAIREZ Consults: 11/25/23 21:50 Consult to Care Team Stat Comment: Reason for consultation: Aggressive behavior and long-term care facility 11/27/23 09:30 Consult to Infectious Diseases Routine Consulting Provider: [facility] Reason for consultation: Gram positive cocci bacteremia Has provider been notified: No DS: Diagnosis Discharge Diagnosis (1) Gram-positive cocci bacteremia: Status: Acute (2) COPD exacerbation: Status: Acute (3) Alzheimers disease: Status: Acute (4) Staphylococcus epidermidis bacteremia: Status: Acute DS: Summary Hospital Course Hospital Course: admission hpi Chief Complaint: aggressive behavior 73-year-old male with a history of dementia, chronic anemia, hypokalemia, BPH, COPD, esophageal cancer with port in place, kidney disease, renal calculi, hyperlipidemia, essential hypertension, depression, opiate dependence-remission, chronic pain syndrome who was seen in the emergency department yesterday by me for aggressive behavior at his nursing facility and for smoking marijuana. The patient did have a positive marijuana test but was not aggressive in the emergency department yesterday and was discharged back to his care facility. The patient was sent back to the emergency department on a Section 12. Following information was obtained from the Section 12: ?Using illicit substance and facility; violent and aggressive behavior: Kicking, hitting, throwing items, verbal threats of harm. Active attempts to leave facility. According to EMS, patient through hot coffee at a nurse today as well. Here in the emergency department the patient is threatening violence against ED staff. He states that he does not want to be here. On exam, he is calm and cooperative with me and answers questions appropraite. He states he does not want to be his long-term care facility and that he wants to go back to care home. The patient told me yesterday that he committed murder proximally 38 years ago and was released in care home in his been on parole for several years. He was living at a assisted house but since May after multiple falls he has been living in a long-term care facility ([facility]). Outside of complaints about LTC facility, he denies any complaints. No fevers, chills, st, congestion, abd pain, n/v/d, urinary symptoms, cough, lightheadedness, sob, ches t pain. He was being observed in behavioral pod but was noted to desaturate into the 70s and was brought back out to the medical pod where he continued to demonstrate hypoxia into the 80s, placed on 2L now maintaining oximetry 93%. He is leukopenic to 3.8 with a stable normocytic anemia with H/H 9.7/30.8%, platelets 115. Renal function baseline, electrolyte levels normal except for chloride 111 . TSH 0.65, hepatic function within normal limits. Urinalysis significant for 1+ leukocytes, positive nitrites, positive urinary sediment, trace bacteria. Urine tox screen yesterday positive for THC. Negative for COVID-19, RSV, influenza. Chest x-ray shows masslike alveolar density in the medial right lower lobe infrahilar region and emphysematous COPD. In the ED, has received DuoNebs and steroids. It will be admitted for further management of acute COPD exacerbation with acute hypoxemic respiratory failure. Hospital course: - Staph epidermidis Bacteremia had 2 set of positive cultures, most recent culture negative > 72 hrs. echo no vegetation. Iinitially treated with IV vanco, but changed to Dapto d/t tendency to refuse labs, and renal function that was worsening. The Daptomycin was changed to Doxycycline IV given sensitivity on cultures to finish Total of 4 weeks of IV antibiotics as he was seen by ID during his hospital stay. 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 continue home meds. he usually calms down after talking to him. PRN Ativan for restlessness. - acute hypoxemic respiratory failure secondary to COPD exacerbation and pneumonia, has completed treatment with abx and has no symptoms at the moment. weaned to room air. - pulmonary nodules: Scattered small pulmonary nodules measuring up to 6 mm in the right upper lobe. Will need Outpatient f/u recommended with repeat imaging with PCP - Thrombocytopenia, suspect chronic, stable - unspecified seizure d/o. continue keppra - HTN, continue metoprolol - CKD stage 3, creatine fluctuating, slightly up from earlier but appear to be within baseline, monitor - Unspecified anemia. Hemoglobin stable overall, possibly chronic due to chronic disease - hx esophageal ca. no longer undergoing tx. has port-a cath in place R chest. - Chronic hypokalemia--k is normal . continue KCl po Discharge Plan Finish Doxycycline course IV as outpatient until 12/26/23. Outpatient f/u recommended with repeat imaging with PCP for lung nodules Time Attestation Discharge Coordination Time (in mins): 38 Quality: Safe Use of Opioids Does Pt have an Active Cancer Diagnosis on the Problem List?: No Quality: Stroke Does the patient have a stroke diagnosis?: No Physical Exam Vital Signs: Vital Signs: Last Vital Signs Temp 97.1 F 12/15/23 00:00 Pulse 63 12/15/23 00:00 Resp 19 12/15/23 00:00 BP 121/58 L 12/15/23 00:00 Pulse Ox 94 12/15/23 00:00 O2 Del Method Room Air 12/15/23 00:00 O2 Flow Rate 2 11/27/23 00:00 BMI result Body Mass Index 23.4 Const: Other: Constitutional : interactive, not in distress Cardiovascular : no JVP, no lower extremity edema Respiratory : bilateral chest movement, not in resp distress Gastrointestinal: soft, lax, Non tender Skin : Warm, Dry Neurological : Alert & oriented , No focal deficit DS: Data Imaging Chest x-ray: Radiologist's impression: ITS Impressions Chest X-Ray 11/26/23 09:00 IMPRESSION: 1. Mass like alveolar density in medial right lower lung infrahilar region. Correlation with clinical history and CT chest finding is recommended. 2. Right internal jugular Port-A-Cath is seen. 3. Emphysematous COPD. Chest CT 11/26/23 14:16 IMPRESSION: 1. Moderate emphysema. Diffuse bronchial wall thickening. Tree-in-bud nodularity in the medial right lower lobe suggesting focal infectious/inflammatory process. 2. Scattered small pulmonary nodules measuring up to 6 mm in the right upper lobe. Comparison with prior imaging would be helpful to assess acuity. Recommend follow-up imaging in one year if comparison is not available. 3. Status post esophagectomy and gastric pull-up. 4. Severe compression deformity at T12 with vertebral plana. Mild compression deformities at T8 and T9. 5. Left-sided renal calculi measuring up to 5.5 mm. Fleischner guidelines were followed. Discharge Plan Discharge Anticipated Discharge Date/Time: 12/05/23 13:07 Patient Disposition: er [facility] Discharge Diagnosis: Staph Epidermidis bacteremia Referrals: Physician,Unknown J [Physician] - 1 Week Discharge Medications: New doxycycline hyclate [Doxy-100] 100 mg Recon Soln 100 mg IV Q12H Qty: 22 0RF nystatin 100,000 unit/gram Powder 1 appl topical BID Qty: 30 0RF Protocol: Apply to: Apply to: Groins oxycodone 5 mg Tablet 5 mg PO Q4H PRN (Reason: Pain, Severe (Pain Scale 7-10)) Qty: 10 0RF Rx Instructions: Partial Fill upon patient request. Continued gabapentin 400 mg Capsule 400 mg PO BID albuterol sulfate 90 mcg/actuation Hfa Aerosol Inhaler 2 puff INHALATION Q6H PRN (Reason: Wheezing) Yupelri 175 mcg/3 mL Solution For Nebulization 175 mcg INHALATION DAILY rosuvastatin 10 mg Tablet 10 mg PO DAILY tizanidine 2 mg Tablet 2 mg PO Q8H PRN (Reason: Muscle Spasm) lorazepam 0.5 mg Tablet 0.5 mg PO Q8H PRN (Reason: Anxiety) Qty: 10 0RF cholecalciferol (vitamin D3) 10 mcg (400 unit) capsule 20 mcg PO DAILY lidocaine [Lidoderm] 5 % adhesive patch,medicated 1 patch topical DAILY Rx Instructions: leave on most painful area for up to 12 hrs potassium chloride 20 mEq tablet extended release 20 meq PO DAILY finasteride 5 mg tablet 5 mg PO DAILY pantoprazole 40 mg tablet,delayed release (DR/EC) 40 mg PO DAILY roflumilast 500 mcg tablet 500 mcg PO DAILY tamsulosin 0.4 mg capsule 0.4 mg PO DAILY mirtazapine 15 mg tablet 15 mg PO BEDTIME ramelteon 8 mg tablet 8 mg PO BEDTIME ferrous sulfate 325 mg (65 mg iron) tablet 325 mg PO BID Senna Plus 8.6-50 mg capsule 1 tab-cap PO BID levetiracetam 500 mg tablet 500 mg PO BID metoprolol tartrate 25 mg tablet 12.5 mg PO BID sucralfate 1 gram tablet 1 g PO QID polyethylene glycol 3350 17 gram/dose powder 17 g PO DAILY PRN (Reason: Constipation) bisacodyl [Gentle Laxative (bisacodyl)] 10 mg suppository 10 mg AL DAILY PRN (Reason: Constipation) acetaminophen [Tylenol] 325 mg capsule 650 mg PO Q6H PRN (Reason: Mild Pain (Scale Score 1-4)) acetaminophen 650 mg suppository 650 mg AL Q6H PRN (Reason: Fever Or Pain) oxybutynin chloride 5 mg tablet 5 mg PO Q8H PRN (Reason: Bladder Spasms) tizanidine 2 mg tablet 2 mg PO Q8H PRN (Reason: Spasms) naloxone 0.4 mg/mL solution 0.4 mg subcut Q2M PRN (Reason: Opioid Overdose) Rx Instructions: NTExceed 10 mg total dose/episode Discharge Orders: Discharge Order (Routine); Ordered 12/15/23 Ordered By: Abran Elizabeth Diet: Advance to usual diet Activity on Discharge: As tolerated Stand Alone Forms: Patient Portal Discharge page Print Language: Kuwaiti Care Plan Goals: To eradicate blood borne infection and prevent sepsis and mortality Health Concerns: Bacteremia (blood borne infection), sepsis Plan of Treatment: Take Doxycycline as recommended until December 25 Assessment: see above
--- NOTE | 2023-12-15 12:53 | MHC.CM.PN ---
Addendum entered by Mireya Lyman 12/15/23 13:01: PTS DCS WAS FAXED TO THE WEEKEND RN EXPERIMENTAL MACHINIST AT [facility] @ [phone] Addendum entered by Mireya Lyman 12/15/23 13:00: A VM MESSAGE WAS LEFT FOR PTS HCP, MARCIA [phone], INFORMING THEM OF PTS PENDING DC AND PROVIDING CM CONTACT INFO Original Note: CM WAS INFORMED PT STATED HE WAS NOT GOING TO DC BACK TO SNF CM MET WITH PT ALONG WITH PTS RN AND PIG MACHINE OPERATOR HELPER CM AND RNS EXPLAINED TO THE PT THAT HE HAD TO RETURN TO [facility] PER HIS PAROLE AND IF HE ATTEMPTED TO LEAVE AMA, THE POLICE WOULD BRING HIM BACK TO ASSISTED. HE STATED HE WOULD PREFER ASSISTED, AND THAT [facility] WAS LIKE ASSISTED. PT WAS REMINDED THAT HE NEEDS IV TREATMENT FOR HIS HEALTH AND THE SNF WOULD BE THE BEST PLACE TO RECEIVE THE NECESSARY TREATMENT PT INITIALLY STATING HE WILL NOT GO, BUT AFTER SPEAKING TO CM, RN, CHARGE AND MD, HE WENT WITHOUT ISSUE, HOWEVER MADE IT KNOWN HE DOES NOT LIKE THE SNF. PT REPORTS HE WAS AT A [facility] HOUSE BEFORE [facility], AND WANTS TO RETURN TO ONE. PT WAS ENCOURAGED TO WORK WITH HIS ACCOUNTING AUDITOR AND SNF SW TO DETERMINE IF THIS WOULD BE AN OPTION FOR HIM
== END 2023-12-15 12:21 | disposition skilled nursing facility (03) | DRG 190 ==
LOC: HO.ED 11-26 10:56 → HO.EDOVER 11-26 12:02 → HO.IMC 11-26 16:01
PROVIDERS: Emergency Medicine; Internal Medicine; Physician Assistant Medical; Student in an Organized Health Care Education/Training Program; Admitting Provider Physician Assistant; Emergency Provider Emergency Medicine Emergency Medical Services; PCP Emergency Medicine; Visit Provider Student in an Organized Health Care Education/Training Program
DX: J43.9 Emphysema, unspecified (principal); J18.9 Pneumonia, unspecified organism; J96.01 Acute respiratory failure with hypoxia; F02.83 Dementia in other diseases classified elsewhere, unspecified severity, with mood disturbance; F02.811 Dementia in other diseases classified elsewhere, unspecified severity, with agitation; R78.81 Bacteremia; C15.9 Malignant neoplasm of esophagus, unspecified; F17.210 Nicotine dependence, cigarettes, uncomplicated; Z71.6 Tobacco abuse counseling; B95.7 Other staphylococcus as the cause of diseases classified elsewhere; G40.909 Epilepsy, unspecified, not intractable, without status epilepticus; R91.8 Other nonspecific abnormal finding of lung field; G30.9 Alzheimer's disease, unspecified; E87.6 Hypokalemia; D69.6 Thrombocytopenia, unspecified; D63.1 Anemia in chronic kidney disease; D63.0 Anemia in neoplastic disease; N18.30 Chronic kidney disease, stage 3 unspecified; I12.9 Hypertensive chronic kidney disease with stage 1 through stage 4 chronic kidney disease, or unspecified chronic kidney disease; Z20.822 Contact with and (suspected) exposure to COVID-19; Z79.899 Other long term (current) drug therapy
CPT/HCPCS: 0241U; 36415; 36573; 71045; 71250; 80048; 80053; 80307; 81001; 82550; 82565; 83605; 83735; 84443; 85025; 85027; 85730; 87040; 87077; 87086; 87147; 87186; 87205; 87633; 92950; 93005; 93306; 94640; 99285; C1751; J0696; J0878; J1642; J1650; J2060; J2919; J3370; J3371; J7120; P9047; S9485

== ENCOUNTER → 2023-11-25 17:56 | Outpatient (BNV) | payer OTHER, SELFPAY | PROVIDERS: Admitting Provider Physician Assistant; Emergency Provider Emergency Medicine Emergency Medical Services; Visit Provider Internal Medicine Cardiovascular Disease | DX: R94.31 Abnormal electrocardiogram [ECG] [EKG] (principal) | CPT/HCPCS: 93010 ==

== ENCOUNTER 2023-11-26 11:58 | Outpatient (BNV) | payer MEDICARE, MEDICAID, SELFPAY | END 2023-11-27 07:00 | PROVIDERS: Admitting Provider Physician Assistant; Emergency Provider Emergency Medicine Emergency Medical Services; Visit Provider Internal Medicine Cardiovascular Disease | DX: R78.81 Bacteremia (principal) | CPT/HCPCS: 93306 ==

== ENCOUNTER → 2023-11-26 11:58 | Outpatient (BNV) | payer OTHER, SELFPAY | PROVIDERS: Admitting Provider Physician Assistant; Emergency Provider Emergency Medicine Emergency Medical Services; Visit Provider Internal Medicine | DX: R78.81 Bacteremia (principal); J44.1 Chronic obstructive pulmonary disease with (acute) exacerbation; G30.9 Alzheimer's disease, unspecified; F02.80 Dementia in other diseases classified elsewhere, unspecified severity, without behavioral disturbance, psychotic disturbance, mood disturbance, and anxiety; B95.7 Other staphylococcus as the cause of diseases classified elsewhere | CPT/HCPCS: 99223; 99232; 99233; 99239; 99499 ==

== ENCOUNTER → 2023-11-26 11:58 | Outpatient (BNV) | payer MEDICARE, MEDICAID, SELFPAY | PROVIDERS: Admitting Provider Physician Assistant; Emergency Provider Emergency Medicine Emergency Medical Services; Visit Provider Internal Medicine | DX: R78.81 Bacteremia (principal); R91.8 Other nonspecific abnormal finding of lung field | CPT/HCPCS: 99222 ==

== ENCOUNTER 2024-02-08 12:13 | Outpatient (REF) | payer MEDICARE, MEDICAID, SELFPAY ==
--- NOTE | ~2024-02-08 | CT_ITS ---
EXAMINATION: CT ABDOMEN AND PELVIS WITHOUT CONTRAST CLINICAL INFORMATION: Incisional hernia with obstruction, without gangrene COMPARISON: None available. TECHNIQUE: Multidetector volumetric imaging was performed from the superior aspect of the liver through the pubic symphysis. Sagittal and coronal reformatted images were obtained on the technologist's workstation. This CT examination was performed using dose optimization techniques as appropriate, variously including the following: *Automated exposure control *Adjustment of mA and/or kV according to patient size (this includes techniques or standardized protocols for targeted exams where dose is matched to indication/reason for exam; i.e. extremities or head) *Use of iterative reconstruction technique DLP: 309 mGy-cm FINDINGS: LUNG BASES: Bibasilar atelectasis. No pleural effusion. Moderate centrilobular emphysema in the visualized lung bases. Normal-sized heart without pericardial effusion. LIVER, GALLBLADDER, AND BILIARY TREE: The liver is normal in size, shape, and attenuation. No focal hepatic lesion or biliary ductal dilatation is present. The gallbladder is unremarkable with no evidence of radiopaque gallstones, gallbladder wall thickening, or obvious pericholecystic inflammatory changes. PANCREAS: Fatty atrophied pancreas. SPLEEN: Surgical clips along the superior splenic hilum. Otherwise, normal CT appearance of the spleen. ADRENAL GLANDS: Unremarkable. KIDNEYS AND URETERS: There are multiple nonobstructing left renal lower pole calculi, largest measures 0.6 cm and 1300 Hounsfield units. There are multiple nonobstructing right renal lower pole calculi, the largest measures 0.7 cm and maximum 800 Hounsfield units. The kidneys are normal in size, shape, and attenuation. No hydronephrosis, hydroureter, or calculi seen. No perinephric stranding. PELVIC VISCERA/BLADDER: Metallic streak artifact from bilateral hip hardware limits evaluation of the pelvis and lower abdomen. Extremely limited evaluation of the bladder and prostate, which appear unremarkable. GASTROINTESTINAL TRACT: Status post esophagectomy and gastric pull-through with intact anastomotic sutures. The small and large bowel are nondilated. The appendix is not seen. ABDOMINAL WALL: Ventral incisional hernia with a 5 cm neck containing a nonobstructed loop of transverse colon. Subjacent to this are 2 small fat-containing ventral hernias. LYMPH NODES: Normal. VASCULAR: The aorta is nonaneurysmal with moderate scattered atheromatous calcifications. OSSEOUS STRUCTURES: No acute or suspicious osseous abnormality. Moderate multilevel lumbar spondylosis and degenerative disc disease. Intact bilateral total hip arthroplasties in anatomic alignment. Unchanged severe anterior wedge compression deformity of T12. CT/CT abdomen pelvis wo IV con IMPRESSION: 1. Ventral incisional hernia with a 5 cm neck containing a nonobstructed loop of transverse colon. Subjacent to this are 2 small fat-containing ventral hernias. 2. Bilateral nonobstructing renal calculi. 3. Status post esophagectomy and gastric pull-through with intact anastomotic sutures. Fleischner guidelines were followed. Electronically signed by: Alma Wilson DO 02/21/2024 01:37 PM EDT
== END 2024-02-08 12:14 | disposition home or self-care (01) ==
LOC: HO.CT 12:13
PROVIDERS: PCP Emergency Medicine; Visit Provider Surgery
DX: K43.0 Incisional hernia with obstruction, without gangrene (principal)
CPT/HCPCS: 74176

== ENCOUNTER 2024-04-01 13:32 | Inpatient (IN) | payer MEDICARE, SELFPAY ==
[2024-04-01] VITALS (31 sets, daily range): BP systolic 62–157; BP diastolic 37–74; PULSE 55–94; RESP 13–28; TEMP 34.3–36.7; O2SAT 88–100; BMI 24.3; BMI 22.5
--- NOTE | ~2024-04-01 | XR_ITS ---
EXAMINATION: XR CHEST CLINICAL INFORMATION: Hypoxia. COMPARISON: Chest radiograph 04/01/2024. TECHNIQUE: Frontal view of the chest was obtained. FINDINGS: Evaluation is very limited secondary to rotation and overlying patient's chin. The tip of the endotracheal tube is not well seen. Right-sided chest port tip appears to overlie the expected location of the cavoatrial junction. EKG leads overlie the chest. Multiple mediastinal surgical clips are redemonstrated. Within the limitations, grossly unchanged appearance of the cardiomediastinal silhouette. Increased focal airspace opacities in the medial right lower lung field. No significant pleural effusion or pneumothorax. No displaced osseous fractures. XR/XR chest 1V IMPRESSION: Very limited evaluation due to patient's positioning. The tip of the endotracheal tube is not well seen. Within limitations, new focal airspace densities are noted in the medial right lower lobe that could indicate aspiration or atelectasis. Consider repeat imaging as clinically warranted. Electronically signed by: Eladia Corral MD 04/01/2024 09:41 PM [facility]
--- NOTE | ~2024-04-01 | XR_ITS ---
EXAMINATION: XR CHEST CLINICAL INFORMATION: Unresponsive COMPARISON: X-ray of the chest 11/26/2023 TECHNIQUE: Frontal view of the chest was obtained. FINDINGS: Endotracheal tube 2.8 cm above rosemary. Central venous catheter tip in region of SVC. Lungs clear. No pneumothorax Calcifications the dorsal aorta. Heart and mediastinal silhouette normal. Postsurgical changes related to patient's previous reported esophagectomy and gastric pull-up. No change. Convex right curvature the dorsal spine with spondylosis unchanged. XR/XR chest 1V IMPRESSION: Endotracheal tube 2.8 cm above rosemary. No acute disease. Electronically signed by: Keanu Ponce MD 04/01/2024 02:26 PM EST
--- NOTE | ~2024-04-01 | CT_ITS ---
EXAMINATION: CT HEAD WITHOUT CONTRAST CLINICAL INFORMATION: Mental status change COMPARISON: None available. TECHNIQUE: Contiguous axial imaging was performed from the skull base to vertex without intravenous administration of contrast. This CT examination was performed using dose optimization techniques as appropriate, variously including the following: *Automated exposure control *Adjustment of mA and/or kV according to patient size (this includes techniques or standardized protocols for targeted exams where dose is matched to indication/reason for exam; i.e. extremities or head) *Use of iterative reconstruction technique DLP: 862 mGy-cm FINDINGS: There is moderate involutional change observed but no intra or extra-axial fluid collection or hemorrhage, mass or mass effect. Calvarium is intact. There is mild mucoperiosteal thickening within the ethmoid sinuses. CT/CT head/brain wo IV con IMPRESSION: No acute intracranial pathology. Electronically signed by: Dell Mauro MD 04/01/2024 04:16 PM [facility]
[2024-04-01] MEDS: Etomidate 20 MG/10 ML VIAL IVPUSH (13:43)
[2024-04-01] MEDS: Etomidate 20 MG/10 ML VIAL 10 MG IVPUSH (13:46)
[2024-04-01] MEDS: Succinylcholine Chloride 200 MG/10 ML VIAL 100 MG IVPUSH (13:47)
--- NOTE | 2024-04-01 13:50 | ECG_ITS ---
Test Reason : UNRESPONSIVE Blood Pressure : / mmHG Vent. Rate : 077 BPM Atrial Rate : 077 BPM P-R Int : 252 ms QRS Dur : 104 ms QT Int : 410 ms P-R-T Axes : 073 -70 052 degrees QTc Int : 463 ms Normal sinus rhythm with sinus arrhythmia and first degree AV block Pulmonary disease pattern Left axis deviation Cannot rule out Inferior infarct , age undetermined Abnormal ECG When compared with ECG of 25-NOV-2023 18:13, Nonspecific T wave abnormality no longer evident in Lateral leads Referred By: Amanda Ojeda Electronically Signed By:Sivakumar Hook
[2024-04-01 14:05] LABS: Glucose, Whole Blood 146 mg/dL (60-115)
--- NOTE | 2024-04-01 14:07 | ED.NEUROSD ---
HPI - Neuro Symptoms/Deficit General Chief Complaint: Stroke Stated Complaint: ?STROKE,SUDDEN DIZZY, THEN UNRESP,L LIST/DROOP,SNF Time Seen by Provider: 04/01/24 13:45 Source: patient Mode of arrival: EMS History of Present Illness HPI Narrative: This is a 73 years old the patient from the [facility]way presented to the emergency department with altered mental status vomiting according to the EMS he ate lunch and then become unresponsive. Patient this time is unable to give any history he has history of chronic pain syndrome, anemia, heart failure, he is a resident of the half-way he is he is a full resuscitation Onset (ago): hour(s) (1) Timing confirmed by: other (EMS) History of same: No Severity: moderate Related Data Home Medications ?Medication ?Instructions ?Recorded ?Confirmed acetaminophen 325 mg capsule 650 mg PO Q6H PRN Mild Pain (Scale 10/05/23 11/26/23 (Tylenol) Score 1-4) acetaminophen 650 mg rectal 650 mg FL Q6H PRN Fever Or Pain 10/05/23 11/26/23 suppository bisacodyl 10 mg rectal suppository 10 mg FL DAILY PRN Constipation 10/05/23 11/26/23 (Gentle Laxative (bisacodyl)) cholecalciferol (vitamin D3) 10 20 mcg PO DAILY 10/05/23 11/26/23 mcg (400 unit) capsule ferrous sulfate 325 mg (65 mg 325 mg PO BID 10/05/23 11/26/23 iron) tablet finasteride 5 mg tablet 5 mg PO DAILY 10/05/23 11/26/23 levetiracetam 500 mg tablet 500 mg PO BID 10/05/23 11/26/23 lidocaine 5 % topical patch 1 patch topical DAILY 10/05/23 11/26/23 (Lidoderm) metoprolol tartrate 25 mg tablet 12.5 mg PO BID 10/05/23 11/26/23 mirtazapine 15 mg tablet 15 mg PO BEDTIME 10/05/23 11/26/23 naloxone 0.4 mg/mL injection 0.4 mg subcut Q2M PRN Opioid 10/05/23 11/26/23 solution Overdose oxybutynin chloride 5 mg tablet 5 mg PO Q8H PRN Bladder Spasms 10/05/23 11/26/23 pantoprazole 40 mg tablet,delayed 40 mg PO DAILY 10/05/23 11/26/23 release polyethylene glycol 3350 17 17 g PO DAILY PRN Constipation 10/05/23 11/26/23 gram/dose oral powder potassium chloride 20 mEq 20 meq PO DAILY 10/05/23 11/26/23 tablet,extended release ramelteon 8 mg tablet 8 mg PO BEDTIME 10/05/23 11/26/23 roflumilast 500 mcg tablet 500 mcg PO DAILY 10/05/23 11/26/23 sennosides 8.6 mg-docusate sodium 1 tab-cap PO BID 10/05/23 11/26/23 50 mg capsule (Senna Plus) sucralfate 1 gram tablet 1 g PO QID 10/05/23 11/26/23 tamsulosin 0.4 mg capsule 0.4 mg PO DAILY 10/05/23 11/26/23 tizanidine 2 mg tablet 2 mg PO Q8H PRN Spasms 10/05/23 11/26/23 albuterol sulfate 90 mcg/actuation 2 puff inhalation Q6H PRN Wheezing 11/26/23 11/26/23 aerosol inhaler gabapentin 400 mg capsule 400 mg PO BID 11/26/23 11/26/23 revefenacin 175 mcg/3 mL solution 175 mcg inhalation DAILY 11/26/23 11/26/23 for nebulization (Wilder) rosuvastatin 10 mg tablet 10 mg PO DAILY 11/26/23 11/26/23 tizanidine 2 mg tablet 2 mg PO Q8H PRN Muscle Spasm 11/26/23 11/26/23 Previous Rx's ?Medication ?Instructions ?Recorded lorazepam 0.5 mg tablet 0.5 mg PO Q8H PRN Anxiety #10 tabs 12/15/23 nystatin 100,000 unit/gram topical 1 appl topical BID #30 grams 12/15/23 powder oxycodone 5 mg tablet 5 mg PO Q4H PRN Pain, Severe (Pain 12/15/23 Scale 7-10) #10 tabs Allergies Allergy/AdvReac Type Severity Reaction Status Date / Time No Known Allergies Allergy Verified 04/01/24 13:51 Review of Systems Review of Systems: Yes Unobtainable due to mental status PMFSH Past Medical History Attestation statement: The following information was validated with the patient. Source: unable to obtain Medical History Aggressive behavior CKD (chronic kidney disease), stage III BPH (benign prostatic hyperplasia) Chronic pain syndrome Opioid dependence in remission Hyperlipidemia Hypertension Nephrolithiasis Esophageal cancer Chronic anemia Alzheimers disease Irreducible incisional hernia Perforated appendicitis COPD (chronic obstructive pulmonary disease) Surgical History History of appendectomy Social History Social History Household Members: Other Household Members Other:: [facility] Housing: Detention Do you presently have visiting nurse or other home services: No Alcohol intake: never Comment: pt refuse alarm Patient Tobacco Use Status: Current everyday Tobacco user Tobacco use type: Cigarette Cigarette Packs Per Day: 0.5 Cigarettes Per Day: 10.0 Years Smoked: 58 e-Cigarette/Vaping Use: Never Used Second Hand Smoke Exposure: No Substance Use Type: Marijuana Advance Directives: Yes Advance Directives on File: Yes Advance Directives Date on File: 04/01/24 Do you have a plan to hurt others: No Plan service: No Physical Exam Vital Signs: Vital Signs: Last Vital Signs Temp 94.5 F L 04/01/24 15:31 Pulse 85 04/01/24 15:31 Resp 13 04/01/24 15:31 BP 137/70 04/01/24 15:31 Pulse Ox 91 L 04/01/24 15:31 O2 Del Method Room Air 04/01/24 15:31 FiO2 100 04/01/24 14:01 BMI result Body Mass Index 24.3 Unresponsive HEENT: Other: Atraumatic Neck: Neck: Yes normal visual inspection Resp: Auscultation: rhonchi Cardio: Jugular venous distension: no JVD Rate: regular rate Rhythm: regular rhythm GI: Inspection: Yes normal to inspection Palpation (GI): Soft to palpation Neuro: Other: Unresponsive Course Reevaluation(s) Reevaluation #1: Patient was intubated by me at arrival with RSI protect the airway, I placed also a left IO for lack of IV access and then a right femoral central line was placed. Time: 14:27 Reevaluation #2: The case was discussed with the product communications manager Dr. Flaherty, he was accepted to the ICU Time: 15:55 Medications Administered Generic Name Dose Route Start Last Admin Trade Name Freq PRN Reason Stop Dose Admin Norepinephrine Bitartrate 8 mg in 250 mls @ 0 mls/hr 04/01/24 15:00 04/01/24 15:24 Levophed IVCONT 0.03 mcg/kg/min .Q0M CARLOTA 3.84 mls/hr Titration Protocol Per Protocol Discontinued Medications Generic Name Dose Route Start Last Admin Trade Name Freq PRN Reason Stop Dose Admin Etomidate 20 mg 04/01/24 14:47 04/01/24 13:43 Etomidate 20 Mg/10 Ml Vial IVPUSH 04/01/24 14:48 20 mg ONCE ONE Administration Etomidate 10 mg 04/01/24 14:49 04/01/24 13:46 Etomidate 20 Mg/10 Ml Vial IVPUSH 04/01/24 14:50 10 mg ONCE ONE Administration Fentanyl 25 mcg 04/01/24 13:52 04/01/24 15:15 Fentanyl Citrate/Pf 100 Mcg/2 Ml Vial IVPUSH 04/01/24 13:53 Not Given ONCE ONE Protocol Fentanyl 50 mcg 04/01/24 14:48 04/01/24 14:16 Fentanyl Citrate/Pf 100 Mcg/2 Ml Vial IVPUSH 04/01/24 14:49 50 mcg ONCE ONE Administration Protocol Succinylcholine Chloride 100 mg 04/01/24 14:46 04/01/24 13:47 Succinylcholine Chloride 200 Mg/10 Ml Vial IVPUSH 04/01/24 14:47 100 mg ONCE ONE Administration Procedures Central Line Placement Right Femoral: Time Out Performed: Yes Patient Placed on Monitor/Pulse Ox: Yes Central Line Prep: Chlorhexidine scrub Ultrasound Used for Placement: Yes Central Line Lumen Inserted: triple Post Procedure: sutured in place, good blood return, all ports aspirated, flushed, capped and sterile dressing applied Patient Tolerated Procedure: no complications Intubation Intubation Type:: Emergency Endotracheal Intubation Intubation Date:: 04/01/24 Intubation Time:: 14:29 sedative: Etomidate paralytic: Succinylcholine Laryngoscope: fiber optic video scope ET Tube Size: 7.5 ET Tube Uncuffed: No Tube Secured Depth (cm): 26 Tube Placement Confirmation: visualized tube passing through cords and equal breath sounds bilaterally Patient Tolerated Procedure: no complications Medical Decision Making Medical Decision Making [facility] Narrative: Patient presented to the emergency department in respiratory failure intubated the arrival, we will do chest x-ray labs reassessed the most likely aspiration pneumonitis Differential Diagnosis Differential Diagnoses: The differential diagnosis associated with the presentation includes Aspiration/CVA/electrolyte imbalance Admission/Observation Consideration of admission/observation: Escalation of care including admission/observation considered Consult Healthcare Provider Management of the patient was discussed with: Network Announcer Dr Flaherty Lab Data [facility] Lab Attestation statement: I reviewed the patient's lab results. 04/01/24 14:08 04/01/24 14:07 Labs: Lab Results 04/01/24 04/01/24 04/01/24 Range/Units 13:41 14:04 14:05 WBC (4.8-10.8) X10*3/uL RBC (4.60-5.80) X10*6/uL Hgb (14.0-18.0) g/dl Hct (42.0-52.0) % MCV (80.0-98.0) fL MCH (27.0-33.0) pg MCHC (31.0-36.0) g/dl RDW (11.0-16.0) % Plt Count (160-400) X10*3/uL MPV (9.4-12.4) fL Immature Gran % (Auto) (0.0-0.4) % Neut % (Auto) (45-73) % Lymph % (Auto) (20-40) % [place] % (Auto) (2-11) % Eos % (Auto) (0-4) % Baso % (Auto) (0-2) % Lymph # (Auto) (1.2-4.9) X10*3/uL [place] # (Auto) (0.1-1.2) X10*3/uL Eos # (Auto) (0.0-0.4) X10*3/uL Baso # (Auto) (0.0-0.2) X10*3/uL Abs Immat Gran (auto) (0.00-0.03) X10*3/uL Absolute Neuts (auto) (2.0-8.3) x10*3/uL Absolute Nucleated RBC (0.0-0.012) X10*3/uL Nucleated RBC % (auto) (0.0-0.2) /100WBC Smear Tech's Comments Hold Purple Top SEE NOTE PT (10.9-12.4) SEC INR (0.9-1.1) APTT (26.0-36.8) SEC VBG pH (7.32-7.43) VBG pCO2 mmHg VBG pO2 mmHg VBG HCO3 (22-26) mmol/L VBG O2 Saturation % VBG Base Excess mmol/L Sodium (135-145) mmol/L Potassium (3.3-5.1) mmol/L Chloride (96-108) mmol/L Carbon Dioxide (22-29) mmol/L Anion Gap (12-20) BUN (9-16) mg/dL Creatinine (0.5-1.4) mg/dL Estim Creat Clear Calc Estimated GFR POC Glucose 146 H (60-115) mg/dL Random Glucose (60-115) mg/dL Lactic Acid 1.2 (0.5-2.0) mmol/L Calcium (8.4-10.2) mg/dL Magnesium (1.6-2.6) mg/dL Total Bilirubin (0.0-1.0) mg/dL AST (5-37) U/L ALT (0-40) U/L Alkaline Phosphatase (39-117) U/L Troponin I High Sens (<3.5-35.0) ng/L Total Protein (6.5-8.0) g/dL Albumin (3.5-5.0) g/dL Lipase (8-78) U/L Urine Color Urine Appearance Urine pH (5.0-9.0) Ur Specific [place] (1.005-1.025) Urine Protein (Neg-Trace) mg/dL Urine Glucose (UA) (Negative) mg/dL Urine Ketones (Negative) mg/dL Urine Blood (Negative) Urine Nitrite (Negative) Ur Leukocyte Esterase (Negative) Urine RBC (0-2) /HPF Urine WBC (0-5) /HPF Ur Squamous Epith Cells (0-2) /HPF Urine Bacteria (None Seen) Hyaline Casts (0-2) /LPF Urine Opiates Screen (Not Detect) Ur Buprenorphine Scrn (Not Detect) ng/mL Ur Oxycodone Screen (Not Detect) ng/mL Urine Methadone Screen (Not Detect) ng/mL Urine Fentanyl Screen (Not Detect) Ur Barbiturates Screen (Not Detect) Ur Phencyclidine Scrn (Not Detect) Ur Amphetamines Screen (Not Detect) U Benzodiazepines Scrn (Not Detect) Urine Cocaine Screen (Not Detect) U Marijuana (THC) Screen (Not Detect) 04/01/24 04/01/24 04/01/24 Range/Units 14:07 14:08 14:14 WBC 1.9 L (4.8-10.8) X10*3/uL RBC 3.46 L (4.60-5.80) X10*6/uL Hgb 10.1 L (14.0-18.0) g/dl Hct 31.6 L (42.0-52.0) % MCV 91.3 (80.0-98.0) fL MCH 29.2 (27.0-33.0) pg MCHC 32.0 (31.0-36.0) g/dl RDW 13.8 (11.0-16.0) % Plt Count 73 L D (160-400) X10*3/uL MPV 9.3 L (9.4-12.4) fL Immature Gran % (Auto) 0.5 H (0.0-0.4) % Neut % (Auto) 50.6 (45-73) % Lymph % (Auto) 35.3 (20-40) % [place] % (Auto) 8.9 (2-11) % Eos % (Auto) 4.2 H (0-4) % Baso % (Auto) 0.5 (0-2) % Lymph # (Auto) 0.7 L (1.2-4.9) X10*3/uL [place] # (Auto) 0.2 (0.1-1.2) X10*3/uL Eos # (Auto) 0.1 (0.0-0.4) X10*3/uL Baso # (Auto) 0.0 (0.0-0.2) X10*3/uL Abs Immat Gran (auto) 0.01 (0.00-0.03) X10*3/uL Absolute Neuts (auto) 1.0 L (2.0-8.3) x10*3/uL Absolute Nucleated RBC 0.000 (0.0-0.012) X10*3/uL Nucleated RBC % (auto) 0.0 (0.0-0.2) /100WBC Smear Tech's Comments VERIFIED Hold Purple Top PT 13.0 H (10.9-12.4) SEC INR 1.1 (0.9-1.1) APTT 41.7 H D (26.0-36.8) SEC VBG pH 7.29 L (7.32-7.43) VBG pCO2 53 mmHg VBG pO2 77 mmHg VBG HCO3 26 (22-26) mmol/L VBG O2 Saturation 92.0 % VBG Base Excess -0.5 mmol/L Sodium 139 (135-145) mmol/L Potassium 4.0 (3.3-5.1) mmol/L Chloride 110 H (96-108) mmol/L Carbon Dioxide 25 (22-29) mmol/L Anion Gap 8 L (12-20) BUN 27 H (9-16) mg/dL Creatinine 1.76 H (0.5-1.4) mg/dL Estim Creat Clear Calc 33.7 Estimated GFR 38 POC Glucose (60-115) mg/dL Random Glucose 150 H (60-115) mg/dL Lactic Acid (0.5-2.0) mmol/L Calcium 7.8 L D (8.4-10.2) mg/dL Magnesium 1.7 (1.6-2.6) mg/dL Total Bilirubin 0.4 (0.0-1.0) mg/dL AST 19 (5-37) U/L ALT < 6 (0-40) U/L Alkaline Phosphatase 75 (39-117) U/L Troponin I High Sens 2.7 (<3.5-35.0) ng/L Total Protein 5.8 L (6.5-8.0) g/dL Albumin 3.1 L (3.5-5.0) g/dL Lipase < 4 L (8-78) U/L Urine Color Urine Appearance Urine pH (5.0-9.0) Ur Specific [place] (1.005-1.025) Urine Protein (Neg-Trace) mg/dL Urine Glucose (UA) (Negative) mg/dL Urine Ketones (Negative) mg/dL Urine Blood (Negative) Urine Nitrite (Negative) Ur Leukocyte Esterase (Negative) Urine RBC (0-2) /HPF Urine WBC (0-5) /HPF Ur Squamous Epith Cells (0-2) /HPF Urine Bacteria (None Seen) Hyaline Casts (0-2) /LPF Urine Opiates Screen (Not Detect) Ur Buprenorphine Scrn (Not Detect) ng/mL Ur Oxycodone Screen (Not Detect) ng/mL Urine Methadone Screen (Not Detect) ng/mL Urine Fentanyl Screen (Not Detect) Ur Barbiturates Screen (Not Detect) Ur Phencyclidine Scrn (Not Detect) Ur Amphetamines Screen (Not Detect) U Benzodiazepines Scrn (Not Detect) Urine Cocaine Screen (Not Detect) U Marijuana (THC) Screen (Not Detect) 04/01/24 Range/Units 14:47 WBC (4.8-10.8) X10*3/uL RBC (4.60-5.80) X10*6/uL Hgb (14.0-18.0) g/dl Hct (42.0-52.0) % MCV (80.0-98.0) fL MCH (27.0-33.0) pg MCHC (31.0-36.0) g/dl RDW (11.0-16.0) % Plt Count (160-400) X10*3/uL MPV (9.4-12.4) fL Immature Gran % (Auto) (0.0-0.4) % Neut % (Auto) (45-73) % Lymph % (Auto) (20-40) % [place] % (Auto) (2-11) % Eos % (Auto) (0-4) % Baso % (Auto) (0-2) % Lymph # (Auto) (1.2-4.9) X10*3/uL [place] # (Auto) (0.1-1.2) X10*3/uL Eos # (Auto) (0.0-0.4) X10*3/uL Baso # (Auto) (0.0-0.2) X10*3/uL Abs Immat Gran (auto) (0.00-0.03) X10*3/uL Absolute Neuts (auto) (2.0-8.3) x10*3/uL Absolute Nucleated RBC (0.0-0.012) X10*3/uL Nucleated RBC % (auto) (0.0-0.2) /100WBC Smear Tech's Comments Hold Purple Top PT (10.9-12.4) SEC INR (0.9-1.1) APTT (26.0-36.8) SEC VBG pH (7.32-7.43) VBG pCO2 mmHg VBG pO2 mmHg VBG HCO3 (22-26) mmol/L VBG O2 Saturation % VBG Base Excess mmol/L Sodium (135-145) mmol/L Potassium (3.3-5.1) mmol/L Chloride (96-108) mmol/L Carbon Dioxide (22-29) mmol/L Anion Gap (12-20) BUN (9-16) mg/dL Creatinine (0.5-1.4) mg/dL Estim Creat Clear Calc Estimated GFR POC Glucose (60-115) mg/dL Random Glucose (60-115) mg/dL Lactic Acid (0.5-2.0) mmol/L Calcium (8.4-10.2) mg/dL Magnesium (1.6-2.6) mg/dL Total Bilirubin (0.0-1.0) mg/dL AST (5-37) U/L ALT (0-40) U/L Alkaline Phosphatase (39-117) U/L Troponin I High Sens (<3.5-35.0) ng/L Total Protein (6.5-8.0) g/dL Albumin (3.5-5.0) g/dL Lipase (8-78) U/L Urine Color Yellow Urine Appearance Clear Urine pH 5.5 (5.0-9.0) Ur Specific [place] 1.010 (1.005-1.025) Urine Protein Trace (Neg-Trace) mg/dL Urine Glucose (UA) Negative (Negative) mg/dL Urine Ketones Negative (Negative) mg/dL Urine Blood Negative (Negative) Urine Nitrite Negative (Negative) Ur Leukocyte Esterase Small (1+) H (Negative) Urine RBC 0-2 (0-2) /HPF Urine WBC 0-5 (0-5) /HPF Ur Squamous Epith Cells 0-2 (0-2) /HPF Urine Bacteria None Seen (None Seen) Hyaline Casts 0-2 (0-2) /LPF Urine Opiates Screen Not Detected (Not Detect) Ur Buprenorphine Scrn Not Detected (Not Detect) ng/mL Ur Oxycodone Screen Positive H (Not Detect) ng/mL Urine Methadone Screen Not Detected (Not Detect) ng/mL Urine Fentanyl Screen Not Detected (Not Detect) Ur Barbiturates Screen Not Detected (Not Detect) Ur Phencyclidine Scrn Not Detected (Not Detect) Ur Amphetamines Screen Not Detected (Not Detect) U Benzodiazepines Scrn Not Detected (Not Detect) Urine Cocaine Screen Not Detected (Not Detect) U Marijuana (THC) Screen Not Detected (Not Detect) Independent Interpretation I performed an independent interpretation of an: Plain X-Ray Radiology Impression Discussion of test interpretation with radiology: I have reviewed the radiologist's reading. Independent Historian Clinical information obtained from an independent historian. History obtained from or confirmed by: EMS [facility] RECORD External Record Review External record reviewed: Other (RECORD FROM ALF) Chronic Conditions Patient?s care impacted by: Other (COPD/DEMENTIA) Critical Care Time Critical Care Time Critical Care Time: Yes Total Critical Care Time: 60 Attestation: speaking to EMS ,taking care of the pt Discharge Plan Discharge Clinical Impression: Respiratory failure Qualifiers: Chronicity: acute Respiratory failure complication: unspecified whether with hypoxia or hypercapnia Qualified Code(s): J96.00 - Acute respiratory failure, unspecified whether with hypoxia or hypercapnia Patient Disposition: Still a Patient
--- NOTE | 2024-04-01 14:15 | MHC.EDTECH ---
Patient came to the ER unresponsive, INR and POC was completed, EKG talen and read by the ed provider, blood work was done sanded to the lab with label tube,
[2024-04-01] MEDS: Norepinephrine Bitartrate/D5W 8 MG/250 ML PLAST..BAG 6.39 MG IVCONT (14:16)
[2024-04-01] MEDS: fentaNYL citrate/PF 100 MCG/2 ML VIAL 50 MCG IVPUSH (14:16)
[2024-04-01 14:19] LABS: VBG Base Excess -0.5 mmol/L; VBG HCO3 26 mmol/L (22-26); VBG pCO2 53 mmHg; VBG pH 7.29 (7.32-7.43); VBG pO2 77 mmHg
[2024-04-01 14:22] LABS: Basophils Percent Auto 0.5 % (0-2); Eosinophils Absolute Auto 0.1 X10*3/uL (0.0-0.4); Eosinophils Percent Auto 4.2 % (0-4); Hematocrit 31.6 % (42.0-52.0); Hemoglobin 10.1 g/dl (14.0-18.0); Imm Gran Abs Auto 0.01 X10*3/uL (0.00-0.03); Imm Gran Pct Auto 0.5 % (0.0-0.4); Lymphocytes Absolute Auto 0.7 X10*3/uL (1.2-4.9); Lymphocytes Percent Auto 35.3 % (20-40); MANUAL DIFF FLAG SCAN; Mean Corpuscular Hemoglobin 29.2 pg (27.0-33.0); Mean Corpuscular Volume 91.3 fL (80.0-98.0); Monocytes Absolute Auto 0.2 X10*3/uL (0.1-1.2); Monocytes Percent Auto 8.9 % (2-11); Neutrophils Percent Auto 50.6 % (45-73); Red Blood Count 3.46 X10*6/uL (4.60-5.80); Red Cell Distribution Width 13.8 % (11.0-16.0); SCAN SMEAR FLAG 1
[2024-04-01 14:24] LABS: White Blood Count 1.9 X10*3/uL (4.8-10.8)
[2024-04-01 14:26] LABS: INTERNATIONAL NORM RATIO 1.1 (0.9-1.1)
[2024-04-01 14:29] LABS: Partial Thromboplastin Time 41.7 SEC (26.0-36.8)
[2024-04-01 14:32] LABS: Venous Blood Gas Refer to POC result
[2024-04-01 14:39] LABS: Lactic Acid 1.2 mmol/L (0.5-2.0)
[2024-04-01 14:39] LABS: Alanine Aminotransferase < 6 U/L (0-40); Albumin Level 3.1 g/dL (3.5-5.0); Alkaline Phosphatase 75 U/L (39-117); Anion Gap 8 (12-20); Aspartate Amino Transferase 19 U/L (5-37); Bilirubin Total 0.4 mg/dL (0.0-1.0); Blood Urea Nitrogen 27 mg/dL (9-16); Calcium 7.8 mg/dL (8.4-10.2); Carbon Dioxide 25 mmol/L (22-29); Chloride 110 mmol/L (96-108); Creatinine Clr Calc Pharmacy 33.7; Estimated Glomerular Filt Rate 38; Glucose Random 150 mg/dL (60-115); Lipase < 4 U/L (8-78); Magnesium 1.7 mg/dL (1.6-2.6); Sodium 139 mmol/L (135-145); Total Protein 5.8 g/dL (6.5-8.0)
[2024-04-01 14:44] LABS: Troponin-I High Sensitivity 2.7 ng/L (<3.5-35.0)
[2024-04-01 14:47] LABS: Mean Platelet Volume 9.3 fL (9.4-12.4); Platelet Count 73 X10*3/uL (160-400); SLIDE REVIEW VERIFIED
--- NOTE | 2024-04-01 14:53 | MHC.STROKE ---
Called to ED for Stroke Alert. Upon arrival to ED, patient was unresponsive and was going to be intubated to protect airway. Per RN, EMS reported that patient became unresponsive at [facility] during lunch. There was a question of aspiration. Upon arrival to [facility] ED, patient had a pulse but minimal to no gag reflex. It was decided to intubate for airway protection. Pt was moaning, unable to follow commands. See Code sheet for critical care interventions upon arrival. Delay in CT scan due to life saving interventions. Unable to provide any stroke education. NO family present at this time. Will continue to assist as needed.
[2024-04-01 14:54] LABS: Appearance Urine Clear; Color Urine Yellow; Glucose Urine UA Negative (Negative); Leukocyte Esterase Urine Small (1+) (Negative); Nitrite Urine Negative (Negative); PH 5.5 (5.0-9.0); UMIC TRIGGER UACC YES; Urine Blood Negative (Negative); Urine Ketones Negative (Negative); Urine Protein Trace mg/dL (Neg-Trace)
[2024-04-01 15:03] LABS: Bacteria Urine None Seen (None Seen); Hyaline Casts Urine 0-2 /LPF (0-2); RBC Urine 0-2 /HPF (0-2); Squamous Epithelial Cell Urine 0-2 /HPF (0-2); UACC Culture Trigger YES; WBC Urine 0-5 /HPF (0-5)
[2024-04-01 15:08] LABS: Amphetamine Screen Urine Not Detected (Not Detect); Barbiturates, Urine Not Detected (Not Detect); Benzodiazepines Screen Urine Not Detected (Not Detect); Buprenorphine Scr Not Detected (Not Detect); Cannabinoid Screen Urine Not Detected (Not Detect); Cocaine Screen Urine Not Detected (Not Detect); Fentanyl, urine Not Detected (Not Detect); Methadone Screen, Urine Not Detected (Not Detect); Opiate Screen Urine Not Detected (Not Detect); Oxycodone Screen Urine Positive (Not Detect); Phencyclidine Screen Urine Not Detected (Not Detect)
--- NOTE | 2024-04-01 15:12 | MHC.EDTECH ---
I helped the doctor putting in a center line and the RN (Helen) Niño catheter.
[2024-04-01 15:37] LABS: ABG Base Excess -1.5 mmol/L; ABG HCO3 26 mmol/L (22-26); ABG pCO2 55 mmHg (32-45); ABG pH 7.27 (7.35-7.45); ABG pO2 50 mmHg (83-108)
--- NOTE | 2024-04-01 15:52 | P.HPCC_ITS ---
History of Present Illness Date of Service: 04/01/24 Chief Complaint: Hypoxia, aspiration, encephalopathy 73-year-old gentleman with underlying Alzheimer's dementia, COPD, BPH, esophageal cancer with port in place, CKD, being admitted for acute hypoxia and pulmonary aspiration. Patient was noted to be unresponsive right after lunch in his facility and brought to emergency room for evaluation where he was intubated with food particles taken out during intubation. He required pressor support secondary to need for sedation while on ventilatory support. His CT head is pending. He has been admitted to the intensive care unit. Review of Systems 2 Review of Systems: Yes unobtainable due to endotracheal tube and Unobtainable due to mental condition PMFSH Past Medical History Medical History Aggressive behavior CKD (chronic kidney disease), stage III BPH (benign prostatic hyperplasia) Chronic pain syndrome Opioid dependence in remission Hyperlipidemia Hypertension Nephrolithiasis Esophageal cancer Chronic anemia Alzheimers disease Irreducible incisional hernia Perforated appendicitis COPD (chronic obstructive pulmonary disease) Surgical History Surgical History History of appendectomy Social History Social History Household Members: Other Household Members Other:: [facility] Do you presently have visiting nurse or other home services: No Alcohol intake: never Comment: pt refuse alarm Patient Tobacco Use Status: Current everyday Tobacco user Tobacco use type: Cigarette Cigarette Packs Per Day: 0.5 Cigarettes Per Day: 10.0 Years Smoked: 58 e-Cigarette/Vaping Use: Never Used Second Hand Smoke Exposure: No Substance Use Type: Marijuana Advance Directives: Yes Advance Directives on File: Yes Advance Directives Date on File: 04/01/24 Do you have a plan to hurt others: No Plan service: No Meds Allergies Allergy/AdvReac Type Severity Reaction Status Date / Time No Known Allergies Allergy Verified 04/01/24 13:51 Active Medications: Current Medications Famotidine (Famotidine/Pf 20 Mg/2 Ml Vial) 20 mg IVPUSH DAILY CARLOTA Heparin Sodium (Porcine) (Heparin Sodium,Porcine 5,000 Unit/Ml Vial) 5,000 unit SUBCUT Q8H CARLOTA Norepinephrine Bitartrate (Levophed) 8 mg in 250 mls @ 0 mls/hr IVCONT .Q0M CARLOTA; Protocol Last Titration: 04/01/24 15:24 Dose: 0.03 mcg/kg/min, 3.84 mls/hr Propofol (Diprivan) 1,000 mg in 100 mls @ 0 mls/hr IVCONT .Q0M CARLOTA; Protocol Ampicillin Sodium/Sulbactam (Sodium 3 gm/ Sodium Chloride) 100 mls @ 200 mls/hr IV Q12H CARLOTA Albumin Human (Kedbumin 25 %) 100 mls @ 100 mls/hr IV Q6H CARLOTA Stop: 04/02/24 10:14 Home Medications ?Medication ?Instructions ?Recorded ?Confirmed ?Last Taken ?Type acetaminophen 325 mg capsule 650 mg PO Q6H PRN Mild Pain (Scale 10/05/23 11/26/23 Unknown History (Tylenol) Score 1-4) acetaminophen 650 mg rectal 650 mg HI Q6H PRN Fever Or Pain 10/05/23 11/26/23 Unknown History suppository bisacodyl 10 mg rectal suppository 10 mg HI DAILY PRN Constipation 10/05/23 11/26/23 Unknown History (Gentle Laxative (bisacodyl)) cholecalciferol (vitamin D3) 10 20 mcg PO DAILY 10/05/23 11/26/23 Unknown History mcg (400 unit) capsule ferrous sulfate 325 mg (65 mg 325 mg PO BID 10/05/23 11/26/23 Unknown History iron) tablet finasteride 5 mg tablet 5 mg PO DAILY 10/05/23 11/26/23 Unknown History levetiracetam 500 mg tablet 500 mg PO BID 10/05/23 11/26/23 Unknown History lidocaine 5 % topical patch 1 patch topical DAILY 10/05/23 11/26/23 Unknown History (Lidoderm) metoprolol tartrate 25 mg tablet 12.5 mg PO BID 10/05/23 11/26/23 Unknown History mirtazapine 15 mg tablet 15 mg PO BEDTIME 10/05/23 11/26/23 Unknown History naloxone 0.4 mg/mL injection 0.4 mg subcut Q2M PRN Opioid 10/05/23 11/26/23 Unknown History solution Overdose oxybutynin chloride 5 mg tablet 5 mg PO Q8H PRN Bladder Spasms 10/05/23 11/26/23 Unknown History pantoprazole 40 mg tablet,delayed 40 mg PO DAILY 10/05/23 11/26/23 Unknown History release polyethylene glycol 3350 17 17 g PO DAILY PRN Constipation 10/05/23 11/26/23 Unknown History gram/dose oral powder potassium chloride 20 mEq 20 meq PO DAILY 10/05/23 11/26/23 Unknown History tablet,extended release ramelteon 8 mg tablet 8 mg PO BEDTIME 10/05/23 11/26/23 Unknown History roflumilast 500 mcg tablet 500 mcg PO DAILY 10/05/23 11/26/23 Unknown History sennosides 8.6 mg-docusate sodium 1 tab-cap PO BID 10/05/23 11/26/23 Unknown History 50 mg capsule (Senna Plus) sucralfate 1 gram tablet 1 g PO QID 10/05/23 11/26/23 Unknown History tamsulosin 0.4 mg capsule 0.4 mg PO DAILY 10/05/23 11/26/23 Unknown History tizanidine 2 mg tablet 2 mg PO Q8H PRN Spasms 10/05/23 11/26/23 Unknown History albuterol sulfate 90 mcg/actuation 2 puff inhalation Q6H PRN Wheezing 11/26/23 11/26/23 Unknown History aerosol inhaler gabapentin 400 mg capsule 400 mg PO BID 11/26/23 11/26/23 Unknown History revefenacin 175 mcg/3 mL solution 175 mcg inhalation DAILY 11/26/23 11/26/23 Unknown History for nebulization (Wilder) rosuvastatin 10 mg tablet 10 mg PO DAILY 11/26/23 11/26/23 Unknown History tizanidine 2 mg tablet 2 mg PO Q8H PRN Muscle Spasm 11/26/23 11/26/23 Unknown History Physical Exam 2 Vital Signs: Vital Signs: Last Vital Signs Temp 94.5 F L 04/01/24 15:31 Pulse 85 04/01/24 15:31 Resp 13 04/01/24 15:31 BP 137/70 04/01/24 15:31 Pulse Ox 91 L 04/01/24 15:31 O2 Del Method Room Air 04/01/24 15:31 FiO2 100 04/01/24 14:01 BMI result Body Mass Index 24.3 Const: General: no acute distress and other (Sedated on ventilatory support) Eyes: Sclerae: sclerae normal EOM: EOMs intact bilaterally Neck: Neck: Yes no lymphadenopathy, Yes trachea midline and Yes supple Resp: Auscultation: crackles (Bibasilar) Cardio: Rate: regular rate Rhythm: regular rhythm Heart sounds: no gallops, no murmurs and no rubs GI: Other: Midline hernia Palpation (GI): Soft to palpation and Other GI palpation findings present ( Nontender) Auscultation: normal bowel sounds Extrem: General: Yes no pedal edema, No clubbing and No cyanosis Results Labs 04/01/24 14:08 04/01/24 14:07 Labs: Laboratory Results - last 24 hr 04/01/24 04/01/24 04/01/24 13:41 14:04 14:05 MCV MCH MCHC RDW Plt Count MPV Immature Gran % (Auto) Neut % (Auto) Lymph % (Auto) [place] % (Auto) Eos % (Auto) Baso % (Auto) Lymph # (Auto) [place] # (Auto) Eos # (Auto) Baso # (Auto) Abs Immat Gran (auto) Absolute Neuts (auto) Absolute Nucleated RBC Nucleated RBC % (auto) Smear Tech's Comments Hold Purple Top SEE NOTE PT INR APTT O2 Saturation ABG pH at Pt Temp ABG pCO2 at Pt Temp ABG pO2 at Pt Temp ABG HCO3 ABG Base Excess (Actual) VBG pH VBG pCO2 VBG pO2 VBG HCO3 VBG O2 Saturation VBG Base Excess Anion Gap Estim Creat Clear Calc Estimated GFR POC Glucose 146 H Random Glucose Lactic Acid 1.2 Calcium Magnesium Total Bilirubin AST ALT Alkaline Phosphatase Troponin I High Sens Total Protein Albumin Lipase Urine Color Urine Appearance Urine pH Ur Specific [place] Urine Protein Urine Glucose (UA) Urine Ketones Urine Blood Urine Nitrite Ur Leukocyte Esterase Urine RBC Urine WBC Ur Squamous Epith Cells Urine Bacteria Hyaline Casts Urine Opiates Screen Ur Buprenorphine Scrn Ur Oxycodone Screen Urine Methadone Screen Urine Fentanyl Screen Ur Barbiturates Screen Ur Phencyclidine Scrn Ur Amphetamines Screen U Benzodiazepines Scrn Urine Cocaine Screen U Marijuana (THC) Screen 04/01/24 04/01/24 04/01/24 14:07 14:08 14:14 MCV 91.3 MCH 29.2 MCHC 32.0 RDW 13.8 Plt Count 73 L D MPV 9.3 L Immature Gran % (Auto) 0.5 H Neut % (Auto) 50.6 Lymph % (Auto) 35.3 [place] % (Auto) 8.9 Eos % (Auto) 4.2 H Baso % (Auto) 0.5 Lymph # (Auto) 0.7 L [place] # (Auto) 0.2 Eos # (Auto) 0.1 Baso # (Auto) 0.0 Abs Immat Gran (auto) 0.01 Absolute Neuts (auto) 1.0 L Absolute Nucleated RBC 0.000 Nucleated RBC % (auto) 0.0 Smear Tech's Comments VERIFIED Hold Purple Top PT 13.0 H INR 1.1 APTT 41.7 H D O2 Saturation ABG pH at Pt Temp ABG pCO2 at Pt Temp ABG pO2 at Pt Temp ABG HCO3 ABG Base Excess (Actual) VBG pH 7.29 L VBG pCO2 53 VBG pO2 77 VBG HCO3 26 VBG O2 Saturation 92.0 VBG Base Excess -0.5 Anion Gap 8 L Estim Creat Clear Calc 33.7 Estimated GFR 38 POC Glucose Random Glucose 150 H Lactic Acid Calcium 7.8 L D Magnesium 1.7 Total Bilirubin 0.4 AST 19 ALT < 6 Alkaline Phosphatase 75 Troponin I High Sens 2.7 Total Protein 5.8 L Albumin 3.1 L Lipase < 4 L Urine Color Urine Appearance Urine pH Ur Specific [place] Urine Protein Urine Glucose (UA) Urine Ketones Urine Blood Urine Nitrite Ur Leukocyte Esterase Urine RBC Urine WBC Ur Squamous Epith Cells Urine Bacteria Hyaline Casts Urine Opiates Screen Ur Buprenorphine Scrn Ur Oxycodone Screen Urine Methadone Screen Urine Fentanyl Screen Ur Barbiturates Screen Ur Phencyclidine Scrn Ur Amphetamines Screen U Benzodiazepines Scrn Urine Cocaine Screen U Marijuana (THC) Screen 04/01/24 04/01/24 14:47 15:26 MCV MCH MCHC RDW Plt Count MPV Immature Gran % (Auto) Neut % (Auto) Lymph % (Auto) [place] % (Auto) Eos % (Auto) Baso % (Auto) Lymph # (Auto) [place] # (Auto) Eos # (Auto) Baso # (Auto) Abs Immat Gran (auto) Absolute Neuts (auto) Absolute Nucleated RBC Nucleated RBC % (auto) Smear Tech's Comments Hold Purple Top PT INR APTT O2 Saturation 78.0 ABG pH at Pt Temp 7.27 L ABG pCO2 at Pt Temp 55 H ABG pO2 at Pt Temp 50 L* ABG HCO3 26 ABG Base Excess (Actual) -1.5 VBG pH VBG pCO2 VBG pO2 VBG HCO3 VBG O2 Saturation VBG Base Excess Anion Gap Estim Creat Clear Calc Estimated GFR POC Glucose Random Glucose Lactic Acid Calcium Magnesium Total Bilirubin AST ALT Alkaline Phosphatase Troponin I High Sens Total Protein Albumin Lipase Urine Color Yellow Urine Appearance Clear Urine pH 5.5 Ur Specific [place] 1.010 Urine Protein Trace Urine Glucose (UA) Negative Urine Ketones Negative Urine Blood Negative Urine Nitrite Negative Ur Leukocyte Esterase Small (1+) H Urine RBC 0-2 Urine WBC 0-5 Ur Squamous Epith Cells 0-2 Urine Bacteria None Seen Hyaline Casts 0-2 Urine Opiates Screen Not Detected Ur Buprenorphine Scrn Not Detected Ur Oxycodone Screen Positive H Urine Methadone Screen Not Detected Urine Fentanyl Screen Not Detected Ur Barbiturates Screen Not Detected Ur Phencyclidine Scrn Not Detected Ur Amphetamines Screen Not Detected U Benzodiazepines Scrn Not Detected Urine Cocaine Screen Not Detected U Marijuana (THC) Screen Not Detected Imaging Radiologist's Impressions: Impressions Chest X-Ray 04/01/24 13:50 IMPRESSION: Endotracheal tube 2.8 cm above rosemary. No acute disease. Electronically signed by: Keanu Ponce MD 04/01/2024 02:26 PM [facility] Assessment and Plan (1) Pulmonary aspiration: Status: Acute (2) Acute respiratory failure with hypoxia: Status: Acute (3) Alzheimers disease: Status: Acute Plan Assessment: 73-year-old gentleman admitted with acute hypoxic respiratory failure requiring intubation ventilatory support secondary to aspiration of food Plan: Neuro: No acute issues. CT head is pending. Cardiac: Pressor requirement secondary to sedation, continue to titrate off as tolerated. Pulmonary: Acute hypoxic respiratory failure secondary to pulmonary aspiration requiring ventilatory support. Continue to titrate off as tolerated. Underlying COPD. Renal: No acute issues. Endo: No acute issues. GI: No acute issues. ID: Empiric coverage for pulmonary aspiration. Heme/Onc: No acute issues. Psych: No acute issues. Miscellaneous: No acute issues. Prophylaxis: Heparin, famotidine Diet: NPO Critical care time spent: 60 minutes
--- NOTE | 2024-04-01 16:00 | PC.NURSE ---
Pt arrived to ED from [facility] unresponsive, Dr. Jackson immediately to bedside, patient sating well but unable to manage airway/ blood pressure soft. Decision to intubate made, patient intubated w/ RT at bedside w/o issue. Pt. difficult stick, IO access in L marion obtained in order for intubation induction. BPs initially soft, levophed started. Fentanyl gtt started for sedation. Patient's port in R chest accessed, Triple lumen R Femoral line place by provider. 16F temp sensing rosales placed without issue. Pt. transported to CT for brain CT, then transported to unit. RN to RN phone report given to Justin, all questions answered. Patient transported to ICU without issue w/ RT Christiano.
[2024-04-01] MEDS: Heparin Sodium,Porcine 5,000 UNIT/ML VIAL 5000 UNIT SUBCUT ×2 (16:06→23:23)
[2024-04-01] MEDS: Ampicillin Sodium/Sulbactam Na 3 GM in 0.9 % Sodium Chloride 100 ML IV (16:07)
[2024-04-01] MEDS: propofoL 1,000 MG/100 ML VIAL 12.28 MG IVCONT (16:07)
[2024-04-01] MEDS: Albumin Human 25 % 100 ML IV ×2 (16:07→21:00)
--- NOTE | 2024-04-01 16:26 | PC.NURSE ---
late entry patient initially weighed during intubation, reweighed BEFORE LEVOPHED was hung, 66.3. MEDS dosed based off reweigh.
--- NOTE | 2024-04-01 16:28 | PC.NURSE ---
Addendum entered by Claire Hernandez RN 04/01/24 16:33: Dual RN waste performed with Bronwyn Sutton RN- 87cc fentanyl wasted. Original Note: Patient arrived to ICU via stretcher with transport, ED RN Lou & RT. Patient trasnferred to ICU bed without incident. Fent gtt administering on pump at 25mcg. Dr Flaherty at bedside - VO stop Fent gtt & switch to Prop gtt per JUL. Fent gtt stoped and Propofol gtt started at 1606. Approx 87cc of Fent gtt wasted w/ secondary RN Claire Hernandez as witness.
--- NOTE | 2024-04-01 16:41 | PC.NURSE ---
patient arrived to unit via stretcher, patient noted to be hypothermic at 93.9 core temp, charli hugger appplied.
[2024-04-01] MEDS: Lactated Ringers 1,000 ML 999 ML IV ×2 (17:19→17:55)
--- NOTE | 2024-04-01 17:25 | PHA.MEDREC ---
Addendum entered by Maicol Adan RPh 04/01/24 17:39: Med rec reviewed Original Note: Pharmacy Consult ? Medication Reconciliation Pharmacy has completed the medication reconciliation. Confirmed medications with list from [facility].
[2024-04-01 19:30] LABS: VBG Base Excess -1.2 mmol/L; VBG HCO3 23 mmol/L (22-26); VBG pCO2 39 mmHg; VBG pH 7.37 (7.32-7.43); VBG pO2 53 mmHg
[2024-04-01 20:10] LABS: Anion Gap 12 (12-20); Blood Urea Nitrogen 27 mg/dL (9-16); Calcium 8.1 mg/dL (8.4-10.2); Carbon Dioxide 22 mmol/L (22-29); Chloride 109 mmol/L (96-108); Estimated Glomerular Filt Rate 40; Glucose Random 117 mg/dL (60-115); Potassium 4.2 mmol/L (3.3-5.1); Sodium 139 mmol/L (135-145)
[2024-04-01 20:13] LABS: Anion Gap 12 (12-20); Blood Urea Nitrogen 27 mg/dL (9-16); Calcium 8.3 mg/dL (8.4-10.2); Carbon Dioxide 22 mmol/L (22-29); Chloride 109 mmol/L (96-108); Creatinine Clr Calc Pharmacy 33.4; Estimated Glomerular Filt Rate 38; Glucose Random 118 mg/dL (60-115); Magnesium 1.7 mg/dL (1.6-2.6); Phosphorus 2.8 mg/dL (2.7-4.5); Potassium 4.3 mmol/L (3.3-5.1); Sodium 139 mmol/L (135-145)
[2024-04-01 20:17] LABS: B Type Natriuretic Peptide 90 pg/mL (<100)
[2024-04-01 21:07] LABS: Venous Blood Gas Refer to POC result
[2024-04-01 22:21] LABS: ABG Refer to POC result
[2024-04-01] MEDS: Chlorhexidine Gluc Oral Rinse 15 ML MOUTHWASH BUCCAL (23:23)
[2024-04-01] MEDS: propofoL 1,000 MG/100 ML VIAL 8.18 MG IVCONT (23:24)
[2024-04-01 23:32] LABS: VBG Base Excess 2.5 mmol/L; VBG HCO3 24 mmol/L (22-26); VBG pCO2 27 mmHg; VBG pH 7.55 (7.32-7.43); VBG pO2 134 mmHg
[2024-04-01 23:32] LABS: Venous Blood Gas Refer to POC result
[2024-04-02] VITALS (36 sets, daily range): BP systolic 88–182; BP diastolic 50–101; PULSE 67–102; RESP 15–25; TEMP 34.9–38.4; O2SAT 88–925; BMI 24.3
[2024-04-02] MEDS: Albumin Human 25 % 100 ML IV ×2 (03:15→07:35)
[2024-04-02] MEDS: Ampicillin Sodium/Sulbactam Na 3 GM in 0.9 % Sodium Chloride 100 ML IV ×2 (03:17→17:27)
[2024-04-02 05:36] LABS: VBG Base Excess 4.9 mmol/L; VBG HCO3 27 mmol/L (22-26); VBG pCO2 31 mmHg; VBG pH 7.53 (7.32-7.43); VBG pO2 36 mmHg
[2024-04-02 05:39] LABS: Venous Blood Gas Refer to POC result
[2024-04-02 05:40] LABS: MANUAL DIFF FLAG NO
[2024-04-02 05:41] LABS: Basophils Percent Auto 0.6 % (0-2); Eosinophils Absolute Auto 0.1 X10*3/uL (0.0-0.4); Eosinophils Percent Auto 2.4 % (0-4); Hematocrit 28.6 % (42.0-52.0); Hemoglobin 9.4 g/dl (14.0-18.0); Imm Gran Abs Auto 0.01 X10*3/uL (0.00-0.03); Imm Gran Pct Auto 0.3 % (0.0-0.4); Lymphocytes Absolute Auto 0.6 X10*3/uL (1.2-4.9); Lymphocytes Percent Auto 18.5 % (20-40); Mean Corpuscular HGB Conc 32.9 g/dl (31.0-36.0); Mean Corpuscular Hemoglobin 29.3 pg (27.0-33.0); Mean Corpuscular Volume 89.1 fL (80.0-98.0); Mean Platelet Volume 9.8 fL (9.4-12.4); Monocytes Absolute Auto 0.4 X10*3/uL (0.1-1.2); Monocytes Percent Auto 11.6 % (2-11); Neutrophils Absolute Auto 2.2 x10*3/uL (2.0-8.3); Neutrophils Percent Auto 66.6 % (45-73); Red Blood Count 3.21 X10*6/uL (4.60-5.80); Red Cell Distribution Width 13.7 % (11.0-16.0); White Blood Count 3.3 X10*3/uL (4.8-10.8)
[2024-04-02 05:43] LABS: Platelet Count 89 X10*3/uL (160-400)
[2024-04-02 05:55] LABS: Albumin Level 3.9 g/dL (3.5-5.0); Anion Gap 16 (12-20); Blood Urea Nitrogen 25 mg/dL (9-16); Calcium 9.1 mg/dL (8.4-10.2); Carbon Dioxide 22 mmol/L (22-29); Chloride 110 mmol/L (96-108); Creatinine Clr Calc Pharmacy 29.9; Estimated Glomerular Filt Rate 33; Glucose Random 75 mg/dL (60-115); Magnesium 1.7 mg/dL (1.6-2.6); Phosphorus 1.8 mg/dL (2.7-4.5); Potassium 3.7 mmol/L (3.3-5.1); Sodium 144 mmol/L (135-145)
[2024-04-02] MEDS: propofoL 1,000 MG/100 ML VIAL 12.28 MG IVCONT (06:51)
[2024-04-02] MEDS: Famotidine/PF 20 MG/2 ML VIAL IVPUSH (07:24)
[2024-04-02] MEDS: Chlorhexidine Gluc Oral Rinse 15 ML MOUTHWASH BUCCAL ×2 (07:24→17:27)
[2024-04-02] MEDS: Heparin Sodium,Porcine 5,000 UNIT/ML VIAL 5000 UNIT SUBCUT ×2 (07:24→17:28)
[2024-04-02] MEDS: Potassium Phosphate/NS 15 MMOL/250 ML PLAST..BAG 62.5 MMOL IV (07:34)
--- NOTE | 2024-04-02 09:34 | P.CDIM_ITS ---
PROVIDER RESPONSE TEXT: To clarify, the appropriate diagnosis supported by the clinical indicators: Aspiration Pneumonitis QUERY TEXT: PHYSICIAN'S DOCUMENTATION REQUEST Date of Query: 04/02/2024 09:05 AM EST Patient Name: Kurt Liu Admit Date: 04/01/2024 Dear Ronny Flaherty MD, A review of the medical record indicates additional documentation may be needed. Please review below and update the documentation accordingly. Clinical Indicators: ED 04/01 - Patient presented to the emergency department in respiratory failure intubated on arrival, we will do a chest x-ray lab reassessed the most likely aspiration pneumonitis. ICU H&P - Unresponsive after lunch, brought to ED where he was intubated with food particles taken ou t during intubation. Acute hypoxic respiratory failure secondary to pulmonary aspiration requiring ventilatory support. ID: Empiric coverage for pulmonary aspiration. Based on the above, could you clarify in the Progress Notes further specificity regarding the most li rustam type of pulmonary aspiration noted within the medical record: Aspiration Pneumonia Aspiration Pneumonitis Other please specify Other (explain) Clinically unable to determine (explain) Thank you, Ramona Choi, CCS, CDIS Use of terms such as suspected, likely, concern for, or probable (associated with a specific diagnosi s that is being evaluated, monitored, or treated as if it exists) are acceptable and can be coded in the inpatient se tting, when documented at the time of discharge. Please use your independent medical judgment in providing your response. THIS QUERY IS PART OF THE PERMANENT MEDICAL RECORD
--- NOTE | 2024-04-02 09:34 | P.CDIM_ITS ---
PROVIDER RESPONSE TEXT: To clarify, the appropriate diagnosis supported by the clinical indicators: Toxic metabolic QUERY TEXT: PHYSICIAN'S DOCUMENTATION REQUEST Date of Query: 04/02/2024 07:59 AM EST Patient Name: Kurt Liu Admit Date: 04/01/2024 Dear Ronny Flaherty MD, A review of the medical record indicates additional documentation may be needed. Please review below and update the documentation accordingly. Clinical Indicators: ED 04/01 - [facility] from [facility] with altered mental status and vomiting. ICU H&P: Chief complaint: Hypoxia, aspiration, encephalopathy Review of systems: Unobtainable due to endotracheal tube and unobtainable due to mental condition. Based on the above, please further specify, in the Progress Notes, the known or suspected type of the documented encephalopathy: Metabolic Toxic Toxic metabolic Other type of encephalopathy Other (explain) Clinically unable to determine (explain) Thank you, aRmona Choi, CCS, CDIS Use of terms such as suspected, likely, concern for, or probable (associated with a specific diagnosi s that is being evaluated, monitored, or treated as if it exists) are acceptable and can be coded in the inpatient se tting, when documented at the time of discharge. Please use your independent medical judgment in providing your response. THIS QUERY IS PART OF THE PERMANENT MEDICAL RECORD
--- NOTE | 2024-04-02 09:38 | MHC.CLN ---
PT MAY REQUIRE TF FOR NUTRITION SUPPORT R/T PROLONGED NPO STATUS PT IS INTUBATED AND SEDATED PT IS CURRENTLY NPO DISCUSSED AT ROUNDS WITH MD RECOMMEND TF JEVITY 1.0 AT MAX GOAL RATE 70ML/HR TO PROVIDE 1780KCALS (1996KCALS WITH SEDATION; 29KCALS/KG), 74G PROTEIN (1.09G/KG), 1403ML FOLLOWING FOR DIET ADVANCEMENT SEE ALSO FULL CLINICAL NUTRITION ASSESSMENT
--- NOTE | 2024-04-02 10:38 | P.PNCC_ITS ---
Subjective Subjective Date of Service: 04/02/24 Interval History: 73-year-old gentleman with underlying Alzheimer's dementia, COPD, BPH, esophageal cancer with port in place, CKD, being admitted for acute hypoxia and pulmonary aspiration. Patient was noted to be unresponsive right after lunch in his facility and brought to emergency room for evaluation where he was intubated with food particles taken out during intubation. He required pressor support secondary to need for sedation while on ventilatory support. His CT head is pending. He has been admitted to the intensive care unit. No events overnight. FiO2 requirements improved to baseline overnight. Titrated off pressors. Critical Care Time (minutes): 60 Physical Exam 2 Vital Signs: Vital Signs: Last Vital Signs Temp 99.1 F 04/02/24 10:00 Pulse 72 04/02/24 10:00 Resp 18 04/02/24 10:00 BP 119/62 04/02/24 10:00 Pulse Ox 90 L 04/02/24 10:00 O2 Del Method Mechanical Ventil ation 04/02/24 10:00 FiO2 21 04/02/24 10:25 BMI result Body Mass Index 24.3 Const: General: no acute distress and other (Sedated on the vent) Eyes: Sclerae: sclerae normal EOM: EOMs intact bilaterally Neck: Neck: Yes no lymphadenopathy, Yes trachea midline and Yes supple Resp: Auscultation: clear to auscultation bilaterally Cardio: Rate: regular rate Rhythm: regular rhythm Heart sounds: no gallops, no murmurs and no rubs GI: Palpation (GI): Soft to palpation and Other GI palpation findings present ( Nontender) Auscultation: normal bowel sounds Extrem: General: Yes no pedal edema, No clubbing and No cyanosis Objective Data Labs 04/02/24 05:12 04/02/24 05:13 Labs: Laboratory Results - last 24 hr 04/01/24 04/01/24 04/01/24 13:41 14:04 14:05 WBC RBC Hgb Hct MCV MCH MCHC RDW Plt Count MPV Immature Gran % (Auto) Neut % (Auto) Lymph % (Auto) [place] % (Auto) Eos % (Auto) Baso % (Auto) Lymph # (Auto) [place] # (Auto) Eos # (Auto) Baso # (Auto) Abs Immat Gran (auto) Absolute Neuts (auto) Absolute Nucleated RBC Nucleated RBC % (auto) Smear Tech's Comments Smear Path Review Hold Purple Top SEE NOTE PT INR APTT O2 Saturation ABG pH at Pt Temp ABG pCO2 at Pt Temp ABG pO2 at Pt Temp ABG HCO3 ABG Base Excess (Actual) VBG pH VBG pCO2 VBG pO2 VBG HCO3 VBG O2 Saturation VBG Base Excess Sodium Potassium Chloride Carbon Dioxide Anion Gap BUN Creatinine Estim Creat Clear Calc Estimated GFR POC Glucose 146 H Random Glucose Lactic Acid 1.2 Calcium Phosphorus Magnesium Total Bilirubin AST ALT Alkaline Phosphatase Troponin I High Sens B-Natriuretic Peptide Total Protein Albumin Lipase Urine Color Urine Appearance Urine pH Ur Specific [place] Urine Protein Urine Glucose (UA) Urine Ketones Urine Blood Urine Nitrite Ur Leukocyte Esterase Urine RBC Urine WBC Ur Squamous Epith Cells Urine Bacteria Hyaline Casts Urine Opiates Screen Ur Buprenorphine Scrn Ur Oxycodone Screen Urine Methadone Screen Urine Fentanyl Screen Ur Barbiturates Screen Ur Phencyclidine Scrn Ur Amphetamines Screen U Benzodiazepines Scrn Urine Cocaine Screen U Marijuana (THC) Screen 04/01/24 04/01/24 04/01/24 14:07 14:08 14:14 WBC 1.9 L RBC 3.46 L Hgb 10.1 L Hct 31.6 L MCV 91.3 MCH 29.2 MCHC 32.0 RDW 13.8 Plt Count 73 L D MPV 9.3 L Immature Gran % (Auto) 0.5 H Neut % (Auto) 50.6 Lymph % (Auto) 35.3 [place] % (Auto) 8.9 Eos % (Auto) 4.2 H Baso % (Auto) 0.5 Lymph # (Auto) 0.7 L [place] # (Auto) 0.2 Eos # (Auto) 0.1 Baso # (Auto) 0.0 Abs Immat Gran (auto) 0.01 Absolute Neuts (auto) 1.0 L Absolute Nucleated RBC 0.000 Nucleated RBC % (auto) 0.0 Smear Tech's Comments VERIFIED Smear Path Review SEE NOTE Hold Purple Top PT 13.0 H INR 1.1 APTT 41.7 H D O2 Saturation ABG pH at Pt Temp ABG pCO2 at Pt Temp ABG pO2 at Pt Temp ABG HCO3 ABG Base Excess (Actual) VBG pH 7.29 L VBG pCO2 53 VBG pO2 77 VBG HCO3 26 VBG O2 Saturation 92.0 VBG Base Excess -0.5 Sodium 139 Potassium 4.0 Chloride 110 H Carbon Dioxide 25 Anion Gap 8 L BUN 27 H Creatinine 1.76 H Estim Creat Clear Calc 33.7 Estimated GFR 38 POC Glucose Random Glucose 150 H Lactic Acid Calcium 7.8 L D Phosphorus Magnesium 1.7 Total Bilirubin 0.4 AST 19 ALT < 6 Alkaline Phosphatase 75 Troponin I High Sens 2.7 B-Natriuretic Peptide Total Protein 5.8 L Albumin 3.1 L Lipase < 4 L Urine Color Urine Appearance Urine pH Ur Specific [place] Urine Protein Urine Glucose (UA) Urine Ketones Urine Blood Urine Nitrite Ur Leukocyte Esterase Urine RBC Urine WBC Ur Squamous Epith Cells Urine Bacteria Hyaline Casts Urine Opiates Screen Ur Buprenorphine Scrn Ur Oxycodone Screen Urine Methadone Screen Urine Fentanyl Screen Ur Barbiturates Screen Ur Phencyclidine Scrn Ur Amphetamines Screen U Benzodiazepines Scrn Urine Cocaine Screen U Marijuana (THC) Screen 04/01/24 04/01/24 04/01/24 14:47 15:26 19:07 WBC RBC Hgb Hct MCV MCH MCHC RDW Plt Count MPV Immature Gran % (Auto) Neut % (Auto) Lymph % (Auto) [place] % (Auto) Eos % (Auto) Baso % (Auto) Lymph # (Auto) [place] # (Auto) Eos # (Auto) Baso # (Auto) Abs Immat Gran (auto) Absolute Neuts (auto) Absolute Nucleated RBC Nucleated RBC % (auto) Smear Tech's Comments Smear Path Review Hold Purple Top PT INR APTT O2 Saturation 78.0 ABG pH at Pt Temp 7.27 L ABG pCO2 at Pt Temp 55 H ABG pO2 at Pt Temp 50 L* ABG HCO3 26 ABG Base Excess (Actual) -1.5 VBG pH VBG pCO2 VBG pO2 VBG HCO3 VBG O2 Saturation VBG Base Excess Sodium 139 Potassium Chloride Carbon Dioxide Anion Gap BUN Creatinine Estim Creat Clear Calc Estimated GFR POC Glucose Random Glucose Lactic Acid Calcium Phosphorus Magnesium Total Bilirubin AST ALT Alkaline Phosphatase Troponin I High Sens B-Natriuretic Peptide Total Protein Albumin Lipase Urine Color Yellow Urine Appearance Clear Urine pH 5.5 Ur Specific [place] 1.010 Urine Protein Trace Urine Glucose (UA) Negative Urine Ketones Negative Urine Blood Negative Urine Nitrite Negative Ur Leukocyte Esterase Small (1+) H Urine RBC 0-2 Urine WBC 0-5 Ur Squamous Epith Cells 0-2 Urine Bacteria None Seen Hyaline Casts 0-2 Urine Opiates Screen Not Detected Ur Buprenorphine Scrn Not Detected Ur Oxycodone Screen Positive H Urine Methadone Screen Not Detected Urine Fentanyl Screen Not Detected Ur Barbiturates Screen Not Detected Ur Phencyclidine Scrn Not Detected Ur Amphetamines Screen Not Detected U Benzodiazepines Scrn Not Detected Urine Cocaine Screen Not Detected U Marijuana (THC) Screen Not Detected 04/01/24 04/01/24 04/01/24 19:07 19:07 19:07 WBC RBC Hgb Hct MCV MCH MCHC RDW Plt Count MPV Immature Gran % (Auto) Neut % (Auto) Lymph % (Auto) [place] % (Auto) Eos % (Auto) Baso % (Auto) Lymph # (Auto) [place] # (Auto) Eos # (Auto) Baso # (Auto) Abs Immat Gran (auto) Absolute Neuts (auto) Absolute Nucleated RBC Nucleated RBC % (auto) Smear Tech's Comments Smear Path Review Hold Purple Top PT INR APTT O2 Saturation ABG pH at Pt Temp ABG pCO2 at Pt Temp ABG pO2 at Pt Temp ABG HCO3 ABG Base Excess (Actual) VBG pH VBG pCO2 VBG pO2 VBG HCO3 VBG O2 Saturation VBG Base Excess Sodium 139 Potassium 4.2 4.3 Chloride 109 H 109 H Carbon Dioxide 22 Anion Gap BUN Creatinine Estim Creat Clear Calc Estimated GFR POC Glucose Random Glucose Lactic Acid Calcium Phosphorus Magnesium Total Bilirubin AST ALT Alkaline Phosphatase Troponin I High Sens B-Natriuretic Peptide Total Protein Albumin Lipase Urine Color Urine Appearance Urine pH Ur Specific [place] Urine Protein Urine Glucose (UA) Urine Ketones Urine Blood Urine Nitrite Ur Leukocyte Esterase Urine RBC Urine WBC Ur Squamous Epith Cells Urine Bacteria Hyaline Casts Urine Opiates Screen Ur Buprenorphine Scrn Ur Oxycodone Screen Urine Methadone Screen Urine Fentanyl Screen Ur Barbiturates Screen Ur Phencyclidine Scrn Ur Amphetamines Screen U Benzodiazepines Scrn Urine Cocaine Screen U Marijuana (THC) Screen 04/01/24 04/01/24 04/01/24 19:07 19:07 19:07 WBC RBC Hgb Hct MCV MCH MCHC RDW Plt Count MPV Immature Gran % (Auto) Neut % (Auto) Lymph % (Auto) [place] % (Auto) Eos % (Auto) Baso % (Auto) Lymph # (Auto) [place] # (Auto) Eos # (Auto) Baso # (Auto) Abs Immat Gran (auto) Absolute Neuts (auto) Absolute Nucleated RBC Nucleated RBC % (auto) Smear Tech's Comments Smear Path Review Hold Purple Top PT INR APTT O2 Saturation ABG pH at Pt Temp ABG pCO2 at Pt Temp ABG pO2 at Pt Temp ABG HCO3 ABG Base Excess (Actual) VBG pH VBG pCO2 VBG pO2 VBG HCO3 VBG O2 Saturation VBG Base Excess Sodium Potassium Chloride Carbon Dioxide 22 Anion Gap 12 12 BUN 27 H 27 H Creatinine 1.68 H Estim Creat Clear Calc Estimated GFR POC Glucose Random Glucose Lactic Acid Calcium Phosphorus Magnesium Total Bilirubin AST ALT Alkaline Phosphatase Troponin I High Sens B-Natriuretic Peptide Total Protein Albumin Lipase Urine Color Urine Appearance Urine pH Ur Specific [place] Urine Protein Urine Glucose (UA) Urine Ketones Urine Blood Urine Nitrite Ur Leukocyte Esterase Urine RBC Urine WBC Ur Squamous Epith Cells Urine Bacteria Hyaline Casts Urine Opiates Screen Ur Buprenorphine Scrn Ur Oxycodone Screen Urine Methadone Screen Urine Fentanyl Screen Ur Barbiturates Screen Ur Phencyclidine Scrn Ur Amphetamines Screen U Benzodiazepines Scrn Urine Cocaine Screen U Marijuana (THC) Screen 04/01/24 04/01/24 04/01/24 19:07 19:07 19:07 WBC RBC Hgb Hct MCV MCH MCHC RDW Plt Count MPV Immature Gran % (Auto) Neut % (Auto) Lymph % (Auto) [place] % (Auto) Eos % (Auto) Baso % (Auto) Lymph # (Auto) [place] # (Auto) Eos # (Auto) Baso # (Auto) Abs Immat Gran (auto) Absolute Neuts (auto) Absolute Nucleated RBC Nucleated RBC % (auto) Smear Tech's Comments Smear Path Review Hold Purple Top PT INR APTT O2 Saturation ABG pH at Pt Temp ABG pCO2 at Pt Temp ABG pO2 at Pt Temp ABG HCO3 ABG Base Excess (Actual) VBG pH VBG pCO2 VBG pO2 VBG HCO3 VBG O2 Saturation VBG Base Excess Sodium Potassium Chloride Carbon Dioxide Anion Gap BUN Creatinine 1.76 H Estim Creat Clear Calc 35.0 33.4 Estimated GFR 40 38 POC Glucose Random Glucose 117 H Lactic Acid Calcium Phosphorus Magnesium Total Bilirubin AST ALT Alkaline Phosphatase Troponin I High Sens B-Natriuretic Peptide Total Protein Albumin Lipase Urine Color Urine Appearance Urine pH Ur Specific [place] Urine Protein Urine Glucose (UA) Urine Ketones Urine Blood Urine Nitrite Ur Leukocyte Esterase Urine RBC Urine WBC Ur Squamous Epith Cells Urine Bacteria Hyaline Casts Urine Opiates Screen Ur Buprenorphine Scrn Ur Oxycodone Screen Urine Methadone Screen Urine Fentanyl Screen Ur Barbiturates Screen Ur Phencyclidine Scrn Ur Amphetamines Screen U Benzodiazepines Scrn Urine Cocaine Screen U Marijuana (THC) Screen 04/01/24 04/01/24 04/01/24 19:07 19:07 19:20 WBC RBC Hgb Hct MCV MCH MCHC RDW Plt Count MPV Immature Gran % (Auto) Neut % (Auto) Lymph % (Auto) [place] % (Auto) Eos % (Auto) Baso % (Auto) Lymph # (Auto) [place] # (Auto) Eos # (Auto) Baso # (Auto) Abs Immat Gran (auto) Absolute Neuts (auto) Absolute Nucleated RBC Nucleated RBC % (auto) Smear Tech's Comments Smear Path Review Hold Purple Top PT INR APTT O2 Saturation ABG pH at Pt Temp ABG pCO2 at Pt Temp ABG pO2 at Pt Temp ABG HCO3 ABG Base Excess (Actual) VBG pH 7.37 VBG pCO2 39 VBG pO2 53 VBG HCO3 23 VBG O2 Saturation 84.0 VBG Base Excess -1.2 Sodium Potassium Chloride Carbon Dioxide Anion Gap BUN Creatinine Estim Creat Clear Calc Estimated GFR POC Glucose Random Glucose 118 H Lactic Acid Calcium 8.1 L 8.3 L Phosphorus 2.8 Magnesium 1.7 Total Bilirubin AST ALT Alkaline Phosphatase Troponin I High Sens B-Natriuretic Peptide 90 Total Protein Albumin Lipase Urine Color Urine Appearance Urine pH Ur Specific [place] Urine Protein Urine Glucose (UA) Urine Ketones Urine Blood Urine Nitrite Ur Leukocyte Esterase Urine RBC Urine WBC Ur Squamous Epith Cells Urine Bacteria Hyaline Casts Urine Opiates Screen Ur Buprenorphine Scrn Ur Oxycodone Screen Urine Methadone Screen Urine Fentanyl Screen Ur Barbiturates Screen Ur Phencyclidine Scrn Ur Amphetamines Screen U Benzodiazepines Scrn Urine Cocaine Screen U Marijuana (THC) Screen 04/01/24 04/02/24 04/02/24 23:27 05:12 05:13 WBC 3.3 L RBC 3.21 L Hgb 9.4 L Hct 28.6 L MCV 89.1 MCH 29.3 MCHC 32.9 RDW 13.7 Plt Count 89 L MPV 9.8 Immature Gran % (Auto) 0.3 Neut % (Auto) 66.6 Lymph % (Auto) 18.5 L [place] % (Auto) 11.6 H Eos % (Auto) 2.4 Baso % (Auto) 0.6 Lymph # (Auto) 0.6 L [place] # (Auto) 0.4 Eos # (Auto) 0.1 Baso # (Auto) 0.0 Abs Immat Gran (auto) 0.01 Absolute Neuts (auto) 2.2 Absolute Nucleated RBC 0.000 Nucleated RBC % (auto) 0.0 Smear Tech's Comments Smear Path Review Hold Purple Top PT INR APTT O2 Saturation ABG pH at Pt Temp ABG pCO2 at Pt Temp ABG pO2 at Pt Temp ABG HCO3 ABG Base Excess (Actual) VBG pH 7.55 H VBG pCO2 27 VBG pO2 134 VBG HCO3 24 VBG O2 Saturation 99.0 VBG Base Excess 2.5 Sodium 144 Potassium 3.7 Chloride 110 H Carbon Dioxide 22 Anion Gap 16 BUN 25 H Creatinine 1.97 H Estim Creat Clear Calc 29.9 Estimated GFR 33 POC Glucose Random Glucose 75 Lactic Acid Calcium 9.1 D Phosphorus 1.8 L Magnesium 1.7 Total Bilirubin AST ALT Alkaline Phosphatase Troponin I High Sens B-Natriuretic Peptide Total Protein Albumin 3.9 Lipase Urine Color Urine Appearance Urine pH Ur Specific [place] Urine Protein Urine Glucose (UA) Urine Ketones Urine Blood Urine Nitrite Ur Leukocyte Esterase Urine RBC Urine WBC Ur Squamous Epith Cells Urine Bacteria Hyaline Casts Urine Opiates Screen Ur Buprenorphine Scrn Ur Oxycodone Screen Urine Methadone Screen Urine Fentanyl Screen Ur Barbiturates Screen Ur Phencyclidine Scrn Ur Amphetamines Screen U Benzodiazepines Scrn Urine Cocaine Screen U Marijuana (THC) Screen 04/02/24 05:25 WBC RBC Hgb Hct MCV MCH MCHC RDW Plt Count MPV Immature Gran % (Auto) Neut % (Auto) Lymph % (Auto) [place] % (Auto) Eos % (Auto) Baso % (Auto) Lymph # (Auto) [place] # (Auto) Eos # (Auto) Baso # (Auto) Abs Immat Gran (auto) Absolute Neuts (auto) Absolute Nucleated RBC Nucleated RBC % (auto) Smear Tech's Comments Smear Path Review Hold Purple Top PT INR APTT O2 Saturation ABG pH at Pt Temp ABG pCO2 at Pt Temp ABG pO2 at Pt Temp ABG HCO3 ABG Base Excess (Actual) VBG pH 7.53 H VBG pCO2 31 VBG pO2 36 VBG HCO3 27 H VBG O2 Saturation 64.0 VBG Base Excess 4.9 Sodium Potassium Chloride Carbon Dioxide Anion Gap BUN Creatinine Estim Creat Clear Calc Estimated GFR POC Glucose Random Glucose Lactic Acid Calcium Phosphorus Magnesium Total Bilirubin AST ALT Alkaline Phosphatase Troponin I High Sens B-Natriuretic Peptide Total Protein Albumin Lipase Urine Color Urine Appearance Urine pH Ur Specific [place] Urine Protein Urine Glucose (UA) Urine Ketones Urine Blood Urine Nitrite Ur Leukocyte Esterase Urine RBC Urine WBC Ur Squamous Epith Cells Urine Bacteria Hyaline Casts Urine Opiates Screen Ur Buprenorphine Scrn Ur Oxycodone Screen Urine Methadone Screen Urine Fentanyl Screen Ur Barbiturates Screen Ur Phencyclidine Scrn Ur Amphetamines Screen U Benzodiazepines Scrn Urine Cocaine Screen U Marijuana (THC) Screen Progress Note: A&P Assessment and plan (1) Pulmonary aspiration: Status: Acute (2) CKD (chronic kidney disease), stage III: Status: Acute (3) Alzheimers disease: Status: Acute (4) COPD (chronic obstructive pulmonary disease): Status: Acute Plan Assessment: 73-year-old gentleman admitted with acute hypoxic respiratory failure requiring intubation ventilatory support secondary to aspiration of food Plan: Neuro: No acute issues. CT head without acute findings. Cardiac: Pressor requirement secondary to sedation, continue to titrate off as tolerated. Pulmonary: Acute hypoxic respiratory failure secondary to pulmonary aspiration requiring ventilatory support for airway protection. FiO2 requirements improved to baseline. Continue to titrate off as tolerated. Underlying COPD. Renal: No acute issues. Endo: No acute issues. GI: No acute issues. ID: Empiric coverage for pulmonary aspiration. Heme/Onc: No acute issues. Waxing and waning chronic thrombocytopenia. Psych: No acute issues. Miscellaneous: No acute issues. Prophylaxis: Heparin, famotidine Diet: NPO Critical care time spent: 60 minutes Quality Stroke Does the patient have a stroke diagnosis?: No VTE Prior VTE?: No VTE Risk Level:: Medical - moderate - high VTE Device Contraindication: Treatment Not Indicated VTE Drug Contraindication: N/A - Med Ordered
--- NOTE | 2024-04-02 14:44 | MHC.CM.PN ---
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 Discussion w/RN at [facility] notes: pt is A&Ox3, uses a walker and requires set up only for ADL's. He has no dietary restrictions and does not require supervision at meals. Pt has a HCP and MOLST on filed and verified w/pt. IMM in chart. BLS transport for return to [facility].
[2024-04-02 16:34] LABS: Adenovirus PCR Not Detected (Not Detect.); Bordetella parapertussis PCR Not Detected (Not Detect.); Bordetella pertussis PCR Not Detected (Not Detect.); Chlamydia pneumoniae PCR Not Detected (Not Detect.); Coronavirus 229E PCR Not Detected (Not Detect.); Coronavirus HKU1 PCR Not Detected (Not Detect.); Coronavirus NL63 PCR Not Detected (Not Detect.); Coronavirus OC43 PCR Not Detected (Not Detect.); Human metapneumovirus PCR Not Detected (Not Detect.); Influenza A PCR Not Detected (Not Detect.); Influenza B PCR Not Detected (Not Detect.); Mycoplasma pneumoniae PCR Not Detected (Not Detect.); Parainfluenza 1 PCR Not Detected (Not Detect.); Parainfluenza 2 PCR Not Detected (Not Detect.); Parainfluenza 3 PCR Not Detected (Not Detect.); Parainfluenza 4 PCR Not Detected (Not Detect.); RSV PCR Not Detected (Not Detect.); Rhino/Enterovirus PCR Not Detected (Not Detect.)
[2024-04-02 17:23] LABS: SARS-CoV-2 PCR Not Detected (Not Detect.)
[2024-04-02] MEDS: Acetaminophen 1,000 MG/100 ML PIGGYBACK 400 MG IV (21:59)
[2024-04-03] VITALS (19 sets, daily range): BP systolic 145–180; BP diastolic 58–88; PULSE 71–92; RESP 16–22; TEMP 36.5–38.4; O2SAT 88–97; BMI 22.9
[2024-04-03] MEDS: Ampicillin Sodium/Sulbactam Na 3 GM in 0.9 % Sodium Chloride 100 ML IV ×2 (04:09→15:04)
[2024-04-03] MEDS: Morphine Sulfate 2 MG/ML CARTRIDGE 0.5 MG IVPUSH (04:23)
[2024-04-03 05:12] LABS: Basophils Percent Auto 0.3 % (0-2); Eosinophils Absolute Auto 0.1 X10*3/uL (0.0-0.4); Eosinophils Percent Auto 0.8 % (0-4); Hematocrit 32.4 % (42.0-52.0); Imm Gran Abs Auto 0.03 X10*3/uL (0.00-0.03); Imm Gran Pct Auto 0.5 % (0.0-0.4); Lymphocytes Absolute Auto 0.4 X10*3/uL (1.2-4.9); Lymphocytes Percent Auto 6.8 % (20-40); MANUAL DIFF FLAG NO; Mean Corpuscular Hemoglobin 30.2 pg (27.0-33.0); Mean Platelet Volume 9.7 fL (9.4-12.4); Monocytes Absolute Auto 0.4 X10*3/uL (0.1-1.2); Monocytes Percent Auto 7.2 % (2-11); Neutrophils Absolute Auto 5.2 x10*3/uL (2.0-8.3); Neutrophils Percent Auto 84.4 % (45-73); Red Blood Count 3.64 X10*6/uL (4.60-5.80); White Blood Count 6.2 X10*3/uL (4.8-10.8)
[2024-04-03 05:13] LABS: Platelet Count 82 X10*3/uL (160-400)
[2024-04-03 05:14] LABS: VBG Base Excess 0.4 mmol/L; VBG HCO3 23 mmol/L (22-26); VBG pCO2 34 mmHg; VBG pH 7.44 (7.32-7.43); VBG pO2 41 mmHg
[2024-04-03 05:24] LABS: Venous Blood Gas Refer to POC result
[2024-04-03 05:38] LABS: Albumin Level 3.9 g/dL (3.5-5.0); Anion Gap 21 (12-20); Blood Urea Nitrogen 27 mg/dL (9-16); Carbon Dioxide 18 mmol/L (22-29); Chloride 110 mmol/L (96-108); Creatinine Clr Calc Pharmacy 35.1; Estimated Glomerular Filt Rate 40; Glucose Random 68 mg/dL (60-115); Magnesium 1.7 mg/dL (1.6-2.6); Phosphorus 3.5 mg/dL (2.7-4.5); Potassium 3.3 mmol/L (3.3-5.1); Sodium 146 mmol/L (135-145)
--- NOTE | 2024-04-03 06:37 | PC.NURSE ---
Niño removed at 0600, due to void at 1200 - condom catheter placed
[2024-04-03] MEDS: Potassium Chloride/H20 10 MEQ/100 ML PIGGYBACK 100 MEQ IV ×4 (08:19→11:35)
[2024-04-03] MEDS: Dextrose 5 % and Lactated Ring 1,000 ML 125 ML IVCONT (08:19)
[2024-04-03] MEDS: Metoprolol Tartrate 5 MG/5 ML VIAL IVPUSH ×2 (09:30→13:13)
--- NOTE | 2024-04-03 10:04 | MHC.CLN ---
F/U CURRENTLY NPO. EXTUBATED 04/02. ADM DX RESPIRATORY FAILURE DUE TO PULMONARY ASPIRATION. MONITOR FOR DIET ADVANCEMENT. FOLLOWING WITH TEAM.
--- NOTE | 2024-04-03 11:07 | MHC.CM.PN ---
Pt has been extubated and is on n/c O2. Plan is to transfer pt to medical floor for continued care. Pt is a LTC resident at [facility] and will return when medically stable. BLS transport. CM to follow.
--- NOTE | 2024-04-03 11:37 | P.PNCC_ITS ---
Subjective Subjective Date of Service: 04/03/24 Interval History: 73-year-old gentleman with underlying Alzheimer's dementia, COPD, BPH, esophageal cancer with port in place, CKD, being admitted for acute hypoxia and pulmonary aspiration. Patient was noted to be unresponsive right after lunch in his facility and brought to emergency room for evaluation where he was intubated with food particles taken out during intubation. He required pressor support secondary to need for sedation while on ventilatory support. His CT head is pending. He has been admitted to the intensive care unit. Titrated off pressors and extubated uneventfully on 04/02/2024. No events overnight. Critical Care Time (minutes): 0 Physical Exam 2 Vital Signs: Vital Signs: Last Vital Signs Temp 97.7 F 04/03/24 08:00 Pulse 74 04/03/24 11:00 Resp 18 04/03/24 11:00 BP 170/81 H 04/03/24 11:00 Pulse Ox 91 L 04/03/24 11:00 O2 Del Method Nasal Cannula 04/03/24 11:00 O2 Flow Rate 1 04/03/24 11:00 FiO2 21 04/02/24 11:00 BMI result Body Mass Index 22.9 Const: General: no acute distress, alert, awake and confusion O rientation/consciousness: confusion Eyes: Sclerae: sclerae normal EOM: EOMs intact bilaterally Neck: Neck: Yes no lymphadenopathy, Yes trachea midline and Yes supple Resp: Effort & Inspection: normal respiratory effort and no respiratory distress Auscultation: clear to auscultation bilaterally Cardio: Rate: regular rate Rhythm: regular rhythm Heart sounds: no gallops, no murmurs and no rubs GI: Palpation (GI): Soft to palpation and Other GI palpation findings present ( Nontender) Auscultation: normal bowel sounds Neuro: General: confusion Extrem: General: Yes no pedal edema, No clubbing and No cyanosis Objective Data Labs 04/03/24 05:06 04/03/24 05:06 Labs: Laboratory Results - last 24 hr 04/01/24 04/03/24 04/03/24 19:17 05:04 05:06 WBC 6.2 RBC 3.64 L Hgb 11.0 L Hct 32.4 L MCV 89.0 MCH 30.2 MCHC 34.0 RDW 14.0 Plt Count 82 L MPV 9.7 Immature Gran % (Auto) 0.5 H Neut % (Auto) 84.4 H Lymph % (Auto) 6.8 L [place] % (Auto) 7.2 Eos % (Auto) 0.8 Baso % (Auto) 0.3 Lymph # (Auto) 0.4 L [place] # (Auto) 0.4 Eos # (Auto) 0.1 Baso # (Auto) 0.0 Abs Immat Gran (auto) 0.03 Absolute Neuts (auto) 5.2 Absolute Nucleated RBC 0.000 Nucleated RBC % (auto) 0.0 VBG pH 7.44 H VBG pCO2 34 VBG pO2 41 VBG HCO3 23 VBG O2 Saturation 70.0 VBG Base Excess 0.4 Sodium 146 H Potassium 3.3 Chloride 110 H Carbon Dioxide 18 L Anion Gap 21 H BUN 27 H Creatinine 1.69 H Estim Creat Clear Calc 35.1 Estimated GFR 40 Random Glucose 68 Calcium 9.0 Phosphorus 3.5 Magnesium 1.7 Albumin 3.9 Respiratory Panel Ibarra See Note Adenovirus (Rapid PCR) Not Detected B.pert (TEM-PCR) Not Detected B.parapertussis DNA PCR Not Detected C. pneumoniae DNA (PCR) Not Detected Coronavirus OC43 (PCR) Not Detected Coronavirus HKU1 (PCR) Not Detected Coronavirus 229E (PCR) Not Detected Coronavirus NL63 (PCR) Not Detected Human Metapneumovir PCR Not Detected Influenza A (RT-PCR) Not Detected Influenza B (RT-PCR) Not Detected M. pneumoniae (PCR) Not Detected Parainfluenza 1 (PCR) Not Detected Parainfluenza 2 (PCR) Not Detected Parainfluenza 3 (PCR) Not Detected Parainfluenza 4 (PCR) Not Detected RSV (PCR) Not Detected Entero/Rhino (PCR) Not Detected SARS-CoV-2 RNA (RT-PCR) Not Detected Microbiology Microbiology Results: Microbiology 04/01/24 Unknown Urine Catheterized - Niño Catheter Urine Culture - Final No growth. Progress Note: A&P Assessment and plan (1) Alzheimers disease: Status: Acute (2) COPD (chronic obstructive pulmonary disease): Status: Acute (3) Pulmonary aspiration: Status: Acute (4) Acute respiratory failure with hypoxia: Status: Acute Plan Assessment: 73-year-old gentleman admitted with acute hypoxic respiratory failure requiring intubation ventilatory support secondary to aspiration of food Plan: Neuro: No acute issues. CT head without acute findings. Cardiac: No acute issues. Pulmonary: Acute hypoxic respiratory failure secondary to pulmonary aspiration requiring ventilatory support for airway protection. Extubated uneventfully on 04/02/2024. Underlying COPD. Renal: No acute issues. Endo: No acute issues. GI: No acute issues. ID: Empiric coverage for pulmonary aspiration. Heme/Onc: No acute issues. Waxing and waning chronic thrombocytopenia. Psych: No acute issues. Miscellaneous: No acute issues. Prophylaxis: Heparin Diet: Pending swallow evaluation Quality Stroke Does the patient have a stroke diagnosis?: No VTE Prior VTE?: No VTE Risk Level:: Medical - moderate - high VTE Device Contraindication: Treatment Not Indicated VTE Drug Contraindication: N/A - Med Ordered
[2024-04-03 12:23] LABS: Prothrombin Time Whole Bld POC 11.3 sec (11.1-13.5); ~PT, ~INR - Anti Coag Clinic 0.9 (0.9-1.1)
[2024-04-03] MEDS: Metoprolol Tartrate 25 MG TABLET PO ×2 (13:13→20:47)
--- NOTE | 2024-04-03 14:16 | MHC.SL.SWA ---
Speech Pathologist Impression: Risk of Aspiration Due to: History of Pneumonia Reduced Cognition Dysphasia Diet Status: Liquid Consistency and Strategies for Safe Swallow: Liquid Intake Recommendation: Thin Liquid Intake Strategies: Small Sips Solid Food Consistency: Dietary Recommendations: Pureed (NDD1) Additional Modifications to Solid Foods: Oral Medication Intake: Crushed with Puree Please contact the pharmacy regarding appropriate crushable or liquid drug formulations that are available whenever modified delivery is recommended. Compensatory Strategies and Precautions to be Taken for Safe Swallow: Sitting Upright (90 deg) Liquids from Cup Small Bites and Sips Alternate Liquids/Solids Rate of Ingestion Change Supervision While Eating and Drinking for Safe Swallow: Total Supervision (1:1) Foods to Avoid: Mixed consistencies. Swallowing Recommended Treatments: Compens. Strategy Educat. Recommendation for Speech: Inpatient Speech Therapy Comment: Patient presented today as edentulous, but otherwise with oral motor function WFL. Swallow above the level of the esophagus presented as WFL, with all aspects timely, however patient evidenced episode of coughing/?aspiration after swallow on mixed/soft consistency, with food present in secretions suctioned. Patient otherwise tolerated puree consistency and thin liquids on repeat trials. Recommend START/UPGRADE diet to Puree with THIN liquids, pills crushed in puree. Patient will require direct supervision at meals with strict aspiration precautions. Discontinue is patient evidences signs of aspiration, including coughing, regurgitation of food in secretions, drop in 02 saturation. MANAGER OF INFORMATION to follow for toleration of diet, re-assessment of swallow if warranted. , RN advised of recommendation in person. Frequency/Duration: Date Range for Service Req: Timeline to reassess: Chief Design Engineer Clinican/Clinical Fellow: No Supervisory Statement: I have reviewed and agree with the student/clinical fellow's documentation: N/A Speech Language Pathologist: Cat Robles M.A., CCC-MANAGER OF INFORMATION
[2024-04-03] MEDS: Heparin Sodium,Porcine 5,000 UNIT/ML VIAL 5000 UNIT SUBCUT (15:05)
[2024-04-04] MEDS: Ampicillin Sodium/Sulbactam Na 3 GM in 0.9 % Sodium Chloride 100 ML IV (03:16)
[2024-04-04 04:00] VITALS: BP 151/79; PULSE 72; RESP 20; TEMP 36.8; O2SAT 90
[2024-04-04 06:00] VITALS: BMI 19.8
[2024-04-04 06:35] LABS: Venous Blood Gas Refer to POC result
[2024-04-04 06:36] LABS: MANUAL DIFF FLAG NO
[2024-04-04 06:38] LABS: VBG HCO3 25 mmol/L (22-26); VBG pCO2 30 mmHg; VBG pH 7.53 (7.32-7.43); VBG pO2 97 mmHg
[2024-04-04 06:41] LABS: Basophils Percent Auto 0.2 % (0-2); Eosinophils Percent Auto 0.2 % (0-4); Hematocrit 34.8 % (42.0-52.0); Hemoglobin 11.5 g/dl (14.0-18.0); Imm Gran Abs Auto 0.03 X10*3/uL (0.00-0.03); Imm Gran Pct Auto 0.5 % (0.0-0.4); Lymphocytes Absolute Auto 0.6 X10*3/uL (1.2-4.9); Lymphocytes Percent Auto 9.9 % (20-40); Mean Corpuscular Volume 87.9 fL (80.0-98.0); Mean Platelet Volume 9.7 fL (9.4-12.4); Monocytes Absolute Auto 0.6 X10*3/uL (0.1-1.2); Monocytes Percent Auto 9.4 % (2-11); Neutrophils Absolute Auto 5.2 x10*3/uL (2.0-8.3); Neutrophils Percent Auto 79.8 % (45-73); Red Blood Count 3.96 X10*6/uL (4.60-5.80); White Blood Count 6.5 X10*3/uL (4.8-10.8)
[2024-04-04 06:45] LABS: Platelet Count 91 X10*3/uL (160-400)
[2024-04-04 07:04] VITALS: BP 154/88; PULSE 68; RESP 18; TEMP 36.1; O2SAT 94
[2024-04-04 07:07] LABS: Albumin Level 3.9 g/dL (3.5-5.0); Anion Gap 16 (12-20); Blood Urea Nitrogen 27 mg/dL (9-16); Calcium 9.7 mg/dL (8.4-10.2); Carbon Dioxide 23 mmol/L (22-29); Chloride 105 mmol/L (96-108); Creatinine Clr Calc Pharmacy 34.3; Estimated Glomerular Filt Rate 46; Glucose Random 124 mg/dL (60-115); Magnesium 1.7 mg/dL (1.6-2.6); Phosphorus 2.1 mg/dL (2.7-4.5); Potassium 3.2 mmol/L (3.3-5.1); Sodium 141 mmol/L (135-145)
[2024-04-04] MEDS: Metoprolol Tartrate 25 MG TABLET PO ×2 (08:31→20:41)
[2024-04-04] MEDS: Heparin Sodium,Porcine 5,000 UNIT/ML VIAL 5000 UNIT SUBCUT ×2 (08:32→15:54)
--- NOTE | 2024-04-04 10:41 | MHC.CM.PN ---
Per ROUNDS discussion, Patient is not yet medically cleared for dc (just up from the ICU, IV Ampicillin); returning to LTC is the goal and CM will continue to follow.
[2024-04-04 11:10] VITALS: BP 125/75; PULSE 58; RESP 18; TEMP 36.4; O2SAT 93
--- NOTE | 2024-04-04 12:56 | MHC.SL.SWA ---
Speech Pathologist Impression: Risk of Aspiration, Oropharyngeal Dysphagia Risk of Aspiration Due to: History of Pneumonia Reduced Cognition Dysphasia Diet Status: No Change Liquid Consistency and Strategies for Safe Swallow: Liquid Intake Recommendation: Thin Liquid Intake Strategies: Small Sips No Straws Solid Food Consistency: Dietary Recommendations: Pureed (NDD1) Additional Modifications to Solid Foods: Patient edentulous, but otherwise with oral motor function WFL. Swallow above the level of the esophagus presented as WFL, with all aspects timely. Nursing staff patient has been tolerating his meals without incident and takes his pills whole. Recommend CONTINUE diet of PUREED (NDD1) solids and THIN liquids. Patient will require direct supervision at meals with strict aspiration precautions. Discontinue is patient evidences signs of aspiration, including coughing, regurgitation of food in secretions, drop in 02 saturation. BULK SUGAR HANDLER to follow for toleration of diet, re-assessment of swallow if warranted. Oral Medication Intake: Crushed with Puree Please contact the pharmacy regarding appropriate crushable or liquid drug formulations that are available whenever modified delivery is recommended. Compensatory Strategies and Precautions to be Taken for Safe Swallow: Sitting Upright (90 deg) Double Swallow No Straw Small Bites and Sips Alternate Liquids/Solids Rate of Ingestion Change Avoid Specific Foods Supervision While Eating and Drinking for Safe Swallow: Total Supervision (1:1) Foods to Avoid: Mixed consistencies Swallowing Recommended Treatments: Compens. Strategy Educat. Recommendation for Speech: Inpatient Speech Therapy Internetworking Technician Clinican/Clinical Fellow: No Supervisory Statement: I have reviewed and agree with the student/clinical fellow's documentation: N/A Speech Language Pathologist: Carmencita Oviedo M.A., CCC-BULK SUGAR HANDLER
--- NOTE | 2024-04-04 13:27 | MHC.CLN ---
F/U DIET=PUREE WITH THIN LIQUIDS PER TRANSPORTATION DESIGN ENGINEER EVAL. ADDING ENSURE TID TO INCREASE NUTRITIONAL INTAKE. SUPPLEMENT PROVIDES 1050 KCALS, 60 G PROTEIN. LIMITED PO DOC DUE TO RECENT EXTUBATION 04/02. MONITOR PO INTAKE AND DIET TOLERANCE.
--- NOTE | 2024-04-04 14:46 | P.PNIM_ITS ---
Subjective Subjective Date of Service: 04/04/24 Interval History: No acute issues overnight. Removed his Port-A-Cath access. Does not wish reinserted. Review of Systems Denies chest pain Denies shortness of breath Denies nausea vomiting diarrhea Denies fever chills Physical Exam 2 Vital Signs: Vital Signs: Last Vital Signs Temp 97.6 F 04/04/24 11:10 Pulse 58 04/04/24 11:10 Resp 18 04/04/24 11:10 BP 125/75 04/04/24 11:10 Pulse Ox 93 04/04/24 11:10 O2 Del Method Room Air 04/04/24 11:10 O2 Flow Rate 1 04/03/24 13:00 FiO2 21 04/02/24 11:00 BMI result Body Mass Index 19.8 Const: Other: Awake alert no acute distress Resp: Other: Clear to auscultation bilaterally no rales rhonchi or wheezes Cardio: Other: No S4; positive S1-S2; no S3 murmurs rubs or gallops GI: Other: Soft nontender nondistended normoactive bowel sounds Extrem: Other: No edema bilaterally Objective Data Active Medications Heparin Sodium (Porcine) (Heparin Sodium,Porcine 5,000 Unit/Ml Vial) 5,000 unit SUBCUT Q8H [facility] Last Admin: 04/04/24 08:32 Dose: 5,000 unit Documented By: JEANETTE Ampicillin Sodium/Sulbactam (Sodium 3 gm/ Sodium Chloride) 100 mls @ 200 mls/hr IV Q12H [facility] Last Infusion: 04/04/24 03:46 Dose: Infused Documented By: FRANCIS Metoprolol Tartrate (Metoprolol Tartrate 25 Mg Tablet) 25 mg PO BID [facility]; Protocol Last Admin: 04/04/24 08:31 Dose: 25 mg Documented By: JEANETTE Labs 04/04/24 06:27 04/04/24 06:27 Labs: Laboratory Results - last 24 hr 04/04/24 04/04/24 06:27 06:33 MCV 87.9 MCH 29.0 MCHC 33.0 RDW 14.0 Plt Count 91 L MPV 9.7 Immature Gran % (Auto) 0.5 H Neut % (Auto) 79.8 H Lymph % (Auto) 9.9 L Churchill % (Auto) 9.4 Eos % (Auto) 0.2 Baso % (Auto) 0.2 Lymph # (Auto) 0.6 L Churchill # (Auto) 0.6 Eos # (Auto) 0.0 Baso # (Auto) 0.0 Abs Immat Gran (auto) 0.03 Absolute Neuts (auto) 5.2 Absolute Nucleated RBC 0.000 Nucleated RBC % (auto) 0.0 VBG pH 7.53 H VBG pCO2 30 VBG pO2 97 VBG HCO3 25 VBG O2 Saturation 99.0 VBG Base Excess 4.0 Anion Gap 16 Estim Creat Clear Calc 34.3 Estimated GFR 46 Random Glucose 124 H Calcium 9.7 D Phosphorus 2.1 L Magnesium 1.7 Albumin 3.9 Assessment and Plan (1) Acute respiratory failure with hypoxia: Status: Acute (2) Pulmonary aspiration: Status: Acute Plan 73-year-old gentleman admitted with acute hypoxic respiratory failure requiring intubation ventilatory support secondary to aspiration of food 1. Aspiration pneumonia -switch to Augmentin 875 b.i.d. -titrate O2 to off as tolerated 2. Hypertension -acceptable control on current therapies -adjust as indicated 3. Alzheimer's dementia -stable and well compensated on current therapy Full code Heparin Quality Stroke Does the patient have a stroke diagnosis?: No VTE Prior VTE?: No VTE Risk Level:: Medical - moderate - high VTE Device Contraindication: Treatment Not Indicated VTE Drug Contraindication: N/A - Med Ordered
[2024-04-04 15:25] VITALS: BP 140/70; PULSE 59; RESP 20; TEMP 36.6; O2SAT 94
[2024-04-04] MEDS: Sucralfate 1 GM TABLET PO ×2 (17:28→20:41)
[2024-04-04] MEDS: Amoxicillin/Potassium Clav 500 MG TABLET PO (17:36)
[2024-04-04 19:15] VITALS: BP 138/75; PULSE 85; RESP 28; TEMP 36.7; O2SAT 94
[2024-04-04] MEDS: Mirtazapine 15 MG TABLET PO (20:41)
[2024-04-04] MEDS: levETIRAcetam 500 MG TABLET PO (20:41)
[2024-04-04 23:48] VITALS: BP 141/85; PULSE 71; RESP 18; TEMP 36.7; O2SAT 95
[2024-04-05 04:00] VITALS: BP 151/81; PULSE 66; RESP 18; TEMP 36.4; O2SAT 93
[2024-04-05] MEDS: Amoxicillin/Potassium Clav 500 MG TABLET PO (05:45)
[2024-04-05] MEDS: Omeprazole 20 MG CAPSULE.DR PO (05:45)
[2024-04-05 06:00] VITALS: BMI 19.3
[2024-04-05 07:36] VITALS: BP 137/66; PULSE 65; RESP 18; TEMP 36.7; O2SAT 93
[2024-04-05] MEDS: Heparin Sodium,Porcine 5,000 UNIT/ML VIAL 5000 UNIT SUBCUT (09:26)
[2024-04-05] MEDS: Finasteride 5 MG TABLET PO (09:26)
[2024-04-05] MEDS: Sucralfate 1 GM TABLET PO (09:27)
[2024-04-05] MEDS: levETIRAcetam 500 MG TABLET PO (09:27)
[2024-04-05] MEDS: Potassium Chloride ER 20 MEQ TAB.ER.PRT PO (09:27)
[2024-04-05] MEDS: Metoprolol Tartrate 25 MG TABLET PO (09:27)
[2024-04-05] MEDS: Tamsulosin HCL 0.4 MG CAPSULE PO (09:27)
[2024-04-05] MEDS: Roflumilast 500 MCG TABLET PO (09:27)
[2024-04-05 10:16] LABS: Anion Gap 13 (12-20); Blood Urea Nitrogen 35 mg/dL (9-16); Carbon Dioxide 24 mmol/L (22-29); Chloride 108 mmol/L (96-108); Creatinine Clr Calc Pharmacy 32.5; Estimated Glomerular Filt Rate 44; Glucose Random 138 mg/dL (60-115); Potassium 3.1 mmol/L (3.3-5.1); Sodium 142 mmol/L (135-145)
--- NOTE | 2024-04-05 11:02 | MHC.CM.PN ---
Second IMM 04/05. Pt is medically cleared for discharge back to [facility] [place] today, pt will discharge back via BLS/Ling today.
[2024-04-05 11:36] VITALS: BP 127/73; PULSE 57; RESP 16; TEMP 36.7; O2SAT 97
--- NOTE | 2024-04-05 11:52 | P.DS_ITS ---
DS: Providers Provider Date of Service: 04/05/24 Date of admission: 04/01/24 15:01 Date of discharge: 04/05/24 Primary care physician: LAURIE CHAIREZ DS: Diagnosis Discharge Diagnosis (1) Acute respiratory failure with hypoxia: Status: Acute (2) Pulmonary aspiration: Status: Acute DS: Summary Hospital Course Hospital Course: 73-year-old gentleman with underlying Alzheimer's dementia, COPD, BPH, es ophageal cancer with port in place, CKD, being admitted for acute hypoxia and pulmonary aspiration. Patient was noted to be unresponsive right after lunch in his facility and brought to emergency room for evaluation where he was intubated with food particles taken out during intubation. He required pressor support secondary to need for sedation while on ventilatory support. Hospital Course Patient admitted to ICU intubated requiring pressor support. Started on empiric Unasyn for aspiration pneumonia. He was successfully weaned off the ventilator and transferred to the floor. Patient did remove his central venous access catheter and was switch to Augmentin without issue. He was mildly hypokalemic during this hospitalization and received 40 mEq on the day of discharge for potassium of 3.1. He has been started on 20 mEq daily. Electrolytes seem to be follow up with receiving facility and treated as appropriate. At this point he is medically acceptable for discharge. Time Attestation Discharge Coordination Time (in mins): 35 Quality: Safe Use of Opioids Does Pt have an Active Cancer Diagnosis on the Problem List?: No Quality: Stroke Does the patient have a stroke diagnosis?: No Physical Exam Vital Signs: Vital Signs: Last Vital Signs Temp 98.1 F 04/05/24 11:36 Pulse 57 04/05/24 11:36 Resp 16 04/05/24 11:36 BP 127/73 04/05/24 11:36 Pulse Ox 97 04/05/24 11:36 O2 Del Method Room Air 04/05/24 11:36 O2 Flow Rate 1 04/03/24 13:00 FiO2 21 04/02/24 11:00 BMI result Body Mass Index 19.3 Const: Other: Awake alert no acute distress Resp: Other: Clear to auscultation bilaterally no rales rhonchi or wheezes Cardio: Other: No S4; positive S1-S2; no S3 murmurs rubs or gallops GI: Other: Soft nontender nondistended normoactive bowel sounds Extrem: Other: No edema bilaterally DS: Data Data Completed and Pending Completed studies during hospitalization [Text1]: Procedures Insertion of Infusion Device into Superior Vena Cava, Percutaneous Approach (11/26/23) Ultrasonography of Superior Vena Cava, Guidance (11/26/23) Labs on day of discharge: Laboratory Results - last 24 hr 04/05/24 09:47 Sodium 142 Potassium 3.1 L Chloride 108 Carbon Dioxide 24 Anion Gap 13 BUN 35 H Creatinine 1.55 H Estim Creat Clear Calc 32.5 Estimated GFR 44 Random Glucose 138 H Calcium 9.0 D Discharge Plan Discharge Patient Disposition: Xfer [facility] Discharge Diagnosis: Acute respiratory failure with hypoxia secondary to aspiration Referrals: [facility] [Outside] - 1 Week LAURIE CHAIREZ [Primary Care Provider] - 1 Week Discharge Medications: New metoprolol tartrate 25 mg Tablet 25 mg PO BID Qty: 60 0RF Protocol: Hold for SBP/HR < HOLD for SBP < : 90 HOLD for HR < : 60 amoxicillin-pot clavulanate 875-125 mg tablet 1 tab PO BID Qty: 20 0RF potassium chloride 20 mEq tablet extended release 20 meq PO DAILY Qty: 30 0RF Continued albuterol sulfate 90 mcg/actuation Hfa Aerosol Inhaler 2 puff INHALATION Q6H PRN (Reason: Wheezing) Yupelri 175 mcg/3 mL Solution For Nebulization 175 mcg INHALATION DAILY rosuvastatin 10 mg Tablet 10 mg PO BEDTIME nystatin 100,000 unit/gram Powder 1 appl topical BID Qty: 30 0RF Protocol: Apply to: Apply to: Groins oxycodone [OxyContin] 10 mg Tablet,Oral Only,Ext.Rel.12 Hr 10 mg PO BID gabapentin 600 mg Tablet 600 mg PO BEDTIME sennosides [senna] 8.6 mg Tablet 8.6 mg PO BID oxycodone 5 mg tablet 5 mg PO Q6H PRN (Reason: Pain, Severe (Pain Scale 7-10)) Rx Instructions: Partial Fill upon patient request. epinephrine [EpiPen] 0.3 mg/0.3 mL Auto-Injector 0.3 mg IM Q5M PRN (Reason: Anaphylaxis) cholecalciferol (vitamin D3) 10 mcg (400 unit) capsule 20 mcg PO DAILY potassium chloride 20 mEq tablet extended release 20 meq PO DAILY finasteride 5 mg tablet 5 mg PO DAILY pantoprazole 40 mg tablet,delayed release (DR/EC) 40 mg PO DAILY@0630 roflumilast 500 mcg tablet 500 mcg PO DAILY tamsulosin 0.4 mg capsule 0.4 mg PO DAILY mirtazapine 15 mg tablet 15 mg PO BEDTIME ramelteon 8 mg tablet 8 mg PO BEDTIME ferrous sulfate 325 mg (65 mg iron) tablet 325 mg PO BID levetiracetam 500 mg tablet 500 mg PO BID metoprolol tartrate 25 mg tablet 25 mg PO BID sucralfate 1 gram tablet 1 g PO QID polyethylene glycol 3350 17 gram/dose powder 17 g PO DAILY PRN (Reason: Constipation) bisacodyl [Gentle Laxative (bisacodyl)] 10 mg suppository 10 mg WA DAILY PRN (Reason: Constipation) acetaminophen [Tylenol] 325 mg capsule 650 mg PO Q6H PRN (Reason: Mild Pain (Scale Score 1-4)) acetaminophen 650 mg suppository 650 mg WA Q6H PRN (Reason: Fever Or Pain) oxybutynin chloride 5 mg tablet 5 mg PO Q8H PRN (Reason: Bladder Spasms) naloxone 0.4 mg/mL solution 0.4 mg subcut Q2M PRN (Reason: Opioid Overdose) Rx Instructions: NTExceed 10 mg total dose/episode Discharge Orders: Discharge Order (Routine); Ordered 04/05/24 Ordered By: Donis Dimas Diet: Advance to usual diet Activity on Discharge: As tolerated Stand Alone Forms: Patient Portal Discharge page Print Language: Cymraes Care Plan Goals: Resume all meds as previously taken prior to hospitalization Health Concerns: Complete course of Augmentin 875 b.i.d. times 10 days. Potassium 20 mEq daily has been added to regimen Plan of Treatment: Patient will need follow up electrolytes early next week and treated as indicated Assessment: See discharge summary
[2024-04-05] MEDS: Potassium Chloride Packet 20 MEQ PACKET 40 MEQ PO (12:11)
== END 2024-04-05 13:23 | DRG 208 ==
LOC: HO.ED 14:32 → HO.EDOVER 15:06 → HO.ICU 15:15 → HO.IMC 04-03 13:49
PROVIDERS: Physician Assistant Medical; Registered Nurse Community Health; Admitting Provider Internal Medicine Pulmonary Disease; Emergency Provider Emergency Medicine; PCP Emergency Medicine; Visit Provider Hospitalist
DX: J69.0 Pneumonitis due to inhalation of food and vomit (principal); G92.8 Other toxic encephalopathy; J96.01 Acute respiratory failure with hypoxia; E87.6 Hypokalemia; N18.30 Chronic kidney disease, stage 3 unspecified; D69.6 Thrombocytopenia, unspecified; I12.9 Hypertensive chronic kidney disease with stage 1 through stage 4 chronic kidney disease, or unspecified chronic kidney disease; J44.9 Chronic obstructive pulmonary disease, unspecified; N40.0 Benign prostatic hyperplasia without lower urinary tract symptoms; G30.9 Alzheimer's disease, unspecified; F02.80 Dementia in other diseases classified elsewhere, unspecified severity, without behavioral disturbance, psychotic disturbance, mood disturbance, and anxiety; Z20.822 Contact with and (suspected) exposure to COVID-19; Z79.899 Other long term (current) drug therapy
CPT/HCPCS: 36415; 36600; 70450; 71045; 80048; 80053; 80307; 81001; 82040; 82803; 82947; 83605; 83690; 83735; 83880; 84100; 84484; 85025; 85610; 85730; 87086; 87633; 92526; 92610; 93005; 94002; 94003; 99285; J0131; J0295; J0330; J1644; J2270; J2704; J3010; J3480; J7120; P9047

== ENCOUNTER → 2024-04-01 13:50 | Outpatient (BNV) | payer MEDICARE, MEDICAID, SELFPAY | PROVIDERS: Admitting Provider Internal Medicine Pulmonary Disease; Emergency Provider Emergency Medicine; PCP Emergency Medicine; Visit Provider Internal Medicine Cardiovascular Disease | DX: R94.31 Abnormal electrocardiogram [ECG] [EKG] (principal) | CPT/HCPCS: 93010 ==

== ENCOUNTER → 2024-04-01 15:01 | Outpatient (BNV) | payer MEDICARE, SELFPAY | PROVIDERS: Admitting Provider Internal Medicine Pulmonary Disease; Emergency Provider Emergency Medicine; PCP Emergency Medicine; Visit Provider Hospitalist | DX: J96.01 Acute respiratory failure with hypoxia (principal); T17.900A Unspecified foreign body in respiratory tract, part unspecified causing asphyxiation, initial encounter | CPT/HCPCS: 99232; 99239 ==

== ENCOUNTER → 2024-04-01 15:01 | Outpatient (BNV) | payer MEDICARE, MEDICAID, SELFPAY | PROVIDERS: Admitting Provider Internal Medicine Pulmonary Disease; Emergency Provider Emergency Medicine; PCP Emergency Medicine; Visit Provider Internal Medicine Pulmonary Disease | DX: G30.9 Alzheimer's disease, unspecified (principal); F02.80 Dementia in other diseases classified elsewhere, unspecified severity, without behavioral disturbance, psychotic disturbance, mood disturbance, and anxiety; J44.9 Chronic obstructive pulmonary disease, unspecified; T17.900A Unspecified foreign body in respiratory tract, part unspecified causing asphyxiation, initial encounter; J96.01 Acute respiratory failure with hypoxia | CPT/HCPCS: 99232; 99291 ==

== ENCOUNTER 2024-04-08 11:05 | Outpatient (AMB) | payer MEDICARE, MEDICAID, SELFPAY ==
--- NOTE | 2024-04-08 11:12 | MHC.OFFVIS ---
Vital Signs 04/08/24 11:20 Height 5 ft 6 in Weight 119 lb 0.794 oz BMI 19.2 Pulse 60 Intake Visit Reasons: s/p 02/08/24 CT Intake Note: Patient is seen in office for CT scan results, following incisional hernia. Pt c/o: here for results, pain at all times, pain has been getting worse CT:02/08/24 Manager Medical Writing Required: No Accompanied by: Other Relationship Allergies No Known Allergies Allergy (Verified 04/08/24 11:22) Medication List - Last Reconciled 04/08/24 by Marco Bowden MD acetaminophen 650 mg MI Q6H PRN acetaminophen (Tylenol) 650 mg PO Q6H PRN albuterol sulfate 90 mcg/actuation 2 puffs inhalation Q6H PRN amoxicillin-pot clavulanate 875-125 mg 1 tab PO BID bisacodyl (Gentle Laxative (bisacodyl)) 10 mg MI DAILY PRN cholecalciferol (vitamin D3) 20 mcg PO DAILY epinephrine (EpiPen) 0.3 mg IM Q5M PRN ferrous sulfate 325 mg PO BID finasteride 5 mg PO DAILY gabapentin 600 mg PO BEDTIME levetiracetam 500 mg PO BID metoprolol tartrate 25 mg See Protocol PO BID metoprolol tartrate 25 mg PO BID mirtazapine 15 mg PO BEDTIME naloxone 0.4 mg subcut Q2M PRN nystatin 1 appl See Protocol topical BID oxybutynin chloride 5 mg PO Q8H PRN oxycodone 5 mg PO Q6H PRN oxycodone ER (OxyContin) 10 mg PO BID pantoprazole 40 mg PO DAILY@0630 polyethylene glycol 3350 17 grams PO DAILY PRN potassium chloride ER 20 mEq PO DAILY potassium chloride ER 20 mEq PO DAILY ramelteon 8 mg PO BEDTIME revefenacin (Yupelri) 175 mcg inhalation DAILY roflumilast 500 mcg PO DAILY rosuvastatin 10 mg PO BEDTIME sennosides (senna) 8.6 mg PO BID sucralfate 1 g PO QID tamsulosin 0.4 mg PO DAILY HPI Comments Details: 73-year-old male patient with past medical history of Alzheimer's disease, COPD, status post exploratory laparotomy for perforated appendicitis presenting with a large abdominal hernia. Patient was found to have a large abdominal wall hernia which is causing discomfort, nausea and vomiting. Patient was recently admitted for a possible aspiration pneumonia. He continues to feel a lump in the upper abdomen which does not reduce. CT abdomen and pelvis confirmed a large upper abdominal incisional hernia/ventral hernia containing transverse colon. He presents today to discuss repair of this large symptomatic hernia. Patient feels the lump has been present for 1 year. He reports difficulty moving his bowels because of the lump. He denies any nausea or vomiting. [facility] Medical History COPD (chronic obstructive pulmonary disease) Aggressive behavior CKD (chronic kidney disease), stage III BPH (benign prostatic hyperplasia) Chronic pain syndrome Opioid dependence in remission Hyperlipidemia Hypertension Nephrolithiasis Esophageal cancer Chronic anemia Alzheimers disease Irreducible incisional hernia Perforated appendicitis Surgical History History of appendectomy Social History Household Members: Unknown / Unable to assess Household Members Other:: [facility] Housing: Unknown / Unable to assess Do you presently have visiting nurse or other home services: No Alcohol intake: never Comment: pt refuse alarm Patient Tobacco Use Status: Tobacco use Unknown Tobacco use type: Cigarette Cigarette Packs Per Day: 0.5 Cigarettes Per Day: 10.0 Years Smoked: 58 e-Cigarette/Vaping Use: Never Used Second Hand Smoke Exposure: No Substance Use Type: Marijuana Advance Directives Date on File: 04/01/24 service: No Review of Systems Const Unobtainable due to mental status Physical Exam Vital Signs: Last Vital Signs Pulse 60 04/08/24 11:20 BMI result Body Mass Index 19.2 Const General: cooperative and no acute distress Nutritional Appearance: well nourished Orientation/consciousness: patient oriented x3 Limitations: no limitations HEENT Head: Yes normocephalic and Yes atraumatic Ears: hearing grossly normal bilaterally Resp Other: Short of breath with minimal ambulation and when lying supine. Effort & Inspection: normal respiratory effort Cardio Jugular venous distension: no JVD GI Other: Large midline incisional hernia identified measuring at least 15 cm in diameter. Patient placed in a supine, unable to reduce the hernia with light pressure. Minimal tenderness noted to light pressure. No overlying skin changes such as erythema appreciated. Inspection: Yes normal to inspection Skin Other: Warm, dry, no rash Neuro General: patient oriented x3 Extrem General: Yes no clubbing, cyanosis or edema Assessment & Plan Assessment & Plan (1) Irreducible incisional hernia: Code(s): K43.0 - Incisional hernia with obstruction, without gangrene Category: Medical Plan 73-year-old male patient with multiple medical problems presenting with a large upper abdominal incisional hernia, non reducible with an actual defect which measures approximately 2-3 cm but a sac which is up to 15 cm in diameter containing transverse colon. Patient is symptomatic with abdominal pain, nausea and vomiting therefore the hernia should be repaired. I recommended a repair of the incisional hernia with mesh and after discussion of the procedure, risks, and alternatives, he consents to the surgery. This will be performed as a short-stay admit because of his medical issues. Coding Level of Care Code Est Pt Level 4 (95391) Diagnoses Irreducible incisional hernia K43.0
[2024-04-08 11:20] VITALS: PULSE 60; BMI 19.2
== END 2024-04-08 11:29 | disposition home or self-care (01) ==
PROVIDERS: PCP Emergency Medicine; Visit Provider Surgery
DX: K43.0 Incisional hernia with obstruction, without gangrene (principal)
CPT/HCPCS: 99214

== ENCOUNTER → 2024-04-08 11:05 | Outpatient (BNVA) | payer MEDICARE, MEDICAID, SELFPAY | PROVIDERS: PCP Emergency Medicine; Visit Provider Surgery | DX: K43.0 Incisional hernia with obstruction, without gangrene (principal) | CPT/HCPCS: 99212 ==